=== PATIENT | female | born 1940 | race Caucasian/White ===

== ENCOUNTER 2021-10-14 12:15 | Emergency (ER) | payer MEDICARE, SELFPAY ==
[2021-10-14 12:19] VITALS: BP 145/66; PULSE 79; TEMP 36.3; O2SAT 96; BMI 27.2
--- NOTE | 2021-10-14 12:38 | ED_ITS ---
HPI - General Adult General Chief complaint: Skin/Abscess/Foreign Body Stated complaint: Cyst on hand Time Seen by Provider: 10/14/21 12:17 Source: patient Mode of arrival: ambulatory Limitations: no limitations History of Present Illness HPI narrative: Patient is a varinder 81-year-old female coming in today complaining of a red and swollen finger. States that 2 days started to get a little sore at the end of the finger in all fingers red and swollen. Denies any systemic symptoms. Denies any history of gout. Denies any trauma to the finger. Denies other painful extremities. Related Data Home Medications Medication Instructions Recorded Confirmed amlodipine 5 mg tablet 5 mg PO DAILY tab 10/12/21 10/12/21 aspirin 81 mg chewable tablet 81 mg PO QDAY 10/12/21 10/12/21 cetirizine 10 mg tablet 10 mg PO DAILY 10/12/21 10/12/21 ciclopirox 1 % shampoo 1 TOPICAL .2X Weekly 10/12/21 10/12/21 cyanocobalamin (vitamin B-12) 1,000 mcg PO DAILY 10/12/21 10/12/21 1,000 mcg tablet desonide 0.05 % topical ointment 1 applic TOPICAL BID g 10/12/21 10/12/21 estradiol 0.01% (0.1 mg/gram) 1 g VAGINAL .Weekly g 10/12/21 10/12/21 vaginal cream losartan 100 mg tablet 100 mg PO DAILY tab 10/12/21 10/12/21 loteprednol etabonate 0.5 % eye 0.5 drp OPHTHALMIC (EYE) 10/12/21 10/12/21 gel drops omega 7-gam-wcv-fish oil 300 1 cap PO QDAY 10/12/21 10/12/21 mg-1,000 mg capsule (Fish Oil) propafenone 150 mg tablet 150 mg PO TID 10/12/21 10/12/21 rosuvastatin 10 mg tablet 10 mg PO .Bedtime 10/12/21 10/12/21 tacrolimus 0.03 % topical ointment 1 TOPICAL PRN 10/12/21 10/12/21 triamcinolone acetonide 0.1 % 1 applic TOPICAL .Daily as needed 10/12/21 10/12/21 topical ointment PRN g valacyclovir 500 mg tablet 500 mg PO DAILY tab 10/12/21 10/12/21 Previous Rx's Medication Instructions Recorded cephalexin 500 mg capsule 500 mg PO TID 7 Days #21 cap 10/14/21 Allergies Allergy/AdvReac Type Severity Reaction Status Date / Time hydrochlorothiazide Allergy Intermediate Unknown Verified 10/12/21 10:27 trifluridine Allergy Intermediate Verified 10/12/21 10:27 atorvastatin Allergy Mild Unknown Verified 10/12/21 10:27 iodine Allergy Mild Unknown Verified 10/12/21 10:27 lisinopril Allergy Mild Unknown Verified 10/12/21 10:27 rofecoxib Allergy Mild Unknown Verified 10/12/21 10:27 simvastatin Allergy Mild Unknown Verified 10/12/21 10:27 formaldehyde Allergy Unknown Verified 10/12/21 10:27 hydrocortisone Allergy Unknown Verified 10/12/21 10:27 methylisothiazolinone Allergy Unknown Verified 10/12/21 10:27 neomycin Allergy Unknown Unknown Verified 10/12/21 10:27 propylene glycol Allergy Unknown Unknown Verified 10/12/21 10:27 sodium benzoate Allergy Unknown Verified 10/12/21 10:27 BENEDRYL Allergy Mild Unknown Uncoded 10/12/21 10:27 Benzophenone Allergy Unknown Unknown Uncoded 10/12/21 10:27 black rubber mix Allergy Unknown Uncoded 10/12/21 10:27 cobalt chloride hexahydrate Allergy Unknown Uncoded 10/12/21 10:27 Cocamide Allergy Unknown Uncoded 10/12/21 10:27 dibutyl phthalate Allergy Unknown Uncoded 10/12/21 10:27 disperse orange 3 Allergy Unknown Uncoded 10/12/21 10:27 DMDM Hydantoin Allergy Unknown Uncoded 10/12/21 10:27 dodecyl gallate Allergy Unknown Uncoded 10/12/21 10:27 ethyl acrylate Allergy Unknown Uncoded 10/12/21 10:27 ethylenediamine Allergy Unknown Uncoded 10/12/21 10:27 dihydrochloride glyceryl thioglycolate Allergy Unknown Uncoded 10/12/21 10:27 hydroperoxide of limonene Allergy Unknown Uncoded 10/12/21 10:27 hydroperoxide of linalool Allergy Unknown Uncoded 10/12/21 10:27 Lauryl Polyglucose Allergy Unknown Uncoded 10/12/21 10:27 lodopropynyl butylcarbamate Allergy Unknown Uncoded 10/12/21 10:27 mercapto mix Allergy Unknown Uncoded 10/12/21 10:27 nickel sulfate hexahydrate Allergy Unknown Uncoded 10/12/21 10:27 B-pelo-ruuuatgpcsz-formaldehyde Allergy Unknown Unknown Uncoded 10/12/21 10:27 resin (low molecular weight) Peppermint oil Allergy Unknown Unknown Uncoded 10/12/21 10:27 Shellac Allergy Unknown Unknown Uncoded 10/12/21 10:27 thiuram mix Allergy Unknown Uncoded 10/12/21 10:27 tixocortol 21 Pivalate Allergy Unknown Uncoded 10/12/21 10:27 Review of Systems Status of ROS: Reports: 6 or more systems reviewed and unremarkable except as noted in History and below [facility] Medical History History of keratitis History of thyroid nodule Surgical History History of bilateral tubal ligation (1970) History of incisional hernia repair (1970) History of phacoemulsification of cataract of both eyes with intraocular lens implantation (2016) History of tonsillectomy (~1940) History of total bilateral knee replacement (TKR) (2010) Family History Mother Stroke Coronary artery disease Diabetes Maternal Grandmother Stroke Maternal Grandfather Coronary artery disease Exam Narrative: Exam Narrative: Well-nourished well-developed patient in no acute distress. Alert and oriented. Answers questions appropriately. Mood and affect are appropriate. Thoughts are goal oriented and rational. No tangential or magical thinking noted. Patient speaks in full sentences without needing to catch their breath. HEENT: Normocephalic atraumatic. Pupils are equally round reactive to light. Extraocular muscles are intact. Conjunctivae are moist without any icterus noted. Extremities: Middle finger of the right hand is swollen, erythematous and warm to touch. The worst area is on the distal phalanx. The whole fingers quite tender. She has decreased range of motion secondary to the swelling. The remainder of the hand appears normal aside from some osteoarthritis of the fingers. Normal radial pulse. Const: Vital Signs, click to edit/add: Vital Signs - 24 hr 10/14/21 12:19 Temperature 97.4 F L Pulse Rate [Right Pulse Oximeter] 79 Blood Pressure [Le ft Upper Arm] 145/66 H Pulse Oximetry 96 Course Vital Signs Vital signs: Initial Vital Signs Temperature 97.4 F L 10/14/21 12:19 Temperature Source Temporal Artery Scan 10/14/21 12:19 Pulse Rate 79 10/14/21 12:19 Blood Pressure 145/66 H 10/14/21 12:19 Blood Pressure Mean 92 10/14/21 12:19 Blood Pressure Position Sitting 10/14/21 12:19 Pulse Oximetry 96 10/14/21 12:19 Oxygen Delivery Method 10/14/21 12:19 Vital Signs Temperature 97.4 F L 10/14/21 12:19 Pulse Rate 79 10/14/21 12:19 Blood Pressure 145/66 H 10/14/21 12:19 Pulse Oximetry 96 10/14/21 12:19 Temperature 97.4 F L 10/14/21 12:19 Pulse Rate 79 10/14/21 12:19 Blood Pressure 145/66 H 10/14/21 12:19 Pulse Oximetry 96 10/14/21 12:19 Medical Decision Making MDM Narrative Medical decision making narrative: 81-year-old female with probable cellulitis of the finger. I see no evidence of paronychia today. We did discuss the possibility of gout. At this time will treat with Keflex 3 times a day for a week if she is not seeing improvement in the next 48 hours recommend a re-evaluation. We also discussed return if she develops fever or any other systemic symptoms. Patient was agreeable had no other questions. Medical Records Medical records reviewed: Yes I reviewed the patient's medical records Discharge Plan Discharge Clinical Impression: Cellulitis Patient Disposition: Home, Self-Care Condition: Stable Instructions: Cellulitis (ED) Additional Instructions: Take all antibiotics as prescribed. Return in 48 hours if you are not seeing any improvement. Return sooner if it is getting worse. Prescriptions: New cephalexin 500 mg capsule 500 mg PO TID 7 Days Qty: 21 0RF No Action losartan 100 mg tablet 100 mg PO DAILY 0RF valacyclovir 500 mg tablet 500 mg PO DAILY 0RF amlodipine 5 mg tablet 5 mg PO DAILY 0RF cetirizine 10 mg tablet 10 mg PO DAILY 0RF cyanocobalamin (vitamin B-12) 1,000 mcg tablet 1,000 mcg PO DAILY 0RF omega 5-fwx-ogx-fish oil [Fish Oil] 300-1,000 mg capsule 1 cap PO QDAY 0RF propafenone 150 mg tablet 150 mg PO TID 0RF Rx Instructions: space evenly during waking hours estradiol 0.01 % (0.1 mg/gram) cream 1 g vaginal .Weekly 0RF Rx Instructions: Medication to be put into individually filled applicators. rosuvastatin 10 mg tablet 10 mg PO .Bedtime 0RF loteprednol etabonate 0.5 % drops,gel 0.5 drp ophthalmic (eye) 0RF aspirin 81 mg tablet,chewable 81 mg PO QDAY 0RF ciclopirox 1 % shampoo 1 topical .2X Weekly 0RF desonide 0.05 % ointment 1 applic topical BID 0RF triamcinolone acetonide 0.1 % ointment 1 applic topical .Daily as needed PRN0RF Rx Instructions: APPLY TO AFFECTED AREA tacrolimus 0.03 % ointment 1 topical PRN0RF Follow Up/Referrals: Marley Abrams MD [Primary Care Provider] - Stand Alone Forms: [facility] Info Instructions
== END 2021-10-14 13:05 | disposition home or self-care (01) ==
LOC: ED 13:05
PROVIDERS: Emergency Provider Family Medicine; PCP Internal Medicine
DX: L03.011 Cellulitis of right finger (principal)
CPT/HCPCS: 99282; 99283; 99284

== ENCOUNTER 2021-10-15 15:03 | Emergency (ER) | payer MEDICARE, SELFPAY ==
[2021-10-15 15:10] VITALS: BP 146/69; PULSE 81; RESP 18; TEMP 36.6; O2SAT 96; BMI 27.2
--- NOTE | 2021-10-15 15:40 | ED_ITS ---
HPI - General Adult General Time Seen by Provider: 15:40 Date Seen: 10/15/21 Chief complaint: Extremity Pain/Injury, Upper Stated complaint: Infected Finger Time Seen by Provider: 10/15/21 15:04 Source: patient Mode of arrival: ambulatory Limitations: no limitations History of Present Illness HPI narrative: The patient is a 81-year-old white female was seen yesterday for a finger infection, started on Keflex. She reports the fingers now have a little bit a white spot on it it is on the dorsum of the long finger on the right same as yesterday. She does know much him see much improvement from the Keflex. She has been uncertain tavarez this began in the 1st place no trauma or injury to the finger she up-to-date on immunizations by her history range of motion of the fingers limited. They plan on traveling the next few days and wants this checked Related Data Home Medications Medication Instructions Recorded Confirmed amlodipine 5 mg tablet 5 mg PO DAILY tab 10/12/21 10/12/21 aspirin 81 mg chewable tablet 81 mg PO QDAY 10/12/21 10/12/21 cetirizine 10 mg tablet 10 mg PO DAILY 10/12/21 10/12/21 ciclopirox 1 % shampoo 1 TOPICAL .2X Weekly 10/12/21 10/12/21 cyanocobalamin (vitamin B-12) 1,000 mcg PO DAILY 10/12/21 10/12/21 1,000 mcg tablet desonide 0.05 % topical ointment 1 applic TOPICAL BID g 10/12/21 10/12/21 estradiol 0.01% (0.1 mg/gram) 1 g VAGINAL .Weekly g 10/12/21 10/12/21 vaginal cream losartan 100 mg tablet 100 mg PO DAILY tab 10/12/21 10/12/21 loteprednol etabonate 0.5 % eye 0.5 drp OPHTHALMIC (EYE) 10/12/21 10/12/21 gel drops omega 9-eml-bpp-fish oil 300 1 cap PO QDAY 10/12/21 10/12/21 mg-1,000 mg capsule (Fish Oil) propafenone 150 mg tablet 150 mg PO TID 10/12/21 10/12/21 rosuvastatin 10 mg tablet 10 mg PO .Bedtime 10/12/21 10/12/21 tacrolimus 0.03 % topical ointment 1 TOPICAL PRN 10/12/21 10/12/21 triamcinolone acetonide 0.1 % 1 applic TOPICAL .Daily as needed 10/12/21 10/12/21 topical ointment PRN g valacyclovir 500 mg tablet 500 mg PO DAILY tab 10/12/21 10/12/21 Previous Rx's Medication Instructions Recorded cephalexin 500 mg capsule 500 mg PO TID 7 Days #21 cap 10/14/21 sulfamethoxazole 800 1 tab PO BID 7 Days #14 tab 10/15/21 mg-trimethoprim 160 mg tablet Allergies Allergy/AdvReac Type Severity Reaction Status Date / Time hydrochlorothiazide Allergy Intermediate Unknown Verified 10/12/21 10:27 trifluridine Allergy Intermediate Verified 10/12/21 10:27 atorvastatin Allergy Mild Unknown Verified 10/12/21 10:27 iodine Allergy Mild Unknown Verified 10/12/21 10:27 lisinopril Allergy Mild Unknown Verified 10/12/21 10:27 rofecoxib Allergy Mild Unknown Verified 10/12/21 10:27 simvastatin Allergy Mild Unknown Verified 10/12/21 10:27 formaldehyde Allergy Unknown Verified 10/12/21 10:27 hydrocortisone Allergy Unknown Verified 10/12/21 10:27 methylisothiazolinone Allergy Unknown Verified 10/12/21 10:27 neomycin Allergy Unknown Unknown Verified 10/12/21 10:27 propylene glycol Allergy Unknown Unknown Verified 10/12/21 10:27 sodium benzoate Allergy Unknown Verified 10/12/21 10:27 BENEDRYL Allergy Mild Unknown Uncoded 10/12/21 10:27 Benzophenone Allergy Unknown Unknown Uncoded 10/12/21 10:27 black rubber mix Allergy Unknown Uncoded 10/12/21 10:27 cobalt chloride hexahydrate Allergy Unknown Uncoded 10/12/21 10:27 Cocamide Allergy Unknown Uncoded 10/12/21 10:27 dibutyl phthalate Allergy Unknown Uncoded 10/12/21 10:27 disperse orange 3 Allergy Unknown Uncoded 10/12/21 10:27 DMDM Hydantoin Allergy Unknown Uncoded 10/12/21 10:27 dodecyl gallate Allergy Unknown Uncoded 10/12/21 10:27 ethyl acrylate Allergy Unknown Uncoded 10/12/21 10:27 ethylenediamine Allergy Unknown Uncoded 10/12/21 10:27 dihydrochloride glyceryl thioglycolate Allergy Unknown Uncoded 10/12/21 10:27 hydroperoxide of limonene Allergy Unknown Uncoded 10/12/21 10:27 hydroperoxide of linalool Allergy Unknown Uncoded 10/12/21 10:27 Lauryl Polyglucose Allergy Unknown Uncoded 10/12/21 10:27 lodopropynyl butylcarbamate Allergy Unknown Uncoded 10/12/21 10:27 mercapto mix Allergy Unknown Uncoded 10/12/21 10:27 nickel sulfate hexahydrate Allergy Unknown Uncoded 10/12/21 10:27 T-cthj-lqrpqljojdo-formaldehyde Allergy Unknown Unknown Uncoded 10/12/21 10:27 resin (low molecular weight) Peppermint oil Allergy Unknown Unknown Uncoded 10/12/21 10:27 Shellac Allergy Unknown Unknown Uncoded 10/12/21 10:27 thiuram mix Allergy Unknown Uncoded 10/12/21 10:27 tixocortol 21 Pivalate Allergy Unknown Uncoded 10/12/21 10:27 Review of Systems Status of ROS: Reports: 6 or more systems reviewed and unremarkable except as noted in History and below [facility] Medical History History of keratitis History of thyroid nodule Surgical History History of bilateral tubal ligation (1970) History of incisional hernia repair (1970) History of phacoemulsification of cataract of both eyes with intraocular lens implantation (2016) History of tonsillectomy (~1940) History of total bilateral knee replacement (TKR) (2010) Family History Mother Stroke Coronary artery disease Diabetes Maternal Grandmother Stroke Maternal Grandfather Coronary artery disease Social History Smoking Status: Never smoker Do you use any of these nicotine containing products: None Second hand tobacco smoke exposure: No How often do you have a drink containing alcohol: monthly or less How often do you have six or more drinks on one occasion: Never AUDIT-C Alcohol total score: 1 Non-prescribed substance use: denies use Exam Narrative: Exam Narrative: Objective: The long finger shows a pointing area purulence about the size of a pea on the top of the D IP joint there is no paronychia infection there is some generalized swelling and redness of the distal 2/3 of the finger range of motion limited secondary mild swelling no felon palpated no other open wounds or foreign bodies noted Procedure: After sterile scrub a 27 gauge needle was used to open the wound with a good amount of purulence expressed I was able to milk out the rest of the purulence from the finger and do a wound culture. Patient tolerated this well. The finger will be soaked in sterile solution for about 5 minutes and then covered with Telfa and a gauze. she reports she is up-to-date on immunizations by history. Const: Vital Signs, click to edit/add: Vital Signs - 24 hr 10/15/21 15:10 Temperature 97.9 F Pulse Rate [Pulse Oximeter] 81 Respiratory Rate 18 Blood Pressure [Le ft Upper Arm] 146/69 H Pulse Oximetry 96 Course Vital Signs Vital signs: Initial Vital Signs Temperature 97.9 F 10/15/21 15:10 Temperature Source Temporal Artery Scan 10/15/21 15:10 Pulse Rate 81 10/15/21 15:10 Respiratory Rate 18 10/15/21 15:10 Blood Pressure 146/69 H 10/15/21 15:10 Blood Pressure Mean 94 10/15/21 15:10 Blood Pressure Position Supine 10/15/21 15:10 Pulse Oximetry 96 10/15/21 15:10 Oxygen Delivery Method 10/15/21 15:10 Vital Signs Temperature 97.9 F 10/15/21 15:10 Pulse Rate 81 10/15/21 15:10 Respiratory Rate 18 10/15/21 15:10 Blood Pressure 146/69 H 10/15/21 15:10 Pulse Oximetry 96 10/15/21 15:10 Temperature 97.9 F 10/15/21 15:10 Pulse Rate 81 10/15/21 15:10 Respiratory Rate 18 10/15/21 15:10 Blood Pressure 146/69 H 10/15/21 15:10 Pulse Oximetry 96 10/15/21 15:10 Medical Decision Making MDM Narrative Medical decision making narrative: Patient has a small abscess in the finger that was opened and the purulence was expressed wound culture obtained. Will give her Rocephin 1 g IM and follow this with Septra DS 1 p.o. b.i.d. 10 for 7 days in case this would be a MRSA. Will have her continue the Keflex. I think now that it is opened this area can drain and I think it will heal, she is not improving next 12:48 p.m. recommend recheck. She was comfortable this will follow up as directed. Recommend soaking 3 to 5 times a day in soapy water. Discharge Plan Discharge Clinical Impression: Abscess of finger Patient Disposition: Home w/ Parent or Adult Condition: Improved Additional Instructions: Soak 3 times a day for 3 days in soapy water, continue Keflex, add Septra ds twice a day for 7 days. Get rechecked in 48 hours not better. Activity Level: Light activity Discharge Diet: Regular Prescriptions: New sulfamethoxazole-trimethoprim 800-160 mg tablet 1 tab PO BID 7 Days Qty: 14 0RF No Action losartan 100 mg tablet 100 mg PO DAILY 0RF valacyclovir 500 mg tablet 500 mg PO DAILY 0RF amlodipine 5 mg tablet 5 mg PO DAILY 0RF cetirizine 10 mg tablet 10 mg PO DAILY 0RF cyanocobalamin (vitamin B-12) 1,000 mcg tablet 1,000 mcg PO DAILY 0RF omega 1-jlg-fjh-fish oil [Fish Oil] 300-1,000 mg capsule 1 cap PO QDAY 0RF propafenone 150 mg tablet 150 mg PO TID 0RF Rx Instructions: space evenly during waking hours estradiol 0.01 % (0.1 mg/gram) cream 1 g vaginal .Weekly 0RF Rx Instructions: Medication to be put into individually filled applicators. rosuvastatin 10 mg tablet 10 mg PO .Bedtime 0RF loteprednol etabonate 0.5 % drops,gel 0.5 drp ophthalmic (eye) 0RF aspirin 81 mg tablet,chewable 81 mg PO QDAY 0RF ciclopirox 1 % shampoo 1 topical .2X Weekly 0RF desonide 0.05 % ointment 1 applic topical BID 0RF triamcinolone acetonide 0.1 % ointment 1 applic topical .Daily as needed PRN0RF Rx Instructions: APPLY TO AFFECTED AREA tacrolimus 0.03 % ointment 1 topical PRN0RF cephalexin 500 mg capsule 500 mg PO TID 7 Days Qty: 21 0RF Follow Up/Referrals: Marley Abrams MD [Primary Care Provider] - Stand Alone Forms: [facility] Info Instructions
[2021-10-15] MEDS: cefTRIAXone 1 GM VIAL IM (16:25)
[2021-10-15 16:35] VITALS: BP 148/96; PULSE 89; RESP 18; TEMP 36.6
== END 2021-10-15 16:35 | disposition home or self-care (01) ==
PROVIDERS: Emergency Provider Family Medicine; PCP Internal Medicine
DX: L02.511 Cutaneous abscess of right hand (principal)
CPT/HCPCS: 10060; 87070; 87186; 96372; 99283; A9270; J0696

== ENCOUNTER 2021-10-16 15:20 | Emergency (ER) | payer MEDICARE, SELFPAY ==
[2021-10-16 15:37] VITALS: BP 125/72; PULSE 76; RESP 16; TEMP 36.8; O2SAT 76; BMI 27.2
--- NOTE | 2021-10-16 17:06 | CRLHL7_ITS ---
For Patients: As a result of the Cures Act, medical imaging exams and procedure reports are released immediately into your electronic medical record. You may view this report before your referring provider. If you have questions, please contact your health care provider. Indication: Cellulitis Technique: Three views right finger Comparison: No comparison Findings: Normal alignment. Soft tissue swelling no erosive change or destructive bony change. No soft tissue gas. Probable arthritic changes at the distal interphalangeal joint. No fracture. Dictated by Katina Zepeda MD @ 10/16/2021 6:06:50 PM (Electronically Signed)
--- NOTE | 2021-10-16 17:17 | ED_ITS ---
HPI - Wound/Laceration General Time Seen by Provider: 16:50 Date Seen: 10/16/21 Chief Complaint: Laceration/Wound Stated Complaint: Infected Finger Time Seen by Provider: 10/16/21 16:56 Source: patient, family, RN notes reviewed and old records reviewed Mode of arrival: ambulatory Limitations: no limitations History of Present Illness HPI narrative: Patient is a very pleasant well-spoken 81-year-old female with history of hyperlipidemia multiple medication allergies as well as recent diagnosis of right 3rd finger cellulitis comes to the emergency room as she has experienced no improvement of the redness in her finger after being placed on Keflex and Bactrim and they are departing on a trip tomorrow. Patient is worried that finger may worsen while they were on a trip and they will be traveling into her remote area of [place]. Patient denies fever, chills, vomiting. She notes that initially this started off as a very small bump on her finger. She admits that she has a habit of picking at wounds and scabs. She notices that she also has a small bump on her left 3rd finger at this time. Patient does have some baseline dementia and at every subsequent encounter does relate the same story to me. They were able to get a culture yesterday. Lab notes that culture has come back as Staph aureus. Unfortunately no sensitivities at this time. Patient denies working in the garden, bug bites. She states that this cellulitis started out as a very small bump on her right finger. She notes that she does pick scabs and this is what she did to this ar ea. Related Data Home Medications Medication Instructions Recorded Confirmed amlodipine 5 mg tablet 5 mg PO DAILY tab 10/12/21 10/12/21 aspirin 81 mg chewable tablet 81 mg PO QDAY 10/12/21 10/12/21 cetirizine 10 mg tablet 10 mg PO DAILY 10/12/21 10/12/21 ciclopirox 1 % shampoo 1 TOPICAL .2X Weekly 10/12/21 10/12/21 cyanocobalamin (vitamin B-12) 1,000 mcg PO DAILY 10/12/21 10/12/21 1,000 mcg tablet desonide 0.05 % topical ointment 1 applic TOPICAL BID g 10/12/21 10/12/21 estradiol 0.01% (0.1 mg/gram) 1 g VAGINAL .Weekly g 10/12/21 10/12/21 vaginal cream losartan 100 mg tablet 100 mg PO DAILY tab 10/12/21 10/12/21 loteprednol etabonate 0.5 % eye 0.5 drp OPHTHALMIC (EYE) 10/12/21 10/12/21 gel drops omega 9-wtz-opa-fish oil 300 1 cap PO QDAY 10/12/21 10/12/21 mg-1,000 mg capsule (Fish Oil) propafenone 150 mg tablet 150 mg PO TID 10/12/21 10/12/21 rosuvastatin 10 mg tablet 10 mg PO .Bedtime 10/12/21 10/12/21 tacrolimus 0.03 % topical ointment 1 TOPICAL PRN 10/12/21 10/12/21 triamcinolone acetonide 0.1 % 1 applic TOPICAL .Daily as needed 10/12/21 10/12/21 topical ointment PRN g valacyclovir 500 mg tablet 500 mg PO DAILY tab 10/12/21 10/12/21 Previous Rx's Medication Instructions Recorded cephalexin 500 mg capsule 500 mg PO TID 7 Days #21 cap 10/14/21 sulfamethoxazole 800 1 tab PO BID 7 Days #14 tab 10/15/21 mg-trimethoprim 160 mg tablet Allergies Allergy/AdvReac Type Severity Reaction Status Date / Time hydrochlorothiazide Allergy Intermediate Unknown Verified 10/12/21 10:27 trifluridine Allergy Intermediate Verified 10/12/21 10:27 atorvastatin Allergy Mild Unknown Verified 10/12/21 10:27 iodine Allergy Mild Unknown Verified 10/12/21 10:27 lisinopril Allergy Mild Unknown Verified 10/12/21 10:27 rofecoxib Allergy Mild Unknown Verified 10/12/21 10:27 simvastatin Allergy Mild Unknown Verified 10/12/21 10:27 formaldehyde Allergy Unknown Verified 10/12/21 10:27 hydrocortisone Allergy Unknown Verified 10/12/21 10:27 methylisothiazolinone Allergy Unknown Verified 10/12/21 10:27 neomycin Allergy Unknown Unknown Verified 10/12/21 10:27 propylene glycol Allergy Unknown Unknown Verified 10/12/21 10:27 sodium benzoate Allergy Unknown Verified 10/12/21 10:27 BENEDRYL Allergy Mild Unknown Uncoded 10/12/21 10:27 Benzophenone Allergy Unknown Unknown Uncoded 10/12/21 10:27 black rubber mix Allergy Unknown Uncoded 10/12/21 10:27 cobalt chloride hexahydrate Allergy Unknown Uncoded 10/12/21 10:27 Cocamide Allergy Unknown Uncoded 10/12/21 10:27 dibutyl phthalate Allergy Unknown Uncoded 10/12/21 10:27 disperse orange 3 Allergy Unknown Uncoded 10/12/21 10:27 DMDM Hydantoin Allergy Unknown Uncoded 10/12/21 10:27 dodecyl gallate Allergy Unknown Uncoded 10/12/21 10:27 ethyl acrylate Allergy Unknown Uncoded 10/12/21 10:27 ethylenediamine Allergy Unknown Uncoded 10/12/21 10:27 dihydrochloride glyceryl thioglycolate Allergy Unknown Uncoded 10/12/21 10:27 hydroperoxide of limonene Allergy Unknown Uncoded 10/12/21 10:27 hydroperoxide of linalool Allergy Unknown Uncoded 10/12/21 10:27 Lauryl Polyglucose Allergy Unknown Uncoded 10/12/21 10:27 lodopropynyl butylcarbamate Allergy Unknown Uncoded 10/12/21 10:27 mercapto mix Allergy Unknown Uncoded 10/12/21 10:27 nickel sulfate hexahydrate Allergy Unknown Uncoded 10/12/21 10:27 J-tzis-wvgvbsnsvgv-formaldehyde Allergy Unknown Unknown Uncoded 10/12/21 10:27 resin (low molecular weight) Peppermint oil Allergy Unknown Unknown Uncoded 10/12/21 10:27 Shellac Allergy Unknown Unknown Uncoded 10/12/21 10:27 thiuram mix Allergy Unknown Uncoded 10/12/21 10:27 tixocortol 21 Pivalate Allergy Unknown Uncoded 10/12/21 10:27 Review of Systems Narrative: Patient denies vomiting, chills, fever, drainage from this wound. [facility] Medical History History of keratitis History of thyroid nodule Surgical History History of bilateral tubal ligation (1970) History of incisional hernia repair (1970) History of phacoemulsification of cataract of both eyes with intraocular lens implantation (2016) History of tonsillectomy (~1940) History of total bilateral knee replacement (TKR) (2010) Family History Mother Stroke Coronary artery disease Diabetes Maternal Grandmother Stroke Maternal Grandfather Coronary artery disease Social History Smoking Status: Never smoker Do you use any of these nicotine containing products: None Second hand tobacco smoke exposure: No How often do you have a drink containing alcohol: monthly or less How often do you have six or more drinks on one occasion: Never AUDIT-C Alcohol total score: 1 Non-prescribed substance use: denies use service: No Exam Const: Vital Signs, click to edit/add: Vital Signs - 24 hr 10/16/21 15:37 10/16/21 18:47 10/16/21 22:15 Temperature 98.2 F 98.2 F Pulse Rate Pulse Rate [Right Pulse Oximeter] 76 70 Respiratory Rate 16 16 Blood Pressure Blood Pressure [Ri ght Upper Arm] 125/72 119/78 115/74 Pulse Oximetry 76 L 98 10/16/21 22:58 Temperature 98.2 F Pulse Rate 70 Pulse Rate [Right Pulse Oximeter] Respiratory Rate 16 Blood Pressure 114/71 Blood Pressure [Ri ght Upper Arm] Pulse Oximetry Patient is alert and oriented. However, she is repetitive in her questioning what we are dealing with here what my plans are and why she has gotten an infection. Patient is without respiratory distress. Examination of her right 3rd finger shows a scabbed area just distal to the dorsal aspect of the 3rd finger DI P. She has what appears to be fluctuance there and over the mid aspect of the phalanx. She has some mild erythema extending onto the proximal phalanx. She is able to flex and extend without difficulty. On her left finger she has a small nodule approximate 2 mm that is flesh colored. Documenting provider has reviewed patient's vital signs: yes Course Course Hospital Course: At this time as patient states she is not feeling better and I actually note worsening of the redness extending on to the proximal phalanx we will get a CBC, basic, x-ray. Patient is agreeable to this plan. Reevaluation(s) Reevaluation #1: At this time white count is reassuring but CRP is elevated. X-ray is without evidence of underlying bony involvement. Do speak with patient about incision and drainage of this area. Informed consent after discussion of risks benefits accomplished. Consultations Consultation #1: Orthopedics consult in regards to this patient. Will be seeing her tomorrow in follow-up. Vital Signs Vital signs: Initial Vital Signs Temperature 98.2 F 10/16/21 15:37 Temperature Source Temporal Artery Scan 10/16/21 15:37 Pulse Rate 76 10/16/21 15:37 Pulse Rhythm 10/16/21 15:37 Respiratory Rate 16 10/16/21 15:37 Blood Pressure 125/72 10/16/21 15:37 Blood Pressure Mean 89 10/16/21 15:37 Blood Pressure Position Sitting 10/16/21 15:37 Pulse Oximetry 76 L 10/16/21 15:37 Oxygen Delivery Method 10/16/21 15:37 Vital Signs Temperature 98.2 F 10/16/21 15:37 Pulse Rate 76 10/16/21 15:37 Respiratory Rate 16 10/16/21 15:37 Blood Pressure 125/72 10/16/21 15:37 Pulse Oximetry 76 L 10/16/21 15:37 Temperature 98.2 F 10/16/21 22:58 Pulse Rate 70 10/16/21 22:58 Respiratory Rate 16 10/16/21 22:58 Blood Pressure 114/71 10/16/21 22:58 Pulse Oximetry 98 10/16/21 22:15 MDM - Wound/Laceration MDM Narrative Medical decision making narrative: 1. Cellulitis-patient has reassuring white count but her CRP is elevated. An IandD was unsuccessful at draining any fluid. Patient was initially given Rocephin 1 g IM. I did note upon discharge however patient did have some erythema extending onto the dorsum of her right hand. It was also warm to the touch. I spoke about having patient stay overnight with IV antibiotics but she was adamant that she wanted to go home. Thus she was given vancomycin 1.25 g IV. Surprisingly she had improvement of her right hand redness. Patient will be called by Orthopedics tomorrow. A number for her to call if she has not contacted by 1000 hours is given to her as well. Patient should return for any worsening symptoms overnight. 2. Memory difficulties-this is not new per . 3. Disposition-patient is discharged home in the care of her . Reminder to return to the emergency room for vomiting, fever, any worsening symptoms and as needed. Medical Records Attestation: I reviewed the patient's medical records. Lab Data Attestation: I reviewed the patient's lab results. Labs: Lab Results 10/16/21 10/16/21 Range/Units 17:20 17:20 WBC 7.45 (4.50-11.00) K/uL RBC 4.35 (4.00-5.20) m/uL Hgb 13.8 (12.0-16.0) gm/dL Hct 41.5 (33.0-51.0) % MCV 95 (80-100) fL MCH 32 (26-34) pg MCHC 33 (32-36) gm/dL RDW Coeff of Adele 12.5 (11.5-15.5) % Plt Count 306 (140-440) K/uL Neut % (Auto) 72.5 H (42.0-72.0) % Lymph % (Auto) 18.4 L (20-44) % [place] % (Auto) 8.2 (0.0-11.0) % Eos % (Auto) 0.3 (0.0-7.0) % Baso % (Auto) 0.5 (0.0-3.0) % Neut # (Auto) 5.40 (1.7-7.0) K/uL Lymph # (Auto) 1.40 (0.90-2.90) K/uL [place] # (Auto) 0.60 (0.00-0.90) K/UL Eos # (Auto) 0.02 (0.00-0.50) K/uL Baso # (Auto) 0.04 (0.00-0.30) K/uL Abs Immat Gran (auto) 0.01 (0.00-0.30) K/uL Sodium 137 (135-149) mmol/L Potassium 3.9 (3.6-5.1) mmol/L Chloride 102 (96-114) mmol/L Carbon Dioxide 27 (20-32) mmol/L BUN 18 (7-30) mg/dL Creatinine 1.1 (0.5-1.5) mg/dL Estimated Creat Clear 29.75 Estimated GFR 50 ml/min Glucose 105 (60-115) mg/dL Calcium 10.4 (8.4-10.6) mg/dL C-Reactive Protein 6.1 H (0.5-1.0) mg/dL Imaging Data Third finger x-ray: Attestation: I have reviewed the pertinent imaging results. My impression: No underlying bony abnormality. Radiologist's impression: No evidence of osteomyelitis Discharge Plan Discharge Clinical Impression: Cellulitis Patient Disposition: Home, Self-Care Condition: Unchanged Additional Instructions: Await phone call from Orthopedics. We will set you up with an appointment tomorrow to see how you are doing. Continue to take your cephalexin also known as Keflex and Septra. If you have worsening redness, fever, vomiting return to the emergency room tonight. If you do not hear from ortho by 10 am, call [phone] for appointment Prescriptions: No Action losartan 100 mg tablet 100 mg PO DAILY 0RF valacyclovir 500 mg tablet 500 mg PO DAILY 0RF amlodipine 5 mg tablet 5 mg PO DAILY 0RF cetirizine 10 mg tablet 10 mg PO DAILY 0RF cyanocobalamin (vitamin B-12) 1,000 mcg tablet 1,000 mcg PO DAILY 0RF omega 5-zya-eny-fish oil [Fish Oil] 300-1,000 mg capsule 1 cap PO QDAY 0RF propafenone 150 mg tablet 150 mg PO TID 0RF Rx Instructions: space evenly during waking hours estradiol 0.01 % (0.1 mg/gram) cream 1 g vaginal .Weekly 0RF Rx Instructions: Medication to be put into individually filled applicators. rosuvastatin 10 mg tablet 10 mg PO .Bedtime 0RF loteprednol etabonate 0.5 % drops,gel 0.5 drp ophthalmic (eye) 0RF aspirin 81 mg tablet,chewable 81 mg PO QDAY 0RF ciclopirox 1 % shampoo 1 topical .2X Weekly 0RF desonide 0.05 % ointment 1 applic topical BID 0RF triamcinolone acetonide 0.1 % ointment 1 applic topical .Daily as needed PRN0RF Rx Instructions: APPLY TO AFFECTED AREA tacrolimus 0.03 % ointment 1 topical PRN0RF sulfamethoxazole-trimethoprim 800-160 mg tablet 1 tab PO BID 7 Days Qty: 14 0RF cephalexin 500 mg capsule 500 mg PO TID 7 Days Qty: 21 0RF Follow Up/Referrals: Marley Abrams MD [Primary Care Provider] - Stand Alone Forms: [facility] Info Instructions Procedures I/D Type: abscess Site: finger (Right 3rd finger) Pre procedure diagnosis: Right 3rd finger cellulitis questionable abscess Post procedure diagnosis: Right 3rd finger cellulitis Written consent by: patient and guardian Verification/time out: correct patient, correct site, correct procedure and time out performed Name of person performing procedure: Radha Cardenas Anesthesia I&D: lidocaine 1% Amount of anesthesia used (mls): 0.5 Side (if applicable): right Amount of fluid expressed (mL): 0 Estimated blood loss (if any): less than 5mls Specimens removed (if any): No purulent fluid noted Conclusion: patient tolerated procedure
[2021-10-16 17:25] LABS: Basophils Absolute Auto 0.04 K/uL (0.00-0.30); Basophils Percent Auto 0.5 % (0.0-3.0); Eosinophils Absolute Auto 0.02 K/uL (0.00-0.50); Eosinophils Percent Auto 0.3 % (0.0-7.0); Hematocrit 41.5 % (33.0-51.0); Hemoglobin* 13.8 gm/dL (12.0-16.0); Immature Granulocytes Abs Auto 0.01 K/uL (0.00-0.30); Lymphocytes Percent Auto 18.4 % (20-44); Mean Corpuscular HGB Conc 33 gm/dL (32-36); Mean Corpuscular Hemoglobin 32 pg (26-34); Mean Corpuscular Volume 95 fL (80-100); Monocytes Percent Auto 8.2 % (0.0-11.0); Neutrophils Percent Auto 72.5 % (42.0-72.0); Platelet Count* 306 K/uL (140-440); RDW Coefficient of Variation % 12.5 % (11.5-15.5); Red Blood Count 4.35 m/uL (4.00-5.20); White Blood Count* 7.45 K/uL (4.50-11.00)
[2021-10-16 17:32] LABS: Slide Review Reflex No
[2021-10-16 17:47] LABS: Chloride* 102 mmol/L (96-114); Potassium* 3.9 mmol/L (3.6-5.1); Sodium* 137 mmol/L (135-149)
[2021-10-16 17:49] LABS: Creatinine* 1.1 mg/dL (0.5-1.5); Est. Creatinine Clearance* 29.75; Estimated Glomerular Filt Rate 50 ml/min
[2021-10-16 17:50] LABS: Blood Urea Nitrogen* 18 mg/dL (7-30); Carbon Dioxide* 27 mmol/L (20-32); Glucose* 105 mg/dL (60-115)
[2021-10-16 17:51] LABS: Calcium* 10.4 mg/dL (8.4-10.6)
[2021-10-16 17:53] LABS: C Reactive Protein* 6.1 mg/dL (0.5-1.0)
[2021-10-16 18:47] VITALS: BP 119/78
[2021-10-16] MEDS: cefTRIAXone 1 GM VIAL IM (20:32)
[2021-10-16] MEDS: LIDOCAINE 1% 5 ml (pf) 5 ML VIAL 1 ML SUBD (20:32)
[2021-10-16 22:15] VITALS: BP 115/74; PULSE 70; RESP 16; TEMP 36.8; O2SAT 98
[2021-10-16 22:58] VITALS: BP 114/71; PULSE 70; RESP 16; TEMP 36.8
== END 2021-10-16 22:58 | disposition home or self-care (01) ==
LOC: ED 17:08 → ED2 19:39 → ED 20:13
PROVIDERS: Emergency Provider Family Medicine; PCP Internal Medicine
DX: L02.511 Cutaneous abscess of right hand (principal)
CPT/HCPCS: 10060; 36415; 73140; 80048; 85025; 86140; 96365; 96372; 99283; J0696; J3370; J7050

== ENCOUNTER 2021-10-19 11:51 | Day surgery (SDC) | payer MEDICARE, SELFPAY ==
[2021-10-19] VITALS (11 sets, daily range): BP systolic 120–153; BP diastolic 55–71; PULSE 69–105; RESP 16–18; TEMP 36.4; O2SAT 91–99; BMI 27.8
[2021-10-19] MEDS: CEFAZOLIN 2 GM INJ IVP (13:53)
[2021-10-19] MEDS: lidocaine HCL 2 % MULTIDOSE 20 ML VIAL INJECTION (13:55)
[2021-10-19] MEDS: BUPIVACAINE 0.5% 30 ML INJECTION (13:55)
--- NOTE | 2021-10-19 14:25 | P.ORPRC_ITS ---
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 She scratched the cyst with her finger, opening it and causing an infection. This has not responded well to oral antibiotics. Therefore, I and D was recommended. The risks, benefits alternatives and expected outcomes were discussed in detail. These included but were not limited to: Infection, bleeding, injury to blood vessel or nerve, venous thromboembolism. All questions were answered to their satisfaction. The patient was placed supine on the operating room table. Local anesthesia was established with a digital block using 0.5% Marcaine without epinephrine and 2% lidocaine without epinephrine. The hand was prepped and draped in usual sterile fashion. The finger was exsanguinated, a quarter-inch [place] was used at the base of the finger as a tourniquet. A Aicha incision was made over the dorsum of the DIP joint. Tenotomy scissors were used for deep dissection down to the extensor mechanism. A full-thickness skin flap was elevated. There was significant epidermal lysis from cellulitis. The epidermis sloughed and was debrided with the tenotomy scissors. The radial and ulnar side of the joint was entered with the 15 blade. Fibrinous exudate was encountered, without gross purulence. The Lempert rongeur was used to debride the corner of the middle phalanx and base of the distal phalanx to decompress the joint on both sides of the extensor mechanism. for the EDC insertion was tenuous from the infection, but intact at the end of the case. The wound was irrigated with normal saline. It was closed with a 3-0 nylon in an interrupted fashion. A soft dressing was applied. The [place] was released. Sponge and needle counts were correct x 2. The patient tolerated the procedure well, there were no apparent complications. They were sent to same day surgery in satisfactory condition. Plan: Use of the hand as tolerates. Discontinue the intraoperative dressing on postoperative day 3 and may get the wound wet as tolerates. The patient is already on an appropriate course of antibiotics. Follow up in the office in 2-3 weeks for a wound check and suture removal.
== END 2021-10-19 15:00 | disposition home or self-care (01) ==
PROVIDERS: PCP Internal Medicine; Visit Provider Orthopaedic Surgery
PROC: 0HQQXZZ Repair Finger Nail, External Approach (ICD-10-PCS; CPT 11760; principal; 2021-10-19 13:15)
DX: M00.041 Staphylococcal arthritis, right hand (principal); B95.61 Methicillin susceptible Staphylococcus aureus infection as the cause of diseases classified elsewhere
CPT/HCPCS: 26160; J0690; J3490

== ENCOUNTER 2021-10-20 20:02 | Emergency (ER) | payer MEDICARE, SELFPAY ==
[2021-10-20 20:15] VITALS: BP 143/82; PULSE 85; RESP 14; TEMP 36.2; O2SAT 96
--- NOTE | 2021-10-20 20:28 | ED_ITS ---
HPI - General Adult General Time Seen by Provider: 20:28 Date Seen: 10/20/21 Chief complaint: Post Op Complication Stated complaint: post op wound check Time Seen by Provider: 10/20/21 20:28 Source: patient History of Present Illness HPI narrative: Krupa is a 81 year old female past medical history of mild cognitive impairment, hyperlipidemia, recent finger cellulitis presents emerged department for a postop complication. Patient was seen in the emergency department on 10/16 being put on Bactrim and Keflex for a presumed cellulitis of her right long finger, infection worsened and she was seen by Dr. Hamilton, infection was brought on by a mucous cyst that got infected, concerns for a septic arthritis he went ahead and did a incision and drainage with a joint debridement on 10/19. Patient is currently still on Bactrim and Keflex, wound cultures on the showed Staph aureus in sensitivity for pansensitive. Patient was instructed to take bandage off over 3 days, she took, today noticed increased redness and swelling. She denies any fevers and has minimal pain to the area, they were not had any bleeding or discharge. Patient has no other concerns at this time, she is going to [place] tomorrow for 2 weeks. And wanted to get it checked out Related Data Home Medications Medication Instructions Recorded Confirmed amlodipine 5 mg tablet 5 mg PO DAILY tab 10/12/21 10/19/21 aspirin 81 mg chewable tablet 81 mg PO QDAY 10/12/21 10/19/21 cetirizine 10 mg tablet 10 mg PO DAILY 10/12/21 10/19/21 ciclopirox 1 % shampoo 1 TOPICAL .2X Weekly 10/12/21 10/18/21 cyanocobalamin (vitamin B-12) 1,000 mcg PO DAILY 10/12/21 10/19/21 1,000 mcg tablet desonide 0.05 % topical ointment 1 applic TOPICAL BID g 10/12/21 10/19/21 estradiol 0.01% (0.1 mg/gram) 1 g VAGINAL .Weekly g 10/12/21 10/19/21 vaginal cream losartan 100 mg tablet 100 mg PO DAILY tab 10/12/21 10/19/21 loteprednol etabonate 0.5 % eye 0.5 drp OPHTHALMIC (EYE) 10/12/21 10/18/21 gel drops omega 7-xce-fcm-fish oil 300 1 cap PO QDAY 10/12/21 10/19/21 mg-1,000 mg capsule (Fish Oil) propafenone 150 mg tablet 150 mg PO TID 10/12/21 10/19/21 rosuvastatin 10 mg tablet 10 mg PO .Bedtime 10/12/21 10/19/21 tacrolimus 0.03 % topical ointment 1 TOPICAL PRN 10/12/21 10/18/21 triamcinolone acetonide 0.1 % 1 applic TOPICAL .Daily as needed 10/12/21 10/19/21 topical ointment PRN g valacyclovir 500 mg tablet 500 mg PO DAILY tab 10/12/21 10/19/21 Previous Rx's Medication Instructions Recorded cephalexin 500 mg capsule 500 mg PO TID 7 Days #21 cap 10/14/21 sulfamethoxazole 800 1 tab PO BID 7 Days #14 tab 10/15/21 mg-trimethoprim 160 mg tablet cephalexin 500 mg capsule 500 mg PO QID #40 cap 10/18/21 sulfamethoxazole 800 1 tab PO BID #20 tab 10/18/21 mg-trimethoprim 160 mg tablet (Bactrim DS) oxycodone-acetaminophen 5 mg-325 1 tab PO Q4-6H PRN #10 tab 10/19/21 mg tablet (Percocet) sulfamethoxazole 800 1 tab PO Q12H 5 Days #10 tab 10/20/21 mg-trimethoprim 160 mg tablet (Bactrim DS) Allergies Allergy/AdvReac Type Severity Reaction Status Date / Time hydrochlorothiazide Allergy Intermediate Unknown Verified 10/19/21 12:06 trifluridine Allergy Intermediate Verified 10/19/21 12:06 atorvastatin Allergy Mild Unknown Verified 10/19/21 12:06 iodine Allergy Mild Unknown Verified 10/19/21 12:06 lisinopril Allergy Mild Unknown Verified 10/19/21 12:06 rofecoxib Allergy Mild Unknown Verified 10/19/21 12:06 simvastatin Allergy Mild Unknown Verified 10/19/21 12:06 formaldehyde Allergy Unknown Verified 10/19/21 12:06 hydrocortisone Allergy Unknown Verified 10/19/21 12:06 methylisothiazolinone Allergy Unknown Verified 10/19/21 12:06 neomycin Allergy Unknown Unknown Verified 10/19/21 12:06 propylene glycol Allergy Unknown Unknown Verified 10/19/21 12:06 sodium benzoate Allergy Unknown Verified 10/19/21 12:06 BENEDRYL Allergy Mild Unknown Uncoded 10/19/21 12:06 Benzophenone Allergy Unknown Unknown Uncoded 10/19/21 12:06 black rubber mix Allergy Unknown Uncoded 10/19/21 12:06 cobalt chloride hexahydrate Allergy Unknown Uncoded 10/19/21 12:06 Cocamide Allergy Unknown Uncoded 10/19/21 12:06 dibutyl phthalate Allergy Unknown Uncoded 10/19/21 12:06 disperse orange 3 Allergy Unknown Uncoded 10/19/21 12:06 DMDM Hydantoin Allergy Unknown Uncoded 10/19/21 12:06 dodecyl gallate Allergy Unknown Uncoded 10/19/21 12:06 ethyl acrylate Allergy Unknown Uncoded 10/19/21 12:06 ethylenediamine Allergy Unknown Uncoded 10/19/21 12:06 dihydrochloride glyceryl thioglycolate Allergy Unknown Uncoded 10/19/21 12:06 hydroperoxide of limonene Allergy Unknown Uncoded 10/19/21 12:06 hydroperoxide of linalool Allergy Unknown Uncoded 10/19/21 12:06 Lauryl Polyglucose Allergy Unknown Uncoded 10/19/21 12:06 lodopropynyl butylcarbamate Allergy Unknown Uncoded 10/19/21 12:06 mercapto mix Allergy Unknown Uncoded 10/19/21 12:06 nickel sulfate hexahydrate Allergy Unknown Uncoded 10/19/21 12:06 F-agsr-kwmcvqlnwhl-formaldehyde Allergy Unknown Unknown Uncoded 10/19/21 12:06 resin (low molecular weight) Peppermint oil Allergy Unknown Unknown Uncoded 10/19/21 12:06 Shellac Allergy Unknown Unknown Uncoded 10/19/21 12:06 thiuram mix Allergy Unknown Uncoded 10/19/21 12:06 tixocortol 21 Pivalate Allergy Unknown Uncoded 10/19/21 12:06 Review of Systems Status of ROS: Reports: 10 or more systems reviewed and unremarkable except as noted in History and below [facility] Medical History History of keratitis History of thyroid nodule Surgical History History of bilateral tubal ligation (1970) History of incisional hernia repair (1970) History of phacoemulsification of cataract of both eyes with intraocular lens implantation (2017) History of tonsillectomy (~1940) History of total bilateral knee replacement (TKR) (2010) Family History Mother Stroke Coronary artery disease Diabetes Maternal Grandmother Stroke Maternal Grandfather Coronary artery disease Social History Smoking Status: Never smoker Do you use any of these nicotine containing products: None Second hand tobacco smoke exposure: No How often do you have a drink containing alcohol: monthly or less How often do you have six or more drinks on one occasion: Never AUDIT-C Alcohol total score: 1 Non-prescribed substance use: denies use service: No Exam Narrative: Exam Narrative: General: No obvious distress, nontoxic in appearance HEENT: Pupils equal round reactive to light, extraocular muscles intact Lungs: Clear to auscultation bilaterally Heart: S1-S2, normal sinus rhythm Abdomen: Soft nontender Extremities: Right hand: Right long finger: Increased erythema with dorsal swelling from the PIP to DIP, patient does have range of motion on flexion and extension, sutures are in place, no drainage or bleeding. Minimal tenderness to palpation. Nail plate intact. Const: Vital Signs, click to edit/add: Vital Signs - 24 hr 10/20/21 20:15 Temperature 97.2 F L Pulse Rate [Left P ulse Oximeter] 85 Respiratory Rate 14 Blood Pressure [Le ft Upper Arm] 143/82 H Pulse Oximetry 96 Course Course Hospital Course: 8:30 PM:AIDET performed, vitals show no fever, vitals otherwise normal, workup will include CBC and CRP, recent wound culture showed Staph aureus sensitive to her current antibiotic regimen, though reach out to Orthopedics for any recommendations. And placed dressing changes. Patient is in agreement. Reevaluation(s) Reevaluation #1: Patient was updated on her lab results, CBC showed no leukocytosis, CRP was negative, spoke with Kevin MARTÍNEZ from orthopedics, plan would be to continue with her Bactrim DS due to culture sensitivity for additional 5 days. Dressing was applied for additional 2 days, she should continue with elevation and be seen if any changes over the next 2-3 days, patient had time to ask questions. She is ready for discharge Vital Signs Vital signs: Initial Vital Signs Temperature 97.2 F L 10/20/21 20:15 Temperature Source Temporal Artery Scan 10/20/21 20:15 Pulse Rate 85 10/20/21 20:15 Pulse Rhythm 10/20/21 20:15 Respiratory Rate 14 10/20/21 20:15 Blood Pressure 143/82 H 10/20/21 20:15 Blood Pressure Mean 102 10/20/21 20:15 Blood Pressure Position Sitting 10/20/21 20:15 Pulse Oximetry 96 10/20/21 20:15 Oxygen Delivery Method 10/20/21 20:15 Vital Signs Temperature 97.2 F L 10/20/21 20:15 Pulse Rate 85 10/20/21 20:15 Respiratory Rate 14 10/20/21 20:15 Blood Pressure 143/82 H 10/20/21 20:15 Pulse Oximetry 96 10/20/21 20:15 Temperature 97.2 F L 10/20/21 20:15 Pulse Rate 85 10/20/21 20:15 Respiratory Rate 14 10/20/21 20:15 Blood Pressure 143/82 H 10/20/21 20:15 Pulse Oximetry 96 10/20/21 20:15 Medical Decision Making Lab Data Labs: Lab Results 10/20/21 10/20/21 Range/Units 20:43 20:59 WBC 5.49 (4.50-11.00) K/uL RBC 4.12 (4.00-5.20) m/uL Hgb 13.1 (12.0-16.0) gm/dL Hct 39.3 (33.0-51.0) % MCV 95 (80-100) fL MCH 32 (26-34) pg MCHC 33 (32-36) gm/dL RDW Coeff of Adele 12.6 (11.5-15.5) % Plt Count 365 (140-440) K/uL Neut % (Auto) 64.1 (42.0-72.0) % Lymph % (Auto) 23.7 (20-44) % Simpson % (Auto) 10.4 (0.0-11.0) % Eos % (Auto) 1.1 (0.0-7.0) % Baso % (Auto) 0.5 (0.0-3.0) % Neut # (Auto) 3.52 (1.7-7.0) K/uL Lymph # (Auto) 1.30 (0.90-2.90) K/uL Simpson # (Auto) 0.60 (0.00-0.90) K/UL Eos # (Auto) 0.06 (0.00-0.50) K/uL Baso # (Auto) 0.03 (0.00-0.30) K/uL Abs Immat Gran (auto) 0.01 (0.00-0.30) K/uL C-Reactive Protein 0.8 (0.5-1.0) mg/dL Discharge Plan Discharge Clinical Impression: Septic arthritis of interphalangeal joint of finger of right hand, Post-op pain Patient Disposition: Home, Self-Care Instructions: Pain Management in Older Adults (DC), Pain Management After Surgery (DC) Activity Level: Activity as Tolerated Prescriptions: New sulfamethoxazole-trimethoprim [Bactrim DS] 800-160 mg tablet 1 tab PO Q12H 5 Days Qty: 10 0RF No Action losartan 100 mg tablet 100 mg PO DAILY 0RF valacyclovir 500 mg tablet 500 mg PO DAILY 0RF amlodipine 5 mg tablet 5 mg PO DAILY 0RF cetirizine 10 mg tablet 10 mg PO DAILY 0RF cyanocobalamin (vitamin B-12) 1,000 mcg tablet 1,000 mcg PO DAILY 0RF omega 7-edj-txa-fish oil [Fish Oil] 300-1,000 mg capsule 1 cap PO QDAY 0RF propafenone 150 mg tablet 150 mg PO TID 0RF Rx Instructions: space evenly during waking hours estradiol 0.01 % (0.1 mg/gram) cream 1 g vaginal .Weekly 0RF Rx Instructions: Medication to be put into individually filled applicators. rosuvastatin 10 mg tablet 10 mg PO .Bedtime 0RF loteprednol etabonate 0.5 % drops,gel 0.5 drp ophthalmic (eye) 0RF aspirin 81 mg tablet,chewable 81 mg PO QDAY 0RF ciclopirox 1 % shampoo 1 topical .2X Weekly 0RF desonide 0.05 % ointment 1 applic topical BID 0RF triamcinolone acetonide 0.1 % ointment 1 applic topical .Daily as needed PRN0RF Rx Instructions: APPLY TO AFFECTED AREA tacrolimus 0.03 % ointment 1 topical PRN0RF sulfamethoxazole-trimethoprim [Bactrim DS] 800-160 mg tablet 1 tab PO BID Qty: 20 0RF cephalexin 500 mg capsule 500 mg PO QID Qty: 40 0RF sulfamethoxazole-trimethoprim 800-160 mg tablet 1 tab PO BID 7 Days Qty: 14 0RF cephalexin 500 mg capsule 500 mg PO TID 7 Days Qty: 21 0RF oxycodone-acetaminophen [Percocet] 5-325 mg tablet 1 tab PO Q4-6H PRN (Reason: pain) Qty: 10 0RF Follow Up/Referrals: Marley Abrams MD [Primary Care Provider] - Stand Alone Forms: [facility] Info Instructions
[2021-10-20 21:11] LABS: Basophils Absolute Auto 0.03 K/uL (0.00-0.30); Basophils Percent Auto 0.5 % (0.0-3.0); Eosinophils Absolute Auto 0.06 K/uL (0.00-0.50); Eosinophils Percent Auto 1.1 % (0.0-7.0); Hematocrit 39.3 % (33.0-51.0); Hemoglobin* 13.1 gm/dL (12.0-16.0); Immature Granulocytes Abs Auto 0.01 K/uL (0.00-0.30); Lymphocytes Percent Auto 23.7 % (20-44); Mean Corpuscular HGB Conc 33 gm/dL (32-36); Mean Corpuscular Hemoglobin 32 pg (26-34); Mean Corpuscular Volume 95 fL (80-100); Monocytes Percent Auto 10.4 % (0.0-11.0); Neutrophils Absolute Auto 3.52 K/uL (1.7-7.0); Neutrophils Percent Auto 64.1 % (42.0-72.0); Platelet Count* 365 K/uL (140-440); RDW Coefficient of Variation % 12.6 % (11.5-15.5); Red Blood Count 4.12 m/uL (4.00-5.20); White Blood Count* 5.49 K/uL (4.50-11.00)
[2021-10-20 21:15] LABS: Slide Review Reflex No
[2021-10-20 21:29] LABS: C Reactive Protein* 0.8 mg/dL (0.5-1.0)
== END 2021-10-20 22:04 | disposition home or self-care (01) ==
PROVIDERS: Emergency Provider Student in an Organized Health Care Education/Training Program; PCP Internal Medicine
DX: M00.041 Staphylococcal arthritis, right hand (principal); B95.61 Methicillin susceptible Staphylococcus aureus infection as the cause of diseases classified elsewhere
CPT/HCPCS: 36415; 85025; 86140; 99282; 99283; 99284

== ENCOUNTER 2021-10-22 17:37 | Emergency (ER) | payer MEDICARE, SELFPAY ==
[2021-10-22 18:14] VITALS: BP 124/63; PULSE 78; RESP 18; TEMP 36.2; O2SAT 97
--- NOTE | 2021-10-22 18:35 | ED.GENADULT ---
HPI - General Adult General Date Seen: 10/22/21 Chief complaint: Laceration/Wound Stated complaint: Finger Swelling Time Seen by Provider: 10/22/21 18:02 Source: patient History of Present Illness HPI narrative: 81-year-old female presents for recheck of her finger. She had an infected D IP joint on her right middle finger. Three days ago this was debrided by Dr. Hamilton. She has been on cephalexin and sulfa tram for treatment of this. Cultures show MSSA. She is here today because she is concerned that she is taking a trip to [place] tomorrow and wants to make sure it will be okay. She is not having any fever. She is unsure if there is more swelling in her finger. Related Data Home Medications Medication Instructions Recorded Confirmed amlodipine 5 mg tablet 5 mg PO DAILY tab 10/12/21 10/19/21 aspirin 81 mg chewable tablet 81 mg PO QDAY 10/12/21 10/19/21 cetirizine 10 mg tablet 10 mg PO DAILY 10/12/21 10/19/21 ciclopirox 1 % shampoo 1 TOPICAL .2X Weekly 10/12/21 10/18/21 cyanocobalamin (vitamin B-12) 1,000 mcg PO DAILY 10/12/21 10/19/21 1,000 mcg tablet desonide 0.05 % topical ointment 1 applic TOPICAL BID g 10/12/21 10/19/21 estradiol 0.01% (0.1 mg/gram) 1 g VAGINAL .Weekly g 10/12/21 10/19/21 vaginal cream losartan 100 mg tablet 100 mg PO DAILY tab 10/12/21 10/19/21 loteprednol etabonate 0.5 % eye 0.5 drp OPHTHALMIC (EYE) 10/12/21 10/18/21 gel drops omega 0-rtf-sfb-fish oil 300 1 cap PO QDAY 10/12/21 10/19/21 mg-1,000 mg capsule (Fish Oil) propafenone 150 mg tablet 150 mg PO TID 10/12/21 10/19/21 rosuvastatin 10 mg tablet 10 mg PO .Bedtime 10/12/21 10/19/21 tacrolimus 0.03 % topical ointment 1 TOPICAL PRN 10/12/21 10/18/21 triamcinolone acetonide 0.1 % 1 applic TOPICAL .Daily as needed 10/12/21 10/19/21 topical ointment PRN g valacyclovir 500 mg tablet 500 mg PO DAILY tab 10/12/21 10/19/21 Previous Rx's Medication Instructions Recorded cephalexin 500 mg capsule 500 mg PO TID 7 Days #21 cap 10/14/21 sulfamethoxazole 800 1 tab PO BID 7 Days #14 tab 10/15/21 mg-trimethoprim 160 mg tablet cephalexin 500 mg capsule 500 mg PO QID #40 cap 10/18/21 sulfamethoxazole 800 1 tab PO BID #20 tab 10/18/21 mg-trimethoprim 160 mg tablet (Bactrim DS) oxycodone-acetaminophen 5 mg-325 1 tab PO Q4-6H PRN #10 tab 10/19/21 mg tablet (Percocet) sulfamethoxazole 800 1 tab PO Q12H 5 Days #10 tab 10/20/21 mg-trimethoprim 160 mg tablet (Bactrim DS) Allergies Allergy/AdvReac Type Severity Reaction Status Date / Time hydrochlorothiazide Allergy Intermediate Unknown Verified 10/19/21 12:06 trifluridine Allergy Intermediate Verified 10/19/21 12:06 atorvastatin Allergy Mild Unknown Verified 10/19/21 12:06 iodine Allergy Mild Unknown Verified 10/19/21 12:06 lisinopril Allergy Mild Unknown Verified 10/19/21 12:06 rofecoxib Allergy Mild Unknown Verified 10/19/21 12:06 simvastatin Allergy Mild Unknown Verified 10/19/21 12:06 formaldehyde Allergy Unknown Verified 10/19/21 12:06 hydrocortisone Allergy Unknown Verified 10/19/21 12:06 methylisothiazolinone Allergy Unknown Verified 10/19/21 12:06 neomycin Allergy Unknown Unknown Verified 10/19/21 12:06 propylene glycol Allergy Unknown Unknown Verified 10/19/21 12:06 sodium benzoate Allergy Unknown Verified 10/19/21 12:06 BENEDRYL Allergy Mild Unknown Uncoded 10/19/21 12:06 Benzophenone Allergy Unknown Unknown Uncoded 10/19/21 12:06 black rubber mix Allergy Unknown Uncoded 10/19/21 12:06 cobalt chloride hexahydrate Allergy Unknown Uncoded 10/19/21 12:06 Cocamide Allergy Unknown Uncoded 10/19/21 12:06 dibutyl phthalate Allergy Unknown Uncoded 10/19/21 12:06 disperse orange 3 Allergy Unknown Uncoded 10/19/21 12:06 DMDM Hydantoin Allergy Unknown Uncoded 10/19/21 12:06 dodecyl gallate Allergy Unknown Uncoded 10/19/21 12:06 ethyl acrylate Allergy Unknown Uncoded 10/19/21 12:06 ethylenediamine Allergy Unknown Uncoded 10/19/21 12:06 dihydrochloride glyceryl thioglycolate Allergy Unknown Uncoded 10/19/21 12:06 hydroperoxide of limonene Allergy Unknown Uncoded 10/19/21 12:06 hydroperoxide of linalool Allergy Unknown Uncoded 10/19/21 12:06 Lauryl Polyglucose Allergy Unknown Uncoded 10/19/21 12:06 lodopropynyl butylcarbamate Allergy Unknown Uncoded 10/19/21 12:06 mercapto mix Allergy Unknown Uncoded 10/19/21 12:06 nickel sulfate hexahydrate Allergy Unknown Uncoded 10/19/21 12:06 G-slxa-cyszahcxxyg-formaldehyde Allergy Unknown Unknown Uncoded 10/19/21 12:06 resin (low molecular weight) Peppermint oil Allergy Unknown Unknown Uncoded 10/19/21 12:06 Shellac Allergy Unknown Unknown Uncoded 10/19/21 12:06 thiuram mix Allergy Unknown Uncoded 10/19/21 12:06 tixocortol 21 Pivalate Allergy Unknown Uncoded 10/19/21 12:06 Review of Systems Narrative: Other than concerns about her finger she has no other concerns. [facility] Medical History History of keratitis History of thyroid nodule Surgical History History of bilateral tubal ligation (1970) History of incisional hernia repair (1970) History of phacoemulsification of cataract of both eyes with intraocular lens implantation (2016) History of tonsillectomy (~1940) History of total bilateral knee replacement (TKR) (2010) Family History Mother Stroke Coronary artery disease Diabetes Maternal Grandmother Stroke Maternal Grandfather Coronary artery disease Social History Smoking Status: Never smoker Do you use any of these nicotine containing products: None Second hand tobacco smoke exposure: No How often do you have a drink containing alcohol: monthly or less How often do you have six or more drinks on one occasion: Never AUDIT-C Alcohol total score: 1 Non-prescribed substance use: denies use service: No Exam Narrative: Exam Narrative: Right arm hand and middle finger are examined. She has a purplish erythema over the middle and distal phalanx of the right middle finger. Associated with this there is some swelling. Sutures are in place. There is no drainage. It is not warm to touch. There is no tenderness. I do not palpate any fluid collections. There is no erythema extending above the proximal phalanx onto the hand or the arm Const: Vital Signs, click to edit/add: Vital Signs - 24 hr 10/22/21 18:14 Temperature 97.1 F L Pulse Rate [Right Pulse Oximeter] 78 Respiratory Rate 18 Blood Pressure [Le ft Upper Arm] 124/63 Pulse Oximetry 97 Documenting provider has reviewed patient's vital signs: yes Course Vital Signs Vital signs: Initial Vital Signs Temperature 97.1 F L 10/22/21 18:14 Temperature Source Temporal Artery Scan 10/22/21 18:14 Pulse Rate 78 10/22/21 18:14 Respiratory Rate 18 10/22/21 18:14 Blood Pressure 124/63 10/22/21 18:14 Blood Pressure Mean 83 10/22/21 18:14 Blood Pressure Position Sitting 10/22/21 18:14 Pulse Oximetry 97 10/22/21 18:14 Oxygen Delivery Method 10/22/21 18:14 Vital Signs Temperature 97.1 F L 10/22/21 18:14 Pulse Rate 78 10/22/21 18:14 Respiratory Rate 18 10/22/21 18:14 Blood Pressure 124/63 10/22/21 18:14 Pulse Oximetry 97 10/22/21 18:14 Temperature 97.1 F L 10/22/21 18:14 Pulse Rate 78 10/22/21 18:14 Respiratory Rate 18 10/22/21 18:14 Blood Pressure 124/63 10/22/21 18:14 Pulse Oximetry 97 10/22/21 18:14 Discharge Plan Discharge Clinical Impression: Septic arthritis of interphalangeal joint of finger of right hand Patient Disposition: Home, Self-Care Additional Instructions: The appearance of your finger today suggests that this is getting better. You need to continue to protect your finger and take antibiotics for this. I think it is more likely than not that your finger will get better if you protected intake antibiotics. If it gets worse he will need to see a doctor again. Signs of it getting worse would be increased pain, redness, swelling, drainage. If those things occur her you need to see a doctor. He will have to decide if he want to take your trip with a small chance that you would need to see a doctor in [place]. The proper antibiotic for you is cephalexin or brand name Keflex. You should take this as prescribed until it is gone. You are also prescribed a sulfa antibiotic or Bactrim. You do not need to take this. It has potentially more side effects than Keflex and is not necessary. Bactrim is used to treat MRSA. You do not have MRSA. You have MSSA. Stop taking Bactrim or sulfa. Prescriptions: No Action losartan 100 mg tablet 100 mg PO DAILY 0RF valacyclovir 500 mg tablet 500 mg PO DAILY 0RF amlodipine 5 mg tablet 5 mg PO DAILY 0RF cetirizine 10 mg tablet 10 mg PO DAILY 0RF cyanocobalamin (vitamin B-12) 1,000 mcg tablet 1,000 mcg PO DAILY 0RF omega 1-iyv-you-fish oil [Fish Oil] 300-1,000 mg capsule 1 cap PO QDAY 0RF propafenone 150 mg tablet 150 mg PO TID 0RF Rx Instructions: space evenly during waking hours estradiol 0.01 % (0.1 mg/gram) cream 1 g vaginal .Weekly 0RF Rx Instructions: Medication to be put into individually filled applicators. rosuvastatin 10 mg tablet 10 mg PO .Bedtime 0RF loteprednol etabonate 0.5 % drops,gel 0.5 drp ophthalmic (eye) 0RF aspirin 81 mg tablet,chewable 81 mg PO QDAY 0RF ciclopirox 1 % shampoo 1 topical .2X Weekly 0RF desonide 0.05 % ointment 1 applic topical BID 0RF triamcinolone acetonide 0.1 % ointment 1 applic topical .Daily as needed PRN0RF Rx Instructions: APPLY TO AFFECTED AREA tacrolimus 0.03 % ointment 1 topical PRN0RF sulfamethoxazole-trimethoprim [Bactrim DS] 800-160 mg tablet 1 tab PO BID Qty: 20 0RF cephalexin 500 mg capsule 500 mg PO QID Qty: 40 0RF sulfamethoxazole-trimethoprim 800-160 mg tablet 1 tab PO BID 7 Days Qty: 14 0RF sulfamethoxazole-trimethoprim [Bactrim DS] 800-160 mg tablet 1 tab PO Q12H 5 Days Qty: 10 0RF cephalexin 500 mg capsule 500 mg PO TID 7 Days Qty: 21 0RF oxycodone-acetaminophen [Percocet] 5-325 mg tablet 1 tab PO Q4-6H PRN (Reason: pain) Qty: 10 0RF Follow Up/Referrals: Marley Abrams MD [Primary Care Provider] - Stand Alone Forms: [facility] Info Instructions
== END 2021-10-22 19:30 | disposition home or self-care (01) ==
LOC: ED 18:45
PROVIDERS: Emergency Provider Family Medicine; PCP Internal Medicine
DX: M00.041 Staphylococcal arthritis, right hand (principal); B95.61 Methicillin susceptible Staphylococcus aureus infection as the cause of diseases classified elsewhere
CPT/HCPCS: 99282; 99283

== ENCOUNTER 2022-01-18 09:00 | Outpatient (CLI) | payer MEDICARE, SELFPAY ==
--- OUTSIDE RECORDS SUMMARY | 2022-01-18 09:09 | XMS_ITS | Encounter Summary ---
:1940 Author Organization [facility] Address [address] [place] [address] Care Team Providers Name Role Phone Unavailable Primary Care Provider Unavailable Reason for Visit Reason Comments Med Refill Encounter Details Date Type Department Care Team Description 08/18/2020 Refill Department of Cardiovascular [place] J[place], [facility] [place] [address] [facility] [address] [place] [address] [place] [address] [phone] Social History Tobacco Use Types Packs/Day Years Used Date Smoking Tobacco: Never Smokeless Tobacco: Never Alcohol Use Standard Drinks/Week Comments Defer 0 (1 standard drink = 0.6 oz pure alcoho l) Alcohol Habits Answer Date Recorded How often do you have a drink containing 4 or more times a w [place] 10/21/2019 alcohol? How many drinks containing alcohol do you have 1 or 2 12/20/2018 on a typical day when you are drinking? How often do you have six or more drinks on one Never 12/20/2018 occasion? Social Isolation Answer Date Recorded In a typical week, how many times do you Three times a week 10/21/2019 talk on the phone with family, friends, or neighbors? How often do you get together with friends Twice a week 10/21/2019 or relatives? How often do you attend mosque or hoahaoism Never 12/20/2018 services? Do you belong to any clubs or organizations Yes 12/20/2018 such as mosque groups, unions, fraternal or athletic groups, or school groups? How often do you attend meetings of the More than 4 times pe r year 12/20/2018 clubs or organizations you belong to? Are you now , , , Living with partner 12/20/2018 , never or living with a partner? Physical Activity Answer Date Recorded On average, how many days per week do you engage in moderate to 2 days 10/21/2019 strenuous exercise (like walking fast, running, jogging, dancing, swimming, biking, or other activities that cause a light or heavy sweat)? On average, how many minutes do you engage in exercise at th is 30 min 10/21/2019 level? Stress Answer Date Recorded Do you feel stress - tense, restless, nervous, or Only a lit tle 12/20/2018 anxious, or unable to sleep at night because your mind is troubled all the time - these days? Financial Resource Strain Answer Date Recorded How hard is it for you to pay for the very basics like Not h eliseo at all 12/20/2018 food, housing, medical care, and heating? Food Insecurity Answer Date Recorded Within the past 12 months, you worried that your food would Never true 12/20/2018 run out before you got money to buy more. Within the past 12 months, the food you bought just didn't N ever true 12/20/2018 last and you didn't have money to get more. Transportation Needs Answer Date Recorded In the past 12 months, has lack of transportation kept you f rom No 12/20/2018 medical appointments or from getting medications? In the past 12 months, has lack of transportation kept you f rom No 12/20/2018 meetings, work, or getting things needed for daily living? Education Answer Date Recorded What is the highest level of school Master's degree (e.g., M A, MS, 12/19/2018 you have completed or the highest Frida, MEd, TERRAZZO JOURNEYMAN, ISSAC) degree you have received? Sex Assigned at Date Recorded Female documented as of this encounter Plan of Treatment Not on filedocumented as of this encounter Visit Diagnoses Not on filedocumented in this encounter
--- OUTSIDE RECORDS SUMMARY | 2022-01-18 09:09 | XMS_ITS | Encounter Summary ---
:1940 Author Organization [facility] Address [address] [place] [address] Care Team Providers Name Role Phone Elsewhere, Pcp Primary Care Provider Unavailable Encounter Details Date Type Department Care Team Description 03/03/2021 Orders Only Pharmacy Prior Auth RO Elsewhere, Pcp [phone] Social History Tobacco Use Types Packs/Day Years Used Date Smoking Tobacco: Never Smokeless Tobacco: Never Alcohol Use Standard Drinks/Week Comments Defer 0 (1 standard drink = 0.6 oz pure alcoho l) Alcohol Habits Answer Date Recorded How often do you have a drink containing 4 or more times a w [place] 10/21/2019 alcohol? How many drinks containing alcohol [...] or relatives? How often do you attend judaism or faith Never 12/20/2018 services? Do you belong to any clubs or organizations Yes 12/20/2018 such as judaism groups, unions, fraternal or athletic groups, or [...] have completed or the highest Frida, MEd, INSIGHT LEADER, ISSAC) degree you have received? Sex Assigned at Date Recorded Female documented as of this encounter Plan of Treatment Not on filedocumented as of this encounter Visit Diagnoses Not on filedocumented in this encounter Care Teams Php Consultant Relationship Specialty Start Date End Date Elsewhere, Pcp PCP - General Family Medicine 11/14/20 documented as of this encounter
--- OUTSIDE RECORDS SUMMARY | 2022-01-18 09:09 | XMS_ITS | Encounter Summary ---
:1940 Author Organization [facility] Address [address] [place] [address] Care Team Providers Name Role Phone Elsewhere, Pcp Primary Care Provider Unavailable Reason for Visit Reason Comments Med Refill Encounter Details Date Type Department Care Team Description 11/29/2021 Refill Department of Dermatology in Shruthi Rodríguez R.N. Med Refill [place], [place] [address] [facility] [address] [place] [address] [place] [address] [phone] Social History Tobacco Use Types Packs/Day Years Used Date Smoking Tobacco: Never Smokeless Tobacco: Never Alcohol Use Standard Drinks/Week Comments Yes 5 (1 standard drink = 0.6 oz pure alcoho l) gin/tonic Alcohol Habits Answer Date Recorded How often do you have a drink containing 4 or more times a w [place] 10/21/2019 alcohol? How many drinks containing alcohol [...] or relatives? How often do you attend baptism or zoroastrianism Never 12/20/2018 services? Do you belong to any clubs or organizations Yes 12/20/2018 such as baptism groups, unions, fraternal or athletic groups, or [...] have completed or the highest Frida, MEd, AUTOMATION TENDER, ISSAC) degree you have received? Sex Assigned at Date Recorded Female documented as of this encounter Plan of Treatment Not on filedocumented as of this encounter Visit Diagnoses Not on filedocumented in this encounter Care Teams Deck Cadet Relationship Specialty Start Date End Date Elsewhere, Pcp PCP - General Family Medicine 11/14/20 documented as of this encounter
--- OUTSIDE RECORDS SUMMARY | 2022-01-18 09:09 | XMS_ITS | Encounter Summary ---
:1940 Author Organization [facility] Address [address] [place] [address] Care Team Providers Name Role Phone Unavailable Primary Care Provider Unavailable Reason for Visit Reason Comments Med Refill Encounter Details Date Type Department Care Team Description 08/19/2020 Refill Department of Dermatology in Narda Mcgee R.N. Med Refill [place], [place] [address] [place] [address] Social History Tobacco Use Types Packs/Day Years Used Date Smoking Tobacco: Never Smokeless Tobacco: Never Alcohol Use Standard Drinks/Week Comments Defer 0 (1 standard drink = 0.6 oz pure alcoho l) Alcohol Habits Answer Date Recorded How often do you have a drink containing 4 or more times a w [place] 10/21/2019 alcohol? How many drinks containing alcohol [...] or relatives? How often do you attend buddhism or mandaen Never 12/20/2018 services? Do you belong to any clubs or organizations Yes 12/20/2018 such as buddhism groups, unions, fraternal or athletic groups, or [...] have completed or the highest Frida, MEd, FLIGHT PARAMEDIC, ISSAC) degree you have received? Sex Assigned at Date Recorded Female documented as of this encounter Miscellaneous Notes Telephone Encounter - Narda Cleveland R.N. - 08/19/2020 4:50 PM CDT Refill request denial for triamcinolone ointment. Exclusion criteria: the current medication requested does not match the plan of care in the most current note This prescription has been denied per protocol [id number]. documented in this encounter Plan of Treatment Not on filedocumented as of this encounter Visit Diagnoses Not on filedocumented in this encounter
--- OUTSIDE RECORDS SUMMARY | 2022-01-18 09:09 | XMS_ITS | Encounter Summary ---
:1940 Author Organization [facility] Address [address] [place] [address] Care Team Providers Name Role Phone Elsewhere, Pcp Primary Care Provider Unavailable Encounter Details Date Type Department Care Team Description 04/12/2021 Clinical Communication Department of [place], Dermatology in Pilar Lang R.N. [place], [place] [phone] [address] [facility] (Work) [place] [address] Social History Tobacco Use Types Packs/Day Years Used Date Smoking Tobacco: Never Smokeless Tobacco: Never Alcohol Use Standard Drinks/Week Comments Defer 0 (1 standard drink = 0.6 oz pure alcoho l) Alcohol Habits Answer Date Recorded How often do you have a drink containing 4 or more times a w [place] 10/21/2019 alcohol? How many drinks containing alcohol [...] or relatives? How often do you attend samaritan or amish Never 12/20/2018 services? Do you belong to any clubs or organizations Yes 12/20/2018 such as samaritan groups, unions, fraternal or athletic groups, or [...] have completed or the highest Frida, MEd, COFFEE SOMMELIER, ISSAC) degree you have received? Sex Assigned at Date Recorded Female documented as of this encounter Miscellaneous Notes Telephone Encounter - Pilar Bowden, RChunN. - 04/12/2021 12:20 PM CARE MGR Information Discussed Trinidad from [facility] pharmacy called to clarify prescription for clobetasol solution. They have in their records that patient is allergic to steroids. It is an old note so she wanted to verify if patient has used and tolerated clobetasol solution before. Patient has used and tolerated triamcinolone ointment. I searched and did not see mention of clobetasol solution since note from 11/06/[address] Centeno prescribed it for seborrheic dermatitis of the scalp. Message sent to provider to clarify ok for patient to try clobetasol solution. Nursing to call pharmacy back at [phone] Mak's response. PLAN Disposition/Recommendation: notified provider and awaiting recommendations Information/Education: patient/caller able to teach back Caller agreeable to plan of care: yes The following references were used: nursing clinical judgement MGR documented in this encounter Plan of Treatment Not on filedocumented as of this encounter Visit Diagnoses Not on filedocumented in this encounter Care Teams Program Clerk Relationship Specialty Start Date End Date Elsewhere, Pcp PCP - General Family Medicine 11/14/20 documented as of this encounter
--- OUTSIDE RECORDS SUMMARY | 2022-01-18 09:09 | XMS_ITS | Encounter Summary ---
:1940 Author Organization [facility] Address [address] [place] [address] Care Team Providers Name Role Phone Elsewhere, Pcp Primary Care Provider Unavailable Reason for Visit Reason Comments Med Refill Encounter Details Date Type Department Care Team Description 04/10/2021 Refill Department of Dermatology in [facility], Zeke Arthur M.D. Med Refill [place], [place] [address] [place] [address] Social History Tobacco Use Types Packs/Day Years Used Date Smoking Tobacco: Never Smokeless Tobacco: Never Alcohol Use Standard Drinks/Week Comments Defer 0 (1 standard drink = 0.6 oz pure alcoho l) Alcohol Habits Answer Date Recorded How often do you have a drink containing 4 or more times a w [place] [place] 10/21/2019 alcohol? How many drinks containing alcohol [...] or relatives? How often do you attend anglican or pentecostal Never 12/20/2018 services? Do you belong to any clubs or organizations Yes 12/20/2018 such as anglican groups, unions, fraternal or athletic groups, or [...] have completed or the highest Frida, MEd, TEXTILE CONVERSION MANAGER, ISSAC) degree you have received? Sex Assigned at Date Recorded Female documented as of this encounter Plan of Treatment Not on filedocumented as of this encounter Visit Diagnoses Not on filedocumented in this encounter Care Teams Reverse Unit Operator Relationship Specialty Start Date End Date Elsewhere, Pcp PCP - General Family Medicine 11/14/20 documented as of this encounter
--- OUTSIDE RECORDS SUMMARY | 2022-01-18 09:09 | XMS_ITS | Encounter Summary ---
:1940 Author Organization [facility] Address [address] [place] [address] Care Team Providers Name Role Phone Elsewhere, Pcp Primary Care Provider Unavailable Reason for Referral Medication Prior Authorization - Authorized Specialty Diagnoses / Procedures Referred By Contact Refer red To Contact Cassidy Mak M.D. [address] [place] [address] Referral ID Status Reason Start Date Expiration Date Visits V isits Requested Authorized [id number] Authorized 03/24/2022 1 1 M FITTER SUPERVISOR MAINTENANCE Reason for Visit Outpatient (Routine) - Closed Specialty Diagnoses / Procedures Referred By Contact Refer red To Contact Dermatology Vani Mohan M.D . [address] [address] Referral ID Status Reason Start Date Expiration Date Visits Requ ested Visits Authorized [id number] Closed 10/21/2019 10/20/2020 1 1 Encounter Details Date Type Department Care Team Description 03/03/2021 Telemedicine Department of Cassidy Mak, Psoriasis (P rimary Dx); Dermatology in [place] Dermatitis Allergic Contact; [place], [place] [address] [facility] Other Psoriasis [address] [place] [phone] Social History Tobacco Use Types Packs/Day Years Used Date Smoking Tobacco: Never Smokeless Tobacco: Never Alcohol Use Standard Drinks/Week Comments Defer 0 (1 standard drink = 0.6 oz pure alcoho l) Alcohol Habits Answer Date Recorded How often do you have a drink containing 4 or more times a w [place] 10/21/2019 alcohol? How many drinks containing alcohol [...] or relatives? How often do you attend gnosticism or sikhism Never 12/20/2018 services? Do you belong to any clubs or organizations Yes 12/20/2018 such as gnosticism groups, unions, fraternal or athletic groups, or [...] have completed or the highest Frida, MEd, AGRICULTURE TEACHER, ISSAC) degree you have received? Sex Assigned at Date Recorded Female documented as of this encounter Consult Notes Cassidy Mak M.D. - 03/03/2021 11:20 AM CST REFERRED BY Vani Mohan M.D. CHIEF COMPLAINT/REASON FOR VISIT Psoriasis HISTORY OF PRESENT ILLNESS This was a video visit conducted with audio and visual technology. Ms. Krupa Atwood is a pleasant 80 y.o. female who presents today for follow-up regardingher psoriasis. She has dermatologic history significant for atopic and allergic contact dermatitis, lichen sclerosus (genital), and psoriasis. She was last seen at [facility] on 10/21/2019, at this time she was seen for her history of psoriasis and was switched from triamcinolone to mometasone to prevent thinning of the skin. Today, she reports having flares located on her bilateral elbows, buttocks, and hairline. She has run out of her Protopic and would like a refill. States she has been using mometasone on her body and desonide ointment for her face almost daily. This typically works pretty well for her. She also has a homelight unit which she has not used in a while but she is considering using it now since she has developed this flare. We have discussed biologic treatments with her in the past but she has preferred to hold off on these. She states she is potentially planning to start taking vitamin B12 per her PCP since her blood work showed low levels of vitamin B12. She had patch testing about 8 years ago and has an extensive allergy list and the us is concerned about the safety of taking vitamin B12 in case it could contain 1 of the substances she is allergic to. Otherwise her contact dermatitis has been quiescent with avoidance of her known triggers. Allergies Allergen Reactions ??? Atorvastatin Myalgia and Rash Intolerance ??? Benzophenone Rash ??? Orange Chloride Rash Orange chloride hexahydrate ??? Coconut Diethanolamide (Bulk) Rash ??? Diazepam Other (see comments) Makes her more restless, anxious. ??? Dibutyl Phthalate Rash ??? Diphenhydramine Other (see comments) internal heat Paradoxical rx per patient. Possible that benadryl actually keeps pt awake ??? Diphenhydramine Hcl Other (see comments) ??? Dmdm Hydantoin Rash ??? Ethyl Ijbjbunp-Fc-Myppjc Methacrylate Rash ??? Formaldehyde Rash ??? Hydrochlorothiazide Other (see comments), Itching and Rash Possibly severe eczematous like rash - not certain extreme internal heat verified lac ??? Iodine Other (see comments) woozy Unknown reaction - patient thought it was from an allergy pill that iodine ??? Lisinopril Cough ??? Mercaptopurine Rash ??? Methylisothiazolinone Rash ??? Neomycin Sulfate Rash ??? Nickel Sulfate Rash ??? Peppermint Oil Rash ??? Propylene Glycol Rash ??? Rofecoxib Other (see comments) felt awful on 2 doses Vioxx,Not sure of the reaction, but she knows that after 3 days it made her feel like she should nothave this drug in her body. ??? Shellac Rash ??? Simvastatin Myalgia ??? Sodium Benzoate Rash ??? Tert-Butylhydroquinone Rash ??? Thiuram Analogues Rash ??? Tixocortol Rash tixocortol - 21 ??? Trifluridine Edema and Hives PAST DERMATOLOGIC HISTORY Negative for skin cancer PHYSICAL EXAM General: Awake, alert, in no acute distress, and with appropriate affect. Skin: virtual visit, physical exam deferred other than what I could see on video, which was thin erythematous plaques around the hairline that appeared consistent with pt's known history of psoriasis. Patient unable to upload photos for this appointment. IMPRESSION/REPORT/PLAN #1 Psoriasis Overall well controlled with topicals though with mild flare of the face, buttocks, elbows today She has been using desonide on the face almost daily; instead recommended Protopic application twicedaily since this is safe for application anywhere including the face and is also safe to use senior living. For flare ups, in addition to Protopic she can add desonide on her face and mometasone on her body twice a day for two weeks in a row, then she should stop the topical steroid and use just the Protopic. Discussed that since she already has the home phototherapy unit, resuming light therapy was a reasonable option as well. Recommend use 3x weekly then slowly tapering down once things are better controlled. Pt continues to prefer to avoid any systemic options for treatment. #2 Allergic contact dermatitis Discussed that I was not sure exactly what was in the vitamin B12 that was prescribed to her by her primary care physician, but that she could take her allergy list to the pharmacy and showed to them and perhaps they would be able to tell her if any of her allergens are in the vitamin B12 preparation. Additionally recommended that she search this product in her [employer] account as this also may indicate if it contains any of her allergens. Otherwise, she is stable from this point of view and does a good job of carefully avoiding all of her known allergens and using sensitive skin care products. PATIENT EDUCATION Ready to learn. No apparent learning barriers were identified. Learning preferences include listening. Explained diagnosis and treatment plan; patient/guardian of patient expressed understanding of thecontent. Length of visit: 25 minutes I personally performed the services described in this documentation, as scribed in my presence, and it is both accurate and complete. Scribed for Cassidy Mak M.D. by Tk Rouse, on 03/03/2021, 11:19 AM STEAM FITTER SUPERVISOR MAINTENANCE. M FITTER SUPERVISOR MAINTENANCE documented in this encounter Plan of Treatment Not on filedocumented as of this encounter Visit Diagnoses Diagnosis Psoriasis - Primary Dermatitis Allergic Contact Other Psoriasis documented in this encounter Care Teams Molding Engineer Relationship Specialty Start Date End Date Elsewhere, Pcp PCP - General Family Medicine 11/14/20 documented as of this encounter
--- OUTSIDE RECORDS SUMMARY | 2022-01-18 09:09 | XMS_ITS | Encounter Summary ---
:1940 Author Organization [facility] Address [address] [place] [address] Care Team Providers Name Role Phone Elsewhere, Pcp Primary Care Provider Unavailable Reason for Visit Reason Comments Med Refill Encounter Details Date Type Department Care Team Description 11/28/2021 Refill Department of Dermatology in [facility], Zeke Arthur M.D. Med Refill [place], [place] [address] [place] [address] Social History Tobacco Use Types Packs/Day Years Used Date Smoking Tobacco: Never Smokeless Tobacco: Never Alcohol Use Standard Drinks/Week Comments Yes 5 (1 standard drink = 0.6 oz pure alcoho l) gin/tonic Alcohol Habits Answer Date Recorded How often do you have a drink containing 4 or more times a w [place] 10/21/2019 alcohol? How many drinks containing alcohol [...] or relatives? How often do you attend quaker or yazdanism Never 12/20/2018 services? Do you belong to any clubs or organizations Yes 12/20/2018 such as quaker groups, unions, fraternal or athletic groups, or [...] have completed or the highest Frida, MEd, PAPER STRIPPER, ISSAC) degree you have received? Sex Assigned at Date Recorded Female documented as of this encounter Plan of Treatment Not on filedocumented as of this encounter Visit Diagnoses Not on filedocumented in this encounter Care Teams Mass Spec Relationship Specialty Start Date End Date Elsewhere, Pcp PCP - General Family Medicine 11/14/20 documented as of this encounter
--- OUTSIDE RECORDS SUMMARY | 2022-01-18 09:09 | XMS_ITS | Encounter Summary ---
:1940 Author Organization [facility] Address [address] [place] [address] Care Team Providers Name Role Phone Elsewhere, Pcp Primary Care Provider Unavailable Reason for Visit Reason Comments Ear Fullness Encounter Details Date Type Department Care Team Description 11/22/2021 [facility], [facility], M.S. N., R.N. in [facility] n [address] [place] [phone] Social History Tobacco Use Types Packs/Day Years Used Date Smoking Tobacco: Never Smokeless Tobacco: Never Alcohol Use Standard Drinks/Week Comments Yes 5 (1 standard drink = 0.6 oz pure alcoho l) gin/tonic Alcohol Habits Answer Date Recorded How often do you have a drink containing 4 or more times a w [place] 10/21/2019 alcohol? How many drinks containing alcohol [...] or relatives? How often do you attend worship or orthodox Never 12/20/2018 services? Do you belong to any clubs or organizations Yes 12/20/2018 such as worship groups, unions, fraternal or athletic groups, or [...] minutes do you engage in exercise at is 30 min 10/21/2019 level? Stress Answer [...] have completed or the highest Frida, MEd, ELECTRIC METER REPAIRER, ISSAC) degree you have received? Sex Assigned at Date Recorded Female documented as of this encounter Miscellaneous Notes Telephone Encounter - Nahomy Trinh M.SOdalys., R.N. - 11/22/2021 4:41 PM CDT Health Maintenance:No primary care provider at [facility] or PCP elsewhere Telephone Encounter - shenNahomy maria Ngoc Silva RChunN. - 11/22/2021 4:27 PM CDT Chief Complaint / Reason for Call Patient is a 81 y.o. female calling regarding Ear Fullness. Assessment Concern: right ear feels plugged. Hearing loss. No pain, no URI symptoms. Present for: Yesterday Home cares tried: None. Calling to request: Appointment The recommended disposition is See a health care provider within 3 days. Patient does not have a primary care physician. She does not want to establish care at [facility]. She hasa primary [facility] provider at [place], [place]. She will go to the [facility] walk in [facility]. Care Advice Patient/Caregiver understands and will follow care advice?: Yes, able to teach back SEE PCP WITHIN 3 DAYS: * You need to be seen within 2 or 3 days. * PCP VISIT: Call your doctor (or CULTURAL HISTORIAN/PA) during regular office hours and make an appointment. A clinic or urgent care center are good places to go for care if your doctor's office is closed or you can't get an appointment. NOTE: If office will be open tomorrow, tell caller to call then, not in 3 days. * IF PATIENT HAS NO PCP: A clinic or urgent care center are good places to go for care if you do nothave a primary care provider. NOTE: Try to help caller find a PCP for future care (e.g., use a physician referral line). Having a PCP or 'medical home' means better long-term care. REASSURANCE AND EDUCATION - EARWAX: * The presence of earwax is healthy. * Earwax is not a sign of poor hygiene. * Earwax (cerumen) protects the lining of the ear canal because it has germ- killing properties. Wax is also a natural water-proofing agent. * If all of the earwax is removed (e.g., with Q-tips), the ear canals become itchy and prone to Swimmer's Ear. DO NOT USE COTTON SWABS (E.G., Q-TIPS) OR OTHER OBJECTS TO REMOVE WAX: * Do not try to dig the wax out with hairpins, toothpicks, or other objects. Reason: can cause infection or damage eardrum. * Do not use cotton swabs (e.g., Q-Tips, cotton buds). Reason: often pushes earwax in deeper. * Do not use ear candles. Reason: they don't work to remove wax and can cause yanez. CALL BACK IF: * Earache occurs * You become worse CARE ADVICE given per Earwax (Adult) guideline. Reason for Disposition Complete hearing loss in either ear Protocols used: [id number] documented in this encounter Plan of Treatment Not on filedocumented as of this encounter Visit Diagnoses Not on filedocumented in this encounter Care Teams Mattress Specialist Relationship Specialty Start Date End Date Elsewhere, Pcp PCP - General Family Medicine 11/14/20 documented as of this encounter
--- OUTSIDE RECORDS SUMMARY | 2022-01-18 09:09 | XMS_ITS | Encounter Summary ---
:1940 Author Organization [facility] Address [address] [place] [address] Care Team Providers Name Role Phone Elsewhere, Pcp Primary Care Provider Unavailable Reason for Visit Appointment Request (Routine) - Closed Specialty Diagnoses / Procedures Referred By Contact Refer red To Contact Dermatology Diagnoses Dermatitis Atopic Referral ID Status Reason Start Date Expiration Date Visits Requ ested Visits Authorized [id number] Closed 10/09/2021 10/09/2022 1 1 Encounter Details Date Type Department Care Team Description 12/27/2021 Comprehensive Visit Department of Cassidy Mak Liche n Sclerosus (Primary Dx); Dermatology in M.D. Psoriasis; [place], [place] [address] [facility] Psoriasis [place]; [address] [place], [place] Allergic Contact Dermatitis [place] [phone] Social History Tobacco Use Types Packs/Day Years Used Date Smoking Tobacco: Never Smokeless Tobacco: Never Alcohol Use Standard Drinks/Week Comments Yes 5 (1 standard drink = 0.6 oz pure alcoho l) gin/tonic Alcohol Habits Answer Date Recorded How often do you have a drink containing 4 or more times a w lower [place] 10/21/2019 alcohol? How many drinks containing alcohol [...] or relatives? How often do you attend yarsani or confucianist Never 12/20/2018 services? Do you belong to any clubs or organizations Yes 12/20/2018 such as yarsani groups, unions, fraternal or athletic groups, or [...] highest level of school Master's degree (e.g., Parrish Dela Cruz, [place], 12/19/2018 you have completed or the highest Frida, MEd, COMMERCIAL DRAFTER, ISSAC) degree you have received? Sex Assigned at Date Recorded Female documented as of this encounter Patient Instructions Patient InstructionsMardevi, Parrish Almaraz.D. - 12/27/2021 9:20 AM CDT Weak to Strong topical steroid Desonide Mometasone Triamcinolone Betamethasone valerate Clobetasol, Betamethasone augmented ointment 0.05% The Protopic is a non-steroid that can be used longer term for the face when not having a significant flare. When having a flare, use desonide twice a day for two weeks, then switch to protopic. For the body, can use triamcinolone or clobetasol for active lesions twice a day for two weeks untilimproving then decrease to once a day until resolved. For the genital area where there is lichen sclerosus: -Use clobetasol 0.05% ointment twice a day during flares -Maintenance with three times a week clobetasol ointment to prevent recurrence. documented in this encounter Consult Notes Blanka Tapia M.D. - 12/27/2021 9:20 AM CDT Correspondence to: Cassidy Mak M.D. Supervision: Dr. Mak supervised the visit. REFERRAL No referring provider defined for this encounter. CHIEF COMPLAINT / REASON FOR VISIT Follow up psoriasis HISTORY OF PRESENT ILLNESS Ms. Krupa Atwood is a 81 y.o. female who presents today for the above. She was last seenby Dr. Mak in February 2021 through a phone visit. She has a history significant for atopic and allergic contact dermatitis, lichen sclerosus, and psoriasis. She reports she has been doing overall very well and rarely has to use topical treatments. She has afew active areas on the legs and elbows but doesn't feel she needs to use it regularly. She uses desonide over the face and body mostly, occasionally Protopic but doesn't use it as much. She uses ciclopirox shampoo for the scalp which does not have active areas. She has clobetasol solution as well sheuses occasionally. When she last met Dr. Mak, it was recommended she use desonide for flares on theface and Protopic at other times, and then continue mometasone on the body for flares. She also has a light unit at home she plans to use in the oliver. She has a history of lichen sclerosus. She reports no active symptoms but does not use clobetasol regularly for maintenance treatment. PHYSICAL EXAMINATION General: Awake, alert, in no acute distress, with appropriate affect. Skin: Examination of the scalp, face, neck, chest, abdomen, back, bilateral upper extremities, bilateral lower extremities and buttocks, sparing the genitalia, performed and revealed: - Cyr type II - Over the elbows and lower back, there are thin plaques with mild silvery scale. Over the extremities there are well-demarcated circular pink plaques with overlying silvery scale. - Over the vulva, there are thin, white, wrinkled-appearing plaques without any ulceration or concerning features of malignancy ASSESSMENT / PLAN #1 Psoriasis Overall, Ms. Atwood does have some active psoriasis lesions, mostly guttate, but overall she does not find that these bother her. We discussed that desonide is likely not strong enough for the body and we would recommend mometasone, triamcinolone, or even stronger would be clobetasol solution for the body if desired twice a day for two weeks during flares then taper as there is improvement, but at this time she feels comfortable with her current regimen with using desonide over face and body as needed. She can use the clobetasol ointment prescribed for the lichen sclerosus per below for the body too. She also plans to use phototherapy unit at home during the oliver when she tends to have flares, which is reasonable. #2 Lichen sclerosus Overall she is asymptomatic. We discussed clobetasol 0.05% ointment twice a day during flares and provided a prescription. We discussed maintenance with three times a week clobetasol ointment applied to the area to prevent recurrence. #3 History of contact dermatitis She uses [employer] and feels that her contact dermatitis and is well managed at this time. Blanka Tapia MD PGY3 Dermatology Associated attestation - Cassidy Mak M.D. - 12/27/2021 12:04 PM CDT I saw and evaluated the patient, participating in the cadet portions of the service. I reviewed resident's note, and I agree with the findings and plan. Overall things are stable on the current regimen, so we will continue. Added clobetasol ointment to use for lichen sclerosus twice daily during flares and three times weekly for maintenance. If things worsen or flare up, she will let me know. documented in this encounter Plan of Treatment Not on filedocumented as of this encounter Visit Diagnoses Diagnosis Lichen Sclerosus - Primary Psoriasis Psoriasis [place] Allergic Contact Dermatitis Due To Other Agents documented in this encounter Care Teams Filter Tank Tender Helper Relationship Specialty Start Date End Date Elsewhere, Pcp PCP - General Family Medicine 11/14/20 documented as of this encounter
--- OUTSIDE RECORDS SUMMARY | 2022-01-18 09:09 | XMS_ITS | Encounter Summary ---
:1940 Author Organization [facility] Address [address] [place] [address] Care Team Providers Name Role Phone Elsewhere, Pcp Primary Care Provider Unavailable Reason for Referral Outpatient (Routine) - Closed Specialty Diagnoses / Procedures Referred By Contact Refer red To Contact Neurology Diagnoses Loss Memory Short Term Melanie Flores M.D. [address] [phone] Referral ID Status Reason Start Date Expiration Date Visits Requ ested Visits Authorized [id number] Closed 11/14/2020 11/14/2021 1 1 Outpatient (Routine) - Closed Specialty Diagnoses / Procedures Referred By Contact Refer red To Contact Neurological Surgery Diagnoses Loss Memory Short Term Melanie Flores [facility] Shahzad Oliver [address] [place] [phone] Referral ID Status Reason Start Date Expiration Date Visits Requ ested Visits Authorized [id number] Closed 11/14/2020 11/14/2021 1 1 Reason for Visit Reason Comments Memory Loss Pt reports a memory loss Sat urday night. She was having issues with her TV on Saturday. On Saturday e called [employer] Telephone they said she called then 4 times Saturday night. She has no memory of that. She was feeling off and flores on Sat . Encounter Details Date Type Department Care Team Description 11/14/[address] [facility] Melanie Flores Loss [facility] Term Emergency Department M.D. (Primary Dx) [address] [place] [address] [place], [place] [phone] (Wo rk) Social History Tobacco Use Types Packs/Day Years Used Date Smoking Tobacco: Never Smokeless Tobacco: Never Alcohol Use Standard Drinks/Week Comments Defer 0 (1 standard drink = 0.6 oz pure alcoho l) Alcohol Habits Answer Date Recorded How often do you have a drink containing 4 or more times a w [place] 10/21/2019 alcohol? How many drinks containing alcohol [...] or relatives? How often do you attend sabianism or amish Never 12/20/2018 services? Do you belong to any clubs or organizations Yes 12/20/2018 such as sabianism groups, unions, fraternal or athletic groups, or [...] have completed or the highest Frida, MEd, AERODYNAMICIST, ISSAC) degree you have received? Sex Assigned at Date Recorded Female documented as of this encounter Last Filed Vital Signs Vital Sign Reading Time Taken Comments Blood Pressure 135/71 11/14/2020 3:07 PM CDT Pulse 71 11/14/2020 3:07 PM CDT Temperature 36.5 ??C (97.7 ??F) 11/14/2020 3:07 PM CDT Respiratory Rate 14 11/14/2020 1:05 PM CDT Oxygen Saturation 97% 11/14/2020 3:07 PM CDT Inhaled Oxygen Concentration - - Weight 66.1 kg (145 lb 11.6 oz) 11/14/2020 1:07 PM CDT Height 154.9 cm (5' 1) 11/14/2020 1:07 PM CDT Body Mass Index 27.53 11/14/2020 1:07 PM CDT documented in this encounter Discharge Instructions Discharge InstructionsMelanie Flores M.D. 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 AttachmentsThe following attachments cannot be sent through Care Everywhere. Transient Global Amnesia (Croatian)documented in this encounter Medications at Time of Discharge Medication Sig Dispensed Refills Start Date End Date amLODIPine Take 1 tablet by mouth 0 09/29/2015 (for_NORVASC) 5 mg daily. tablet amoxicillin (AMOXIL) PRN before dental work 0 500 mg capsule aspirin [address] tablet once a day 0 06/26/2001 Ca carb-Ca gluc-Mg Take by mouth. 0 07/03/2016 ox-Mg gluco 500 mg calcium -250 mg tablet cephalexin (KEFLEX) 500 0 02/15/2019 mg capsule cetirizine (ZyrTEC) 10 Take 1 tablet by mouth 0 0 04/26/2017 mg tablet 2 (two) times a day as needed. cholecalciferol Take 2,000 Units by 0 05/15/2016 (VITAMIN D3) 2,000 Unit mouth. capsule ciclopirox 1 % shampoo 0 04/29/2017 estradioL (ESTRACE) 0.1 1- 2 g intravaginally 0 0 10/03/2020 mg/g (0.01%) vaginal qd for 1-2 weeks, then cream gradually reduce to maintenance dosage of 1 g of cream, once weekly. Order from [facility] per patient FISH,SAF,FLX,BRG Take by mouth. 0 02/22/2014 OILS/O3,6,9N2 (DLMO-SERY-SMWFYV OIL ORAL) fluorometholone (FML) Administer 1 drop into 0 0.1 % ophthalmic both eyes as needed. suspension hydrOXYzine Take 1 tablet by mouth 0 10/11/2015 (for_ATARAX) 25 mg 4 (four) times a day tablet as needed. losartan (COZAAR) 100 Take 100 mg by mouth. 0 02/2018 mg tablet LOTEMAX 0.5 % 0 06/26/2017 ophthalmic ointment loteprednol (LOTEMAX) 1-2 drops as needed. 0 04/2017 0.5 % ophthalmic suspension metoprolol Take 50 mg by mouth 0 09/29/2015 (for_LOPRESSOR) 1 mg/mL daily. IV syringe metoprolol succinate Take 25 mg by mouth. 0 07/04 (TOPROL-XL) 50 mg 24 hr Patient states she tablet only takes 1/2 tablet currently. mometasone (ELOCON) 0.1 Apply 1 application 45 g 3 % cream topically daily as needed (Rash). mometasone (ELOCON) 0.1 APPLY 1 APPLICATION 45 g 3 % cream DAILY NEEDED (RASH) Nystop 100,000 APPLY TOPICALLY THREE 15 g 4 10/21/2019 unit/gram powder TIMES DAILY NEEDED FOR RASH omega 9-mpb-yek-fish Take by mouth. 0 07/03/2016 oil 1,000 mg (120 mg-180 mg) capsule pimecrolimus (ELIDEL) 1 Apply 1 application 0 09/2015 % cream topically 2 (two) times a day. propafenone Take 1 tablet by mouth 0 08/29/2012 (for_RHTHYMOL) 150 mg 3 (three) times a day. tablet rosuvastatin (CRESTOR) Take 10 mg by mouth. 0 10 mg tablet TOPROL XL 50 mg 24 hr 0 10/04/2016 tablet triamcinolone (KENALOG) Apply to affected 80 g 11 10/12 0.1 % ointment areas on trunk and extremities two times a day as needed. qmbacjknyadoo-kpinfy-if Apply 1 application 0 09/2015 licone 0.1-2 % kit topically 3 (three) times a day. triamcinolone-dimethico Apply topically. 0 2017 ne 0.1-5 % kit,ointment and cream turmeric 400 mg capsule Take 400 mg by mouth. 0 0 07/21/2020 clobetasoL (TEMOVATE) Apply topically 2 50 mL 3 020 04/11/2021 0.05 % external (two) times a day as solution needed (scalp irritation). desonide (DESOWEN) 0.05 Apply to affected 60 g 3 08/1911/30/2021 % ointment area(s) two times daily as needed. hydrOXYzine HCl 10 mg/5 hydrOXYzine 0 10/11/2015 03/01/2021 mL (5 mL) solution lactobacillus-bifidobac Take 1 capsule by 0 09/2803/01/2021 terium-streptococcus mouth daily. (for_THER-BIOTIC COMPLETE) 25 billion CFU losartan (for_COZAAR) Take 1 tablet by mouth 0 03/01/2021 50 mg tablet daily. MAXIDEX 0.1 % 0 06/15/2017 03/01/2021 ophthalmic suspension mometasone (for_ELOCON) Apply 1 application 0 03/01/2021 0.1 % cream topically daily. najlwyezoifl-fexhwdcw-m Take 1 tablet by mouth 0 09/29/2015 03/01/2021 errous gluconate daily. (MULTIVITAMIN WITH MINERALS) 9 mg iron/15 mL liquid tacrolimus (PROTOPIC) Apply topically. 0 05/08/19 18 03/03/2021 0.03 % ointment tacrolimus (PROTOPIC) Apply 1 application 100 g 3 12/2403/03/2021 0.1 % ointment topically 2 (two) times a day. valACYclovir (VALTREX) Take by mouth. 0 7 03/01/2021 500 mg tablet VITAMIN D3/SOY Take 1 tablet by mouth 0 6 03/01/2021 ISOFLAVONE daily. (CHOLECALCIFEROL-SOY ISOFLAVONE ORAL) documented as of this encounter ED Notes Melanie Flores M.D. - 11/14/2020 1:43 PM CDT SUBJECTIVE CHIEF COMPLAINT/REASON FOR VISIT Memory Loss (Pt reports a memory loss Saturday night. She was having issues with her TV on Saturday.On Saturday she called [employer] Telephone they said she called then 4 times Saturday night. She has no memory of that. She was feeling off and flores on Saturday.) HISTORY OF PRESENT ILLNESS 80-year-old female who presents for evaluation of an episode of memory loss. Patient states 2 nightsago she was trying to get her TB to work and was frustrated that it was not working. Last night she called the TV repair man who told her that she had call him 3 times on Saturday night, 2 nights priorand she does not remember this. Patient was quite upset that she could remember the episode and is concerned about a TIA versus dementia. Patient denies any history of this in the past, denies any recent falls or injury to her head, denies headaches or head pain. States her mother had stroke when she was young, and developed a head bleed. Patient states she is not aware of any recent memory loss, states her partner has not mentioned she has been forgetting anything. 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 She lives in [place] during the year and [place] during the [place]. Patient does have a history of tachycardias and sees Cardiology,also has a history of hypertension and is on blood pressure medication. Nonsmoker. Takes a baby aspirin every day. Patient has no neurologic symptoms currently. Patient does admit to having 1-2 glassesof wine, 2 nights ago when this occurred, but states they will do that with dinner and does not feelthat it was abnormal. History provided by: Patient REVIEW OF SYSTEMS Constitutional: Negative for chills and fever. HENT: Negative for sore throat. Eyes: Negative for visual disturbance. Respiratory: Negative for cough and shortness of breath. Cardiovascular: Negative for chest pain and leg swelling. Gastrointestinal: Negative for abdominal pain, diarrhea, nausea and vomiting. Genitourinary: Negative for dysuria and urgency. Musculoskeletal: Negative for back pain. Skin: Negative for rash. Neurological: Negative for headaches. Hematological: Does not bruise/bleed easily. All other systems reviewed and are negative. OBJECTIVE Initial Vitals Temperature Pulse Rate Heart Rate Resp Rate Blood Pressure SpO2 11/14/20 1305 11/14/20 1305 -- 11/14/20 1305 11/14/20 1305 11/14/20 1305 36.1 ??C 78 14 123/78 98 % Pain Score 11/14/20 1308 0 - No pain PHYSICAL EXAMINATION Constitutional: Nursing note and vitals reviewed. No distress. HENT: Head: Normocephalic and atraumatic. Mouth/Throat: Oropharynx is clear and moist. Mucous membranes are moist. Eyes: Conjunctivae are normal. Pupils are equal, round, and reactive to light. Neck: Neck supple. Cardiovascular: Normal rate, regular rhythm, S1 normal and S2 normal. Pulses are palpable. Edema: noedema noted No carotid bruits Pulmonary/Chest: Breath sounds normal. No respiratory distress. Abdominal: Soft. Bowel sounds are normal. exhibits no distension. There is no abdominal tenderness. Musculoskeletal: General: No deformity or edema. Normal range of motion. Cervical back: Neck supple. Neurological: Alert and oriented to person, place, and time. GCS 15, no neuro deficits, no facial asymmetry, no arm or leg weakness. Skin: Skin is warm, dry and normal color. Psychiatric: She has a normal mood and affect. Behavior is normal. ASSESSMENT/PLAN IMPRESSION AND PLAN Discussed patient's symptoms, they are not classic for a TIA and her ABCD2 score is 1. We discussed her medical family history with her head bleed in her mom and I gave her the option of having a carotid ultrasound, head CT and labs or waiting to see if she has other symptoms. She is currently on management for a TIA and this would not change that. We spent some time discussing this and she has optedto get these checked today so we will order this currently. 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 [address], and normal labs. 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 Patient's symptoms not really consistent with TIA could be transient global amnesia, but would recommend follow-up with Neurology, and follow-up on her carotid ultrasound. Final Diagnoses: as of Nov 15 1535 Loss Memory Short Term Melanie Flores M.D. 11/14/201535 documented in this encounter Plan of Treatment Scheduled Referrals Name Type Priority Associated Order Schedule Diagnoses POST ED VISIT Outpatient Referral Routine Loss Memory Short Ex pected: Neurological Surgery Term 021 (Approximate), Expires: 11/15/2023 POST ED VISIT Outpatient Referral Routine Loss Memory Short Ex pected: Neurology Term 11/28/2020 (Approximate), Expires: 11/15/2023 documented as of this encounter Procedures Procedure Name Priority Date/Time Associated Comments Diagnosis US CAROTID BILATERAL RAD - Routine 11/14/2020 2:42 Res ults for (most inpatients PM CDT this proced ure and all are in the outpatients) results section. CT HEAD WITHOUT IV RAD - Semiurgent 11/14/2020 2:16 Re sults for CONTRAST (Fast; most ED PM CDT this procedur e patients; some are in the inpatients) results section. CBC WITH STAT 11/14/2020 2:00 Results for DIFFERENTIAL, B PM CDT this procedu re are in the results section. THYROID-STIMULATING STAT 11/14/2020 2:00 Resul ts for HORMONE-SENSITIVE PM CDT this proce dure (S-TSH) are in the results section. COMPREHENSIVE STAT 11/14/2020 2:00 Results for METABOLIC PANEL, S/P PM CDT this pr ocedure are in the results section. documented in this encounter Results US Carotid Bilateral (11/14/2020 2:42 PM CDT) Anatomical Region Laterality Modality Head and Neck, Ultrasound RST LOS, Ultrasound ARZ LOS, Bilat eral Ultrasound Neuroradiology FLA LOS Specimen (Source) Anatomical Collection Method Collection Time Re ceived Time Location / / Volume Laterality 11/14/2020 3:46 PM CDT Impressions 11/14/2020 3:48 PM CDT Right: Mild, 0-49%, ICA stenosis. Greater than 50% ECA stenosis. Left: Mild, 0-49%, ICA stenosis. Narrative 11/14/2020 3:48 PM CDT EXAM: US CAROTID BILATERAL Exam performed with color and spectral D oppler analysis. COMPARISON: ??None FINDINGS: RIGHT: Moderate atheromatous plaque in t he carotid bifurcation. Doppler evaluation shows no evidence of signific ant ICA or CCA stenosis. Normal flow direction in the vertebral artery. LEFT: Mild atheromatous plaque in the ca rotid bifurcation. Doppler evaluation shows no evidence of significant ICA, EC A, or CCA stenosis. Normal flow direction in the vertebral artery. VELOCITIES (cm/sec) Right CCA *psv: ??52 cm/s Right ICA psv: 69 cm/s Right ICA edv: Right ECA psv: 170 cm/s Right ICA/CCA: 1.3 Left CCA *psv: 58 cm/s Left ICA psv: 60 cm/s Left ICA edv: ??16 cm/s Left ECA psv: ??70 cm/s Left ICA/CCA: 1.0 ?? *mid/distal (non-diseased) Measurement of a carotid stenosis, if pr esent, is based on velocity parameters that compare the residual internal carot id luminal diameter with that of the normal distal ICA in accordance with Nor th [place] Symptomatic Carotid Endarterectomy Trial (NASCET). Procedure Note Stanton Avelar M.D. - 11/14/2020Form atting of this note might be different from the original. EXAM: US CAROTID BILATERAL Exam performed with color and spectral D oppler analysis. COMPARISON: None FINDINGS: RIGHT: Moderate atheromatous plaque in t he carotid bifurcation. Doppler evaluation shows no evidence of signific ant ICA or CCA stenosis. Normal flow direction in the vertebral artery. LEFT: Mild atheromatous plaque in the ca rotid bifurcation. Doppler evaluation shows no evidence of significant ICA, EC A, or CCA stenosis. Normal flow direction in the vertebral artery. VELOCITIES (cm/sec) Right CCA *psv: 52 cm/s Right ICA psv: 69 cm/s Right ICA edv: Right ECA psv: 170 cm/s Right ICA/CCA: 1.3 Left CCA *psv: 58 cm/s Left ICA psv: 60 cm/s Left ICA edv: 16 cm/s Left ECA psv: 70 cm/s Left ICA/CCA: 1.0 *mid/distal (non-diseased) Measurement of a carotid stenosis, if pr esent, is based on velocity parameters that compare the residual internal carot id luminal diameter with that of the normal distal ICA in accordance with Nor th [place] Symptomatic Carotid Endarterectomy Trial (NASCET). IMPRESSION: Right: Mild, 0-49%, ICA stenosis. Greate r than 50% ECA stenosis. Left: Mild, 0-49%, ICA stenosis. Melanie Flores M.D. IMG US PROCEDURES CT Head without IV Contrast (11/14/2020 2:16 PM CDT) Anatomical Region Laterality Modality Head, Neuroradiology RST LOS, Neuroradiology ARZ LOS, N/A Computed Tomography Neuroradiology FLA LOS Specimen (Source) Anatomical Collection Method Collection Time Re ceived Time Location / / Volume Laterality 11/14/2020 2:21 PM CDT Impressions 11/14/2020 2:23 PM CDT 1. ??No convincing acute infarct or hemorrhage 2. 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 There is no co nvincing evidence of CSF obstruction, however this can cause obstructive hydro cephalus which can occur acutely. Consider neurosurgery consult for furthe r recommendations. 3. ??Chronic right putaminal infarct. Narrative 11/14/2020 2:23 PM CDT EXAM: CT HEAD WITHOUT IV CONTRAST COMPARISON: None FINDINGS: No acute infarct, hemorrhage, or mass ef fect identified. There is chronic involutional changes with leukoaraiosis and mild global volume loss with ex vacuo prominence of ventricular system. A tiny lacunar infarct is seen in the right putamen. There appears to be a col loid cyst in the region of foramen of Saini best seen on series 8 image 42 me asuring up to 0.6 cm in diameter. No convincing associated ventriculomegaly o r evidence of CSF flow obstruction. Extracranial soft tissue and bony struct ures appear normal. Procedure Note Phuc Zaldivar M.D. - 11/14/2020Forma tting of this note might be different from the original. EXAM: CT HEAD WITHOUT IV CONTRAST COMPARISON: None FINDINGS: No acute infarct, hemorrhage, or mass ef fect identified. There is chronic involutional changes with leukoaraiosis and mild global volume loss with ex vacuo prominence of ventricular system. A tiny lacunar infarct is seen in the right putamen. There appears to be a col loid cyst in the region of foramen of Saini best seen on series 8 image 42 me asuring up to 0.6 cm in diameter. No convincing associated ventriculomegaly o r evidence of CSF flow obstruction. Extracranial soft tissue and bony struct ures appear normal. IMPRESSION: 1. No convincing acute infarct or hemorr wilman 2. 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 There is no conv incing evidence of CSF obstruction, however this can cause obstructive hydro cephalus which can occur acutely. Consider neurosurgery consult for furthe r recommendations. 3. Chronic right putaminal infarct. Melanie Flores M.D. IMG CT PROCEDURES S-TSH (Thyroid-Stimulating Hormone - Sensitive) (11/14/2020 2:00 PM CDT) athologist Signature TSH, Sensitive 3.5 0.3 - 4.2 11/14/2020 [facility] mIU/L 2:28 PM CDT Specimen Anatomical Collection Method Collection Time Receive d Time (Source) Location / / Volume Laterality Blood (Blood, 11/14/2020 2:00 PM 11/15/19 2:01 Venous) CDT PM CDT Melanie Flores M.D. LAB BLOOD ADD-ON Performing Organization Address City/State/ZIP Code Phon e Number [facility]- [address] [place] [address] [address] [place] [address] System - [facility] [place] [address] [place] [address] (ABNORMAL) Comprehensive Metabolic Panel (11/14/2020 2:00 PM CDT) athologist Signature Potassium, P 3.8 3.6 - 5.2 11/14/2020 [place] mmol/L 2:25 PM CDT Sodium, P 139 135 - 145 11/14/2020 [facility] mmol/L 2:25 PM CDT Chloride, P 103 98 - 107 11/14/2020 [facility] mmol/L 2:25 PM CDT Bicarbonate, P 26 22 - 29 11/14/2020 [place] mmol/L 2:25 PM CDT Anion Gap, P 10 7 - 15 11/14/2020 [facility] 2:25 PM CDT BUN (Blood Urea 16 6 - 21 11/14/2020 [facility] Nitrogen), P mg/dL 2:25 PM CDT Creatinine 0.84 0.59 - 11/14/2020 [facility] 1.04 mg/dL 2:25 PM CDT eGFR-Black/Afric 75 >=60 11/14/2020 [facility] an [place] mL/min/BSA 2:25 PM CDT Comment: ----ADDITIONAL INFORMATION---- Estimated GFR calculated using the 2009 CKD_EPI creatinine equation. eGFR Non-Black/ 65 >=60 mL/min/BSA 2:25 PM CDT [facility] Comment: ----ADDITIONAL INFORMATION---- Estimated GFR calculated using the 2009 CKD_EPI creatinine equation. Calcium, Total, P 10.3 (H) 8.8 - 10.2 mg/dL 11/14/2020 2:25 PM CDT [facility] Glucose, P 139 70 - 140 mg/dL 11/14/2020 2:25 PM CDT B LOM Protein, Total, P 7.3 6.3 - 7.9 g/dL 11/14/2020 2:25 P M CDT [facility] Albumin, P 4.4 3.5 - 5.0 g/dL 11/14/2020 2:25 PM CDT B LOM Aspartate Aminotransferase 25 8 - 43 U/L 11/14/2020 2 :25 PM CDT [facility] (AST), P Alkaline Phosphatase, P 59 35 - 104 U/L 11/14/2020 2: 25 PM CDT [facility] Alanine Aminotransferase 26 7 - 45 U/L 11/14/2020 2:2 5 PM CDT [facility] (ALT), P Bilirubin, Total, P 0.4 <=1.2 mg/dL 11/14/2020 2:25 PM CDT [facility] Specimen Anatomical Collection Method Collection Time Receive d Time (Source) Location / / Volume Laterality Blood (Blood, 11/14/2020 2:00 PM 11/15/19 2:01 Venous) CDT PM CDT Melanie Flores M.D. LAB BLOOD ADD-ON Performing Organization Address City/State/ZIP Code Phon e Number [facility]- [address] [place] [phone] [place] [address] System - [facility] [place] [address] [place] [address] CBC with Differential, Blood (11/14/2020 2:00 PM CDT) P athologist Signature Hemoglobin 14.3 11.6 - 11/14/2020 [facility] 15.0 g/dL 2:06 PM CDT Hematocrit 42.7 35.5 - 11/14/2020 [facility] 44.9 % 2:06 PM CDT Erythrocytes 4.51 3.92 - 11/14/2020 [facility] 5.13 2:06 PM CDT x10(12)/L MCV 94.7 78.2 - 11/14/2020 [facility] 97.9 fL 2:06 PM CDT RBC Distrib Width 13.3 12.2 - 11/14/2020 [facility] 16.1 % 2:06 PM CDT Platelet Count 311 157 - 371 11/14/2020 [facility] x10(9)/L 2:06 PM CDT Leukocytes 6.3 3.4 - 9.6 11/14/2020 [facility] x10(9)/L 2:06 PM CDT Neutrophils 3.72 1.56 - 11/14/2020 [facility] 6.45 2:06 PM CDT x10(9)/L Lymphocytes 1.62 0.95 - 11/14/2020 [facility] 3.07 2:06 PM CDT x10(9)/L Monocytes 0.62 0.26 - 11/14/2020 [facility] 0.81 2:06 PM CDT x10(9)/L Eosinophils 0.28 0.03 - 11/14/2020 [facility] 0.48 2:06 PM CDT x10(9)/L Basophils 0.04 0.01 - 11/14/2020 [facility] 0.08 2:06 PM CDT x10(9)/L Specimen Anatomical Collection Method Collection Time Receive d Time (Source) Location / / Volume Laterality Blood (Blood, 11/14/2020 2:00 PM 11/15/19 2:01 Venous) CDT PM CDT Melanie Flores M.D. LAB BLOOD ADD-ON Performing Organization Address City/State/ZIP Code Phon e Number [facility]- [address] [place] [address] [phone] [place] [address] System - [facility] [place] [address] [facility] documented in this encounter Visit Diagnoses Diagnosis Loss Memory Short Term - Primary documented in this encounter Care Teams Barrel Filler Relationship Specialty Start Date End Date Elsewhere, Pcp PCP - General Family Medicine 11/14/20 documented as of this encounter
--- OUTSIDE RECORDS SUMMARY | 2022-01-18 09:09 | XMS_ITS | Clinical Summary ---
:1940 Author Organization [facility] Address [address] [place] [address] Care Team Providers Name Role Phone Elsewhere, Pcp Primary Care Provider Unavailable Source Comments Patient records contain information from all sites at [facility]. For routine questions regarding patient records, call [phone] during business hours, M-F 8:00 AM - 5:00 PM Central Time. Record requests for emergency care only can be directed to [phone] at any time.[facility] Allergies Active Allergy Reactions Severity Noted Date Comments Atorvastatin Myalgia, Rash 10/01/2013 Intolerance Benzophenone Rash 04/23/2018 [place] Chloride Rash 04/23/2018 [place] chlor shakeel hexahydrate Coconut Diethanolamide (Bulk) Rash 04/23/2018 Diazepam Other (see 04/22/2010 Makes her more comments) restless, anxio us. Dibutyl Phthalate Rash 04/23/2018 Diphenhydramine Other (see 04/06/2010 internal hea t comments) Paradoxical rx per patient. Possib le that benadryl actually keeps pt awake Diphenhydramine Hcl Other (see 08/27/2013 comments) Dmdm Hydantoin Rash 04/23/2018 Ethyl Fggvimyb-Py-Aoxwdi Rash 04/23/2018 Methacrylate Formaldehyde Rash 12/10/2017 Hydrochlorothiazide Other (see 05/11/2015 Possibly severe comments), eczematous like Itching, Rash rash - not cer tain extreme interna l heat verified lac Iodine Other (see 11/06/2016 woozy comments) Unknown reactio n - patient thought it was from an all ergy pill that iodin e Lisinopril Cough 10/10/2012 Mercaptopurine Rash 04/23/2018 Methylisothiazolinone Rash 04/23/2018 Neomycin Sulfate Rash 04/23/2018 Nickel Sulfate Rash 04/23/2018 Peppermint Oil Rash 04/23/2018 Propylene Glycol Rash 12/10/2017 Rofecoxib Other (see 11/06/2016 felt awful on 2 comments) doses Vioxx,Not sure of the reaction, b ut she knows that after 3 days it made her feel l madhavi she should not have this drug in he r body. Shellac Rash 04/23/2018 Simvastatin Myalgia 10/01/2013 Sodium Benzoate Rash 04/23/2018 Tert-Butylhydroquinone Rash 04/23/2018 Thiuram Analogues Rash 04/23/2018 Tixocortol Rash 04/23/2018 tixocortol - 21 Trifluridine Edema, Hives 10/23/2016 Medications Medication Sig Dispensed Refills Start Date End Date Status propafenone Take 1 tablet by 0 08/29/2012 Active (for_RHTHYMOL) 150 mg mouth 3 (three) tablet times a day. fluorometholone (FML) Administer 1 drop 0 09/13/2014 Active 0.1 % ophthalmic into both eyes as suspension needed. amLODIPine Take 1 tablet by 0 09/29/2015 A ctive (for_NORVASC) 5 mg mouth daily. tablet pimecrolimus (ELIDEL) Apply 1 application 0 09/29/19 16 Active 1 % cream topically 2 (two) times a day. TOPROL XL 50 mg 24 hr 0 10/04/2016 Active tablet hydrOXYzine Take 1 tablet by 0 10/11/2015 Active (for_ATARAX) 25 mg mouth 4 (four) times tablet a day as needed. metoprolol Take 50 mg by mouth 0 09/29/2015 Active (for_LOPRESSOR) 1 daily. mg/mL IV syringe FISH,SAF,FLX,BRG Take by mouth. 0 02/22/2014 Active OILS/O3,6,9N2 (LEKL-AWYZ-ASUMGZ OIL ORAL) triamcinolone-dimeth- Apply 1 application 0 09/29/19 16 Active silicone 0.1-2 % kit topically 3 (three) times a day. Ca carb-Ca gluc-Mg Take by mouth. 0 07/03/2016 Active ox-Mg gluco 500 mg calcium -250 mg tablet cholecalciferol Take 2,000 Units by 0 05/15/2016 Active (VITAMIN D3) 2,000 mouth. Unit capsule ciclopirox 1 % 0 04/29/2017 Acti ve shampoo LOTEMAX 0.5 % 0 06/26/2017 Activ e ophthalmic ointment loteprednol (LOTEMAX) 1-2 drops as needed. 0 018 Active 0.5 % ophthalmic suspension omega 3-ljc-vqz-fish Take by mouth. 0 07/03/2016 Active oil 1,000 mg (120 mg-180 mg) capsule triamcinolone-dimethi Apply topically. 0 06/14/2017 Active cone 0.1-5 % kit,ointment and cream cetirizine (ZyrTEC) Take 1 tablet by 0 04/26/2017 Active 10 mg tablet mouth 2 (two) times a day as needed. aspirin [address] once a day 0 06/26/2001 A ctive tablet losartan (COZAAR) 100 Take 100 mg by 0 07/04/2017 Active mg tablet mouth. metoprolol succinate Take 25 mg by mouth. 0 07/05/19 18 Active (TOPROL-XL) 50 mg 24 Patient states she hr tablet only takes 1/2 tablet currently. rosuvastatin Take 10 mg by mouth. 0 05/16/2017 Active (CRESTOR) 10 mg tablet Nystop 100,000 APPLY TOPICALLY 15 g 4 10/21/2019 Active unit/gram powder THREE TIMES DAILY NEEDED FOR RASH mometasone (ELOCON) Apply 1 application 45 g 3 11/05/2019 Active 0.1 % cream topically daily as needed (Rash). mometasone (ELOCON) APPLY 1 APPLICATION 45 g 3 08/19/2020 Active 0.1 % cream DAILY NEEDED (RASH) triamcinolone Apply to affected 80 g 11 10/12/2020 Active (KENALOG) 0.1 % areas on trunk and ointment extremities two times a day as needed. amoxicillin (AMOXIL) PRN before dental 0 07/13/2019 Active 500 mg capsule work cephalexin (KEFLEX) 0 02/15/2019 Active 500 mg capsule cyanocobalamin Take 1,000 mcg by 0 03/01/2021 Active (VITAMIN B12) 1,000 mouth. mcg tablet estradioL (ESTRACE) 1- 2 g 0 10/03/2020 Active 0.1 mg/g (0.01%) intravaginally qd vaginal cream for 1-2 weeks, then gradually reduce to maintenance dosage of 1 g of cream, once weekly. Order from [facility] per patient turmeric 400 mg Take 400 mg by 0 07/21/2020 Active capsule mouth. tacrolimus (Protopic) Apply 1 application 100 g 3 03/03/20 21 Active 0.1 % ointment topically 2 (two) times a day. valACYclovir Take 500 mg by mouth 0 Active (VALTREX) 500 mg 2 (two) times a day. tablet desonide (DESOWEN) APPLY TO AFFECTED 90 g 3 11/30/2021 Active 0.05 % ointment AREA(S) TOPICALLY TWICE DAILY NEEDED clobetasoL (TEMOVATE) Apply topically 2 50 mL 3 11/29/2021 Active 0.05 % external (two) times a day as solution needed (psoriasis). clobetasoL (TEMOVATE) Apply 1 application 45 g 3 12/28/19 22 Active 0.05 % topically 3 (three) ointmentIndications: times a week. Apply Lichen Sclerosus to the vulva twice a day for two weeks during flares. When not active, use three times a week for prevention/maintenan ce. Active Problems Problem Noted Date Hypertensive Heart Disease Without Heart Failure 10/10 Overview: Hypertension Tachycardia Ventricular Paroxysmal 10/10/2012 Overview: Paroxysmal Ventricular Tachycardia Followed by [facility] Encounters Date Type Specialty Care Team Description 12/27/2021 Comprehensive Visit Dermatology Cassidy Mak, Lichen Sclerosus (Primary Dx); M.D. Psoriasis; Psoriasis Niraj te; Allergic Contac t Dermatitis Due To Other Agents 11/29/2021 Refill Dermatology Shruthi Thayer, Med Refill R.N. 11/28/2021 Refill Dermatology Vani Mohan Med Refill Melody 11/22/2021 Nurse Triage Family Medicine Nahomy Trinh L, M.S.N., R.N. from Last 3 Months Immunizations Name Administration Dates Next Due Influenza, Unspecified 12/30/2012 Family History Medical History Relation Name Comments Diabetes Maternal Grandfather Diabetes Mother Amblyopia Neg Hx Cataracts Neg Hx Glaucoma Neg Hx Macular degeneration Neg Hx Retinal detachment Neg Hx Strabismus Neg Hx Relation Name Status Comments Maternal Grandfather Mother Social History Tobacco Use Types Packs/Day Years Used Date Smoking Tobacco: Never Smokeless Tobacco: Never Alcohol Use Standard Drinks/Week Comments Yes 5 (1 standard drink = 0.6 oz pure alcoho l) gin/tonic Alcohol Habits Answer Date Recorded How often do you have a drink containing 4 or more times a w kaw 10/21/2019 alcohol? How many drinks containing alcohol [...] or relatives? How often do you attend evangelical or sabianism Never 12/20/2018 services? Do you belong to any clubs or organizations Yes 12/20/2018 such as evangelical groups, unions, fraternal or athletic groups, or [...] have completed or the highest Frida, MEd, STORAGE ENGINEER, ISSAC) degree you have received? Sex Assigned at Date Recorded Female Last Filed Vital Signs Vital Sign Reading Time Taken Comments Blood Pressure 162/79 09/27/2021 5:22 PM CDT Pulse 69 09/27/2021 5:22 PM CDT Temperature 35.9 ??C (96.6 ??F) 09/27/2021 5:22 PM CDT Respiratory Rate 16 09/27/2021 5:22 PM CDT Oxygen Saturation 100% 09/27/2021 5:22 PM CDT Inhaled Oxygen Concentration - - Weight 66.1 kg (145 lb 11.6 oz) 09/27/2021 5:28 PM CDT Height 154.9 cm (5' 1) 09/27/2021 5:25 PM CDT Body Mass Index 27.53 09/27/2021 5:25 PM CDT Plan of Treatment Health Maintenance Due Date Last Done Comments Office Visit for Blood Pressure 1940 Check / Re-check Depression Screening (Annual 03/25/2021 PHQ-2) Fall Risk Screen (Annual) 03/25/2021 Influenza Vaccine (#1) 2021 12/21/2020, 12/21/2020, 12/03/2019, Additional history exists Creatinine Level 06/05/2022 06/05/2021, 11/14/2020, 05/09/2020, Additional history exists Potassium Level 06/05/2022 06/05/2021, 11/14/2020, 05/09/2020, Additional history exists Sodium Level 06/05/2022 06/05/2021, 11/14/2020, 05/09/2020, Additional history exists DTaP,Tdap,and Td Vaccines (3 - Td 06/06/2031 06/05/2021, , or Tdap) 03/03/2004 Pneumococcal vaccine (65+ years) Completed 05/27/2014, Zoster Vaccines Completed 07/17/2018, 05/16/2018, 02/18/2007 COVID-19 Vaccine Completed 12/29/2021, 06/27/2021, 12/21/2020, Additional history exists Insurance Payer Benefit Plan Subscriber ID Effective Phone Address Typ e / Group Dates [employer] MEDICARE [id number] 2016-Kianna [phone] [address] [address] PPO COMPLETE nt [address] [place] [address] Care Teams Vegetable Sorter Relationship Specialty Start Date End Date Elsewhere, Pcp PCP - General Family Medicine 11/14/20
--- OUTSIDE RECORDS SUMMARY | 2022-01-18 09:09 | XMS_ITS | Clinical Summary ---
:1940 Author Organization [facility] [place] [address] Care Team Providers Name Role Phone Erica Ramey MD Primary Care Provider Zuly Huber MD Unavailable Vani Mohan MD Unavailable Unavailable Allergies Active Allergy Reactions Severity Noted Date Comments Atorvastatin Myalgia 10/01/2013 Intolerance Benzophenone Rash 04/23/2018 [place] Chloride Rash 04/23/2018 [place] chlor shakeel hexahydrate Coconut Diethanolamide Rash 04/23/2018 (Bulk) Diazepam *Unknown 04/22/2010 Makes her more restless, anxio us. Dibutyl Phthalate Rash 04/23/2018 Diphenhydramine Other - Describe 04/06/2010 Paradoxi karol rx per In Comment Field patient. Po ssible that benadryl actually keeps pt awake Dmdm Hydantoin Rash 04/23/2018 Ethyl Ifwzohmz-Km-Juuzjg Rash 04/23/2018 Methacrylate Formaldehyde Atopic 12/10/2017 Dermatitis Hydrochlorothiazide Rash 05/11/2015 Possibly severe eczematous like rash Iodine Unknown reactio n - patient thought it was from an all ergy pill that iodin e Lisinopril Cough 10/20/2012 Mercaptopurine Rash 04/23/2018 Methylisothiazolinone Rash 04/23/2018 Neomycin Sulfate Rash 04/23/2018 Nickel Sulfate Rash 04/23/2018 Unlisted Allergen (Include Rash 04/23/2018 B lack rubber mix, Detail In Comments) Disperse [place] 3, Dodecyl gallate , Ethylenediamine dihydrochloride , glyceryl thioglycolate, hydroperoxide o f limonene, hydroperoxide o f linalool, lodopropynyl bu tyl carbamate, shakir yl polyglucose, MC I/OK, P-Phenylenediam ine Peppermint Oil Rash 04/23/2018 Propylene Glycol Atopic 12/10/2017 Dermatitis Rofecoxib Intolerance-Can' Vioxx,Not s ure of the t Take reaction, but s he knows that afte r 3 days it made he r feel like she should not have this drug in her body. Shellac Rash 04/23/2018 Simvastatin Myalgia 10/01/2013 Sodium Benzoate Rash 04/23/2018 Tert-Butylhydroquinone Rash 04/23/2018 Thiuram Analogues Rash 04/23/2018 Tixocortol Rash 04/23/2018 tixocortol - 21 Trifluridine Hives, Edema 10/23/2016 Medications Medication Sig Dispensed Refills Start Date End Date Status ADULT LOW DOSE once a day ? 0 06/26/2001 Act amita ASPIRIN 81 MG ORAL TBEC Hiwyz-3-TRZ-EPA-Fish Take by mouth. 0 07/03/2016 Active Oil (FISH OIL) 1,000 mg (120 mg-180 mg) cap tacrolimus 0.03% Apply topically to 0 05/08/2017 Active (PROTOPIC) 0.03 % affected area(s) 2 ointment times daily. triamcinolone-dimeth Apply topically to 0 06/14/2017 Active icone 0.1-5 % ktoc affected area(s). hydrOXYzine HCl 1-2 tablets at bed 30 tablet 0 06/23/2018 Active (ATARAX) 25 mg time as needed for tabletIndications: itching. Itching LOTEMAX 0.5 % 0 06/18/2018 Activ e ophthalmic ointment amoxicillin (AMOXIL) PRN before dental 30 capsule 0 07/13/2019 Active 500 mg capsule work mometasone 0.1% Apply topically to 0 11/05/2019 Active (ELOCON 0.1% CREAM) affected area(s). 0.1 % cream valACYclovir Take 1 tablet by 0 12/03/2019 Active (VALTREX) 500 mg mouth once daily. tablet cetirizine (ZyrTEC) Take 1 Tablet (10 0 07/21/2020 Active 10 mg tablet mg) by mouth. Twice daily turmeric 400 mg cap Take 400 mg by mouth 0 1 Active once daily. desonide 0.05% Apply topically to 0 07/21/2020 Active (TRIDESILON 0.05% affected area(s) 2 OINTMENT) 0.05 % times daily. ointment triamcinolone Apply topically to 80 g 0 10/13/2020 Active (ARISTOCORT) 0.1 % affected area(s) ointmentIndications: once daily. Psoriasis cyanocobalamin Take 1 Tablet (1,000 90 Tablet 3 03/01/2021 Active (Vitamin B-12) 1,000 mcg) by mouth once mcg daily. tabletIndications: Memory problem, Low vitamin B12 level losartan (COZAAR) Take 1 Tablet (100 90 Tablet 3 06/05/2021 Active 100 mg mg) by mouth once tabletIndications: daily. Hypertension estradioL (ESTRACE) 1g intravaginally 42.5 g 0 07/13/2021 Active 0.01% (0.1 mg/g) 1-2 times weekly for vaginal control of vaginal creamIndications: dryness Atrophic vaginitis Ciclopirox 1 % USE TWICE WEEKLY 120 mL 1 09/08/2021 Active shamIndications: DIRECTED Seborrheic dermatitis of scalp propafenone TAKE 1 TABLET BY 270 Tablet 0 09/08/2021 Active (RYTHMOL) 150 mg MOUTH EVERY 8 HOURS tabletIndications: Paroxysmal ventricular tachycardia Ciclopirox 1 % USE TWO TIMES WEEKLY 120 mL 1 09/11/2021 Active shamIndications: DIRECTED Seborrheic dermatitis of scalp amLODIPine (NORVASC) Take 1 Tablet (5 mg) 180 Tablet 1 022 Active 5 mg by mouth once daily. tabletIndications: Hypertension rosuvastatin TAKE 1 TABLET BY 90 Tablet 0 11/09/2021 Active (CRESTOR) 10 mg MOUTH AT BEDTIME tabletIndications: Hyperlipidemia, unspecified hyperlipidemia type Active Problems Patient Care Coordination Note Formatting of this note might be differe nt from the original. HF/Structural Research Eligibility Revie w Date: 03/09/19 The patient did not qualify for any curr ently enrolling studies at the time of this review. 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 Atopic dermatitis 05/15/2020 Osteopenia 04/15/2018 Overview: DEXA 2016 Lichen sclerosus of female genitalia 04/15/2018 Overview: Biopsy 2010 Psoriasis 04/11/2015 Vitamin D deficiency 10/05/2013 Genital herpes, unspecified 07/17/2012 Osteoarthritis 01/23/2011 Overview: S/p R TKA 03/2010 S/p L TKA on 01/22/2011 Rheumatology consult 2011 due to concern s she might have psoriatic arthritis - they felt arthritis was OA Hypertension 01/23/2011 Overview: Stopped lisinopril 08/2012 due to cough Hyperlipidemia 01/23/2011 Overview: On crestor In the past has been on lipitor and simv astatin which caused myalgia ACP (advance care planning) 04/22/2010 Overview: Formatting of this note is dif ferent from the original. Patient has identified Health Care Agent (s): Yes Add Health Care Agents: Yes Health Care Agent(s): Primary Health Care Agent: Elli Arteaga Relationship: dtr Secondary Health Care Agent: Javiut p: Phone: Conservator: Relationship: Phone: Guardian: Relationship: Phone: Patient has Advanced Care Plan Documents (Health Care Directive, POLST): Yes Advance Care Plan Documents: Health Care Directive Patient has identified Specific Treatmen t Preferences: No Specific limits to treatment preferences NOT identified: ASSUME FULL TREATMENT. Thyroid nodule 12/23/2009 Overview: Biopsy 2009 benign colloid nodule Coronary Artery Calcification on Chest CT 10/30/2008 Overview: moderate LAD disease on CT-CA 07/03 VENTRICULAR TACHYCARDIA - NON-SUSTAINED Overview: rhytmol Holter normal 07/03 Follows with Crist[facility] , RECURRENT Resolved Problems Problem Noted Date Resolved Date Nonobstructive CAD (coronary artery disease) per cCTA 06/201004/05/2011 10/20/2012 S/P TKR (total knee replacement) - left in 12/2010, right in 04/05/2011 05/29/201803/2010 Hyponatremia 01/23/2011 10/20/2012 S/P Right TKR (total knee replacement) 03/201007/03/2010 01/23/2011 Episode of Hyponatremia 04/23/2010 05/29/2018 Overview: 04/04 related to free water intake and hypoton ic fluids with surgery Unspecified essential hypertension 02/18/200701/23 PRESYNCOPE 01/11/2011 PERIPHERAL VASCULAR DISEASE WITH CLAUDICATION 01/11/2011 Pure hypercholesterolemia 01/23/2011 PSORIASIS WITH PSORIATIC ARTHRITIS 01/11 Encounters Date Type Specialty Care Team Description 12/17/2021 Telephone Erica Ramey MD Hearing Problem (Orders) 12/14/2021 Telephone Zuly Huber MD Cardiol ogy Appointment 11/06/2021 Refill Erica Ramey MD Refill Request (Rosuvastatin) from Last 3 Months Immunizations Name Administration Dates Next Due Amb Influenza, Inact (High-dose) (Flu 12/23/2015, 01/12/2014 Clinic Only) COVID-19 vaccine ([employer] 12/21/2020, 06/09/2020, 30mcg/0.3mL) PF, MDV Influenza Virus, Unspecified 12/30/2012 Influenza, High-dose Inactivated 12/29/2018, 12/23/2015, , 01/12/2014 Influenza, IIV3 (Age 6-35 mos) 12/21/2010 Influenza, IIV3 (Age >=3 years) 01/04/2013, 01/22/2012, 11/24, 03/30/2010 Influenza, IIV4 12/29/2018 Influenza, Inactivated AIIV4 (Age 65+ 12/21/2020, 12/03/2019 Years) Preserv Free Influenza, Inactivated IIV3 (Age 65+ 12/02/2017, 12/18/2016 Years) Preserv Free Pneumococcal Poly,23-Valent 02/13/2008 (Pneumovax) Pneumococcal conj 13-Valent (Prevnar 05/27/2014 13) Td (Age >=7 Years) 03/03/2004 Tdap 08/08/2010 Zoster (Shingrix-RZV, recombinant) 07/17/2018, 05/16/2018 Zoster (Zostavax-ZVL, live) 02/18/2007 Family History Medical History Relation Name Comments Heart Disease Maternal Grandfather Diabetes Mother Heart Disease Mother Stroke Mother Genetic Other Mother had aneur ysm, stroke, bypass surgery and at age 61. Maternal grandfather had an OK and at age 63. Maternal grandmo ther had a stroke and at age 76. Cancer-breast No Family History Relation Name Status Comments Maternal Grandfather Mother Other Social History Tobacco Use Types Packs/Day Years Used Date Never Smoker Smokeless Tobacco: Never Used Tobacco Cessation: Counseling Given: Yes Alcohol Use Standard Drinks/Week Comments Yes 0 (1 standard drink = 0.6 oz pure alcoho l) 3 drinks/week Alcohol Habits Answer Date Recorded How often do you have a drink containing alcohol? Not asked 01/21/2020 How many drinks containing alcohol do you have on a Not aske d 01/21/2020 typical day when you are drinking? How often do you have six or more drinks on one Not asked 01/21/2020 occasion? 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 Respiratory Rate 18 03/10/2019 11:07 AM SHOE DESIGNER Oxygen Saturation 99% 06/05/2021 1:34 PM CDT Inhaled Oxygen Concentration - - Weight 67.4 kg (148 lb 9.6 oz) 06/05/2021 1:34 PM CDT Height 154.9 cm (5' 1) 06/05/2021 1:34 PM CDT Body Mass Index 28.08 06/05/2021 1:34 PM CDT Plan of Treatment Upcoming Encounters Date Type Specialty Care Team Description 02/01/2022 Office Visit Andres Murillo AuD [address] [facility] Brandy Marvin MA [phone] (Wo rk) 02/08/2022 Office Visit Zuly Huber MD [address] [place], [place] [address] (Wo rk) Health Maintenance Due Date Last Done Comments Tetanus booster 08/08/2020 08/08/2010, 03/03/2004 COVID-19 vaccine series (4 - 02/15/2021 12/21/2020, 021, Booster for Pfizer series) 05/19/2020 Influenza for age 65+ 11/23/2021 12/21/2020, 12/03/2019, 12/29/2018, Additional history exists BMI (ht and wt on same day) for 06/05/2022 06/05/2021, 02/22, age 18+ 08/16/2020, Additional history exists Medicare Wellness for age 65+ 06/05/2022 06/05/2021, 2020, 04/24/2019, Additional history exists Depression screening for age 12+ 06/06/2022 06/06/2021, , 02/27/2021, Additional history exists Tdap Completed 08/08/2010 Pneumococcal series for age 65+ Completed 05/27/2014, 01/24 Zoster (shingles) series for age Completed 07/17/2018, , 50+ 02/18/2007 DEXA/DXA scan for age 65+ Completed 04/27/2019, 01/30/2016 , 07/09/2013, Additional history exists Medical Devices Implanted Type Area Patient Service Rep Device Shelf Model / Identifier Expiration Date Ser ial / Lot Vanguard Tibial Bearing Right: [id number] / Implanted: Qty: 1 on 04/21/2010 at [facility] Knee / [id number] Description: VANGUARD TIBIAL BEARING Cmnt Bone [place] - [id number] Left: Knee BIOMET [id number] / Implanted: Qty: 2 on 01/22/2011 at [facility] / [id number] Results Not on filefrom Last 3 Months Insurance Payer Benefit Plan / Subscriber ID Effective Dates Phone Addre ss Type Group MEDICARE PART B - MEDICARE PART B [id number] 2004-Presen ATTN: CLAIMS HB USE ONLY HB ONLY t [address] [place] [address] MEDICARE PART A - MEDICARE PART A [id number] 2004-Presen ATTN: CLAIMS HB USE ONLY HB ONLY t [address] [place] [address] [facility] MR [id number] 2021-Presen [address] [address] [place] [address] Advance Directives Documents on File Type Date Recorded Patient Bottom Scrubber Explanati on Healthcare Directive 01/21/2009 HEALTHCARE DIRECTIVE Healthcare Directive 04/21/2010 Latest Code Status on File Code Status Date Activated Date Inactivated Comments Full Code 01/22/2011 2:19 PM 01/25/2011 7:21 PM Full Code 01/22/2011 6:37 AM 01/22/2011 2:19 PM Full Code 04/21/2010 3:12 PM 04/24/2010 5:21 PM Full Code 04/21/2010 6:57 AM 04/21/2010 3:12 PM Care Teams Rn Perioperative Relationship Specialty Start Date End Date Erica Ramey MD PCP - General 08/17/05 [address] [place] [address] Zuly Huber MD Cardiology - Interventional 11/02/19 [address] [place] [address] Vani Mohan MD Dermatology 11/02/19
--- OUTSIDE RECORDS SUMMARY | 2022-01-18 09:09 | XMS_ITS | Encounter Summary ---
:1940 Author Organization [facility] Address [address] [place] [address] Care Team Providers Name Role Phone Elsewhere, Pcp Primary Care Provider Unavailable Reason for Visit Reason Comments Hypertension Pt wants her blood pressure check, her blood pressure for yesterday and today was 160/96 and 2 other blood pressures higher then 160 sys. Pt wants her blood pressure mac carito calibrated. Encounter Details Date Type Department Care Team Description 09/27/2021 Emergency [facility] [place] Stanley Davalos Hypertensiv e Heart Emergency Department P.A.-C. Disease Without Heart [address] Failure (Primary Dx) [place] [address] [place], [place] [phone] (Wo rk) Social History Tobacco Use Types Packs/Day Years Used Date Smoking Tobacco: Never Smokeless Tobacco: Never Alcohol Use Standard Drinks/Week Comments Yes 5 (1 standard drink = 0.6 oz pure alcoho l) gin/tonic Alcohol Habits Answer Date Recorded How often do you have a drink containing 4 or more times a w [place] 10/21/2019 alcohol? How many drinks containing alcohol [...] or relatives? How often do you attend restoration or confucianism Never 12/20/2018 services? Do you belong to any clubs or organizations Yes 12/20/2018 such as restoration groups, unions, fraternal or athletic groups, or [...] have completed or the highest Frida, MEd, ADULT HEALTH CLINICAL NURSE SPECIALIST, ISSAC) degree you have received? Sex Assigned [...] Mass Index 27.53 09/27/2021 5:25 PM CDT documented in this encounter Discharge Instructions Discharge InstructionsFoStanley castro P.A.-C. - 09/27/2021 5:47 PM CDT Check your blood pressure 1 time a day, continue your regular medications as directed, return to theER if worsening or any further concerns. Follow-up with your primary care provider next week as scheduled documented in this encounter Medications at Time of Discharge Medication Sig Dispensed Refills Start Date End Date amLODIPine Take 1 tablet by mouth 0 09/29/2015 (for_NORVASC) 5 mg daily. tablet aspirin [address] tablet once a day 0 06/26/2001 Ca carb-Ca gluc-Mg Take by mouth. 0 07/03/2016 ox-Mg gluco 500 mg calcium -250 mg tablet cetirizine (ZyrTEC) 10 Take 1 tablet by mouth 0 0 04/26/2017 mg tablet 2 (two) times a day as needed. cholecalciferol Take 2,000 Units by 0 05/15/2016 (VITAMIN D3) 2,000 Unit mouth. capsule ciclopirox 1 % shampoo 0 04/29/2017 cyanocobalamin (VITAMIN Take 1,000 mcg by 0 03/01 B12) 1,000 mcg tablet mouth. estradioL (ESTRACE) 0.1 1- 2 g intravaginally 0 0 10/03/2020 mg/g (0.01%) vaginal qd for 1-2 weeks, then cream gradually reduce to maintenance dosage of 1 g of cream, once weekly. Order from [facility] per patient losartan (COZAAR) 100 Take 100 mg by mouth. 0 02/2018 mg tablet LOTEMAX 0.5 % 0 06/26/2017 ophthalmic ointment mometasone (ELOCON) 0.1 Apply 1 application 45 g 3 % cream topically daily as needed (Rash). mometasone (ELOCON) 0.1 APPLY 1 APPLICATION 45 g 3 % cream DAILY NEEDED (RASH) omega 7-tni-pcl-fish Take by mouth. 0 07/03/2016 oil 1,000 mg (120 mg-180 mg) capsule pimecrolimus (ELIDEL) 1 Apply 1 application 0 09/2015 % cream topically 2 (two) times a day. propafenone Take 1 tablet by mouth 0 08/29/2012 (for_RHTHYMOL) 150 mg 3 (three) times a day. tablet rosuvastatin (CRESTOR) Take 10 mg by mouth. 0 10 mg tablet tacrolimus (Protopic) Apply 1 application 100 g 3 03/03 0.1 % ointment topically 2 (two) times a day. triamcinolone (KENALOG) Apply to affected 80 g 11 10/12 0.1 % ointment areas on trunk and extremities two times a day as needed. uzzladxftpmyv-kwhzyv-bt Apply 1 application 0 09/2015 licone 0.1-2 % kit topically 3 (three) times a day. triamcinolone-dimethico Apply topically. 0 2017 ne 0.1-5 % kit,ointment and cream valACYclovir (VALTREX) Take 500 mg by mouth 2 0 500 mg tablet (two) times a day. amoxicillin (AMOXIL) PRN before dental work 0 500 mg capsule cephalexin (KEFLEX) 500 0 02/15/2019 mg capsule FISH,SAF,FLX,BRG Take by mouth. 0 02/22/2014 OILS/O3,6,9N2 (BIMR-GQZP-KMHYJL OIL ORAL) fluorometholone (FML) Administer 1 drop into 0 0.1 % ophthalmic both eyes as needed. suspension hydrOXYzine Take 1 tablet by mouth 0 10/11/2015 (for_ATARAX) 25 mg 4 (four) times a day tablet as needed. loteprednol (LOTEMAX) 1-2 drops as needed. 0 04/2017 0.5 % ophthalmic suspension metoprolol Take 50 mg by mouth 0 09/29/2015 (for_LOPRESSOR) 1 mg/mL daily. IV syringe metoprolol succinate Take 25 mg by mouth. 0 07/04 (TOPROL-XL) 50 mg 24 hr Patient states she tablet only takes 1/2 tablet currently. Nystop 100,000 APPLY TOPICALLY THREE 15 g 4 10/21/2019 unit/gram powder TIMES DAILY NEEDED FOR RASH TOPROL XL 50 mg 24 hr 0 10/04/2016 tablet turmeric 400 mg capsule Take 400 mg by mouth. 0 0 07/21/2020 clobetasoL (TEMOVATE) APPLY ONE APPLICATION 50 mL 3 11/29/2021 0.05 % external EXTERNALLY TWICE A DAY solution NEEDED (SCALP IRRITATION) desonide (DESOWEN) 0.05 Apply to affected 60 g 3 08/1911/30/2021 % ointment area(s) two times daily as needed. documented as of this encounter Progress Notes Stanley Davalos P.A.-C. - 09/27/2021 5:47 PM CDT SUBJECTIVE CHIEF COMPLAINT/REASON FOR VISIT Hypertension (Pt wants her blood pressure check, her blood pressure for yesterday and today was 160/96 and 2 other blood pressures higher then 160 sys. Pt wants her blood pressure machine calibrated. ) HISTORY OF PRESENT ILLNESS Krupa Atwood is a 81 y.o. female with a history of high blood pressure states that she is not sure why however she decided to check her blood pressure today and noticed it was high. She then continued to recheck it and checked it a total of 6 times today. She had readings of 160 systolic over 80-90 diastolic. She did not have a headache, no change in vision or hearing, lightheadedness or dizziness, chest pain shortness of breath or palpitations. She comes in only for a blood pressure check. She wants to calibrate her blood pressure machine with our blood pressure machine. She did contact her provider today and made an appointment to be seen next week. REVIEW OF SYSTEMS All other systems reviewed and are negative. OBJECTIVE Initial Vitals Temperature Pulse Rate Heart Rate Resp Rate Blood Pressure SpO2 09/27/21 1722 09/27/21 1722 -- 09/27/21 1722 09/27/21 1722 09/27/21 1722 (!) 35.9 ??C 69 16 (!) 162/79 100 % Pain Score 09/27/21 1725 0 - No pain PHYSICAL EXAMINATION Constitutional: Nursing note and vitals reviewed. She appears not lethargic. No distress. HENT: Head: Normocephalic and atraumatic. Eyes: Conjunctivae and EOM are normal. Pulmonary/Chest: Effort normal. No respiratory distress. Neurological: Alert and oriented to person, place, and time. Skin: Skin is warm and dry. She is not diaphoretic. Psychiatric: She has a normal mood and affect. Behavior is normal. Thought content normal. ASSESSMENT/PLAN IMPRESSION AND PLAN Reassurance is provided, I would recommend checking blood pressure just once a day and record. Bringthese readings to her primary care provider or transportation inspector office next week for review. Return to the ED if worsening wearing further concerns. Continue your regular medications as directed. Final Diagnoses: as of 09/27/21 1749 Hypertensive Heart Disease Without Heart Failure Stanley Davalos P.A.-C. 09/27/211748 documented in this encounter Plan of Treatment Not on filedocumented as of this encounter Visit Diagnoses Diagnosis Hypertensive Heart Disease Without Heart Failure - Primary documented in this encounter Care Teams Ribbon Lapper Tender Relationship Specialty Start Date End Date Elsewhere, Pcp PCP - General Family Medicine 11/14/20 documented as of this encounter
--- OUTSIDE RECORDS SUMMARY | 2022-01-18 09:09 | XMS_ITS | Encounter Summary ---
:1940 Author Organization [facility] Address [address] [place] [address] Care Team Providers Name Role Phone Elsewhere, Pcp Primary Care Provider Unavailable Reason for Visit Reason Comments Referral Encounter Details Date Type Department Care Team Description 11/15/2020 Clinical Communication Department of Mandeep Hyman, Referral Neurological Surgery [place] [address] [place] [address] [facility] [place] [phone] (Wo rk) [phone] Social History Tobacco Use Types Packs/Day Years Used Date Smoking Tobacco: Never Smokeless Tobacco: Never Alcohol Use Standard Drinks/Week Comments Defer 0 (1 standard drink = 0.6 oz pure alcoho l) Alcohol Habits Answer Date Recorded How often do you have a drink containing 4 or more times a w [place] 10/21/2019 alcohol? How many drinks containing alcohol [...] or relatives? How often do you attend druze or worship Never 12/20/2018 services? Do you belong to any clubs or organizations Yes 12/20/2018 such as druze groups, unions, fraternal or athletic groups, or [...] have completed or the highest Frida, MEd, PV DESIGN ENGINEER, ISSAC) degree you have received? Sex Assigned at Date Recorded Female documented as of this encounter Miscellaneous Notes Telephone Encounter - Makenna Dexter, R.N. - 11/16/2020 11:55 AM CDT Krupa notified to make an appointment with neurosurgery in [place]. She will not able able to makean appointment in [place] since she is unsure when she will be returning home to [place]. I gave her the phone number for [place] [facility] for her to make an appointment. I told her [place] has [facility] so they will be able to see her records. Telephone Encounter - Marcin Townsend Jr., M.D. - 11/16/2020 11:27 AM CDT I would prioritized that she be seen for the colloid cyst by neurosurgery, either here or in [place]. Intermittent symptoms could be related to the presence of the colloid cyst. Neurologically there is not much that we could do for this. Telephone Encounter - Makenna Dexter R.N. - 11/16/2020 10:31 AM CDT Neurology Referral Template S Referral to Neurology for memory loss B Referring Provider: Mark Problem/What Led to Referral: Memory Loss (Pt reports a memory loss Saturday night. She was having issues with her TV on Saturday. On Saturday she called [employer] they said she called then 4 times Saturday night. She has no memory of that. She was feeling off and flores on Saturday.) A Previous Notes: ED provider notes:Patient was quite upset that she could remember the episode and is concerned about a TIA versus dementia. Discussed patient's symptoms, they are not classic for a TIA We discussed her medical family history with her head bleed in her mom and I gave her the option ofhaving a carotid ultrasound, head CT and labs or waiting to see if she has other symptoms. She is currently on management for a TIA and this would not change that. 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 Pt states she lives in [place] and if it is felt she needed to be seen and unable to get into [facility], prior to her leaving, she would want to be seen in [place]. If patient is unable to be seen in prior to 11/30, are we able to make a referral for [place] or should she call to make a self referral? Nurse Recommendations: We will contact the patient for further questions and/or to schedule after our on-call provider is able to reply with recommendations. IS A REPLY NEEDED BACK TO NURSING? YES, Please route to: [facility] NURSE TRIAGE Telephone Encounter - María Elena Terrazas R.N. - 11/16/2020 9:57 AM CDT Patient returns call, informed of the recommendations below. Pt continued to want to discuss her NEUneed for follow up, stating they can't get me until 11/30 and I may not be here. Pt states she livesin [place] and if it is felt she needed to be seen and unable to get into [facility], prior to her leaving, she would want to be seen in [place]. Informed Neurology team will need to reach out to her to assist with this. Informed entry writer will contact [facility] and have them reach out to her again to discuss. Telephone Encounter - Makenna Dexter R.N. - 11/16/2020 9:42 AM CDT Neurosurgery, I contacted the patient and she states she does not want to be seen regarding her memory. She statesshe had this one incident (nothing like this has ever happened before) where her TV was not working and she called the repair man 4 times on a Saturday. On Saturday she called again and he told her shecalled 4 times and she does not for the life of me remember doing so. Krupa is more concerned about the cyst and if it is big enough to cause issues. If it is of concern, then she would like to make an appointment but in [place] as she lives in [place], [place]. She has a cabin around the [facility] but will be heading back to her home within the next few weeks. Please call her to discuss. Thank you. Telephone Encounter - María Elena Terrazas R.N. - 11/16/2020 9:37 AM CDT Did attempt to contact pt to inform of the recommendations noted below, after reviewing with Dr Hyman. It was recommended that pt be seen by Neurology and if felt needed, she would be directed back to [facility]. Message left for patient to return call. Telephone Encounter - Victoria Maldonado - 11/16/2020 9:10 AM CDT Pt returned call. Patient would like to know how urgent these appts are. Patient would like to be seen in [place] for her Neuro appts. Telephone Encounter - María Elena Terrazas R.N. - 11/15/2020 2:14 PM CDT Reviewed face to face with Dr Hyman who recommends Neurology to take lead on the Short term memory issues, and if felt needed to be directed back to Neurosurgery (after being evaluated by Neurology) for counseling on colloid cyst, pt could be seen by any Neurosurgeon. Telephone Encounter - María Elena Terrazas, R.N. - 11/15/2020 1:43 PM CDT Images from the original note were not included. General Info Referral ID: [id number] Received on: 11/14/2020 Class: Internal Type: Outpatient Priority: Routine Requested date: 11/28/2020 Specialty: Neurological Surgery Referring Info Referred By Provider: Melanie Flores M.D. Location: [facility] Referred To Specialty: Neurological Surgery Location: [facility] Request Notes 11/15 Sent to triage rsm Request Indications Indication Comments Loss Memory Short Term [R41.3] Procedures RET72 - POST ED VISIT Diagnoses R41.3 (ICD-10-CM) - Loss Memory Short Term Triage Information Decision: (none) Priority: Routine Comments Victoria Maldonado 11/15/2020 ??8:33 AM CDT ED Referral Notes Expand All?Collapse All Provider Comments 11/14/2020 ??2:35 PM CDT Entered by Melanie Flores Follow up on Colloid Cyst finding on brain CT Referral Order Order POST ED VISIT Neurological Surgery (Order # [id number]) on 11/14/2020 View Encounter Financial Class Fin Class Medicare Advantage Order Questions Question Answer Region [facility] ED Visit F/U Specialty? Neurological Surgery documented in this encounter Plan of Treatment Not on filedocumented as of this encounter Visit Diagnoses Not on filedocumented in this encounter Care Teams Hogshead Head Matcher Relationship Specialty Start Date End Date Elsewhere, Pcp PCP - General Family Medicine 11/14/20 documented as of this encounter
--- OUTSIDE RECORDS SUMMARY | 2022-01-18 09:09 | XMS_ITS | Encounter Summary ---
:1940 Author Organization [facility] Address [address] [place] [address] Care Team Providers Name Role Phone Elsewhere, Pcp Primary Care Provider Unavailable Reason for Visit Reason Comments Referral Encounter Details Date Type Department Care Team Description 11/15/2020 Clinical Communication Department of Hector Stahl Re ferral Neurology in [place], [place] [phone] [place] [address] (Work) [place] [phone] Social History Tobacco Use Types Packs/Day Years Used Date Smoking Tobacco: Never Smokeless Tobacco: Never Alcohol Use Standard Drinks/Week Comments Defer 0 (1 standard drink = 0.6 oz pure alcoho l) Alcohol Habits Answer Date Recorded How often do you have a drink containing 4 or more times a w [place] 10/21/2019 alcohol? How many drinks containing alcohol [...] or relatives? How often do you attend congregational or adventist Never 12/20/2018 services? Do you belong to any clubs or organizations Yes 12/20/2018 such as congregational groups, unions, fraternal or athletic groups, or [...] have completed or the highest Frida, MEd, WATER QUALITY TECHNICIAN, ISSAC) degree you have received? Sex Assigned at Date Recorded Female documented as of this encounter Miscellaneous Notes Telephone Encounter - Makenna Dexter R.N. - 11/16/2020 9:49 AM CDT See other communication encounter with Neurosurgery. Telephone Encounter - Marguerite Mendez - 11/15/2020 2:09 PM CDT The patient wanted to hold off on scheduling with Neurology and wait and see what Neurosurgery recommends because she thinks it is related to the cyst found on the CT. Neurology order has been deferred. Telephone Encounter - Hector Stahl R.N. - 11/15/2020 11:10 AM CDT Images from the original note were not included. If you have the patient on the phone, please route call to scheduling along with this template. Sched with (Provider) Any MD Order entered: (Y or N) Referring provider: Melanie Aguilar MD Visit type/duration: new Desired timeframe? Next avail Reason for visit: Episode of memory loss, possible transient global amnesia Radiology: (Yes or No) Is patient aware of apt. date/time? (Yes or No) Additional Comments: Referral ID: [id number] Received on: 11/14/2020 Class: Internal Type: Outpatient Priority: Routine Requested date: 11/28/2020 Specialty: Neurology Referring Info Referred By Provider: Melanie Flores M.D. Location: [facility] Referred To Specialty: Neurology Location: [facility] Region Request Notes 11/15 TRIAGE Request Indications Indication Comments Loss Memory Short Term [R41.3] Procedures RET72 - POST ED VISIT Diagnoses R41.3 (ICD-10-CM) - Loss Memory Short Term Triage Information Decision: (none) Priority: Routine documented in this encounter Plan of Treatment Not on filedocumented as of this encounter Visit Diagnoses Not on filedocumented in this encounter Care Teams Residential Mortgage Underwriter Relationship Specialty Start Date End Date Elsewhere, Pcp PCP - General Family Medicine 11/14/20 documented as of this encounter
--- OUTSIDE RECORDS SUMMARY | 2022-01-18 09:10 | XMS_ITS | Encounter Summary ---
:1940 Author Organization [facility] Address [address] [place] [address] Care Team Providers Name Role Phone Unavailable Primary Care Provider Unavailable Reason for Referral Outpatient (Routine) - Closed Specialty Diagnoses / Procedures Referred By Contact Refer david To Contact Dermatology Vani Mohan M.D . [address] [address] Referral ID Status Reason Start Date Expiration Date Visits Requ ested Visits Authorized [id number] Closed 12/24/2018 12/24/2019 1 1 Reason for Visit Appointment Request (Routine) - Closed Specialty Diagnoses / Procedures Referred By Contact Refer red To Contact Dermatology Erica Ramey M.D. [address] [place] [id number] Referral ID Status Reason Start Date Expiration Date Visits Requ ested Visits Authorized [id number] Closed 10/03/2018 10/03/2019 1 Encounter Details Date Type Department Care Team Description 12/24/2018 Office Visit Department of Vani Mohan, Dermatitis Atopic (Primary Dx); Dermatology in M.D. Lichen Sclero migue; [place], [place] Psoriasis; [address] [facility] Dermatitis [place] [address] Social History Tobacco Use Types Packs/Day Years Used Date Smoking Tobacco: Never Smokeless Tobacco: Never Alcohol Use Standard Drinks/Week Comments Defer 0 (1 standard drink = 0.6 oz pure alcoho l) Alcohol Habits Answer Date Recorded How often do you have a drink containing 4 or more times a w [place] 10/21/2019 alcohol? How many drinks containing alcohol [...] or relatives? How often do you attend orthodoxy or christianity Never 12/20/2018 services? Do you belong to any clubs or organizations Yes 12/20/2018 such as orthodoxy groups, unions, fraternal or athletic groups, or school groups? How often do you attend meetings of the More than 4 times r year 12/20/2018 clubs or organizations you [...] have completed or the highest Frida, MEd, PERFORMANCE TEST ENGINEER, ISSAC) degree you have received? Sex Assigned at Date Recorded Female documented as of this encounter Progress Notes Daniel Baird M.D. - 12/24/2018 11:40 AM CDT CHIEF COMPLAINT Atopic dermatitis, lichen sclerosis, psoriasis HISTORY OF THE PRESENT ILLNESS Krupa Atwood is a pleasant 78 y.o. female who follows up for a history of Atopic dermatitis, lichen sclerosis, and psoriasis. Patient was last seen in our department on 12/11/2017. She states that overall her various skin conditions have been about the same since last time she was here. She has been using the Protopic and desonide for eczema on her face as well as using products only fromskin safe. She tries to use emollients liberally. She states that she is still very itchy especiallyaround her eyes, left cheek, and behind her left ear. She also uses Zyrtec twice daily. For her lichen sclerosis, she states that occasionally she will have some open lesions or erosions, but she is mostly asymptomatic currently. She will use the Protopic and triamcinolone cream for the lichen sclerosis. As far as her psoriasis, she has noticed a few more spots and she will use the triamcinolone cream for these. She otherwise states that she is feeling well, denies any fever, chills. There are no other skin concerns today. REVIEW OF SYSTEMS 4-point ROS reviewed and otherwise negative. PAST MEDICAL HISTORY Atopic dermatitis, allergic contact dermatitis, lichen sclerosis, and plaque psoriasis PHYSICAL EXAM General: Awake, alert, in no acute distress, and with appropriate affect. Eyes: No scleral injection or icterus. No eyelid abnormalities. Skin: I have examined the scalp, face, neck, chest, abdomen, back, bilateral upper extremities, and bilateral lower extremities, genital area, and buttocks. Notable for multiple ill-defined pink patches with slight superficial scale on patient's upper chest, face, especially left cheek and periorbital. Erythematous plaque with more significant scale on the postauricular scalp. Well-demarcated erythematous papules and plaques with superficial scale on bilateral extensor elbows, lower back, and scattered on bilateral upper and lower extremities. Genital exam reveals some atrophy of the labia majora with faint thin white plaques of the medial labia majora. No erosions or active disease visualized. IMPRESSION AND PLAN #1 Atopic dermatitis #2 Allergic contact dermatitis Overall patient's skin looks poorly controlled. Discussed in length options to continue with topicaltherapies or to consider starting possible oral therapies. Patient would like to continue with topical therapies at this time and follow up in 3 months time to reassess. If topical therapies are not sufficient, would like to consider methotrexate as possible option to help treat patient's multiple skin diseases (dermatitis, psoriasis, and possibly lichen sclerosis) -continue strict avoidance of allergens using skin safe -provided patient with dry skin care pamphlet, patient to be diligent with twice daily moisturizing and following other sensitive skin care guidelines -patient to continue Protopic and desonide for dermatitis on face -patient to restart using home light therapy #3 Plaque psoriasis Disease appears somewhat worsened since her last visit -patient to continue with triamcinolone twice daily as needed to affected areas -patient to restart phototherapy at home has stated above #4 Lichen sclerosis, well controlled Her disease appears well controlled today. -patient to continue using Protopic and triamcinolone as needed in vaginal area -swab obtained to assess for possible Emilie superinfection PATIENT EDUCATION All questions answered. Ready to learn. No apparent learning barriers were identified. Learning preferences include listening. Explained diagnosis and treatment plan; patient/guardian of patient expressed understanding of the content. CORRESPONDENCE TO: Daniel Baird M.D. Supervised by: Vani Lozano M.D. Associated attestation - Vani Mohan M.D. - 12/25/2018 11:36 AM CDT I saw and evaluated the patient, participating in the cadet portions of the service. I reviewed the resident/fellow???s note. I agree with the resident/fellow???s findings and plan. documented in this encounter Plan of Treatment Scheduled Referrals Name Type Priority Associated Order Schedule Diagnoses Dermatology office Outpatient Referral Routine Ex pected: visit (clinic) 03/26/2019 (Approximate), Expires: 12/24/2021 documented as of this encounter Procedures Procedure Name Priority Date/Time Associated Diagnosis Comme nts FUNGAL CULTURE, Routine 12/24/2018 12:10 PM Resul ts for this VAGINAL CDT procedure are i n the results section. documented in this encounter Results Fungal Culture, Vaginal (12/24/2018 12:10 PM CDT) [facility] Method Time Signature Fungal No growth 12/28/2018 DTL Culture, after 3 1:01 PM CDT Vaginal days of incubation. Specimen Anatomical Collection Method Collection Time Receive d Time (Source) Location / / Volume Laterality Vulva, Left 12/24/2018 12:10 12/24/2018 1:18 PM CDT PM CDT Comment: Specimen Source Site: [facility] Vani Mohan M.D. LAB MICROBIOLOGY - GENERAL O RDERABLES Performing Organization Address City/State/ZIP Code Phon e Number [facility] - [address] [place], [place] [address] [facility] [place] [address] [facility] [address] documented in this encounter Visit Diagnoses Diagnosis Dermatitis Atopic - Primary Lichen Sclerosus Psoriasis Dermatitis Allergic Contact documented in this encounter
--- OUTSIDE RECORDS SUMMARY | 2022-01-18 09:10 | XMS_ITS | Encounter Summary ---
:1940 Author Organization [facility] Address [address] [place] [address] Care Team Providers Name Role Phone Unavailable Primary Care Provider Unavailable Reason for Visit Reason Comments Itchy Eye Outpatient (Routine) - Closed Specialty Diagnoses / Procedures Referred By Contact Refer red To Contact Ophthalmology Diagnoses Herpes Simplex Keratitis Dendritic Rehan Acosta O.D. [address] [place] [address] Referral ID Status Reason Start Date Expiration Date Visits V isits Requested Authorized [id number] Closed Specialty 10/15/2016 04/13/2017 1 1 Services Required Encounter Details Date Type Department Care Team Description 10/19/2016 Comprehensive Visit Department of Dorina Acosta Ophthalmology in [place] Keratitis Dendritic [address] [facility] [place] [phone] Social History Tobacco Use Types Packs/Day Years Used Date Smoking Tobacco: Never Smokeless Tobacco: Never Alcohol Use Standard Drinks/Week Comments Defer 0 (1 standard drink = 0.6 oz pure alcoho l) Alcohol Habits Answer Date Recorded How often do you have a drink containing 4 or more times a w [place] 10/21/2019 alcohol? How many drinks containing alcohol [...] or relatives? How often do you attend methodist or mormon Never 12/20/2018 services? Do you belong to any clubs or organizations Yes 12/20/2018 such as methodist groups, unions, fraternal or athletic groups, or [...] or getting things needed for daily living? Sex Assigned at Date Recorded Female documented as of this encounter Progress Notes Rehan Acosta O.D. - 10/19/2016 4:30 PM CDT SUBJECTIVE CHIEF COMPLAINT / REASON FOR VISIT Krupa Atwood is a 76 y.o. female who presents for evaluation of Itchy Eye. HISTORY OF PRESENT ILLNESS HPI OBJECTIVE PHYSICAL EXAM Physical Exam ASSESSMENT / PLAN she presents today for check of right eye. For she mentions that as she use the medication her right eye began to feel better. However, then she developed a very dramatic reaction of hives and swelling 1st on the eyelids than on the face and now on her back. She tells me this is common when she uses medication secondary to known over reactive immune system and a very high number of allergies. She believes this allergy is secondary to appropriately in glycol that is in the drop but not listed on the drops instead is an inactive in greeted in. Plan on slit-lamp her 2 herpetic lesions appear improved and are no longer staining. I am going to have her 1st obviously stop the eyedrops that she is reacting to. Secondly I am going to prescribe fell cycle of ear 1000 mg to be taken once a day for the next 5 days. Then 4 days from now she is going to be seen by her warp trucker in [place]. This is an acceptable plan to her and she is taking this medication before without complication or allergy. 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
--- OUTSIDE RECORDS SUMMARY | 2022-01-18 09:10 | XMS_ITS | Encounter Summary ---
:1940 Author Organization [facility] Address [address] [place] [address] Care Team Providers Name Role Phone Unavailable Primary Care Provider Unavailable Encounter Details Date Type Department Care Team Description 09/13/2014 Hospital Encounter HX [facility] Noelle Greenberg M.D. OPHTHOPTO [address] [place], [place] [address] (Wo rk) Social History Tobacco Use Types Packs/Day Years Used Date Smoking Tobacco: Never Assessed Alcohol Habits Answer Date Recorded How often do you have a drink containing 4 or more times a w [place] 10/21/2019 alcohol? How many drinks containing alcohol [...] or relatives? How often do you attend orthodox or methodist Never 12/20/2018 services? Do you belong to any clubs or organizations Yes 12/20/2018 such as orthodox groups, unions, fraternal or athletic groups, or [...] Recorded Female documented as of this encounter Medications at Time of Discharge Medication Sig Dispensed Refills Start Date End Date aspirin [address] tablet once a day 0 06/26/2001 FISH,SAF,FLX,BRG Take by mouth. 0 02/22/2014 OILS/O3,6,9N2 (QRWR-LIND-CZZBZA OIL ORAL) fluorometholone (FML) 0.1 Administer 1 drop 0 % ophthalmic suspension into both eyes as needed. propafenone Take 1 tablet by 0 08/29/2012 (for_RHTHYMOL) 150 mg mouth 3 (three) tablet times a day. aspirin 0.1 mg capsule daily. 0 08/29/2012 fluorometholone (FML Apply 0.5 inches to 0 201410/19/2016 S.O.P.) 0.1 % ophthalmic both eyes as needed. ointment losartan (for_COZAAR) 50 Take 1 tablet by 0 10/1003/01/2021 mg tablet mouth daily. rosuvastatin Take by mouth at 0 08/29/20122017 (for_CRESTOR) 1.25 mg bedtime. tablet documented as of this encounter Miscellaneous Notes Miscellaneous - Lucian Pandya - 09/13/2014 10:33 AM CDT Adult Manager Data Intake/History Adult Manager Data Intake/History Entered On: 09/13/2014 10:34 CDT Performed On: 09/13/2014 10:33 CDT by LUCIAN PANDYA Intake Chief Complaint : 1 WEEK RECHECK LEFT EYE LUCIAN PANDYA - 09/13/2014 10:33 CDT General Info Information Given By : Patient Languages : Swedish Is Patient Female and 13-50 no hysterectomy : No LUCIAN PANDYA - 09/13/2014 10:33 CDT Subjective Pain Symptoms : No LUCIAN PANDYA - 09/13/2014 10:33 CDT Dependent Habits Tobacco Use/Currently Using : No Exposure to Tobacco Smoke : Other: NEVER Smoking Status : Never smoker LUCIAN PANDYA - 09/13/2014 10:33 CDT Recreational Drug Use Grid Drug Use : None LUCIAN PANDYA - 09/13/2014 10:33 CDT Source: [facility] POWERCHART Document Id: [id number] CDT!16 documented in this encounter Plan of Treatment Not on filedocumented as of this encounter Visit Diagnoses Not on filedocumented in this encounter
--- OUTSIDE RECORDS SUMMARY | 2022-01-18 09:10 | XMS_ITS | Encounter Summary ---
:1940 Author Organization [facility] Address [address] [place] [address] Care Team Providers Name Role Phone Unavailable Primary Care Provider Unavailable Encounter Details Date Type Department Care Team Description 09/29/2015 Hospital Encounter HX [facility] Grupo Rosen, A.P.N.P., R.N. Social History Tobacco Use Types Packs/Day Years Used Date Smoking Tobacco: Never Assessed Alcohol Habits Answer Date Recorded How often do you have a drink containing 4 or more times a w [place] 10/21/2019 alcohol? How many drinks containing alcohol [...] How often do you attend restoration or taoism Never 12/20/2018 services? Do you belong to [...] Sign Reading Time Taken Comments Blood Pressure 128/60 09/29/2015 10:50 AM CDT Pulse 64 09/29/2015 10:50 AM CDT Temperature - - Respiratory Rate 16 09/29/2015 10:50 AM CDT Oxygen Saturation - - Inhaled Oxygen Concentration - - Weight 69.3 kg (152 lb 12.5 oz) 09/29/2015 10:50 AM CDT Height 156.5 cm (5' 1.61) 09/29/2015 10:50 AM CDT Body Mass Index 28.29 09/29/2015 10:50 AM CDT documented in this encounter Medications at Time of Discharge Medication Sig Dispensed Refills Start Date End Date amLODIPine (for_NORVASC) Take 1 tablet by 0 09/28 5 mg tablet mouth daily. aspirin [address] tablet once a day 0 06/26/2001 FISH,SAF,FLX,BRG Take by mouth. 0 02/22/2014 OILS/O3,6,9N2 (JURA-WQLT-IVJSEI OIL ORAL) fluorometholone (FML) 0.1 Administer 1 drop 0 % ophthalmic suspension into both eyes as needed. metoprolol Take 50 mg by mouth 0 09/29/2015 (for_LOPRESSOR) 1 mg/mL daily. IV syringe pimecrolimus (ELIDEL) 1 % Apply 1 application 0 0 09/29/2015 cream topically 2 (two) times a day. propafenone Take 1 tablet by 0 08/29/2012 (for_RHTHYMOL) 150 mg mouth 3 (three) tablet times a day. guknnzciajbma-waomet-agny Apply 1 application 0 0 09/29/2015 cone 0.1-2 % kit topically 3 (three) times a day. aspirin 0.1 mg capsule daily. 0 08/29/2012 fluorometholone (FML Apply 0.5 inches to 0 201410/19/2016 S.O.P.) 0.1 % ophthalmic both eyes as needed. ointment lactobacillus-bifidobacte Take 1 capsule by 0 09/201503/01/2021 rium-streptococcus mouth daily. (for_THER-BIOTIC COMPLETE) 25 billion CFU losartan (for_COZAAR) 50 Take 1 tablet by 0 10/1003/01/2021 mg tablet mouth daily. xumbtxxjrscu-souvdsko-xbn Take 1 tablet by 0 07/0 09/201503/01/2021 monica gluconate mouth daily. (MULTIVITAMIN WITH MINERALS) 9 mg iron/15 mL liquid rosuvastatin Take by mouth at 0 08/29/20122017 (for_CRESTOR) 1.25 mg bedtime. tablet VITAMIN D3/SOY ISOFLAVONE Take 1 tablet by 0 07/0 09/201503/01/2021 (CHOLECALCIFEROL-SOY mouth daily. ISOFLAVONE ORAL) documented as of this encounter Progress Notes Sylvie Rosen, R.N., N.P. - 09/29/2015 5:37 PM CDT Clinic Full Note CHIEF COMPLAINT/REASON FOR VISIT rectal/vaginal irritation HISTORY OF PRESENT ILLNESS 75-year-old female presents with 2 episodes of rectal bleeding in the past few days. They have beenbright red. She has noticed moderate amount with wiping. She denies any pain over the rectal area. She denies constipation. She has not been straining. She describes a long history of dermatologic problems, beginning with psoriasis and 12/11/1990. In January 2015 she developed a significant problem with her skin. It became worse in April and May. She was told she was allergic to hydrochlorothiazide. She has been working with the molding machine operator helper in the [facility] for treatment. Her home is in [place] and her primary care is at [facility]. They have cabin in this area, and they are usually here for the summer. She also wonders if she might be getting a yeast infection. She has had some intermittent vaginal itching. She has not had any discharge. Sometimes the itching extends up into the rectal area, so she is wondering if the symptoms are related. She was on vaginal estrogen for about 15 years but has discontinued it. She has some left, but this is at her main home in [facility]. MEDICATIONS amLODIPine 5 mg oral tablet, 5 mg, 1 tab(s), PO, Daily Aspir-Low 81 mg oral tablet, 1 tab, Daily Calcium 600+D, 1 tab(s), PO, 2xDay Calcium and Magnesium oral tablet, 1 tab(s), PO, Daily Crestor, PO, Bedtime Elidel 1% topical cream, 1 haris, Topical, 2xDay Fish Oil, PO FML Liquifilm 0.1% ophthalmic suspension, 1 drop(s), Eyes(Both), PRN FML S.O.P. 0.1% ophthalmic ointment, 0.5 inch(es), Eyes(Both), PRN losartan 50 mg oral tablet, 50 mg, 1 tab(s), PO, Daily metoprolol extended release, 50 mg, PO, Daily Probiotic Formula oral capsule, 1 cap(s), PO, Daily propafenone 150 mg oral tablet, 150 mg, 1 tab(s), PO, 3xDay triamcinolone 0.1% topical cream, 1 haris, Topical, 3xDay Vitamin D3 5000 intl units oral tablet, 5,000 IntU, 1 tab(s), PO, Daily ALLERGIES Benadryl (OF THE WALL AWAKE TINGLES) hydrochlorothiazide (skin peeling,rash) lisinopril (cough) PAST MEDICAL HISTORY Chronic Hypertension Paroxysmal Ventricular Tachycardia Psoriasis NOS Historical No historical problems SOCIAL HISTORY Date Time: 09/29/2015 10:52 Tobacco: Smoking Status: Never smoker Exposure: Other: NEVER Alcohol: Use: No Recreational Drugs: Use: None Type: No Results Found FAMILY HISTORY No qualifying data available. VITAL SIGNS T: 36.7 ??C (Core) HR: 64 RR: 16 BP: 128 / 60 HT: 156.5 cm WT: 69.3 kg BMI: 28.29 PHYSICAL EXAMINATION GENERAL: No acute distress : External genitalia without any signs of irritation. There is no discharge. RECTAL: She has a scar at 6 o'clock. No redness or irritation noted. I do see a small fissure at 3 o'clock. No active bleeding. IMPRESSION/REPORT/PLAN 1. Fissure Anal Discussed treatment of the anal fissure. I discussed using nitroglycerin ointment, but she wants tohold on this. It has not been bleeding now, and she would prefer to try Vaseline to the area. 2. Vaginitis Atrophic Discussed her vaginal irritation. I think it is most likely from atrophic vaginitis. She does not want to restart on estrogen cream. I recommended using Replens on a daily basis. I advised her that itwould also be fine to try a 3-D treatment of clotrimazole in case she has a mild yeast infection. Regardless I recommend she uses the Replens daily. She verbalizes good understanding. Electronically Signed By: SYLVIE ROSEN On: 09/29/2015 05:43 PM Co-Signed By: ART YANG MD On: 11/09/2015 03:38 PM Source: [facility] POWERCHART Document Id: [id number] documented in this encounter Miscellaneous Notes Miscellaneous - Sylvie Rosen RChunN., N.P. - 09/29/2015 11:28 AM CDT Ambulatory Patient Summary [address] [id number] Visit Information Name: KRUPA ATWOODBETH [facility] Number: [id number] Current Date: 09/29/2015 11:28:25 Physicians Attending Provider: SYLVIE ROSEN Primary Care Provider: PCP, KRUPA MORALEZ has been given the following list of follow-up instructions, medication list, and patient education materials: Follow-up Instructions Your Medications Here is a list of your medications. It is important to take your medications as directed. Use a pillbox or chart to help remind you to take your medications. Please let your doctor or nurse know if you have problems taking your medications. Medication/Strength How to Take Indications/Special Instructions/Comments/Notes for Patient Medication Changes/Routing amLODIPine (amLODIPine 5 mg oral tablet) 1 Tablet(s), Oral, once a day aspirin (Aspir-Low 81 mg oral tablet) 1 tab, once a day bifidobacterium-lactobacillus (Probiotic Formula oral capsule) 1 cap, Oral, once a day cholecalciferol (Vitamin D3 5000 intl units oral tablet) 1 Tablet(s), Oral, once a day cyanocobalamin (Vitamin B12) fluorometholone ophthalmic (FML S.O.P. 0.1% ophthalmic ointment) 0.5 Inch(es), Eyes(Both), as needed fluorometholone ophthalmic (FML Liquifilm 0.1% ophthalmic suspension) 1 Drops, Eyes(Both), as needed losartan (losartan 50 mg oral tablet) 1 Tablet(s), Oral, once a day metoprolol (metoprolol extended release) 50 mg, Oral, once a day multivitamin with minerals (Calcium and Magnesium oral tablet) 1 Tablet(s), Oral, once a day omega-3 polyunsaturated fatty acids (Fish Oil) Oral pimecrolimus topical (Elidel 1% topical cream) 1 haris, Topical, two times a day propafenone (propafenone 150 mg oral tablet) 1 Tablet(s), Oral, three times a day rosuvastatin (Crestor) Oral, once a day (at bedtime) triamcinolone topical (triamcinolone 0.1% topical cream) 1 haris, Topical, three times a day Stop Taking the Following Medications: fexofenadine (Fanny) naphazoline-pheniramine ophthalmic (Naphcon-A) ubiquinone (Co-Q10) Medication list as of 09-29-15 11:28 Attention: If you have any medications at home that are not on this list, DO NOT take them until youcontact your provider for clarification. Give a copy of your medication list to your primary care provider. Update your medication list any time medications or doses are changed and carry your medication list at all times in case of emergency. Electronically Signed By: Signed On: Your Allergies & Intolerances Substance Reaction Symptoms Category Comments hydrochlorothiazide skin peeling Drug verified lac hydrochlorothiazide rash Drug verified lac lisinopril cough Drug Benadryl OF THE WALL AWAKE TINGLES Drug Your Problem List Problem Status Onset Comments Psoriasis NOS Active Paroxysmal Ventricular Tachycardia Active 10/10/12 Followed by [facility] [place] outside of [facility] Hypertension Active Your Upcoming Appointments Date Time Location Provider No Appointments found Attention: Contact your local Clinic if further appointment detail needed. Consider Using Patient Online Services Patient Online Services is a secure online and Mobile application that lets you: ?? View lab and test results ?? View portions of your medical record including clinical notes, immunizations and discharge summaries ?? Request an appointment or medication refill ?? Review your appointment schedule ?? Send secure messages to your care team Its easy to create an account if you dont have one. Go to [email or web address] and click on Create Your Account. Then, follow the directions to complete the online form. Youll be asked for your [facility] number which you can find at the top of this document. Your Goals/Additional instructions: Source: [facility] POWER[facility]ART Document Id: [id number] Miscellaneous - Sylvie Rosen R.Antonia., N.P. - 09/29/2015 11:28 AM CDT Ambulatory Discharge Medication List [address] [id number] Visit Information Name: KRUPA ATWOOD [facility] Number: [id number] Visit Date: 09/29/2015 11:28:24 Attending Provider: SYLVIE ROSEN Primary Care Provider: PCP, ELSEWHERE KRUPA ATWOOD has been given the following list of medications: Your Medications It is important to take your medications as directed. Use a pill box or chart to help remind you to take your medications. Please let your doctor or nurse know if you have problems taking your medications. Medication/Strength How to Take Indications/Special Instructions/Comments/Notes for Patient Medication Changes/Routing amLODIPine (amLODIPine 5 mg oral tablet) 1 Tablet(s), Oral, once a day aspirin (Aspir-Low 81 mg oral tablet) 1 tab, once a day bifidobacterium-lactobacillus (Probiotic Formula oral capsule) 1 cap, Oral, once a day cholecalciferol (Vitamin D3 5000 intl units oral tablet) 1 Tablet(s), Oral, once a day cyanocobalamin (Vitamin B12) fluorometholone ophthalmic (FML S.O.P. 0.1% ophthalmic ointment) 0.5 Inch(es), Eyes(Both), as needed fluorometholone ophthalmic (FML Liquifilm 0.1% ophthalmic suspension) 1 Drops, Eyes(Both), as needed losartan (losartan 50 mg oral tablet) 1 Tablet(s), Oral, once a day metoprolol (metoprolol extended release) 50 mg, Oral, once a day multivitamin with minerals (Calcium and Magnesium oral tablet) 1 Tablet(s), Oral, once a day omega-3 polyunsaturated fatty acids (Fish Oil) Oral pimecrolimus topical (Elidel 1% topical cream) 1 haris, Topical, two times a day propafenone (propafenone 150 mg oral tablet) 1 Tablet(s), Oral, three times a day rosuvastatin (Crestor) Oral, once a day (at bedtime) triamcinolone topical (triamcinolone 0.1% topical cream) 1 haris, Topical, three times a day Stop Taking the Following Medications: fexofenadine (Fanny) naphazoline-pheniramine ophthalmic (Naphcon-A) ubiquinone (Co-Q10) Medication list as of 09-29-15 11:28 Attention: If you have any medications at home that are not on this list, DO NOT take them until youcontact your provider for clarification. Give a copy of your medication list to your primary care provider. Update your medication list any time medications or doses are changed and carry your medication list at all times in case of emergency. Electronically Signed By: Signed On: Additional Information: Source: [facility] POWERCHART Document Id: [id number] Brent - Trinidad Vanegas - 09/29/2015 10:52 AM CDT Health Assessment Health Assessment Entered On: 09/29/2015 10:53 CDT Performed On: 09/29/2015 10:52 CDT by TRINIDAD VANEGAS [facility] Health Assessment Complete Health Assessment Complete or Modified : Annual Health Assessment Annual Health Assessment Completed : Yes TRINIDAD VANEGAS [facility] - 09/29/2015 10:52 CDT Nutrition Nutrition Risk Factors by History Adult : None TRINIDAD VANEGAS [facility] - 09/29/2015 10:52 CDT Functional Current Daily Living Assistance : None TRINIDAD VANEGAS [facility] - 09/29/2015 10:52 CDT Dependent Habits Exposure to Tobacco Smoke : Other: NEVER Smoking Status : Never smoker Tobacco 2A : No Tobacco Use/Currently Using : No Tobacco Use/Last 30 Days : No Tobacco Use/Last 12 months : No Alcohol Use : No TRINIDAD VANEGAS [facility] - 09/29/2015 10:52 CDT Recreational Drug Use Grid Drug Use : None TRINIDAD VANEGAS [facility] 09/29/2015 10:52 CDT Psychosocial Domestic Abuse Concerns : None Behavioral Health Screen/Safety Assmt : No Lutheran Preference : No Lutheran Affiliation TRINIDAD VANEGAS [facility] - 09/29/2015 10:52 CDT Advance Directive Advanced Directives : No Advance Directive Additional Information : No TRINIDAD VANEGAS [facility] 09/29/2015 10:52 CDT Educ Needs Learning Style Preference Adult Grid Patient : Printed materials, Verbal explanation Family : None TRINIDAD VANEGAS CMA 09/29/2015 10:52 CDT Source: [facility] POWERCHART Document Id: [id number] CDT!30 Trinidad Del Valle - 09/29/2015 10:50 AM CDT Adult Transformation Consultant Intake/History Adult Transformation Consultant Intake/History Entered On: 09/29/2015 10:52 CDT Performed On: 09/29/2015 10:50 CDT by TRINIDAD VANEGAS FOUNDATION ASSISTANT Intake Chief Complaint : rectal/vaginal irritation Onset of Symptoms : few days Temperature Core : 36.7 DegC(Converted to: 98.1 DegF) Peripheral Pulse Rate : 64 /min Respiratory Rate : 16 /min Heart Rhythm : Regular Systolic Blood Pressure : 128 mmHg Diastolic Blood Pressure : 60 mmHg NIBP Mean : 83 mmHg BP Location : Right upper extremity Blood Pressure Cuff Size : Regular Height : 156.5 cm(Converted to: 5 ft 2 inch(es), 62 inch(es)) Actual Weight : 69.3 kg(Converted to: 152 lb 12 oz) Weight Source : Standing scale Dosing Weight Clinic : 69.3 kg Clinic BSA : 1.74 Body Mass Index : 28.29 kg/m2 TRINIDAD VANEGAS CMA - 09/29/2015 10:50 CDT General Info Languages : [place] Is Patient Female and 13-50 no hysterectomy : No TRINIDAD VANEGAS CMA - 09/29/2015 10:50 CDT Subjective Pain Symptoms : No TRINIDAD VANEGAS CMA - 09/29/2015 10:50 CDT Dependent Habits Exposure to Tobacco Smoke : Other: NEVER Smoking Status : Never smoker Tobacco 2A : No Tobacco Use/Currently Using : No Tobacco Use/Last 30 Days : No Tobacco Use/Last 12 months : No TRINIDAD VANEGAS CMA - 09/29/2015 10:50 CDT Recreational Drug Use Grid Drug Use : None TRINIDAD VANEGAS CMA - 09/29/2015 10:50 CDT Source: [facility]OWER[facility]ART Document Id: [id number] CDT!34 documented in this encounter Plan of Treatment Not on filedocumented as of this encounter Visit Diagnoses Not on filedocumented in this encounter
--- OUTSIDE RECORDS SUMMARY | 2022-01-18 09:10 | XMS_ITS | Encounter Summary ---
:1940 Author Organization [facility] Address [address] [place] [address] Care Team Providers Name Role Phone Unavailable Primary Care Provider Unavailable Reason for Visit Reason Comments Animal Bite Cat bite this morning at 043 0. Encounter Details Date Type Department Care Team Description 08/02/2017 Emergency [facility] Trent Oates, Bite Ca t Hand Open Initial Right (Primary Dx); Emergency Department P.A.-C. Cellulitis Hand Right [address] [place] [address] [place], [place] [phone] (Wo rk) Social History Tobacco Use Types Packs/Day Years Used Date Smoking Tobacco: Never Smokeless Tobacco: Never Alcohol Use Standard Drinks/Week Comments Defer 0 (1 standard drink = 0.6 oz pure alcoho l) Alcohol Habits Answer Date Recorded How often do you have a drink containing 4 or more times a w [place] 10/21/2019 alcohol? How many drinks containing alcohol [...] or relatives? How often do you attend yazdanism or presybeterian Never 12/20/2018 services? Do you belong to any clubs or organizations Yes 12/20/2018 such as yazdanism groups, unions, fraternal or athletic groups, or [...] Sign Reading Time Taken Comments Blood Pressure 175/87 08/02/2017 5:39 AM CDT Pulse 72 08/02/2017 5:39 AM CDT Temperature 36.6 ??C (97.9 ??F) 08/02/2017 5:39 AM CDT Respiratory Rate 16 08/02/2017 5:39 AM CDT Oxygen Saturation 96% 08/02/2017 5:39 AM CDT Inhaled Oxygen Concentration - - Weight 70.8 kg (156 lb) 08/02/2017 5:41 AM CDT Height 154.9 cm (5' 1) 08/02/2017 5:41 AM CDT Body Mass Index 29.48 08/02/2017 5:41 AM CDT documented in this encounter Discharge Instructions AttachmentsThe following attachments cannot be sent through Care Everywhere. Animal Bite Ncel-ud-Yufw (Icelandic)documented in this encounter Medications at Time of Discharge Medication Sig Dispensed Refills Start Date End Date aspirin [address] tablet once a day 0 06/26/2001 Ca carb-Ca gluc-Mg ox-Mg Take by mouth. 0 017 gluco 500 mg calcium -250 mg tablet cetirizine (ZyrTEC) 10 mg Take 1 tablet by 0 04/2017 tablet mouth 2 (two) times a day as needed. cholecalciferol (VITAMIN Take 2,000 Units by 0 D3) 2,000 Unit capsule mouth. losartan (COZAAR) 100 mg Take 100 mg by 0 018 tablet mouth. loteprednol (LOTEMAX) 0.5 1-2 drops as needed. 0 04/26/2017 % ophthalmic suspension metoprolol succinate Take 25 mg by mouth. 0 07/04 (TOPROL-XL) 50 mg 24 hr Patient states she tablet only takes 1/2 tablet currently. omega 6-ayh-afy-fish oil Take by mouth. 0 017 1,000 mg (120 mg-180 mg) capsule rosuvastatin (CRESTOR) 10 Take 10 mg by mouth. 0 05/16/2017 mg tablet triamcinolone-dimethicone Apply topically. 0 05/24 0.1-5 % kit,ointment and cream amLODIPine (for_NORVASC) Take 1 tablet by 0 09/28 5 mg tablet mouth daily. ciclopirox 1 % shampoo 0 04/29/2017 FISH,SAF,FLX,BRG Take by mouth. 0 02/22/2014 OILS/O3,6,9N2 (THTW-FVRT-QWHQPQ OIL ORAL) fluorometholone (FML) 0.1 Administer 1 drop 0 % ophthalmic suspension into both eyes as needed. hydrOXYzine (for_ATARAX) Take 1 tablet by 0 10/10 25 mg tablet mouth 4 (four) times a day as needed. LOTEMAX 0.5 % ophthalmic 0 06/26/2017 ointment metoprolol Take 50 mg by mouth 0 09/29/2015 (for_LOPRESSOR) 1 mg/mL daily. IV syringe pimecrolimus (ELIDEL) 1 % Apply 1 application 0 0 09/29/2015 cream topically 2 (two) times a day. propafenone Take 1 tablet by 0 08/29/2012 (for_RHTHYMOL) 150 mg mouth 3 (three) tablet times a day. TOPROL XL 50 mg 24 hr 0 10/04/2016 tablet ugwhqtkzembah-qrumus-jmiy Apply 1 application 0 0 09/29/2015 cone 0.1-2 % kit topically 3 (three) times a day. amLODIPine (NORVASC) 5 mg Take 1 tablet by 0 10/2309/09/2017 tablet mouth every evening. cholecalciferol (VITAMIN Take 1 tablet by 0 11/0609/09/2017 D3) tablet mouth every morning. clobetasol (TEMOVATE) Apply topically 2 0 018 05/21/2019 0.05 % external solution (two) times a day as needed. desonide (DESOWEN) 0.05 % Apply topically 2 0 04/201708/15/2018 ointment (two) times a day as needed. nystatin (NYSTOP) 100,000 Apply topically 3 0 04/201711/19/2017 unit/gram powder (three) times a day as needed. propafenone (RHTHYMOL) Take 150 mg by 0 8 09/09/2017 150 mg tablet mouth. tacrolimus (PROTOPIC) Apply topically. 0 05/08/19 18 03/03/2021 0.03 % ointment valACYclovir (VALTREX) Take by mouth. 0 7 03/01/2021 500 mg tablet amoxicillin-pot Take 1 tablet by 20 tablet 0 08/02/2017 clavulanate (AUGMENTIN) mouth every 12 875-125 mg per tablet (twelve) hours for 10 days. aspirin 0.1 mg capsule daily. 0 08/29/2012 hydrOXYzine HCl 10 mg/5 hydrOXYzine 0 10/11/2015 03/01/2021 mL (5 mL) solution lactobacillus-bifidobacte Take 1 capsule by 0 09/201503/01/2021 rium-streptococcus mouth daily. (for_THER-BIOTIC COMPLETE) 25 billion CFU losartan (for_COZAAR) 100 0 09/30/2016 09/09/2017 mg tablet losartan (for_COZAAR) 50 Take 1 tablet by 0 10/1003/01/2021 mg tablet mouth daily. MAXIDEX 0.1 % ophthalmic 0 06/15/2017 03/01/2021 suspension mometasone (for_ELOCON) Apply 1 application 0 03/01/2021 0.1 % cream topically daily. juijrhvxtkrk-gdlbteeu-jyv Take 1 tablet by 0 /09/201503/01/2021 monica gluconate mouth daily. (MULTIVITAMIN WITH MINERALS) 9 mg iron/15 mL liquid rosuvastatin Take by mouth at 0 08/29/20122017 (for_CRESTOR) 1.25 mg bedtime. tablet rosuvastatin 0 09/11/2016 09/09/2017 (for_CRESTOR) 10 mg tablet tacrolimus (PROTOPIC) 0.1 Apply 1 application 0 0 10/11/2015 12/24/2018 % ointment topically 2 (two) times a day. VITAMIN D3/SOY ISOFLAVONE Take 1 tablet by 0 /09/201503/01/2021 (CHOLECALCIFEROL-SOY mouth daily. ISOFLAVONE ORAL) documented as of this encounter ED Notes Trent Oates P.A.-C. - 08/02/2017 6:03 AM CDT SUBJECTIVE CHIEF COMPLAINT/REASON FOR VISIT Animal Bite (Cat bite this morning at 0430.) HISTORY OF PRESENT ILLNESS Krupa presents to the ER this morning after being bitten on the dorsal aspect of the right hand around 0330 this morning. She washed it out good with soap and water and decided to come in because a friend of hers was just hospitalized for 5 days for a cat bite. She denies any known foreign bodies or known cat tooth fractures. She has not had any recent fever, chills or sweats. She is not anticoagulated. REVIEW OF SYSTEMS Constitutional: Negative for chills and fever. HENT: Negative for congestion. Eyes: Negative for redness. Gastrointestinal: Negative for vomiting. Genitourinary: Negative for dysuria. Musculoskeletal: Negative for neck pain and neck stiffness. Skin: Positive for wound. Allergic/Immunologic: Negative for immunocompromised state. Hematological: Does not bruise/bleed easily. Psychiatric/Behavioral: Negative. OBJECTIVE Initial Vitals [08/02/17 0539] Temperature Pulse Rate Heart Rate Resp Rate Blood Pressure SpO2 36.6 ??C 72 -- 16 (!) 175/87 96 % Pain Score 0 - No pain PHYSICAL EXAMINATION Constitutional: She appears well-developed and well-nourished. No distress. HENT: Head: Normocephalic. Nose: Nose normal. Mouth/Throat: Mucous membranes are moist. Eyes: Conjunctivae are normal. Neck: Normal range of motion. Pulmonary/Chest: Effort normal. There is normal air entry. Musculoskeletal: Normal range of motion. Skin: Skin is warm and dry. Small puncture wound surrounded by approximate 0.5 cm ecchymosis near the 4th right metacarpal. No bleeding present. No foreign body appreciated. ASSESSMENT/PLAN Impression and Plan Ms. Atwood was administered Augmentin here in the ER, and provided a prescription for twice daily for the next 10 days. I strongly encouraged her to follow up with her provider's clinic or urgent care/ER tomorrow to have her hand re-evaluated. She and her verbalized understanding. She will return here for any worsening symptoms. . Final Diagnoses: as of Aug 02 610 Bite Cat Hand Open Initial Right Cellulitis Hand Right Trent Oates P.A.-C. 08/02/17610 documented in this encounter Plan of Treatment Not on filedocumented as of this encounter Visit Diagnoses Diagnosis Bite Cat Hand Open Initial Right - Prima ry Cellulitis Hand Right documented in this encounter Administered Medications Inactive Administered Medications - up to 3 most recent administrations Medication Order MAR Action Action Date Dose Rate Site amoxicillin-pot clavulanate Given 08/02/2017 5:59 AM CDT 1 table t 875-125 mg per tablet 1 tablet (AUGMENTIN) 1 tablet, oral, Once, On Sat08/02/17 at 0555, For 1 dose, Drug Monitoring Program: Pharmacist to adjust medication order based on comorbities and indication., Indications: Skin and soft tissue infection documented in this encounter Active and Recently Administered Medications Times are shown in CDT. Scheduled Medication Order 07/31/2017 08/01/2017 08/02/2017 amoxicillin-pot clavulanate 875-125 mg p er tablet 1 tablet (AUGMENTIN) (COMPLETED) 0559 (Given - Provid er: Mylene Vital R.N.) 1 tablet, oral, Once, On Sat08/02/17 at 0555, For 1 dose, Drug Monitoring Program: Pharmacist to adjust medication order based on comorbities and indication., Indications: Skin and soft tissue infection documented in this encounter
--- OUTSIDE RECORDS SUMMARY | 2022-01-18 09:10 | XMS_ITS | Encounter Summary ---
:1940 Author Organization [facility] Address [address] [place] [address] Care Team Providers Name Role Phone Unavailable Primary Care Provider Unavailable Reason for Visit Reason Comments Med Refill Encounter Details Date Type Department Care Team Description 10/20/2019 Refill Department of Dermatology in [facility], Zeke Arthur M.D. Med Refill [place], [place] [address] [place] [address] Social History Tobacco Use Types Packs/Day Years Used Date Smoking Tobacco: Never Smokeless Tobacco: Never Alcohol Use Standard Drinks/Week Comments Defer 0 (1 standard drink = 0.6 oz pure alcoho l) Alcohol Habits Answer Date Recorded How often do you have a drink containing 4 or more times a w [place] 10/21/2019 alcohol? How many drinks containing alcohol [...] or relatives? How often do you attend zoroastrianism or mandaeism Never 12/20/2018 services? Do you belong to any clubs or organizations Yes 12/20/2018 such as zoroastrianism groups, unions, fraternal or athletic groups, or [...] have completed or the highest Frida, MEd, CERAMIC ARTIST, ISSAC) degree you have received? Sex Assigned at Date Recorded Female documented as of this encounter Plan of Treatment Not on filedocumented as of this encounter Visit Diagnoses Not on filedocumented in this encounter
--- OUTSIDE RECORDS SUMMARY | 2022-01-18 09:10 | XMS_ITS | Encounter Summary ---
:1940 Author Organization [facility] Address [address] [place] [address] Care Team Providers Name Role Phone Unavailable Primary Care Provider Unavailable Encounter Details Date Type Department Care Team Description 10/13/2015 Hospital Encounter [facility] Kaiden Sparks M.D. Social History Tobacco Use Types Packs/Day Years Used Date Smoking Tobacco: Never Assessed Alcohol Habits Answer Date Recorded How often do you have a drink containing 4 or more times a w [place] 10/21/2019 alcohol? How many drinks containing [...] or relatives? How often do you attend sikh or rastafarian Never 12/20/2018 services? Do you belong to any clubs or organizations Yes 12/20/2018 such as sikh groups, unions, fraternal or athletic groups, or [...] FISH,SAF,FLX,BRG Take by mouth. 0 02/22/2014 OILS/O3,6,9N2 (CTYM-YBDX-YXYYAI OIL ORAL) fluorometholone (FML) 0.1 Administer 1 drop 0 % ophthalmic suspension into both eyes as needed. hydrOXYzine (for_ATARAX) Take 1 tablet by 0 10/10 25 mg tablet mouth 4 (four) times a day as needed. metoprolol Take 50 mg by mouth 0 09/29/2015 (for_LOPRESSOR) 1 mg/mL daily. IV syringe pimecrolimus (ELIDEL) 1 % Apply 1 application 0 0 09/29/2015 cream topically 2 (two) times a day. propafenone Take 1 tablet by 0 08/29/2012 (for_RHTHYMOL) 150 mg mouth 3 (three) tablet times a day. ghslihjrcpuze-jhpelb-kixt Apply 1 application 0 0 09/29/2015 cone 0.1-2 % kit topically 3 (three) times a day. aspirin 0.1 mg capsule daily. 0 08/29/2012 fluorometholone (FML Apply 0.5 inches to 0 201410/19/2016 S.O.P.) 0.1 % ophthalmic both eyes as needed. ointment hydrOXYzine HCl 10 mg/5 hydrOXYzine 0 10/11/2015 03/01/2021 mL (5 mL) solution lactobacillus-bifidobacte Take 1 capsule by 0 09/201503/01/2021 rium-streptococcus mouth daily. (for_THER-BIOTIC COMPLETE) 25 billion CFU losartan (for_COZAAR) 50 Take 1 tablet by 0 10/1003/01/2021 mg tablet mouth daily. mometasone (for_ELOCON) Apply 1 application 0 03/01/2021 0.1 % cream topically daily. toauzhodzpya-xxcmqcfs-wmc Take 1 tablet by 0 07/0 09/201503/01/2021 monica gluconate mouth daily. (MULTIVITAMIN WITH MINERALS) 9 mg iron/15 mL liquid rosuvastatin Take by mouth at 0 08/29/20122017 (for_CRESTOR) 1.25 mg bedtime. tablet tacrolimus (PROTOPIC) 0.1 Apply 1 application 0 0 10/11/2015 12/24/2018 % ointment topically 2 (two) times a day. VITAMIN D3/SOY ISOFLAVONE Take 1 tablet by 0 07/0 09/201503/01/2021 (CHOLECALCIFEROL-SOY mouth daily. ISOFLAVONE ORAL) documented as of this encounter Plan of Treatment Not on filedocumented as of this encounter Visit Diagnoses Not on filedocumented in this encounter
--- OUTSIDE RECORDS SUMMARY | 2022-01-18 09:10 | XMS_ITS | Encounter Summary ---
:1940 Author Organization [facility] Address [address] [place] [address] Care Team Providers Name Role Phone Unavailable Primary Care Provider Unavailable Reason for Visit Reason Comments Med Refill Encounter Details Date Type Department Care Team Description 05/07/2020 Refill Department of Dermatology in [facility], Zeke Arthur M.D. Med Refill [place], [place] [address] [place] [address] Social History Tobacco Use Types Packs/Day Years Used Date Smoking Tobacco: Never Smokeless Tobacco: Never Alcohol Use Standard Drinks/Week Comments Defer 0 (1 standard drink = 0.6 oz pure alcoho l) Alcohol Habits Answer Date Recorded How often do you have a drink containing 4 or more times a w [place] 10/21/2019 alcohol? How many drinks containing alcohol [...] or relatives? How often do you attend shinto or mormonism Never 12/20/2018 services? Do you belong to any clubs or organizations Yes 12/20/2018 such as shinto groups, unions, fraternal or athletic groups, or [...] have completed or the highest Frida, MEd, HUMAN SERVICES PROFESSIONAL, ISSAC) degree you have received? Sex Assigned at Date Recorded Female documented as of this encounter Miscellaneous Notes Telephone Encounter - Pilar Bowden R.N. - 05/09/2020 9:55 AM CLINICAL MANAGER HOME CARE Refill request denial for triamcinolone Exclusion criteria the current medication requested does not match the plan of care in the most current note No appointment is scheduled at this time. This prescription has been denied per protocol [id number]. [facility] documented in this encounter Plan of Treatment Not on filedocumented as of this encounter Visit Diagnoses Not on filedocumented in this encounter
--- OUTSIDE RECORDS SUMMARY | 2022-01-18 09:10 | XMS_ITS | Encounter Summary ---
:1940 Author Organization [facility] Address [address] [place] [address] Care Team Providers Name Role Phone Unavailable Primary Care Provider Unavailable Encounter Details Date Type Department Care Team Description 09/09/2017 Orders Only Department of Ophthalmology Dameon De León, in Daniel Bell R.NChun [address] [place] [address] Social History Tobacco Use Types Packs/Day Years Used Date Smoking Tobacco: Never Smokeless Tobacco: Never Alcohol Use Standard Drinks/Week Comments Defer 0 (1 standard drink = 0.6 oz pure alcoho l) Alcohol Habits Answer Date Recorded How often do you have a drink containing 4 or more times a w [place] 10/21/2019 alcohol? How many drinks containing [...] or relatives? How often do you attend episcopal or buddhism Never 12/20/2018 services? Do you belong to any clubs or organizations Yes 12/20/2018 such as episcopal groups, unions, fraternal or athletic groups, or [...]
--- OUTSIDE RECORDS SUMMARY | 2022-01-18 09:10 | XMS_ITS | Encounter Summary ---
:1940 Author Organization [facility] Address [address] [place] [address] Care Team Providers Name Role Phone Unavailable Primary Care Provider Unavailable Reason for Visit Reason Comments Med Refill Encounter Details Date Type Department Care Team Description 03/29/2020 Refill Department of Dermatology in Sandie Guzman M.D. Med Refill [place], [place] [address] [facility] [address] [place] [phone] (Wo rk) Social History Tobacco Use Types Packs/Day Years Used Date Smoking Tobacco: Never Smokeless Tobacco: Never Alcohol Use Standard Drinks/Week Comments Defer 0 (1 standard drink = 0.6 oz pure alcoho l) Alcohol Habits Answer Date Recorded How often do you have a drink containing 4 or more times a w [place] 10/21/2019 alcohol? How many drinks containing [...] or relatives? How often do you attend yazidi or amish Never 12/20/2018 services? Do you belong to any clubs or organizations Yes 12/20/2018 such as yazidi groups, unions, fraternal or athletic groups, or [...] have completed or the highest Frida, MEd, ROTARY DRILLER, ISSAC) degree you have received? Sex Assigned at Date Recorded Female documented as of this encounter Plan of Treatment Not on filedocumented as of this encounter Visit Diagnoses Not on filedocumented in this encounter
--- OUTSIDE RECORDS SUMMARY | 2022-01-18 09:10 | XMS_ITS | Encounter Summary ---
:1940 Author Organization [facility] Address [address] [place] [address] Care Team Providers Name Role Phone Unavailable Primary Care Provider Unavailable Reason for Visit Reason Onset Date Comments Med Refill 08/15/2018 Encounter Details Date Type Department Care Team Description 08/15/2018 Clinical Communication Department of Ana Bah M ed Refill Dermatology in [place], [place] [address] [facility] [address] [place] [phone] Social History Tobacco Use Types Packs/Day Years Used Date Smoking Tobacco: Never Smokeless Tobacco: Never Alcohol Use Standard Drinks/Week Comments Defer 0 (1 standard drink = 0.6 oz pure alcoho l) Alcohol Habits Answer Date Recorded How often do you have a drink containing 4 or more times a w [place] 10/21/2019 alcohol? How many drinks containing alcohol [...] How often do you attend restoration or adventism Never 12/20/2018 services? Do you belong to [...]
--- OUTSIDE RECORDS SUMMARY | 2022-01-18 09:10 | XMS_ITS | Encounter Summary ---
:1940 Author Organization [facility] Address [address] [place] [address] Care Team Providers Name Role Phone Unavailable Primary Care Provider Unavailable Encounter Details Date Type Department Care Team Description 04/26/2017 Hospital Encounter [facility]X [facility] Vani Mohan PRACTICE M.D. Social History Tobacco Use Types Packs/Day Years Used Date Smoking Tobacco: Never Smokeless Tobacco: Never Alcohol Use Standard Drinks/Week Comments Defer 0 (1 standard drink = 0.6 oz pure alcoho l) Alcohol Habits Answer Date Recorded How often do you have a drink containing 4 or more times a w [place] 10/21/2019 alcohol? How many drinks containing alcohol [...] or relatives? How often do you attend tenriism or mormonism Never 12/20/2018 services? Do you belong to any clubs or organizations Yes 12/20/2018 such as tenriism groups, unions, fraternal or athletic groups, or [...] by 0 D3) 2,000 Unit capsule mouth. FISH,SAF,FLX,BRG Take by mouth. 0 02/22/2014 OILS/O3,6,9N2 (RNJH-RSWC-OSRYRS OIL ORAL) fluorometholone (FML) 0.1 Administer 1 drop 0 % ophthalmic suspension into both eyes as needed. hydrOXYzine (for_ATARAX) Take 1 tablet by 0 10/10 25 mg tablet mouth 4 (four) times a day as needed. loteprednol (LOTEMAX) 0.5 1-2 drops as needed. 0 04/26/2017 % ophthalmic suspension metoprolol Take 50 mg by mouth 0 09/29/2015 (for_LOPRESSOR) 1 mg/mL daily. IV syringe omega 4-smb-jdt-fish oil Take by mouth. 0 017 1,000 mg (120 mg-180 mg) capsule pimecrolimus (ELIDEL) 1 % Apply 1 application 0 0 09/29/2015 cream topically 2 (two) times a day. propafenone Take 1 tablet by 0 08/29/2012 (for_RHTHYMOL) 150 mg mouth 3 (three) tablet times a day. TOPROL XL 50 mg 24 hr 0 10/04/2016 tablet tnfolvfmoikpn-rneyhv-vkxz Apply 1 application 0 0 09/29/2015 cone 0.1-2 % kit topically 3 (three) times a day. amLODIPine (NORVASC) 5 mg Take 1 tablet by 0 10/2309/09/2017 tablet mouth every evening. aspirin 0.1 mg capsule daily. 0 08/29/2012 cholecalciferol (VITAMIN Take 1 tablet by 0 11/0609/09/2017 D3) tablet mouth every morning. clobetasol (TEMOVATE) Apply topically 2 0 018 05/21/2019 0.05 % external solution (two) times a day as needed. desonide (DESOWEN) 0.05 % Apply topically 2 0 04/201708/15/2018 ointment (two) times a day as needed. hydrOXYzine HCl 10 mg/5 hydrOXYzine 0 10/11/2015 03/01/2021 mL (5 mL) solution lactobacillus-bifidobacte Take 1 capsule by 0 09/201503/01/2021 rium-streptococcus mouth daily. (for_THER-BIOTIC COMPLETE) 25 billion CFU losartan (for_COZAAR) 100 0 09/30/2016 09/09/2017 mg tablet losartan (for_COZAAR) 50 Take 1 tablet by 0 10/1003/01/2021 mg tablet mouth daily. mometasone (for_ELOCON) Apply 1 application 0 03/01/2021 0.1 % cream topically daily. thaqrkwgiwqb-adlseujb-tpl Take 1 tablet by 0 07/0 09/201503/01/2021 mnoica gluconate mouth daily. (MULTIVITAMIN WITH MINERALS) 9 mg iron/15 mL liquid nystatin (NYSTOP) 100,000 Apply topically 3 0 04/201711/19/2017 unit/gram powder (three) times a day as needed. rosuvastatin Take by mouth at 0 08/29/20122017 (for_CRESTOR) 1.25 mg bedtime. tablet rosuvastatin 0 09/11/2016 09/09/2017 (for_CRESTOR) 10 mg tablet tacrolimus (PROTOPIC) 0.1 Apply 1 application 0 0 10/11/2015 12/24/2018 % ointment topically 2 (two) times a day. valACYclovir (VALTREX) Take by mouth. 0 7 03/01/2021 500 mg tablet VITAMIN D3/SOY ISOFLAVONE Take 1 tablet by 0 /0 09/201503/01/2021 (CHOLECALCIFEROL-SOY mouth daily. ISOFLAVONE ORAL) documented as of this encounter Plan of Treatment Not on filedocumented as of this encounter Visit Diagnoses Not on filedocumented in this encounter
--- OUTSIDE RECORDS SUMMARY | 2022-01-18 09:10 | XMS_ITS | Encounter Summary ---
:1940 Author Organization [facility] Address [address] [place] [address] Care Team Providers Name Role Phone Unavailable Primary Care Provider Unavailable Reason for Visit Appointment Request (Routine) - Closed Specialty Diagnoses / Procedures Referred By Contact Refer red To Contact Dermatology Referral ID Status Reason Start Date Expiration Date Visits Requ ested Visits Authorized [id number] Closed 10/25/2017 10/25/2018 1 1 Encounter Details Date Type Department Care Team Description 12/11/2017 Office Visit Department of Vani Mohan, Dermatitis Atopic (Primary Dx); Dermatology in [place]. Lichen Sclero migue; [place], [place] Dermatitis Contact; [address] [facility] Intertrigo; [place], [place] Psoriasis [id number] Social History Tobacco Use Types Packs/Day Years Used Date Smoking Tobacco: Never Smokeless Tobacco: Never Alcohol Use Standard Drinks/Week Comments Defer 0 (1 standard drink = 0.6 oz pure alcoho l) Alcohol Habits Answer Date Recorded How often do you have a drink containing 4 or more times a w [place] 10/21/2019 alcohol? How many drinks containing alcohol [...] or relatives? How often do you attend faith or mandaen Never 12/20/2018 services? Do you belong to any clubs or organizations Yes 12/20/2018 such as faith groups, unions, fraternal or athletic groups, or [...] documented as of this encounter Progress Notes Ancelmo Rodriguez M.D., M.B.A. - 12/11/2017 11:20 AM CDT Correspondence To: Vani Mohan M.D. Supervised by: Vani Lozano M.D. Patient seen and discussed with supervising apple solutions consultant, who evaluated the patient and concurs with the assessment and plan. REFERRED BY: No referring provider defined for this encounter. Chief Complaint Follow-up atopic/allergic contact dermatitis and lichen sclerosis History of Present Illness Ms. Atwood is a 77 y.o. female with a dermatologic history of atopic and allergic contact dermatitis as well as lichen sclerosis who presents today for follow-up. Patient was last seen by [facility] in April 2017, at which time Protopic ointment was prescribed for atopic/allergic contact dermatitis and triamcinolone 0.1% ointment was prescribed for new diagnosis of lichen sclerosis. Today, patient would like to discuss four issues. First, patient reports that the atopic and allergic contact dermatitis have largely improved since last being seen. However, she continues to have pruritus and redness on the face, back, and chest. She intermittently uses desonide and/or Protopic on the face and triamcinolone ointment on the trunk. She does her best to avoid her allergens and nearly always wears sun protection. Second, patient believes her lichen sclerosis has worsened since last being seen. She does not typically have any discomfort but does note white discoloration and architectural changes. She sporadically uses triamcinolone 0.1% ointment and/or Protopic ointment in the vaginal/perianal area. Third, patient reports that her psoriasis may be returning. She describes a 20 year history of psoriasis that seemed to clear over the past few years as her dermatitis worsened. However,she has noted thin plaques on the bilateral elbows that she believes may be psoriasis. Fourth, patient notes continued rash and inguinal area, for which she uses nystatin powder. Review of Systems Denies fevers, chills, unintentional weight loss, lymphadenopathy. Past Medical/Surgical History Reviewed Medications Current Outpatient Prescriptions: ??? amLODIPine (for_NORVASC) 5 mg tablet, Take 1 tablet by mouth daily., Disp: , Rfl: ??? aspirin [address] tablet, once a day, Disp: , Rfl: ??? Ca carb-Ca gluc-Mg ox-Mg gluco 500 mg calcium -250 mg tablet, Take by mouth., Disp: , Rfl: ??? cetirizine (ZyrTEC) 10 mg tablet, Take 1 tablet by mouth 2 (two) times a day as needed., Disp: ,Rfl: ??? cholecalciferol (VITAMIN D3) 2,000 Unit capsule, Take 2,000 Units by mouth., Disp: , Rfl: ??? ciclopirox 1 % shampoo, , Disp: , Rfl: ??? clobetasol (TEMOVATE) 0.05 % external solution, Apply topically 2 (two) times a day as needed., Disp: , Rfl: ??? desonide (DESOWEN) 0.05 % ointment, Apply topically 2 (two) times a day as needed., Disp: , Rfl: ??? FISH,SAF,FLX,BRG OILS/O3,6,9N2 (MSZR-FDJG-TNYSLS OIL ORAL), Take by mouth., Disp: , Rfl: ??? fluorometholone (FML LIQUIFILM) 0.1 % ophthalmic suspension, Administer 1 drop into both eyes asneeded., Disp: , Rfl: ??? hydrOXYzine (for_ATARAX) 25 mg tablet, Take 1 tablet by mouth 4 (four) times a day as needed., Disp: , Rfl: ??? hydrOXYzine HCl 10 mg/5 mL (5 mL) solution, hydrOXYzine, Disp: , Rfl: ??? mgqduqjslpomi-ozlmtknzjescywl-iutjvxhsbdozv (for_THER-BIOTIC COMPLETE) 25 billion CFU, Take 1 capsule by mouth daily., Disp: , Rfl: ??? losartan (COZAAR) 100 mg tablet, Take 100 mg by mouth., Disp: , Rfl: ??? losartan (for_COZAAR) 50 mg tablet, Take 1 tablet by mouth daily., Disp: , Rfl: ??? LOTEMAX 0.5 % ophthalmic ointment, , Disp: , Rfl: ??? loteprednol (LOTEMAX) 0.5 % ophthalmic suspension, 1-2 drops as needed., Disp: , Rfl: ??? MAXIDEX 0.1 % ophthalmic suspension, , Disp: , Rfl: ??? metoprolol (for_LOPRESSOR) 1 mg/mL IV syringe, Take 50 mg by mouth daily., Disp: , Rfl: ??? metoprolol succinate (TOPROL-XL) 50 mg 24 hr tablet, Take 25 mg by mouth. Patient states she only takes 1/2 tablet currently., Disp: , Rfl: ??? mometasone (for_ELOCON) 0.1 % cream, Apply 1 application topically daily., Disp: , Rfl: ??? ytpsimcokroj-seacgrlc-pqjuvkc gluconate (MULTIVITAMIN WITH MINERALS) 9 mg iron/15 mL liquid, Take 1 tablet by mouth daily., Disp: , Rfl: ??? nystatin (NYSTOP) 100,000 unit/gram powder, Apply topically 3 (three) times a day as needed (rash)., Disp: 15 g, Rfl: 4 ??? omega 7-bkg-wiq-fish oil 1,000 mg (120 mg-180 mg) capsule, Take by mouth., Disp: , Rfl: ??? pimecrolimus (ELIDEL) 1 % cream, Apply 1 application topically 2 (two) times a day., Disp: , Rfl: ??? propafenone (for_RHTHYMOL) 150 mg tablet, Take 1 tablet by mouth 3 (three) times a day., Disp: ,Rfl: ??? rosuvastatin (CRESTOR) 10 mg tablet, Take 10 mg by mouth., Disp: , Rfl: ??? tacrolimus (PROTOPIC) 0.03 % ointment, Apply topically., Disp: , Rfl: ??? tacrolimus (PROTOPIC) 0.1 % ointment, Apply 1 application topically 2 (two) times a day., Disp: , Rfl: ??? TOPROL XL 50 mg 24 hr tablet, , Disp: , Rfl: ??? ihftqirztavkw-gostij-oitjjajy 0.1-2 % kit, Apply 1 application topically 3 (three) times a day.,Disp: , Rfl: ??? triamcinolone-dimethicone 0.1-5 % kit,ointment and cream, Apply topically., Disp: , Rfl: ??? valACYclovir (VALTREX) 500 mg tablet, Take by mouth., Disp: , Rfl: ??? VITAMIN D3/SOY ISOFLAVONE (CHOLECALCIFEROL-SOY ISOFLAVONE ORAL), Take 1 tablet by mouth daily., Disp: , Rfl: Allergies Allergies Allergen Reactions ??? Atorvastatin Myalgia and Rash Intolerance ??? Diphenhydramine Other (see comments) internal heat Paradoxical rx per patient. Possible that benadryl actually keeps pt awake ??? Diphenhydramine Hcl Other (see comments) ??? Hydrochlorothiazide Other (see comments), Itching and Rash Possibly severe eczematous like rash - not certain extreme internal heat verified lac ??? Iodine Other (see comments) woozy Unknown reaction - patient thought it was from an allergy pill that iodine ??? Lisinopril Cough ??? Rofecoxib Other (see comments) felt awful on 2 doses Vioxx,Not sure of the reaction, but she knows that after 3 days it made her feel like she should nothave this drug in her body. ??? Simvastatin Myalgia ??? Trifluridine Edema and Hives Physical Exam General: Well appearing female in no acute distress. Alert and Oriented. Eyes: No eyelid abnormalities. No scleral injection. Skin: Skin examination of the scalp, face, neck, chest, arms, hands, and vaginal/perianal region performed per patient request ?? Thin pink papules coalescing into plaques with overlying white scale on the bilateral elbows ?? Ill-defined erythema with thin scale on the face, retroauricular region, and chest ?? White atrophic plaques involving the labia and perineal region. Mild inflammation in the perinealregion but none noted elsewhere. Minimal fusion of the labia majora and labia minora. No fissures noted Assessment and Plan #1. Atopic and Allergic Contact Dermatitis Patient has a long-standing history of atopic dermatitis and has been patch tested in the past, which revealed numerous positive reactions (see clinic note from April 2016). At last visit in April 2017, it was recommended the patient begin Protopic ointment twice daily applied to involved areas of the face. Since last being seen, patient has used Protopic and/or desonide to the face intermittently. She also occasionally uses triamcinolone ointment on the trunk. Overall, she believes her dermatitis has improved but she continues to have redness and itching particularly on the face, back, and chest. Exam today reveals ill-defined erythema with thin scale on the face, retroauricular region, andchest. ?? Patient encouraged to double check that her current topical medications are on her skin safe list ?? Continue using Protopic and or desonide to the face twice daily as needed ?? Patient counseled to avoid allergens as best as possible ?? Patient would like to have a hard copy of her skin safe products provided. We will touch base with patch testing and have this list mailed to her ?? Follow-up in 1 year #2. Lichen Sclerosus Patient was evaluated and diagnosed with lichen sclerosis at her last dermatology visit in April 2017. At that time a prescription for triamcinolone 0.1% ointment was prescribed to be used 2 times daily for 2 weeks followed by use of Protopic. Patient has intermittently used triamcinolone and Protopic to involved areas. Exam today reveals atrophic changes but only minimal erythema in the perineal region. ?? Due to relatively inactive appearance of lesions today, patient instructed to use triamcinolone and/or Protopic as needed (when she notes discomfort). ?? Patient counseled that if she finds herself using the topical medications more and more, to beginmaintenance therapy: Triamcinolone and/or Protopic 2 times per week even if asymptomatic ?? Patient counseled on the risks of development of squamous cell carcinoma and the importance of atleast yearly exams #3. Plaque psoriasis Patient reports 20 year history of psoriasis in the past which has been inactive for the past few years. However, she notes development of plaques involving elbows over the past few months. Exam today reveals thin pink papules coalescing into plaques with overlying white scale on the bilateral elbows ?? Triamcinolone 0.1% ointment to be applied to the elbows #4. Intertrigo Patient reports rash involving the bilateral inguinal folds for which she uses nystatin powder. Thisarea was not examined today ?? Continue using nystatin powder as needed PATIENT EDUCATION Ready to learn. No apparent learning barriers were identified. Learning preferences include listening. Explained diagnosis and treatment plan; patient/guardian of patient expressed understanding of thecontent. Answers for HPI/ROS submitted by the patient on 12/06/2017 Fatigue: Yes Night sweats: Yes No eye issues: Yes Sinus congestion: Yes Swelling in the legs or feet: Yes Coughing up mucus (phlegm): Yes Dry cough: Yes No GI issues: Yes Muscle pain/stiffness: Yes Pain or stiffness in the joints: Yes Skin rash: Yes Weakness in arms and/or legs: Yes Loss of balance or tendency to fall easily: Yes Excessive daytime sleepiness/tiredness: Yes No blood/lymph issues: Yes Frequent urination: Yes Incontinence (urine leakage): Yes Associated attestation - Vani Mohan M.D. - 12/11/2017 1:01 PM CDT I saw and evaluated the patient, participating in the cadet portions of the service. I reviewed the resident???s note. I agree with the resident???s findings and plan. documented in this encounter Plan of Treatment Not on filedocumented as of this encounter Visit Diagnoses Diagnosis Dermatitis Atopic - Primary Lichen Sclerosus Dermatitis Contact Intertrigo Psoriasis documented in this encounter
--- OUTSIDE RECORDS SUMMARY | 2022-01-18 09:10 | XMS_ITS | Encounter Summary ---
:1940 Author Organization [facility] Address [address] [place] [address] Care Team Providers Name Role Phone Unavailable Primary Care Provider Unavailable Encounter Details Date Type Department Care Team Description 03/26/2019 Clinical Communication Department of Salena Walker, Dermatology in [place], [place] [address] [facility] [address] [place] [phone] Social History Tobacco Use Types Packs/Day Years Used Date Smoking Tobacco: Never Smokeless Tobacco: Never Alcohol Use Standard Drinks/Week Comments Defer 0 (1 standard drink = 0.6 oz pure alcoho l) Alcohol Habits Answer Date Recorded How often do you have a drink containing 4 or more times a w [place] 10/21/2019 alcohol? How many drinks containing alcohol [...] or relatives? How often do you attend denominational or restorationist Never 12/20/2018 services? Do you belong to any clubs or organizations Yes 12/20/2018 such as denominational groups, unions, fraternal or athletic groups, or [...] have completed or the highest Frida, MEd, PASTE MAKER, ISSAC) degree you have received? Sex Assigned at Date Recorded Female documented as of this encounter Miscellaneous Notes Telephone Encounter - Salena Walker R.N. - 03/26/2019 5:03 PM CST Asked by Dr. Mohan to print skin safe product list from previous skin safe account. PAC: [id number].List of products given to the patient. 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
--- OUTSIDE RECORDS SUMMARY | 2022-01-18 09:10 | XMS_ITS | Encounter Summary ---
:1940 Author Organization [facility] Address [address] [place] [address] Care Team Providers Name Role Phone Unavailable Primary Care Provider Unavailable Reason for Referral Outpatient (Routine) - Closed Specialty Diagnoses / Procedures Referred By Contact Refer red To Contact Dermatology Vani Mohan M.D . [place] [address] [place] [address] Referral ID Status Reason Start Date Expiration Date Visits Requ ested Visits Authorized [id number] Closed 10/21/2019 10/20/2020 1 1 Reason for Visit Outpatient (Routine) - Closed Specialty Diagnoses / Procedures Referred By Contact Refer red To Contact Dermatology Vani Mohan M.D . [place] [address] [place] [address] Referral ID Status Reason Start Date Expiration Date Visits Requ ested Visits Authorized [id number] Closed 03/26/2019 03/25/2020 1 1 Encounter Details Date Type Department Care Team Description 10/21/2019 Office Visit Department of Vani Mohan Psoriasis (Primary Dx); Dermatology in [place] Dermatitis Al lergic Contact; [place], [place] Lichen Sclerosus [address] [place] [address] Social History Tobacco Use Types Packs/Day Years Used Date Smoking Tobacco: Never Smokeless Tobacco: Never Alcohol Use Standard Drinks/Week Comments Defer 0 (1 standard drink = 0.6 oz pure alcoho l) Alcohol Habits Answer Date Recorded How often do you have a drink containing 4 or more times a w [place] 10/21/2019 alcohol? How many drinks containing alcohol [...] or relatives? How often do you attend anabaptist or pentecostalism Never 12/20/2018 services? Do you belong to any clubs or organizations Yes 12/20/2018 such as anabaptist groups, unions, fraternal or athletic groups, or [...] of school Master's degree (e.g., [employer] Del[employer] MS, 12/19/2018 you have completed or the highest Frida, MEd, BLOCK INSPECTOR, ISSAC) degree you have received? Sex Assigned at Date Recorded Female documented as of this encounter Progress Notes Reena Johnson M.D. - 10/21/2019 1:00 PM CDT ?? Supervised by: Dr. Mohan, who evaluated the patient and concurs with the assessment and plan. Correspondence to Dr. Mohan. SUBJECTIVE ?? CHIEF COMPLAINT/REASON FOR VISIT Followup atopic and allergic contact dermatitis; lichen sclerosus; psoriasis. ?? HISTORY OF PRESENT ILLNESS Krupa is a very nice 79-year-old woman well known to Dr. Mohan. She has dermatologic history significant for atopic and allergic contact dermatitis, lichen sclerosus (genital), and psoriasis. Most recent visit March 2019. She presents today for 6months followup. States that she is doing well and doesn't have any concerns today. She reports that her genital lesions have cleared completely since she started valacyclovir. She states that she will be on valacyclovir for life as she had some lesions around eyes as well. She takes 500 mg daily. She feels like her disease is stable, and doesn't want any medication changes at this time. She has also noted that her face has cleared really well since the beginning of summer. OBJECTIVE PHYSICAL EXAMINATION General: Well-appearing. In no acute distress. Skin: Limited examination performed per patient request today. On examination of the face, very mild patchy dermatitis, Scattered very thin psoriatic plaques noted of the bilateral lower extremities. ?? ASSESSMENT / PLAN #1 Atopic dermatitis #2 Allergic contact dermatitis Currently relatively well controlled. Krupa is understandably still reluctant to pursue systemic therapy, and fortunately it does not appear that is necessary at this time. Krupa is in agreement. We will plan for followup in 12 months. #3 Psoriasis Currently under good control. She used Triamcinolone once to twice daily. We think its reasonable toswitch her to mometasone 0.1% cream today to avoid skin thinning and atrophy and give her a break from triamcinolone #4 Lichen sclerosus Currently under good control. Krupa does have tacrolimus as well as desonide ointment that she uses intermittently. No changes to treatment made today. #5 Linear erosion, perineum Patient does have a known history of genital herpes. Swab for HSV/VZV PCR were positive for HSV 2 during the last visit. She has responded well to valacyclovir therapy. We will continue the same treatment for now. ?? PATIENT EDUCATION: Ready to learn. No apparent learning barriers were identified. Learning preferences include listening. Explained diagnosis and treatment plan; patient/guardian of patient expressed understanding of thecontent. ? Associated attestation - Vani Mohan M.D. - 10/22/2019 9:48 AM CDT I saw and evaluated the patient, participating in the cadet portions of the service. I reviewed the resident/fellow???s note. I agree with the resident/fellow???s findings and plan. Shantell Kingsley R.N. - 10/21/2019 1:00 PM CDT Skin safe list for contact allergies printed per Dr. Johnson/ Dr. Mohan request. Ms. Atwood does not use the online version of the database. Krupa Atwood PAC: [id number] documented in this encounter Plan of Treatment Scheduled Referrals Name Type Priority Associated Order Schedule Diagnoses Dermatology office Outpatient Referral Routine Ex pected: visit (clinic) 10/20/2020 (Approximate), Expires: 10/20/2022 documented as of this encounter Visit Diagnoses Diagnosis Psoriasis - Primary Dermatitis Allergic Contact Lichen Sclerosus documented in this encounter
--- OUTSIDE RECORDS SUMMARY | 2022-01-18 09:10 | XMS_ITS | Encounter Summary ---
:1940 Author Organization [facility] Address [address] [place] [address] Care Team Providers Name Role Phone Unavailable Primary Care Provider Unavailable Reason for Visit Reason Comments Tearing in my eyes. Appointment Request (Routine) - Closed Specialty Diagnoses / Procedures Referred By Contact Refer red To Contact Ophthalmology Diagnoses Epiphora Steve Rodrigues M.D. [address] [place] [address] 2 Referral ID Status Reason Start Date Expiration Date Visits Requ ested Visits Authorized [id number] Closed 05/06/2020 05/06/2021 1 1 Encounter Details Date Type Department Care Team Description 05/23/2020 Comprehensive Visit Department of Leticia Mclean Bilateral (Primary Dx); Ophthalmology in [place] Bishop M.D. Stenosis Lacrimal Punctum Bilateral [place], [place] [address] [facility] [address] [place] [phone] Social History Tobacco Use Types Packs/Day Years Used Date Smoking Tobacco: Never Smokeless Tobacco: Never Alcohol Use Standard Drinks/Week Comments Defer 0 (1 standard drink = 0.6 oz pure alcoho l) Alcohol Habits Answer Date Recorded How often do you have a drink containing 4 or more times a w [place] 10/21/2019 alcohol? How many drinks containing [...] or relatives? How often do you attend oriental orthodox or tenriism Never 12/20/2018 services? Do you belong to any clubs or organizations Yes 12/20/2018 such as oriental orthodox groups, unions, fraternal or athletic groups, [...] have completed or the highest Frida, MEd, DYE PADDER OPERATOR, ISSAC) degree you have received? Sex Assigned at Date Recorded Female documented as of this encounter Progress Notes Davy Mclean M.D. - 05/23/2020 10:30 AM CST 1. Tearing, both eyes All four puncta are obstructed, which does not allow probe and irrigation. Thus, we do not know if the canaliculi are patent or obstructed. If she is sufficiently troubled by the tearing, I would take her to the operating room and anesthetize the medial [place] areas so that I can explore the puncta without discomfort. If the problem is isolated to the puncta, then I would recommend stenting with [place] silicone tubing, left in place for several months with hopes that the systems would remain openafter removal. If, however, it is evident that there is extensive canalicular scarring, then the only option to eliminate the tearing would be a conjunctivodacryocystorhinostomy with Cotton tube. Risks include bleeding or infection, as with any operation, and the possibility of Cotton tube migration or extrusion postoperatively. There also is a small chance that there is not enough room in the left middle meatus to accommodate a Cotton tube, which would necessitate surgery on the nasal septum. Also, some patients develop a dry eye after a conjunctivodacryocystorhinostomy with Cotton tube because the tear drainage works too well. She also has allergies, which may cause increased lacrimation. We also discussed that there is virtually no risk to her ocular or general health from doing nothing. She will consider and let us know if she wishes to proceed. 45 minutes; > 50% of time in discussion Copy of examination to Dr. Rodrigues. 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
--- OUTSIDE RECORDS SUMMARY | 2022-01-18 09:10 | XMS_ITS | Encounter Summary ---
:1940 Author Organization [facility] Address [address] [place] [address] Care Team Providers Name Role Phone Unavailable Primary Care Provider Unavailable Encounter Details Date Type Department Care Team Description 05/18/2020 Orders Only Department of Dermatology in [facility], Zeke Arthur M.D. [place], [place] [address] [place] [address] Social History Tobacco Use Types Packs/Day Years Used Date Smoking Tobacco: Never Smokeless Tobacco: Never Alcohol Use Standard Drinks/Week Comments Defer 0 (1 standard drink = 0.6 oz pure alcoho l) Alcohol Habits Answer Date Recorded How often do you have a drink containing 4 or more times a w [place] 10/21/2019 alcohol? How many drinks containing alcohol [...] often do you attend oriental orthodox or methodist Never 12/20/2018 services? Do [...] have completed or the highest Frida, MEd, PIZZA DRIVER, ISSAC) degree you have received? Sex Assigned at Date Recorded Female documented as of this encounter Plan of Treatment Not on filedocumented as of this encounter Visit Diagnoses Not on filedocumented in this encounter
--- OUTSIDE RECORDS SUMMARY | 2022-01-18 09:10 | XMS_ITS | Encounter Summary ---
:1940 Author Organization [facility] Address [address] [place] [address] Care Team Providers Name Role Phone Unavailable Primary Care Provider Unavailable Reason for Referral Outpatient (Routine) - Closed Specialty Diagnoses / Procedures Referred By Contact Refer red To Contact Ophthalmology Diagnoses Herpes Simplex Keratitis Dendritic Rehan Acosta O.D. [facility] [id number] [place] [address] [address] [place] [address] Referral ID Status Reason Start Date Expiration Date Visits V isits Requested Authorized [id number] Closed Specialty 10/15/2016 04/13/2017 1 1 Services Required Scheduling Instructions See lamin Johnson or saturday Reason for Visit Reason Comments Eye Pain Encounter Details Date Type Department Care Team Description 10/15/2016 Office Visit Department of Rehan Acosta Herpes Sim plex Ophthalmology in [place] Keratitis Dendritic [address] (Primary Dx) [address] [facility] [address] [phone] Social History Tobacco Use Types Packs/Day Years Used Date Smoking Tobacco: Never Smokeless Tobacco: Never Alcohol Use Standard Drinks/Week Comments Defer 0 (1 standard drink = 0.6 oz pure alcoho l) Alcohol Habits Answer Date Recorded How often do you have a drink containing 4 or more times a w [place] 10/21/2019 alcohol? How many drinks containing alcohol [...] or relatives? How often do you attend latter day or samaritan Never 12/20/2018 services? Do you belong to any clubs or organizations Yes 12/20/2018 such as latter day groups, unions, fraternal or athletic groups, or [...] encounter Progress Notes Rehan Acosta O.D. - 10/15/2016 11:45 AM CDT SUBJECTIVE CHIEF COMPLAINT / REASON FOR VISIT Krupa Atwood is a 76 y.o. female who presents for evaluation of Eye Pain. HISTORY OF PRESENT ILLNESS HPI OBJECTIVE PHYSICAL EXAM Physical Exam ASSESSMENT / PLAN she has a long history of herpes simplex keratitis. 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 It isnoted that she is using a topical steroid given to her by family practice physician for dermatitis. She is told to stop using any topical steroids about her eyes whatsoever. Plan I prescribed by her optic 1 drop every 2 hours for at least 3 days in the right eye only. She is going to see me in 4 days or immediately with increased symptoms. 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
--- OUTSIDE RECORDS SUMMARY | 2022-01-18 09:10 | XMS_ITS | Encounter Summary ---
:1940 Author Organization [facility] Address [address] [place] [address] Care Team Providers Name Role Phone Unavailable Primary Care Provider Unavailable Encounter Details Date Type Department Care Team Description 11/26/2017 Abstract DATA ABSTRACTION Provider, Historical Social History Tobacco Use Types Packs/Day Years Used Date Smoking Tobacco: Never Smokeless Tobacco: Never Alcohol Use Standard Drinks/Week Comments Defer 0 (1 standard drink = 0.6 oz pure alcoho l) Alcohol Habits Answer Date Recorded How often do you have a drink containing 4 or more times a w [place] 10/21/2019 alcohol? How many drinks containing alcohol [...] or relatives? How often do you attend latter-day or catholic Never 12/20/2018 services? Do you belong to any clubs or organizations Yes 12/20/2018 such as latter-day groups, unions, fraternal or athletic groups, or [...]
--- OUTSIDE RECORDS SUMMARY | 2022-01-18 09:10 | XMS_ITS | Encounter Summary ---
:1940 Author Organization [facility] Address [address] [place] [address] Care Team Providers Name Role Phone Unavailable Primary Care Provider Unavailable Encounter Details Date Type Department Care Team Description 02/22/2014 Hospital Encounter HX [facility] Noelle Greenberg M.D. OPHTHOPTO [address] [place], [place] [address] (Wo rk) Social History Tobacco Use Types Packs/Day Years Used Date Smoking Tobacco: Never Assessed Alcohol Habits Answer Date Recorded How often do you have a drink containing 4 or more times a w [place] 10/21/2019 alcohol? How many drinks containing alcohol [...] or relatives? How often do you attend mandaeism or buddhism Never 12/20/2018 services? Do you belong to any clubs or organizations Yes 12/20/2018 such as mandaeism groups, unions, fraternal or athletic groups, or [...] FISH,SAF,FLX,BRG Take by mouth. 0 02/22/2014 OILS/O3,6,9N2 (AJSS-AGXE-MSKQNE OIL ORAL) propafenone (for_RHTHYMOL) Take 1 tablet by 0 09/2012 150 mg tablet mouth 3 (three) times a day. aspirin 0.1 mg capsule daily. 0 08/29/2012 losartan (for_COZAAR) 50 Take 1 tablet by 0 10/1003/01/2021 mg tablet mouth daily. rosuvastatin (for_CRESTOR) Take by mouth at 0 09/201209/09/2017 1.25 mg tablet bedtime. documented as of this encounter Miscellaneous Notes Miscellaneous - Pia San - 02/22/2014 10:18 AM CST Adult Racing Board Marker Intake/History Adult Racing Board Marker Intake/History Entered On: 02/22/2014 10:18 FOUR SLIDE MACHINE OPERATOR Performed On: 02/22/2014 10:18 FOUR SLIDE MACHINE OPERATOR by PIA SAN Intake Chief Complaint : iop check PIA SAN - 02/22/2014 10:18 FOUR SLIDE MACHINE OPERATOR General Info Information Given By : Patient Languages : Iranian Is Patient Female and 13-50 no hysterectomy : PIA Smith - 02/22/2014 10:18 FOUR SLIDE MACHINE OPERATOR Subjective Pain Symptoms : PIA Smith - 02/22/2014 10:18 FOUR SLIDE MACHINE OPERATOR Dependent Habits Tobacco Use/Currently Using : No Exposure to Tobacco Smoke : Other: NEVER Smoking Status : Never smoker PIA SAN - 02/22/2014 10:18 FOUR SLIDE MACHINE OPERATOR Tobacco Use Grid Last Use : never PIA SAN - 02/22/2014 10:18 FOUR SLIDE MACHINE OPERATOR Recreational Drug Use Grid Drug Use : None PIA SAN - 02/22/2014 10:18 FOUR SLIDE MACHINE OPERATOR ID Screen Travel Within Last 21 Days : PIA Smith - 02/22/2014 10:18 FOUR SLIDE MACHINE OPERATOR Source: [employer] Document Id: [id number] FOUR SLIDE MACHINE OPERATOR!21 SLIDE MACHINE OPERATOR documented in this encounter Plan of Treatment Not on filedocumented as of this encounter Visit Diagnoses Not on filedocumented in this encounter
--- OUTSIDE RECORDS SUMMARY | 2022-01-18 09:10 | XMS_ITS | Encounter Summary ---
:1940 Author Organization [facility] Address [address] [place] [address] Care Team Providers Name Role Phone Unavailable Primary Care Provider Unavailable Encounter Details Date Type Department Care Team Description 10/11/2015 Hospital Encounter HX [facility] Paulina Juarez M.D. Social History Tobacco Use Types Packs/Day Years Used Date Smoking Tobacco: Never Assessed Alcohol Habits Answer Date Recorded How often do you have a drink containing 4 or more times a w [place] 10/21/2019 alcohol? How many drinks containing alcohol [...] or relatives? How often do you attend anabaptism or zoroastrian Never 12/20/2018 services? Do you belong to any clubs or organizations Yes 12/20/2018 such as anabaptism groups, unions, fraternal or athletic groups, or [...] Sign Reading Time Taken Comments Blood Pressure 122/60 10/11/2015 11:41 AM CDT Pulse 68 10/11/2015 11:41 AM CDT Temperature - - Respiratory Rate 16 10/11/2015 11:41 AM CDT Oxygen Saturation - - Inhaled Oxygen Concentration - - Weight 70.1 kg (154 lb 8.7 oz) 10/11/2015 11:41 AM CDT Height 156.5 cm (5' 1.61) 10/11/2015 11:41 AM CDT Body Mass Index 28.62 10/11/2015 11:41 AM CDT documented in this encounter Medications at Time of Discharge Medication Sig Dispensed Refills Start Date End Date amLODIPine (for_NORVASC) Take 1 tablet by 0 09/28 5 mg tablet mouth daily. aspirin [address] tablet once a day 0 06/26/2001 FISH,SAF,FLX,BRG Take by mouth. 0 02/22/2014 OILS/O3,6,9N2 (EJVV-KIAQ-UBAILA OIL ORAL) fluorometholone (FML) 0.1 Administer 1 [...] mouth 3 (three) tablet times a day. tpqlclgescykt-uexmps-yham Apply 1 application 0 0 09/29/2015 cone [...] 0 03/01/2021 0.1 % cream topically daily. inqlonocgckv-wbzvmyjk-alu Take 1 tablet by 0 07/09/201503/01/2021 monica gluconate mouth daily. (MULTIVITAMIN WITH MINERALS) 9 mg iron/15 mL liquid rosuvastatin Take by mouth at 0 08/29/20122017 (for_CRESTOR) 1.25 mg bedtime. tablet tacrolimus (PROTOPIC) 0.1 Apply 1 application 0 0 10/11/2015 12/24/2018 % ointment topically 2 (two) times a day. VITAMIN D3/SOY ISOFLAVONE Take 1 tablet by 0 09/201503/01/2021 (CHOLECALCIFEROL-SOY mouth daily. ISOFLAVONE ORAL) documented as of this encounter Progress Notes Paulina Juarez M.D. - 10/11/2015 11:11 AM CDT [id number] Patient presents today with several complaints. She has an extensive dermatology history including psoriasis, undefined dermatitis and prior herpes genitalis about 2 years ago. She has been seeing a account service representative in the [facility] who has recommended she be seen at [facility]. She has been tryingto get an appointment but has been on a waiting list. She normally lives in [place], [place] but has a cabin this area. She is here with her significant other. In addition she has trouble with urinary frequency and urgency. She has leakage. She has had some pain in the perineum as well. She has no difficulty with bowel movements and that irritates her perineum. ALLERGIES Reviewed. MEDICATIONS Reviewed. VITAL SIGNS Reviewed. PHYSICAL EXAMINATION GENERAL: The patient is alert, pleasant and cooperative. SKIN: Examination reveals a very diffuse erythematous macular and papular eruption. This includes the medial thighs and vulva. PELVIC: Examination was carried out with Trinidad Vanegas CMA as judicial law clerk. Vaginal mucosa is atrophic. There is no significant discharge. I did obtain a vaginal prep. She has an open sore just posterior to the vaginal introitus in the midline. This is very tender and reproduces her pain. IMPRESSION/REPORT/PLAN 1. Extensive dermatitis with a history of psoriasis, etiology undetermined. 2. Vaginal fissure. 3. Atrophic vaginitis. 4. Urinary incontinence. PLAN: I advised her this is a very complex problem. I suggested she try tea bag compresses and Vaseline to the fissure. She can use mometasone topical cream for itching. I also recommended that she useher hydroxyzine more frequently for the itching. She will be advised as to results of her urinalysisand vaginitis prep as they become available. I strongly urged her to be seen in Dermatology in [place]. She will work on that as hard as she can. Paulina Juarez M.D./gayathri Electronically Signed By: PAULINA JUAREZ MD On: 10/17/2015 07:05 AM Source: [facility] MHSDOLBEYNONRADSYS Document Id: [id number] documented in this encounter Miscellaneous Notes Jaymiecellgary - Paulina Juarez M.D. - 10/17/2015 11:58 AM CDT Custom Result Letter October 17, 2015 KRUPA ATWOOD [address] [facility] [id number] Dear KRUPA ATWOOD, No evidence for urinaryn infection Result Name Current Result Culture Urine 10/11/2015 Sincerely, PAULINA JUAREZ [address] [place] [address] Electronic Signature Electronically Signed By: PAULINA JUAREZ MD On: October 17, 2015 This document has images extracted. Source: [facility] Online [employer] Document Id: [id number] Brent - Paulina Juarez M.D. - 10/11/2015 5:50 PM CDT Normal Results Letter October 11, 2015 KRUPA ATWOOD [address] [facility] [id number] Dear KRUPA ATWOOD, I am pleased to report that your results from the following diagnostic test(s) are normal. Please follow up with us as we discussed during your visit or sooner if you have any concerns. If you have questions or concerns, please do not hesitate to call our office. Result Name Current Result Vaginosis Panel, DNA 10/11/2015 Sincerely, PAULINA JUAREZ [address] [place] [address] Electronic Signature Electronically Signed By: PAULINA JUAREZ MD On: October 11, 2015 This document has images extracted. Source: [facility] [employer]CHART Document Id: [id number] Jaymiecellgary - Paulina Juarez M.D. - 10/11/2015 5:49 PM CDT Normal Results Letter October 11, 2015 KRUPA ATWOOD [address] [facility] [id number] Dear KRUPA ATWOOD, I am pleased to report that your results from the following diagnostic test(s) are normal. Please follow up with us as we discussed during your visit or sooner if you have any concerns. If you have questions or concerns, please do not hesitate to call our office. Result Name Current Result Normal Range UA Color YELLOW 10/11/2015 UA Clarity CLEAR 10/11/2015 CLER - UA Spec Grav 1.010 10/11/2015 1.001 - 1.03 UA pH 7.0 10/11/2015 5.0 - 8.0 UA Protein (mg/dL) NEG 10/11/2015 NEG - UA Glucose (mg/dL) NEG 10/11/2015 NEG - UA Ketones (mg/dL) NEG 10/11/2015 NEG - UA Bili NEG 10/11/2015 NEG - UA Urobilinogen (mg/dL) 0.2 10/11/2015 0.2 - 1.0 UA Blood (*) TRACE 10/11/2015 NEG - UA Nitrite NEG 10/11/2015 NEG - UA Leuk Est (*) MODERATE 10/11/2015 NEG - drbUA Other Comments <<NOT PERFORMED>> 10/11/2015 UR WBC (/HPF) OCC-3 10/11/2015 0 - 10 UR RBC (/HPF) OCC-2 10/11/2015 0 - 2 UR % Dysmorphic RBC (%) <<NOT PERFORMED>> 10/11/2015 LTTF - UR Bacteria (/HPF) (*) PRESENT 10/11/2015 NONE - UR Mucous (/HPF) NONE SEEN 10/11/2015 Vaginitis Battery, DNA (Genital) 10/11/2015 Sincerely, PAULINA JUAREZ [address] [place] [address] Electronic Signature Electronically Signed By: PAULINA JUAREZ MD On: October 11, 2015 This document has images extracted. Source: [facility] POWERCHART Document Id: [id number] Miscellaneous - Trinidad Vanegas - 10/11/2015 11:41 AM CDT Adult Applications Chemist Intake/History Adult Applications Chemist Intake/History Entered On: 10/11/2015 11:44 CDT Performed On: 10/11/2015 11:41 CDT by TRINIDAD VANEGAS [facility] Intake Chief Complaint : vaginal irriation is not improving and questions about kidney infection? Onset of Symptoms : ongoing Temperature Core : 36.6 DegC(Converted to: 97.9 DegF) Peripheral Pulse Rate : 68 /min Respiratory Rate : 16 /min Heart Rhythm : Regular Systolic Blood Pressure : 122 mmHg Diastolic Blood Pressure : 60 mmHg NIBP Mean : 81 mmHg BP Location : Right upper extremity Blood Pressure Cuff Size : Regular Height : 156.5 cm(Converted to: 5 ft 2 inch(es), 62 inch(es)) Actual Weight : 70.1 kg(Converted to: 154 lb 9 oz) Weight Source : Standing scale Dosing Weight Clinic : 70.1 kg Clinic BSA : 1.75 Body Mass Index : 28.62 kg/m2 TRINIDAD VANEGAS [facility] - 10/11/2015 11:41 CDT General Info Languages : Serbian Is Patient Female and 13-50 no hysterectomy : No TRINIDAD VANEGAS [facility] - 10/11/2015 11:41 CDT Subjective Pain Symptoms : No TRINIDAD VANEGAS CMA 10/11/2015 11:41 CDT Dependent Habits Exposure to Tobacco Smoke : Other: NEVER Smoking Status : Never smoker Tobacco 2A : No Tobacco Use/Currently Using : No Tobacco Use/Last 30 Days : No Tobacco Use/Last 12 months : No TRINIDAD VANEGAS CMA 10/11/2015 11:41 CDT Recreational Drug Use Grid Drug Use : None TRINIDAD VANEGAS [facility] 10/11/2015 11:41 CDT Source: [facility] POWERCHART Document Id: [id number] CDT!34 documented in this encounter Plan of Treatment Not on filedocumented as of this encounter Procedures Procedure Name Priority Date/Time Associated Diagnosis Comme nts VAGINITIS BATTERY, Routine 10/11/2015 12:10 PM Re sults for this DNA (GENITAL) CDT procedure are in the results section. URINALYSIS, Routine 10/11/2015 11:30 AM Results for this MIDSTREAM, WITH CDT procedure ar e in CULTURE IF the results INDICATED section. BACTERIAL CULTURE, Routine 10/11/2015 11:30 AM Re sults for this AEROBIC, URINE CDT procedure are in the results section. documented in this encounter Results VAGINITIS BATTERY, DNA (GENITAL) (10/11/2015 12:10 PM CDT) Component Value Ref Test Analysis Performed At [facility] [employer] Range Method Time Signature HXCandida Sp NEG MISYS EAU JEANINE HXCandida Sp FOR THOMAS SP MISYS EAU BY NUCLEIC ACID JEANINE HYBRIDIZATION HXGardnerella NEG MISYS EAU JEANINE HXGardnerella FOR GARDNERELLA MISYS EAU SP BY NUCLEIC JEANINE ACID HYBRIDIZATION HXTrichomonas Sp NEG MISYS EAU JEANINE HXTrichomonas Sp FOR TRICHOMONAS MISYS E AU SP BY NUCLEIC JEANINE ACID HYBRIDIZATION PERFORMING LAB [facility] MISYS EAU [facility] [address] [facility] [address] Specimen (Source) Anatomical Collection Method Collection Time Re ceived Time Location / / Volume Laterality Vagina 10/11/2015 12:10 PM CDT Paulina Juarez M.D. LAB HISTORICAL ORDERS Performing Organization Address City/State/ZIP Code Phon e Number MISYS EAU JEANINE [address] [place] [address] MISYS E[facility] JEANINE (ABNORMAL) Urinalysis, Midstream, with culture if indicated (10/11/2015 11:30 AM CDT) [facility] [employer] Method Time Signature Source URINE, CLEAN MIS[facility] VOID JEANINE HXUr Color YELLOW MIS[facility] JEANINE Clarity CLEAR CLER MISYS E[facility] JEANINE Specific 1.010 1.001 - MISYS EAU Coffey, POCT, U 1.03 JEANINE pH, POCT, Urine 7.0 5.0 - 8.0 MISYS E[facility] JEANINE Protein, Ur, Dip NEG NEG MGDL M[facility] JEANINE Glucose NEG NEG MGDL M[facility] JEANINE Ketones, QL(U) NEG NEG MGDL MISYS E[facility] JEANINE HXBILIRUBIN NEG NEG MISYS EAU JEANINE Urobilinogen 0.2 0.2 - 1.0 MISYS EAU MGDL JEANINE HXBLOOD TRACE (A) NEG MISYS EAU JEANINE HXNITRITE NEG NEG MISYS EAU JEANINE Leukocyte MODERATE (A) NEG MISYS EAU Esterase JEANINE HXUR WBC. OCC-3 0 - 10 MISYS EAU HPF JEANINE HXUR RBC. OCC-2 0 - 2 HPF MISYS EAU JEANINE HXUR Bacteria, PRESENT (A) NONE HPF MISYS EAU JEANINE Mucus NONE SEEN HPF MISYS EAU JEANINE Comment <<NOT MISYS EAU PERFORMED>> JEANINE Dysmorphic RBC <<NOT LTTF MISYS EAU PERFORMED>> JEANINE Specimen (Source) Anatomical Collection Method Collection Time Re ceived Time Location / / Volume Laterality Urine, First 10/11/2015 11:30 Voided AM CDT Paulina Juarez M.D. LAB URINE ORDERABLES Performing Organization Address [facility] Phon e Number MISYS EAU JEANINE [address] [place] [address] MISYS EAU JEANINE Bacterial Culture, Aerobic, Urine (10/11/2015 11:30 AM CDT) Component Value Ref Test Analysis Performed At [facility] Range Method Time Signature HXSPECIMAN URINE, CLEAN MISYS EAU DESCRIPTION VOID JEANINE Bacterial [id number] COL/ML MISYS EAU Culture, MULTIPLE JEANINE Aerobic ORGANISMS SUGGESTING PROBABLE CONTAMINATION CULTURE REPORT FINAL MISYS EAU STATUS 10/12/2015-[facility] [address] [place] [id number] Specimen Anatomical Collection Method Collection Time Receive d Time (Source) Location / / Volume Laterality Urine, Clean 10/11/2015 11:30 10/11/2015 Cath AM CDT 12:30 PM CDT Paulina Juarez M.D. LAB MICROBIOLOGY - GENERAL O RDERABLES Performing Organization Address City/[facility] Phon e Number MISYS EAU JEANINE [address] [place] [address] MISYS EAU JEANINE documented in this encounter Visit Diagnoses Not on filedocumented in this encounter
--- OUTSIDE RECORDS SUMMARY | 2022-01-18 09:10 | XMS_ITS | Encounter Summary ---
:1940 Author Organization [facility] Address [address] [place] [address] Care Team Providers Name Role Phone Unavailable Primary Care Provider Unavailable Encounter Details Date Type Department Care Team Description 03/27/2019 Orders Only Department of Dermatology in [facility], Zeke Arthur M.D. [place], [place] [address] [place] [address] Social History Tobacco Use Types Packs/Day Years Used Date Smoking Tobacco: Never Smokeless Tobacco: Never Alcohol Use Standard Drinks/Week Comments Defer 0 (1 standard drink = 0.6 oz pure alcoho l) Alcohol Habits Answer Date Recorded How often do you have a drink containing 4 or more times a w [place] 10/21/2019 alcohol? How many drinks containing alcohol [...] or relatives? How often do you attend zoroastrian or synagogue Never 12/20/2018 services? Do you belong to any clubs or organizations Yes 12/20/2018 such as zoroastrian groups, unions, fraternal or athletic groups, or [...] have completed or the highest Frida, MEd, SUPERVISOR SPECIAL EFFECTS, ISSAC) degree you have received? Sex Assigned at Date Recorded Female documented as of this encounter Plan of Treatment Not on filedocumented as of this encounter Visit Diagnoses Not on filedocumented in this encounter
--- OUTSIDE RECORDS SUMMARY | 2022-01-18 09:10 | XMS_ITS | Encounter Summary ---
:1940 Author Organization [facility] Address [address] [place] [address] Care Team Providers Name Role Phone Unavailable Primary Care Provider Unavailable Reason for Referral Outpatient (Routine) - Closed Specialty Diagnoses / Procedures Referred By Contact Refer red To Contact Dermatology Vani Mohan M.D . [place] [address] [place] [address] Referral ID Status Reason Start Date Expiration Date Visits Requ ested Visits Authorized [id number] Closed 03/26/2019 03/25/2020 1 1 BONDER Reason for Visit Outpatient (Routine) - Closed Specialty Diagnoses / Procedures Referred By Contact Refer david To Contact Dermatology Vani Mohan M.D . [place] [address] [facility] [place] [address] Referral ID Status Reason Start Date Expiration Date Visits Requ ested Visits Authorized [id number] Closed 12/24/2018 12/24/2019 1 1 Encounter Details Date Type Department Care Team Description 03/26/2019 Office Visit Department of Vani Mohan Dermatitis Allergic Contact (Primary Dx); Dermatology in [place]Izabella Lichen Sclero migue; [place], [place] Psoriasis; [address] [facility] [place] [address] Social History Tobacco Use Types Packs/Day Years Used Date Smoking Tobacco: Never Smokeless Tobacco: Never Alcohol Use Standard Drinks/Week Comments Defer 0 (1 standard drink = 0.6 oz pure alcoho l) Alcohol Habits Answer Date Recorded How often do you have a drink containing 4 or more times a w [place] 10/21/2019 alcohol? How many drinks containing alcohol [...] or relatives? How often do you attend pentecostalism or christian Never 12/20/2018 services? Do you belong to any clubs or organizations Yes 12/20/2018 such as pentecostalism groups, unions, fraternal or athletic groups, or [...] school Master's degree (e.g., [place], , 12/19/2018 you have completed or the highest Frida, MEd, EYELET PUNCH OPERATOR, ISSAC) degree you have received? Sex Assigned at Date Recorded Female documented as of this encounter Progress Notes Vani Mohan M.D. - 03/26/2019 4:00 PM CST SUBJECTIVE CHIEF COMPLAINT/REASON FOR VISIT Followup atopic and allergic contact dermatitis; lichen sclerosus; psoriasis. HISTORY OF PRESENT ILLNESS Krupa is a very nice 78-year-old woman well known to me. She has dermatologic history significant for atopic and allergic contact dermatitis, lichen sclerosus (genital), and psoriasis. Most recent visit December 2018. She presents today for followup. During our most recent visit, dermatitis was poorly controlled, and we did briefly discuss the potential for systemic therapy. Fortunately, since that time, Krupa has experienced improvement of her skin and is currently doing very well, managing with topical therapies. She does question possible allergic contact dermatitis to tacrolimus ointment, despite this being on her skin-safe list. The dermatitis is currently well controlled; however, she does note a recent history of a painful erosion of the perineum. Prior to this, her lichen sclerosus has been quiescent and well controlled. Krupa does have questions regarding an updated skin-safe list and the potential utility of repeat patch testing. No other concerns today. OBJECTIVE PHYSICAL EXAMINATION General: Well-appearing. In no acute distress. Skin: Limited examination performed per patient request today. On examination of the face, patchy dermatitis, primarily of the left cheek and periocular areas. Scattered very thin psoriatic plaques noted of the bilateral lower extremities. On examination of the perineum, there is a linear erosion of the perineum. Mild sclerotic change with purpura noted of the introitus/labia minora consistent with the patient's known lichen sclerosis. In addition, mild erythema and sclerotic change noted of the perianal skin. ASSESSMENT / PLAN #1 Atopic dermatitis #2 Allergic contact dermatitis Currently relatively well controlled. Krupa is understandably reluctant to pursue systemic therapy, and fortunately it does not appear that is necessary at this time. An updated skin-safe list was provided by our patch test nurse today. We did discuss the potential utility of repeat patch testing; however, I think a trial of ongoing avoidance and a use test with Protopic on the volar forearm would bemost appropriate at this time. Krupa is in agreement. We will plan for followup in July 2019. #3 Psoriasis Currently under good control. Triamcinolone ointment refill today. #4 Lichen sclerosus Currently under good control. Krupa does have tacrolimus (although we will attempt use test given concern for possible contact dermatitis) as well as desonide ointment that she uses intermittently. No changes to treatment made today. #5 Linear erosion, perineum Patient does have a known history of genital herpes. Swab for HSV/VZV PCR as well as fungal culture obtained today. PATIENT EDUCATION: Ready to learn. No apparent learning barriers were identified. Learning preferences include listening. Explained diagnosis and treatment plan; patient/guardian of patient expressed understanding of thecontent. Vani Mohan M.D. CT CT Job ID: [id number] BONDER documented in this encounter Plan of Treatment Scheduled Referrals Name Type Priority Associated Order Schedule Diagnoses Dermatology office Outpatient Referral Routine Ex pected: visit (clinic) 07/30/2019 (Approximate), Expires: 03/26/2022 documented as of this encounter Procedures Procedure Name Priority Date/Time Associated Diagnosis Comme nts HERPES SIMPLEX Routine 03/26/2019 5:01 PM Results for this VIRUS PCR RAIL BONDER procedure are i n the results section. FUNGAL CULTURE, Routine 03/26/2019 5:00 PM Result s for this ROUTINE RAIL BONDER procedure are i n the results section. documented in this encounter Results (ABNORMAL) Herpes Simplex Virus PCR (03/26/2019 5:01 PM RAIL BONDER) [facility] Method Time Signature Herpes Source Swab, 03/26/2019 DTL Perineum 11:04 PM RAIL BONDER HSV 1 PCR, Negative Negative 03/26/2019 DTL Varies 11:04 PM RAIL BONDER HSV 2 PCR, Positive (A) Negative 03/26/2019 DTL Varies 11:04 PM RAIL BONDER Comment: ----ADDITIONAL INFORMATION---- This test has been modified from the kaci mcintyre's instructions. Its performance characteristics were determi elvi by [facility] in a manner consistent with CLIA requirements. This test has not been cleared or approved by the U.S. Food and Drug Administration . Specimen (Source) Anatomical Collection Method Collection Time Re ceived Time Location / / Volume Laterality Swab (Perineum) 03/26/2019 5:01 PM RAIL BONDER Vani Mohan M.D. LAB MICROBIOLOGY - GENERAL O TERRI Performing Organization Address City/[facility] Phon e Number [facility] - [address] Fungal Culture, Routine (03/26/2019 5:00 PM RAIL BONDER) [facility] gist Method Time Signature Fungal No growth 04/20/2019 DT Culture, after 24 1:01 AM RAIL BONDER Routine days of incubation. Specimen (Source) Anatomical Collection Method Collection Time Re ceived Time Location / / Volume Laterality Swab (Perineum) 03/26/2019 5:00 PM RAIL BONDER Vani Mohan M.D. LAB MICROBIOLOGY - GENERAL O TERRI Performing Organization Address City/[facility] Phon e Number [facility] - [address] documented in this encounter Visit Diagnoses Diagnosis Dermatitis Allergic Contact - Primary Lichen Sclerosus Psoriasis Dermatitis Atopic documented in this encounter
--- OUTSIDE RECORDS SUMMARY | 2022-01-18 09:10 | XMS_ITS | Encounter Summary ---
:1940 Author Organization [facility] Address [address] [place] [address] Care Team Providers Name Role Phone Unavailable Primary Care Provider Unavailable Reason for Visit Reason Onset Date Comments Med Refill 05/14/2019 Encounter Details Date Type Department Care Team Description 05/14/2019 Refill Department of Dermatology in [facility] gabby Med Refill [place], [place] R.N. [address] [facility] [place] [address] Social History Tobacco Use Types Packs/Day Years Used Date Smoking Tobacco: Never Smokeless Tobacco: Never Alcohol Use Standard Drinks/Week Comments Defer 0 (1 standard drink = 0.6 oz pure alcoho l) Alcohol Habits Answer Date Recorded How often do you have a drink containing 4 or more times a w [place] 10/21/2019 alcohol? How many drinks containing alcohol [...] or relatives? How often do you attend mandaen or uatsdin Never 12/20/2018 services? Do you belong to any clubs or organizations Yes 12/20/2018 such as mandaen groups, unions, fraternal or athletic groups, or [...] have completed or the highest Frida, MEd, CROCHET MACHINE OPERATOR, ISSAC) degree you have received? Sex Assigned at Date Recorded Female documented as of this encounter Miscellaneous Notes Telephone Encounter - Pilar Bowden R.N. - 05/14/2019 10:23 AM AIX ADMINISTRATOR Refill request denial for clobetasol Exclusion criteria the current medication requested does not match the plan of care in the most current note No appointment is scheduled at this time. Denial faxed to [facility] at [phone]. This prescription has been denied per protocol [id number]. ADMINISTRATOR documented in this encounter Plan of Treatment Not on filedocumented as of this encounter Visit Diagnoses Not on filedocumented in this encounter
--- OUTSIDE RECORDS SUMMARY | 2022-01-18 09:10 | XMS_ITS | Encounter Summary ---
:1940 Author Organization [facility] Address [address] [place] [address] Care Team Providers Name Role Phone Unavailable Primary Care Provider Unavailable Reason for Visit Reason Comments Med Refill Encounter Details Date Type Department Care Team Description 11/19/2017 [facility] [place], [place] [address] [facility] [address] [place] [address] [place] [address] [phone] Social History Tobacco Use Types Packs/Day Years Used Date Smoking Tobacco: Never Smokeless Tobacco: Never Alcohol Use Standard Drinks/Week Comments Defer 0 (1 standard drink = 0.6 oz pure alcoho l) Alcohol Habits Answer Date Recorded How often do you have a drink containing 4 or more times a w [place] 10/21/2019 alcohol? How many drinks containing alcohol [...] How often do you attend zoroastrianism or voodoo Never 12/20/2018 services? Do you belong to [...]
--- OUTSIDE RECORDS SUMMARY | 2022-01-18 09:10 | XMS_ITS | Encounter Summary ---
:1940 Author Organization [facility] Address [address] [place] [address] Care Team Providers Name Role Phone Unavailable Primary Care Provider Unavailable Reason for Visit Reason Comments Med Refill Encounter Details Date Type Department Care Team Description 11/05/2019 Refill Department of Dermatology in [place] gabby Lang, Med Refill [place], [place] R.N. [address] [facility] [place] [address] Social History Tobacco Use Types Packs/Day Years Used Date Smoking Tobacco: Never Smokeless Tobacco: Never Alcohol Use Standard Drinks/Week Comments Defer 0 (1 standard drink = 0.6 oz pure alcoho l) Alcohol Habits Answer Date Recorded How often do you have a drink containing 4 or more times a w [place] 10/21/2019 alcohol? How many drinks containing alcohol [...] or relatives? How often do you attend buddhist or pentecostal Never 12/20/2018 services? Do you belong to any clubs or organizations Yes 12/20/2018 such as buddhist groups, unions, fraternal or athletic groups, or [...] have completed or the highest Frida, MEd, PRICING SUPERVISOR, ISSAC) degree you have received? Sex Assigned at Date Recorded Female documented as of this encounter Plan of Treatment Not on filedocumented as of this encounter Visit Diagnoses Not on filedocumented in this encounter
--- OUTSIDE RECORDS SUMMARY | 2022-01-18 09:10 | XMS_ITS | Encounter Summary ---
:1940 Author Organization [facility] Address [address] [place] [address] Care Team Providers Name Role Phone Unavailable Primary Care Provider Unavailable Encounter Details Date Type Department Care Team Description 09/09/2017 Clinical Communication Department of Guillermo Monte, Ophthalmology in [facility] [place] Kayla Kay [address] [place] [address] Social History Tobacco Use Types Packs/Day Years Used Date Smoking Tobacco: Never Smokeless Tobacco: Never Alcohol Use Standard Drinks/Week Comments Defer 0 (1 standard drink = 0.6 oz pure alcoho l) Alcohol Habits Answer Date Recorded How often do you have a drink containing 4 or more times a w [place] 10/21/2019 alcohol? How many drinks containing alcohol [...] or relatives? How often do you attend hinduism or latter day Never 12/20/2018 services? Do you belong to any clubs or organizations Yes 12/20/2018 such as hinduism groups, unions, fraternal or athletic groups, or [...] this encounter Miscellaneous Notes Telephone Encounter - Lizbeth De León RChunN. - 09/09/2017 12:38 PM [address]T [address]irmed with Dr. Monte that she indeed would like the Maxitrol suspension. Patient was under the assumption that she was to use Maxidex. Explained to patient that Dr. Monte would like a steroid and an antibiotic combination due to the hordeolum on the left lower lid. Prescription forwarded to [facility]. Telephone Encounter - Mary Gant - 09/09/2017 12:02 PM CDT PT SAW MK TODAY, QUESTIONS RE EYE DROP RX. CALL DOROTHY AT [facility] [place] [phone] THANK YOU. documented in this encounter Plan of Treatment Not on filedocumented as of this encounter Visit Diagnoses Not on filedocumented in this encounter
--- OUTSIDE RECORDS SUMMARY | 2022-01-18 09:10 | XMS_ITS | Encounter Summary ---
:1939 Author Organization [facility] Address [address] [place] [address] Care Team Providers Name Role Phone Unavailable Primary Care Provider Unavailable Encounter Details Date Type Department Care Team Description 09/06/2014 Hospital Encounter HX [facility] Noelle Álvarez M.D. OPHTHOPTO [address] [place], [place] [address] (Wo rk) Social History Tobacco Use Types Packs/Day Years Used Date Smoking Tobacco: Never Assessed Alcohol Habits Answer Date Recorded How often do you have a drink containing 4 or more times a w [place] 10/21/2019 alcohol? How many drinks containing alcohol [...] How often do you attend mandaeism or mormon Never 12/20/2018 services? Do you [...] FISH,SAF,FLX,BRG Take by mouth. 0 02/22/2014 OILS/O3,6,9N2 ([id number]-HQUGFB OIL ORAL) propafenone (for_RHTHYMOL) Take 1 tablet by 0 09/2012 150 mg tablet mouth 3 (three) times a day. aspirin 0.1 mg capsule daily. 0 08/29/2012 losartan (for_COZAAR) 50 Take 1 tablet by 0 10/1003/01/2021 mg tablet mouth daily. rosuvastatin (for_CRESTOR) Take by mouth at 0 09/201209/09/2017 1.25 mg tablet bedtime. documented as of this encounter Progress Notes Arnie Álvarez M.D. - 09/06/2014 10:29 AM CDT [id number] Patient is here for narrow angles, and possible glaucoma recheck. Please see yellow sheet for exam details. 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 Her PI is patent on the right eye. The left eye was not visible. On gonioscopy, however, she is still open in both eyes; however, given this change in the PI in the left eye, she is going to follow up for recheck and possible repeat LP eye laser in the left eye. Retinal fiber layer scanning with [place] was normal. Her exam was otherwise stable. She can follow up anytime in the next month or so for recheck of LP eye in the left eye. Arnie Álvarez M.D./gayathri Electronically Signed By: ARNIE ÁLVAREZ MD On: 09/07/2014 04:04 PM Source: [facility] [id number] Document Id: [id number] documented in this encounter Miscellaneous Notes Miscellaneous - Pia San - 09/06/2014 10:45 AM CDT Adult Parachute Folder Intake/History Adult Parachute Folder Intake/History Entered On: 09/06/2014 10:46 CDT Performed On: 09/06/2014 10:45 CDT by PIA SAN Intake Chief Complaint : RE CHECK PIA SAN - 09/06/2014 10:45 CDT General Info Information Given By : Patient Preferred Communication Mode : Verbal Languages : Japanese Is Patient Female and 13-50 no hysterectomy : No PIA SAN - 09/06/2014 10:45 CDT Subjective Pain Symptoms : PIA Smith - 09/06/2014 10:45 CDT Dependent Habits Tobacco Use/Currently Using : No Exposure to Tobacco Smoke : Other: NEVER Smoking Status : Never smoker PIA SAN - 09/06/2014 10:45 CDT Recreational Drug Use Grid Drug Use : None PIA SAN - 09/06/2014 10:45 CDT Source: [facility] [place] Document Id: [id number] CDT!17 documented in this encounter Plan of Treatment Not on filedocumented as of this encounter Visit Diagnoses Not on filedocumented in this encounter
--- OUTSIDE RECORDS SUMMARY | 2022-01-18 09:10 | XMS_ITS | Encounter Summary ---
:1939 Author Organization [facility] Address [address] [place] [address] Care Team Providers Name Role Phone Unavailable Primary Care Provider Unavailable Reason for Visit Reason Comments Conjunctivitis Appointment Request (Routine) - Closed Specialty Diagnoses / Procedures Referred By Contact Refer red To Contact Ophthalmology Referral ID Status Reason Start Date Expiration Date Visits Requ ested Visits Authorized [id number] Closed 09/09/2017 09/09/2018 1 Encounter Details Date Type Department Care Team Description 09/09/2017 Office Visit Department of Celli Mell, Dystrophy Se[place]our ea Basement Membrane Anterior (Primary Dx); Ophthalmology in [facility], Keratoc onjunctivitis Sicca Not Specified As Sjogrens Bilateral; Nba Solorzano O.DChun Conjunctivitis Chronic Allergic; [address] Hordeolum Internum Left Lowe r Eyelid [address] [address] [place], [place] [phone] [address] Social History Tobacco Use Types Packs/Day Years Used Date Smoking Tobacco: Never Smokeless Tobacco: Never Alcohol Use Standard Drinks/Week Comments Defer 0 (1 standard drink = 0.6 oz pure alcoho l) Alcohol Habits Answer Date Recorded How often do you have a drink containing 4 or more times a w [place] 10/21/2019 alcohol? How many drinks containing alcohol [...] How often do you attend yazidi or sabianism Never 12/20/2018 services? Do you [...] documented as of this encounter Progress Notes Eliza Cooper O.D. 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 There a combination of factors contributing to her eye irritation an ocular inflammation listed above. The steroids to help her symptoms of itchiness. There isno evidence of herpetic infection or dendrites at this time. The Maxidex does help with inflammation, however, we will also add an antibiotic component as well. I recent a prescription to pharmacy for Maxitrol which contains both antibiotic and dexamethasone. Patient may use this 3 times daily to botheyes for the next 7 days. In addition on a daily and routine basis I am recommending preservative-free artificial tears 4 times daily to help with the anterior basement membrane dystrophy. Patient may return with further reduction in vision or increase in symptoms. documented in this encounter Plan of Treatment Not on filedocumented as of this encounter Visit Diagnoses Diagnosis Dystrophy Cornea Basement Membrane Anter ior - Primary Keratoconjunctivitis Sicca Not Specified As Sjogrens Bilateral Conjunctivitis Chronic Allergic Hordeolum Internum Left Lower Eyelid documented in this encounter
--- OUTSIDE RECORDS SUMMARY | 2022-01-18 09:10 | XMS_ITS | Encounter Summary ---
:1939 Author Organization [facility] Address [address] [place] [address] Care Team Providers Name Role Phone Unavailable Primary Care Provider Unavailable Encounter Details Date Type Department Care Team Description 09/04/2019 Clinical Communication Department of Vani Mohan Dermatology in [place], [place] [address] [place] [address] Social History Tobacco Use Types Packs/Day Years Used Date Smoking Tobacco: Never Smokeless Tobacco: Never Alcohol Use Standard Drinks/Week Comments Defer 0 (1 standard drink = 0.6 oz pure alcoho l) Alcohol Habits Answer Date Recorded How often do you have a drink containing 4 or more times a w [place] 10/21/2019 alcohol? How many drinks containing alcohol [...] or relatives? How often do you attend adventist or worship Never 12/20/2018 services? Do you belong to any clubs or organizations Yes 12/20/2018 such as adventist groups, unions, fraternal or athletic groups, or [...] have completed or the highest Frida, MEd, QUALITY CONTROL, ISSAC) degree you have received? Sex Assigned at Date Recorded Female documented as of this encounter Miscellaneous Notes Telephone Encounter - Inge Anthony J - 09/04/2019 2:59 PM CDT (Note for [facility] locations only: If the patient states they are asking for testing because attended a protest, pierson, community cleanup or other mass gathering in the last 7 days and is asking for testing, complete the below questions and transfer to the COVID Nurse Line). In the past 30 days have you had a swab for COVID that tested positive? no Route reply to: Scheduling Contact Number: documented in this encounter Plan of Treatment Not on filedocumented as of this encounter Visit Diagnoses Not on filedocumented in this encounter
--- OUTSIDE RECORDS SUMMARY | 2022-01-18 09:11 | XMS_ITS | Encounter Summary ---
:1940 Author Organization [facility] Address [address] [place] [address] Care Team Providers Name Role Phone Unavailable Primary Care Provider Unavailable Encounter Details Date Type Department Care Team Description 10/15/2012 Hospital Encounter HX [facility] Mily Ang M.D. Social History Tobacco Use Types Packs/Day Years Used Date Smoking Tobacco: Never Assessed Alcohol Habits Answer Date Recorded How often do you have a drink containing 4 or more times a w habematolel 10/21/2019 alcohol? How many drinks containing alcohol [...] or relatives? How often do you attend mormonism or restorationist Never 12/20/2018 services? Do you belong to any clubs or organizations Yes 12/20/2018 such as mormonism groups, unions, fraternal or athletic groups, or [...] Sign Reading Time Taken Comments Blood Pressure 126/68 10/15/2012 2:06 PM CDT Pulse 60 10/15/2012 2:06 PM CDT Temperature - - Respiratory Rate - - Oxygen Saturation - - Inhaled Oxygen Concentration - - Weight 67.5 kg (148 lb 13 oz) 10/15/2012 2:06 PM CDT Height - - Body Mass Index - - documented in this encounter Medications at Time of Discharge Medication Sig Dispensed Refills Start Date End Date aspirin [address] tablet once a day 0 06/26/2001 propafenone (for_RHTHYMOL) Take 1 tablet by 0 09/2012 150 mg tablet mouth 3 (three) times a day. aspirin 0.1 mg capsule daily. 0 08/29/2012 losartan (for_COZAAR) 50 Take 1 tablet by 0 10/1003/01/2021 mg tablet mouth daily. rosuvastatin (for_CRESTOR) Take by mouth at 0 06/ 09/2012 09/09/2017 1.25 mg tablet bedtime. documented as of this encounter Progress Notes Mily Almonte M.D. - 10/15/2012 2:00 PM CDT Progress Note, Family Practice DATE: 10/15/2012 FAMILY MEDICINE Krupa fell on her right shoulder and also her left ankle yesterday. She has difficulty now raising her right arm. She said she does not really know how she landed but it hurts quite a bit. She has difficulty with abduction, difficulty putting it behind her to the opposite pocket, difficulty raising itup in front of her. The rest of the review of systems are negative. She is just up at [facility] for the summer. She said she can walk on her ankle but it does hurt some. I reviewed her other history. PHYSICAL EXAMINATION VITAL SIGNS: Blood pressure 126/68. Pulse 60. Respirations 20. Temperature 36.2. Weight 67.5. HEAD: Symmetric. EYES: Pupils equal and reactive to light and accommodation. Extraocular muscles intact. Sclerae are clear. NECK: Supple. LUNGS: Clear. ABDOMEN: Benign. RIGHT SHOULDER: Her right shoulder is tender over the point of the shoulder. She cannot really raiseit in abduction. She has decreased strength, good pulses, good sensation. The left ankle is a littlebit swollen over the lateral malleolus but good range of motion, not much swelling. IMPRESSION/REPORT/PLAN IMPRESSION: Rotator cuff tendonitis with possible tear. PLAN: Recommended not using it, refrain from vigorous activity, take ibuprofen, ice pack it. She is to get x-rays today's. I told her if it does not improve within the next couple of weeks she probablyshe get an MRI and referral to an orthopedic surgeon. I told her certainly that this could be a tear. If she wants to be evaluated sooner she is to let me know. She expressed understanding and was comfortable with the plan. Clinic #: [id number] ariana ALMONTE MD CC: Electronically Signed By: MILY ALMONTE MD On: 10/20/2012 10:58 AM [facility] Document Id: [id number] documented in this encounter Miscellaneous Notes Miscellaneous - Heather Mckeon C.M.A. 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 Intake/History Entered On: 10/15/2012 14:13 CDT Performed On: 10/15/2012 14:06 CDT by HEATHER MCKEON [facility] Intake Chief Complaint : fall and hurt shoulder and ankle Temperature Core : 36.2 DegC(Converted to: 97.2 DegF) (LOW) Peripheral Pulse Rate : 60 /min Systolic Blood Pressure : 126 mmHg Diastolic Blood Pressure : 68 mmHg NIBP Mean : 87 mmHg BP Location : Right upper extremity Blood Pressure Cuff Size : Regular Actual Weight : 67.5 kg(Converted to: 148 lb 13 oz) Weight Source : Standing scale Dosing Weight Clinic : 67.5 kg HEATHRE MCKEON [facility] - 10/15/2012 14:06 CDT General Info Information Given By : Patient Languages : Icelandic HEATHER MCKEON [facility] 10/15/2012 14:06 CDT Subjective Pain Symptoms : Yes HEATHER MCKEON [facility] - 10/15/2012 14:06 CDT Pain Pain Assessment Grid Pain 1 Pain 2 Location : Ankle Shoulder Laterality : Left Right Intensity : 5 6 Time Pattern : Acute Acute Onset : Sudden Sudden Duration : 1 day 1 day Quality : Aching, Sharp Pain Radiation : Yes Yes Radiation Characteristics : goes up leg up to neck and down arm Aggravating Factors : Movement Movement Alleviating Factors : Cold therapy Cold therapy HEATHER MCKEON [facility] - 10/15/2012 14:06 CDT HEATHER MCKEON [facility] 10/15/2012 14:06 CDT Dependent Habits Tobacco Use/Currently Using : No Smoking Status : Never smoker HEATHER MCKEON [facility] - 10/15/2012 14:06 CDT Tobacco Use Grid Last Use : never HEATHER MCKEON [facility] 10/15/2012 14:06 CDT [facility] POWERCHART Document Id: [id number] CDT!49 documented in this encounter Plan of Treatment Not on filedocumented as of this encounter Visit Diagnoses Not on filedocumented in this encounter
--- OUTSIDE RECORDS SUMMARY | 2022-01-18 09:11 | XMS_ITS | Encounter Summary ---
:1940 Author Organization [facility] Address [address] [place] [address] Care Team Providers Name Role Phone Unavailable Primary Care Provider Unavailable Encounter Details Date Type Department Care Team Description 10/29/2013 Hospital Encounter [facility] Noelle Álvarez M.D. OPHTHOPTO [address] [place], [place] [address] (Wo rk) Social History Tobacco Use Types Packs/Day Years Used Date Smoking Tobacco: Never Assessed Alcohol Habits Answer Date Recorded How often do you have a drink containing 4 or more times a w tunica-biloxi 10/21/2019 alcohol? How many drinks containing alcohol [...] How often do you attend druze or muslim Never 12/20/2018 services? Do you belong to [...] encounter Progress Notes Arnie Álvarez M.D. - 10/29/2013 7:56 AM CDT [id number] Patient is here for LPI laser in her left eye today. The risks, benefits, as well as alternatives ofLPI laser were discussed in detail. The patient understands and wishes to proceed. Please see yellowsheet for laser details. She is going to follow up next week. She was told to call if she has any redness, pain, decreased vision, or any problems. 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 Intake/History Entered On: 10/29/2013 8:15 CDT Performed On: 10/29/2013 8:14 CDT by PIA SAN Intake Chief Complaint : lpi today PIA SAN - 10/29/2013 8:14 CDT General Info Information Given By : Patient Languages : Mohawk Is Patient Female and 13-50 no hysterectomy : No PIA SAN - 10/29/2013 8:14 CDT Subjective Pain Symptoms : No PIA SAN - 10/29/2013 8:14 CDT Dependent Habits Tobacco Use/Currently Using : No Smoking Status : Never smoker PIA SAN - 10/29/2013 8:14 CDT Tobacco Use Grid Last Use : never PIA SAN - 10/29/2013 8:14 CDT Recreational Drug Use Grid Drug Use : None PIA SAN - 10/29/2013 8:14 CDT Source: [facility] [employer]obuykers Document Id: [id number] CDT!18 documented in this encounter Plan of Treatment Not on filedocumented as of this encounter Visit Diagnoses Not on filedocumented in this encounter
--- OUTSIDE RECORDS SUMMARY | 2022-01-18 09:11 | XMS_ITS | Encounter Summary ---
:1940 Author Organization [facility] Address [address] [place] [address] Care Team Providers Name Role Phone Unavailable Primary Care Provider Unavailable Encounter Details Date Type Department Care Team Description 11/16/2013 Hospital Encounter HX [facility] Noelle Greenberg M.D. OPHTHOPTO [address] [place], [place] [address] (Wo rk) Social History Tobacco Use Types Packs/Day Years Used Date Smoking Tobacco: Never Assessed Alcohol Habits Answer Date Recorded How often do you have a drink containing 4 or more times a w alutiiq 10/21/2019 alcohol? How many drinks containing alcohol [...] or relatives? How often do you attend mormon or moravian Never 12/20/2018 services? Do you belong to any clubs or organizations Yes 12/20/2018 such as mormon groups, unions, fraternal or athletic groups, or [...] of this encounter Miscellaneous Notes Miscellaneous - Marley Perez V, C.O.A. - 11/16/2013 10:55 AM CDT Adult Companion Intake/History Adult Companion Intake/History Entered On: 11/16/2013 10:55 CDT Performed On: 11/16/2013 10:55 CDT by MARLEY PEREZ V Intake Chief Complaint : recehck MARLEY PEREZ V - 11/16/2013 10:55 CDT General Info Information Given By : Patient Languages : Malagasy Is Patient Female and 13-50 no hysterectomy : No MARLEY PEREZ V - 11/16/2013 10:55 CDT Subjective Pain Symptoms : No MARLEY PEREZ V - 11/16/2013 10:55 CDT Dependent Habits Tobacco Use/Currently Using : No Exposure to Tobacco Smoke : Other: NEVER Smoking Status : Never smoker MARLEY PEREZ V - 11/16/2013 10:55 CDT Tobacco Use Grid Last Use : never MARLEY PEREZ V - 11/16/2013 10:55 CDT Recreational Drug Use Grid Drug Use : None MARLEY PEREZ V - 11/16/2013 10:55 CDT [facility]: [facility] Document Id: [id number] CDT!19 documented in this encounter Plan of Treatment Not on filedocumented as of this encounter Visit Diagnoses Not on filedocumented in this encounter
--- OUTSIDE RECORDS SUMMARY | 2022-01-18 09:11 | XMS_ITS | Encounter Summary ---
:1940 Author Organization [facility] Address [address] [place] [address] Care Team Providers Name Role Phone Unavailable Primary Care Provider Unavailable Encounter Details Date Type Department Care Team Description 08/27/2013 Hospital Encounter [facility] Ambar Mendoza O.D. [address] [place] [phone] (Wo rk) Social History Tobacco Use Types Packs/Day Years Used Date Smoking Tobacco: Never Assessed Alcohol Habits Answer Date Recorded How often do you have a drink containing 4 or more times a w kletsel dehe wintun 10/21/2019 alcohol? How many drinks containing alcohol [...] How often do you attend yazdanism or sikh Never 12/20/2018 services? Do you belong to [...] documented as of this encounter Progress Notes Marguerite Lynn O.D. - 08/27/2013 12:47 PM CDT [id number] REVISION HISTORY September 01, 2013. 10:45 a.m. - Modification to end of report. Changed the addressed for Dr. Chan and Dr. Li to reflect their new addressed. Patient presents today complaining of a sore and uncomfortable left eye for the past several days. She notes that both of her eyes have been itchy and watery. 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 Today her corrected vision is 20/20 in the right eye and 20/20 in the left eye. Intraocular pressurereadings by Goldmann tonometry are 16 in the right eye and 14 in the left eye. Slit lamp examinationof both eyes shows capped meibomian glands of both upper lids and both lower lids as well as a mild dermatitis of her left upper lid and left lower lid medially. She does have mild papillae in both eyes and some trace injection of the conjunctiva of the left eye. She has 1 small peripheral infiltrate on the cornea at 2 o'clock in the left eye. Cornea of the right eye is clear. Irides are both normal.Anterior chambers are both deep and quiet. She has mild cataracts in both eyes. Dilated fundus examination is notable for posterior vitreous detachment in both eyes as well as moderately large cup-to-disc ratios in both eyes. Her macula, blood vessels, and periphery are normal. 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 I have asked her to discontinue her Lotemax and FML. I have asked her to start hot compresses 4 times a day in both eyes followed by the installation of TobraDex drops 4 times a day in both eyes and tobramycin ointment to the left upper lid and left lower lid. For her allergic conjunctivitis, I do believe that TobraDex will help with her symptoms of itching and watering. I have also started her on oral doxycycline 100 mg twice a day for 6 weeks secondary to herrosacea which should also help with her blepharitis. I have advised her of all the side effects of th e antibiotics and have asked her to take precautions in the sun. Her cataracts are incipient. She abel mild glaucoma suspect but denies family history. I have recommended that she follow up as planned with Dr. Willis on August 31 as planned. She notes she has an appointment already and is leaving town tomorrow. I plan to follow up with her when she gets back into [place]. I have asked her to call me tomorrow if she has any worsening of symptoms, and I will take another look at her but I do believe her symptoms to be significantly improved with her new treatment. Marguerite Lynn O.D./jl cc: Erica Ramey MD [facility] [id number] Willis [place] [id number] Zahira Li MD [place] [address] Electronically Signed By: MARGUERITE LYNN OD On: 08/28/2013 08:21 AM Modified by and Electronically Signed by: MARGUERITE LYNN OD On: 08/28/2013 08:21 AM Marguerite Lynn O.D./vlv cc: Erica Ramey MD [place] [id number] Dr. Trent Chan [address] [place], [place] [id number] Zahira Li MD [address] [place], [place] [id number] Electronically Signed By: MARGUERITE LYNN OD On: 08/28/2013 08:21 AM Modified by and Electronically Signed by: MARGUERITE LYNN OD On: 08/28/2013 08:21 AM Co-Signed By: MARGUERITE LYNN OD On: 09/01/2013 10:52 AM Source: [facility] MHSDOLBEYNONRADSYS Document Id: [id number] documented in this encounter Miscellaneous Notes Miscellaneous - Marley Perez V, C.O.A. - 08/28/2013 1:31 PM CDT PT OF CM / NEEDS RX DIRECTION CLARIFICATION Entered by MARLEY PEREZ V on 28 August 2013 13:31:44 CDT Called and left message as directed below with Dr. Lynn's insturctions regarding drops, ointments,compresses, and tablets. Left call back number for any further questions or concerns. From: ROLA TODD To: [facility] Nurse; Sent: 08/28/2013 11:49:32 CDT Subject: PT OF CM / NEEDS RX DIRECTION CLARIFICATION Patient Date of : Is caller someone other than patient? Name and title/Relationship? SELF Provider: ?? Have you seen provider before? ?? If so, who is the provider? YES, DR. LYNN Message: HAD APPT YESTERDAY (08/27/13) / STATES DR. LYNN WROTE TO USE OINTMENT 4 TIMES DAILY, BUT DIRECTIONS ON OINTMENT STATE TO USE 3 TIMES DAILY / PLEASE CALL TO CLARIFY Return phone call today? If not, please specify when? Best number to reach patient (specify home, work, cell): [phone] *PLEASE LEAVE DETAILED MESSAGE Pharmacy Information & Location: Medication Information (general): Source: [facility] POWERCHART Document Id: [id number] Miscellaneous - Marguerite Lynn O.D. - 08/27/2013 2:03 PM CDT Ambulatory Patient Summary [address] [place] [id number] Visit Information Name: CANDACE ATWOOD [facility] Number: [id number] Current Date: 08/27/2013 14:03:32 Physicians Attending Provider: MARGUERITE LYNN OD Primary Care Provider: PERFECTO WICK MD CANDACE ATWOOD has been given the following list [...] Take Indications/Special Instructions/Comments/Notes for Patient Medication Changes/Routing aspirin (Aspir-Low 81 mg oral tablet) 1 tab, once a day calcium-vitamin D (Calcium 600+D) 1 Tablet(s), Oral, two times a day doxycycline (Doxy-Caps 100 mg oral tablet) 1 Tablet(s), Oral, two times a day New Routed to [address] [place] [address] hydrochlorothiazide (hydrochlorothiazide 12.5 mg oral capsule) 1 cap, Oral, once a day ketotifen ophthalmic (Alaway 0.025% ophthalmic solution) 1 Drops, Eyes(Both), every 8 hours loratadine-pseudoephedrine (Claritin-D 24 Hour oral tablet, extended release) 1 Tablet(s), Oral, once a day losartan (losartan 50 mg oral tablet) 1 Tablet(s), Oral, once a day naphazoline-pheniramine ophthalmic (Naphcon-A) propafenone (propafenone 150 mg oral tablet) 1 Tablet(s), Oral, three times a day rosuvastatin (Crestor) Oral, once a day (at bedtime) tobramycin ophthalmic (tobramycin 0.3% ophthalmic ointment) 1 haris, Eye(Left), three times a day x 14day(s) apply to left upper lid and left lower lid [address] [facility] [place] [address] tobramycin-dexamethasone ophthalmic (TobraDex ST 0.3%-0.05% ophthalmic suspension) 1 Drops, Eyes(Both), every 6 hours x 10 day(s) New Routed to [address] [facility] [facility] [place] [address] *valACYclovir (Valtrex 1 g oral tablet) 1 Tablet(s), Oral, once a day take for 1 year * You have let us know that you are not taking this medication as listed. Please talk with your primary care provider or the health care provider who prescribed the medication as soon as possible. Stop Taking the Following Medications: Medication list as of 08-27-13 14:03 Attention: If you have any medications at home that are not on this list, DO NOT take them until youcontact your provider for clarification. Give a copy of your medication list to your primary care provider. Update your medication list any time medications or doses are changed and carry your medication list at all times in case of emergency. Electronically Signed By: MARGUERITE LYNN OD Signed On:27-AUG-2013 14:03:21 Your Allergies & Intolerances Substance Reaction Symptoms Category Comments lisinopril cough Drug Benadryl OF THE WALL AWAKE TINGLES Drug Your Problem List Problem Status Onset Comments Psoriasis NOS Active Paroxysmal Ventricular Tachycardia Active 10/10/12 Followed by [facility] Hypertension Active Your Upcoming Appointments Date Time Location Reason Provider No Appointments found Attention: Contact your local Clinic if further appointment detail needed. Your Goals/Additional instructions: Source: [facility] POWERCHART Document Id: [id number] Miscellaneous - Marguerite Lynn O.D. - 08/27/2013 2:03 PM CDT Ambulatory Discharge Medication List [address] [place] [id number] Visit Information Name: CANDACE ATWOOD [facility] Number: [id number] Visit Date: 08/27/2013 14:03:30 Attending Provider: MARGUERITE LYNN OD Primary Care Provider: PERFECTO WICK MD CANDACE ATWOOD has been given the following list of medications: Your Medications It is important to take your medications as directed. Use a pill box or chart to help remind you to take your medications. Please let your doctor or nurse know if you have problems taking your medications. Medication/Strength How to Take Indications/Special Instructions/Comments/Notes for Patient Medication Changes/Routing aspirin (Aspir-Low 81 mg oral tablet) 1 tab, once a day calcium-vitamin D (Calcium 600+D) 1 Tablet(s), Oral, two times a day doxycycline (Doxy-Caps 100 mg oral tablet) 1 Tablet(s), Oral, two times a day New Routed to [address] [place] [address] hydrochlorothiazide (hydrochlorothiazide 12.5 mg oral capsule) 1 cap, Oral, once a day ketotifen ophthalmic (Alaway 0.025% ophthalmic solution) 1 Drops, Eyes(Both), every 8 hours loratadine-pseudoephedrine (Claritin-D 24 Hour oral tablet, extended release) 1 Tablet(s), Oral, once a day losartan (losartan 50 mg oral tablet) 1 Tablet(s), Oral, once a day naphazoline-pheniramine ophthalmic (Naphcon-A) propafenone (propafenone 150 mg oral tablet) 1 Tablet(s), Oral, three times a day rosuvastatin (Crestor) Oral, once a day (at bedtime) tobramycin ophthalmic (tobramycin 0.3% ophthalmic ointment) 1 haris, Eye(Left), three times a day x 14day(s) apply to left upper lid and left lower lid New Routed to [address] [facility] [place] [address] tobramycin-dexamethasone ophthalmic (TobraDex ST 0.3%-0.05% ophthalmic suspension) 1 Drops, Eyes(Both), every 6 hours x 10 day(s) New Routed to [address] [place] [address] *valACYclovir (Valtrex 1 g oral tablet) 1 Tablet(s), Oral, once a day take for 1 year * You have let us know that you are not taking this medication as listed. Please talk with your primary care provider or the health care provider who prescribed the medication as soon as possible. Stop Taking the Following Medications: Medication list as of 08-27-13 14:03 Attention: If you have any medications at home that are not on this list, DO NOT take them until youcontact your provider for clarification. Give a copy of your medication list to your primary care provider. Update your medication list any time medications or doses are changed and carry your medication list at all times in case of emergency. 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/History Entered On: 08/27/2013 12:57 CDT Performed On: 08/27/2013 12:54 CDT by DOMI ANDRADE Intake Chief Complaint : LEFT EYE INFECTION DOMI ANDRADE - 08/27/2013 12:54 CDT General Info Information Given By : Patient Languages : Latvian DOMI ANDRADE - 08/27/2013 12:54 CDT Subjective Pain Symptoms : Yes DOMI ANDRADE - 08/27/2013 12:54 CDT Pain Pain Assessment Grid Pain 1 Location : Eye Laterality : Left Time Pattern : Intermittent Onset : Gradual Quality : Other: ITCHY SORE RED Pain Radiation : No Aggravating Factors : None Alleviating Factors : None Associated Symptoms : None DOMI ANDRADE - 08/27/2013 12:54 CDT Dependent Habits Tobacco Use/Currently Using : No Smoking Status : Never smoker DOMI ANDRADE - 08/27/2013 12:54 CDT Tobacco Use Grid Last Use : never DOMI ANDRADE - 08/27/2013 12:54 CDT Alcohol Use : Yes DOMI ANDRADE - 08/27/2013 12:54 CDT Recreational Drug Use Grid Drug Use : None DOMI ANDRADE - 08/27/2013 12:54 CDT [facility] Document Id: [id number] CDT!30 documented in this encounter Plan of Treatment Not on filedocumented as of this encounter Visit Diagnoses Not on filedocumented in this encounter
--- OUTSIDE RECORDS SUMMARY | 2022-01-18 09:11 | XMS_ITS | Encounter Summary ---
:1940 Author Organization [facility] Address [address] [place] [address] Care Team Providers Name Role Phone Unavailable Primary Care Provider Unavailable Encounter Details Date Type Department Care Team Description 09/11/2013 Hospital Encounter [facility] Ambar Mendoza O.D. [address] [place] [phone] (Wo rk) Social History Tobacco Use [...] or relatives? How often do you attend rastafarian or scientologist Never 12/20/2018 services? Do you belong to any clubs or organizations Yes 12/20/2018 such as rastafarian groups, unions, fraternal or athletic groups, or [...] encounter Progress Notes Marguerite Lynn O.D. 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 The patient is using Viroptic 5 times a day in the left eye. Patient notes scratchy feeling in the right eye. PHYSICAL EXAMINATION Vision through her glasses is 20/25 in the right eye and 20/30 in the left eye. Intraocular pressureis 17 in the right eye and 15 in the left eye. 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 I have asked her to use the Viroptic 5 times a day in both eyes, as well as continue the oral Valtrex 500 mg daily. Plan to follow with her in 1 week or sooner should any problems arise. Marguerite Lynn O.D./gayathri Electronically Signed By: MARGUERITE LYNN OD On: 09/16/2013 11:21 AM Source: [facility] MHSDOLBEYNONRADSYS Document Id: [id number] documented in this encounter Miscellaneous Notes Miscellaneous - Marguerite Lynn O.D. - 09/11/2013 9:32 AM CDT Ambulatory Patient Summary [address] [id number] Visit Information Name: KRUPA ATWOOD [facility] Number: [id number] Current Date: 09/11/2013 09:32:37 Physicians Attending Provider: MARGUERITE LYNN OD Primary Care Provider: PCP, ELSEWHERE KRUPA ATWOOD [...] 1 Tablet(s), Oral, two times a day cyanocobalamin (Vitamin B12) hydrochlorothiazide (hydrochlorothiazide 12.5 mg oral capsule) 1 [...] (Crestor) Oral, once a day (at bedtime) trifluridine ophthalmic (Viroptic 1% ophthalmic solution) See Instructions 1 drop(s) left Eye only 5X day until follow up while awake valACYclovir (Valtrex 1 g oral tablet) 1 Tablet(s), Oral, once a day take for 1 year vitamin E (vitamin E) Oral, once a day Stop Taking the Following Medications: Medication list as of 09-11-13 09:32 Attention: If you have any medications at [...] Electronically Signed By: MARGUERITE LYNN OD Signed On:11-SEP-2013 09:32:27 Your Allergies & Intolerances Substance Reaction Symptoms Category Comments lisinopril cough Drug Benadryl OF THE WALL AWAKE TINGLES Drug Your Problem List Problem Status Onset Comments Psoriasis NOS Active Paroxysmal Ventricular Tachycardia Active 10/10/12 Followed by [facility] [place] outside of [facility] Hypertension Active Your Upcoming Appointments Date Time Location Reason Provider No Appointments found Attention: Contact your local Clinic if further appointment detail needed. Your Goals/Additional instructions: Source: [facility] POWERCHART Document Id: [id number] Miscellaneous - Marguerite Lynn O.D. - 09/11/2013 9:32 AM CDT Ambulatory Discharge Medication List [address] RAJENDRA Bell [id number] Visit Information Name: KRUPA ATWOOD [facility] Number: [id number] Visit Date: 09/11/2013 09:32:35 Attending Provider: MARGUERITE LYNN OD Primary Care Provider: PCP, ELSEWHERE KRUPA ATWOOD [...] 1 Tablet(s), Oral, two times a day cyanocobalamin (Vitamin B12) hydrochlorothiazide (hydrochlorothiazide 12.5 mg oral capsule) 1 [...] (Crestor) Oral, once a day (at bedtime) trifluridine ophthalmic (Viroptic 1% ophthalmic solution) See Instructions 1 drop(s) left Eye only 5X day until follow up while awake valACYclovir (Valtrex 1 g oral tablet) 1 Tablet(s), Oral, once a day take for 1 year vitamin E (vitamin E) Oral, once a day Stop Taking the Following Medications: Medication list as of 09-11-13 09:32 Attention: If you have any medications at [...] Electronically Signed By: MARGUERITE LYNN OD Signed On:11-SEP-2013 09:32:27 Additional Information: Source: [facility] [employer]lex Document Id: [id number] Miscellaneous - Mariama Nam, C.O.A. 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 Intake/History Entered On: 09/11/2013 9:01 CDT Performed On: 09/11/2013 9:00 CDT by MARIAMA NAM Intake Chief Complaint : RECHECK MARIAMA NAM - 09/11/2013 9:00 CDT General Info Information Given By : Patient Languages : Irish MARIAMA NAM - 09/11/2013 9:00 CDT Subjective Pain Symptoms : No MARIAMA NAM - 09/11/2013 9:00 CDT Dependent Habits Tobacco Use/Currently Using : No Smoking Status : Never smoker MARIAMA NAM - 09/11/2013 9:00 CDT Tobacco Use Grid Last Use : never MARIAMA NAM - 09/11/2013 9:00 CDT Recreational Drug Use Grid Drug Use : None MARIAMA NAM - 09/11/2013 9:00 CDT [facility] Document Id: [id number] CDT!17 documented in this encounter Plan of Treatment Not on filedocumented as of this encounter Visit Diagnoses Not on filedocumented in this encounter
--- OUTSIDE RECORDS SUMMARY | 2022-01-18 09:11 | XMS_ITS | Encounter Summary ---
:1940 Author Organization [facility] Address [address] [place] [address] Care Team Providers Name Role Phone Unavailable Primary Care Provider Unavailable Encounter Details Date Type Department Care Team Description 11/09/2013 Hospital Encounter HX [facility] Noelle Greenberg M.D. OPHTHOPTO [address] [place], [place] [address] (Wo rk) Social History Tobacco Use Types Packs/Day Years Used Date Smoking Tobacco: Never Assessed Alcohol Habits Answer Date Recorded How often do you have a drink containing 4 or more times a w [place] 10/21/2019 alcohol? How many drinks containing alcohol [...] or relatives? How often do you attend presybeterian or quaker Never 12/20/2018 services? Do you belong to any clubs or organizations Yes 12/20/2018 such as presybeterian groups, unions, fraternal or athletic groups, or [...] tablet bedtime. documented as of this encounter Plan of Treatment Not on filedocumented as of this encounter Visit Diagnoses Not on filedocumented in this encounter
--- OUTSIDE RECORDS SUMMARY | 2022-01-18 09:11 | XMS_ITS | Encounter Summary ---
:1940 Author Organization [facility] Address [address] [place] [address] Care Team Providers Name Role Phone Unavailable Primary Care Provider Unavailable Encounter Details Date Type Department Care Team Description 09/07/2013 Hospital Encounter HX [facility] Ambar Mendoza O.D. [address] [place] [phone] 78 (Wo rk) Social History Tobacco Use Types Packs/Day Years Used Date Smoking Tobacco: Never Assessed Alcohol Habits Answer Date Recorded How often do you have a drink containing 4 or more times a w [place] 10/21/2019 alcohol? How many drinks containing alcohol [...] or relatives? How often do you attend confucianist or presybeterian Never 12/20/2018 services? Do you belong to any clubs or organizations Yes 12/20/2018 such as confucianist groups, unions, fraternal or athletic groups, or [...] encounter Progress Notes Marguerite Lynn O.D. 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 At that point, I had started her on TobraDex 4 times a day in both eyes as well as tobramycin ointment to the left upper lid and left lower lid. Today she presents describing no resolution in her symptoms. Current vision is 20/20 right eye, 20/20 left eye. Intraocular pressure readings are 20 in the righteye, 19 in the left by Goldmann tonometry. Slit lamp examination of the right eye shows improved blepharitis and healthy cornea, iris, and anterior chamber. She still has a mild papillary reaction consistent with allergic conjunctivitis and mild cataract in that eye. Slit lamp examination of the left eye shows persistent dermatitis of the leftupper lid. The dermatitis in the left lower lid has improved. She still has a mild papillary conjunctival reaction consistent with allergic conjunctivitis. Her iris is normal, her chamber is deep and quiet, and she has mild cataract in the left eye. 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 At this point, it is my impression that Ms. 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 I have started her on Viroptic 5 times a day in the left eye as well as oral Valtrex 500 mg by mouth. She notes she has had an episode of this in the past. I have asked her to discontinue the TobraDex, and we have postponed the visual field and optical coherence tomography of the retinal nerve fiber layer in both eyes. All the instructions were written down for the patient aswell. I plan to follow up with her in 1 week or sooner should any problems arise. Marguerite Lynn O.D./samreen Electronically Signed By: MARGUERITE LYNN OD On: 09/07/2013 12:49 PM Modified by and Electronically Signed by: MARGUERITE LYNN OD On: 09/07/2013 12:49 PM Source: [facility] MHSDOLBEYNONRADSYS Document Id: [id number] documented in this encounter Miscellaneous Notes Miscellaneous - Marguerite Lynn O.D. - 09/07/2013 11:41 AM CDT Ambulatory Patient Summary [address] [place] [id number] Visit Information Name: KRUPA ATWOOD [facility] Number: [id number] Current Date: 09/07/2013 11:41:24 Physicians Attending Provider: MARGUERITE LYNN OD Primary [...] 1 Tablet(s), Oral, two times a day hydrochlorothiazide (hydrochlorothiazide 12.5 mg oral capsule) 1 [...] left upper lid and left lower lid trifluridine ophthalmic (Viroptic 1% ophthalmic solution) See Instructions 1 drop(s) left Eye only 5X day until follow up while awake New Routed to [address] [address] valACYclovir (Valtrex 1 g oral tablet) 1 Tablet(s), Oral, once a day take for 1 year Stop Taking the Following Medications: Medication list as of 09-07-13 11:41 Attention: If you have any medications at [...] Electronically Signed By: MARGUERITE LYNN OD Signed On:07-SEP-2013 11:38:46 Your Allergies & Intolerances Substance Reaction Symptoms Category Comments lisinopril cough Drug Benadryl OF THE WALL AWAKE TINGLES Drug Your Problem List Problem Status Onset Comments Psoriasis NOS Active Paroxysmal Ventricular Tachycardia Active 10/10/12 Followed by [facility] [place] outside of [facility] Hypertension Active Your Upcoming Appointments Date Time Location Reason Provider 09/10/2013 09:00 [facility] Ophth/Opto arnoldo JADON Lynn. Marguerite Bryant Attention: Contact your local Clinic if further appointment detail needed. Your Goals/Additional instructions: Source: [facility] POWERCHART Document Id: [id number] Miscellaneous - Marguerite Lynn O.D. - 09/07/2013 11:41 AM CDT Ambulatory Discharge Medication List [address] [place], [place] [id number] Visit Information Name: KRUPA ATWOOD [facility] Number: [id number] Visit Date: 09/07/2013 11:41:22 Attending Provider: MARGUERITE LYNN OD Primary Care [...] 1 Tablet(s), Oral, two times a day hydrochlorothiazide (hydrochlorothiazide 12.5 mg oral capsule) 1 [...] left upper lid and left lower lid trifluridine ophthalmic (Viroptic 1% ophthalmic solution) See Instructions 1 drop(s) left Eye only 5X day until follow up while awake New Routed to [address] [address] valACYclovir (Valtrex 1 g oral tablet) 1 Tablet(s), Oral, once a day take for 1 year Stop Taking the Following Medications: Medication list as of 09-07-13 11:41 Attention: If you have any medications at [...] Electronically Signed By: MARGUERITE LYNN OD Signed On:07-SEP-2013 11:38:46 Additional Information: Source: [facility] [employer] Document Id: [id number] Miscellaneous - Cori Pandya, C.O.A. 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 Operator Intake/History Entered On: 09/07/2013 11:08 CDT Performed On: 09/07/2013 11:08 CDT by CORI PANDYA Intake Chief Complaint : RECHANNA CORI PANDYA - 09/07/2013 11:08 CDT General Info Information Given By : Patient Languages : Finnish CORI PANDYA - 09/07/2013 11:08 CDT Subjective Pain Symptoms : No CORI PANDYA - 09/07/2013 11:08 CDT Dependent Habits Tobacco Use/Currently Using : No Smoking Status : Never smoker CORI PANDYA - 09/07/2013 11:08 CDT Tobacco Use Grid Last Use : never CORI PANDYA - 09/07/2013 11:08 CDT Recreational Drug Use Grid Drug Use : None CORI PANDYA - 09/07/2013 11:08 CDT [facility] Document Id: [id number] CDT!17 documented in this encounter Plan of Treatment Not on filedocumented as of this encounter Visit Diagnoses Not on filedocumented in this encounter
--- OUTSIDE RECORDS SUMMARY | 2022-01-18 09:11 | XMS_ITS | Encounter Summary ---
:1940 Author Organization [facility] Address [address] [place] [address] Care Team Providers Name Role Phone Unavailable Primary Care Provider Unavailable Encounter Details Date Type Department Care Team Description 12/28/2013 Hospital Encounter HX [facility] Wilfredo Dillard O.D. [address] [place] [address] (Wo rk) Social History Tobacco Use Types Packs/Day Years Used Date Smoking Tobacco: Never Assessed Alcohol Habits Answer Date Recorded How often do you have a drink containing 4 or more times a w [place] 10/21/2019 alcohol? How many drinks containing [...] or relatives? How often do you attend sabianist or hoahaoism Never 12/20/2018 services? Do you belong to any clubs or organizations Yes 12/20/2018 such as sabianist groups, unions, fraternal or athletic groups, or [...] documented as of this encounter Progress Notes Vandana Acosta O.D. - 12/28/2013 9:24 AM CDT [id number] Krupa Atwood is here today for comprehensive eye care. She does complain that her distance vision is slightly blurry. She has an ocular history that is significant first for narrow angles with iridotomies performed. Secondly, she has had bilateral herpes simplex keratitis. She has mild foreign body sensation today, but she also has a history of allergic conjunctivitis, she puts in drops for lubrication also. PHYSICAL EXAMINATION Unaided acuity is 20/40 in the right and 20/60 in the left. She is corrected to 20/20 in the right and 20/25 in the left. Pressure is normal. Pupils are normal. On slit lamp, first she has no findings for herpes simplex keratitis. Also, no previous scarring. She does, however, have bilateral cataracts, left greater than right. On slit lamp, her iridotomies are noted to be patent. Both maculae are clear. Retinas are healthy. IMPRESSION/REPORT/PLAN 1. Bilateral cataracts. 2. Previous history of risk for glaucoma from narrow angle. 3. Also bilateral herpes simplex keratitis with no active finding today. PLAN: To be seen in 1 year to view the cataracts. New spectacles are prescribed. She is going to usemedication for her allergic conjunctivitis. 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 And Selection Consultant Intake/History Entered On: 12/28/2013 9:43 CDT Performed On: 12/28/2013 9:43 CDT by TIN ALTMAN Intake Chief Complaint : complete TIN ALTAMN - 12/28/2013 9:43 CDT General Info Information Given By : Patient Languages : Sri Lankan Is Patient Female and 12-50 no hysterectomy : No TIN ALTMAN DOMI - 12/28/2013 9:43 CDT Subjective Pain Symptoms : No TIN ALTMAN DOMI - 12/28/2013 9:43 CDT Dependent Habits Tobacco Use/Currently Using : No Exposure to Tobacco Smoke : Other: NEVER Smoking Status : Never smoker TIN ALTMAN DOMI - 12/28/2013 9:43 CDT Tobacco Use Grid Last Use : never TIN ALTMAN DOMI - 12/28/2013 9:43 CDT Recreational Drug Use Grid Drug Use : None TIN ALTMAN DOMI - 12/28/2013 9:43 CDT [facility] Document Id: [id number] CDT!19 documented in this encounter Plan of Treatment Not on filedocumented as of this encounter Visit Diagnoses Not on filedocumented in this encounter
--- OUTSIDE RECORDS SUMMARY | 2022-01-18 09:11 | XMS_ITS | Encounter Summary ---
:1940 Author Organization [facility] Address [address] [place] [address] Care Team Providers Name Role Phone Unavailable Primary Care Provider Unavailable Encounter Details Date Type Department Care Team Description 11/05/2013 Hospital Encounter [facility]X [facility] Noelle Greenberg M.D. OPHTHOPTO [address] [place], [place] [address] (Wo rk) Social History Tobacco Use Types Packs/Day Years Used Date Smoking Tobacco: Never Assessed Alcohol Habits Answer Date Recorded How often do you have a drink containing 4 or more times a w [place] 10/21/2019 alcohol? How many drinks containing alcohol [...] or relatives? How often do you attend taoist or buddhist Never 12/20/2018 services? 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 Intake/History Entered On: 11/05/2013 8:53 CDT Performed On: 11/05/2013 8:53 CDT by LUCIAN PANDYA Intake Chief Complaint : LPI-RIGHT, RECHECK LPI-LEFT LUCIAN PANDYA - 11/05/2013 8:53 CDT General Info Information Given By : Patient Languages : Montenegrin Is Patient Female and 13-50 no hysterectomy : No LUCIAN PANDYA - 11/05/2013 8:53 CDT Subjective Pain Symptoms : No LUCIAN PANDYA - 11/05/2013 8:53 CDT Dependent Habits Tobacco Use/Currently Using : No Smoking Status : Never smoker LUCIAN PANDYA - 11/05/2013 8:53 CDT Tobacco Use Grid Last Use : never LUCIAN PANDYA - 11/05/2013 8:53 CDT Recreational Drug Use Grid Drug Use : None LUCIAN PANDYA - 11/05/2013 8:53 CDT Source: [facility] [employer] Document Id: [id number] CDT!18 documented in this encounter Plan of Treatment Not on filedocumented as of this encounter Visit Diagnoses Not on filedocumented in this encounter
--- OUTSIDE RECORDS SUMMARY | 2022-01-18 09:11 | XMS_ITS | Encounter Summary ---
:1940 Author Organization [facility] Address [address] [place] [address] Care Team Providers Name Role Phone Unavailable Primary Care Provider Unavailable Encounter Details Date Type Department Care Team Description 10/06/2013 Hospital Encounter HX [facility] Ambar Mendoza O.D. [address] [place] [phone] (Wo rk) Social History Tobacco Use Types Packs/Day Years Used Date Smoking Tobacco: Never Assessed Alcohol Habits Answer Date Recorded How often do you have a drink containing 4 or more times a w council 10/21/2019 alcohol? How many drinks containing alcohol [...] or relatives? How often do you attend rastafari or alevism Never 12/20/2018 services? Do you belong to any clubs or organizations Yes 12/20/2018 such as rastafari groups, unions, fraternal or athletic groups, or [...] encounter Progress Notes Marguerite Lynn O.D. - 10/06/2013 9:32 AM CDT [id number] The patient is here for follow up on herpes simplex keratitis. She is currently only using Refresh drops in both eyes. Her uncorrected vision is 20/70 in the right eye, 20/60 in the left eye. Best corrected vision is 20/20 in the right eye and 20/20 in the left eye. IMPRESSION 1. HERPES SIMPLEX KERATITIS BOTH EYES. Resolved. Continue oral Valtrex 500 mg daily. No need for trifluridine at this time. 2. ALLERGIC CONJUNCTIVITIS. Recommend Zaditor twice a day both eyes. 3. DRY EYE SYNDROME BOTH EYES. Recommend Artificial Tears 4 times a day in both eyes. NOTE: The patient reports that she went to the [facility] and they recommended an LPI inthe right eye. I looked at her angles and they appear wide open but the patient wishes to have a consultation with an validation manager for a second opinion on whether or not she needs a peripheral iridotomy. aMrguerite Lynn O.D./shannen Electronically Signed By: MARGUERITE LYNN OD On: 10/06/2013 11:39 AM Modified by and Electronically Signed by: MARGUERITE LYNN OD On: 10/06/2013 11:39 AM Source: [facility] MHSDOLBEYNONRADSYS Document Id: [id number] documented in this encounter Miscellaneous Notes Miscellaneous - Marguerite Lynn O.D. - 10/06/2013 10:37 AM CDT Ambulatory Patient Summary [address] [place], [place] [id number] Visit Information Name: KRUPA ATWOOD [facility] Number: [id number] Current Date: 10/06/2013 10:37:00 Physicians Attending Provider: MARGUERITE LYNN OD Primary [...] (Crestor) Oral, once a day (at bedtime) valACYclovir (Valtrex 1 g oral tablet) 1 Tablet(s), Oral, once a day take for 1 year vitamin E (vitamin E) Oral, once a day Stop Taking the Following Medications: Medication list as of 10-06-13 10:37 Attention: If you have any medications at [...] Electronically Signed By: MARGUERITE LYNN OD Signed On:06-OCT-2013 10:36:51 Your Allergies & Intolerances Substance Reaction Symptoms Category Comments lisinopril cough Drug Benadryl OF THE WALL AWAKE TINGLES Drug Your Problem List Problem Status Onset Comments Psoriasis NOS Active Paroxysmal Ventricular Tachycardia Active 10/10/12 Followed by [facility] Hypertension Active Your Upcoming Appointments Date Time Location Reason Provider No Appointments found Attention: Contact your local Clinic if further appointment detail needed. Your Goals/Additional instructions: Source: [facility] POWERCHART Document Id: [id number] Miscellaneous - Marguerite Lynn O.D. - 10/06/2013 10:36 AM CDT Ambulatory Discharge Medication List [address], [address] [place], [place] [id number] Visit Information Name: KRUPA ATWOOD [facility] Number: [id number] Visit Date: 10/06/2013 10:36:58 Attending Provider: MARGUERITE LYNN OD Primary Care Provider: PCP, KRUPA MORALEZ has [...] (Crestor) Oral, once a day (at bedtime) valACYclovir (Valtrex 1 g oral tablet) 1 Tablet(s), Oral, once a day take for 1 year vitamin E (vitamin E) Oral, once a day Stop Taking the Following Medications: Medication list as of 10-06-13 10:36 Attention: If you have any medications at [...] Electronically Signed By: MARGUERITE LYNN OD Signed On:06-OCT-2013 10:36:51 Additional Information: Source: [employer] Document Id: [id number] Miscellaneous - Sofie Collins, C.O.AChun - 10/06/2013 9:54 AM CDT Adult Try On Baster Intake/History Adult Try On Baster Intake/History Entered On: 10/06/2013 9:54 CDT Performed On: 10/06/2013 9:54 CDT by SOFIE COLLINS PA Intake Chief Complaint : Eye exam SOFIE COLLINS PA - 10/06/2013 9:54 CDT General Info Information Given By : Patient Languages : [place] SOFIE COLLINS PA - 10/06/2013 9:54 CDT Subjective Pain Symptoms : No SOFIE COLLINS PA - 10/06/2013 9:54 CDT Dependent Habits Tobacco Use/Currently Using : No Smoking Status : Never smoker SOFIE COLLINS MA - 10/06/2013 9:54 CDT Tobacco Use Grid Last Use : never SOFIE COLLINS MA - 10/06/2013 9:54 CDT Recreational Drug Use Grid Drug Use : None SOFIE COLLINS MA - 10/06/2013 9:54 CDT [facility] Document Id: [id number] CDT!17 documented in this encounter Plan of Treatment Not on filedocumented as of this encounter Visit Diagnoses Not on filedocumented in this encounter
--- OUTSIDE RECORDS SUMMARY | 2022-01-18 09:11 | XMS_ITS | Encounter Summary ---
:1940 Author Organization [facility] Address [address] [place] [address] Care Team Providers Name Role Phone Unavailable Primary Care Provider Unavailable Encounter Details Date Type Department Care Team Description 10/10/2012 Hospital Encounter HX [facility] Santos Fontana M.D. [address] [place] [id number] (Wo rk) Social History Tobacco Use Types Packs/Day Years Used Date Smoking Tobacco: Never Assessed Alcohol Habits Answer Date Recorded How often do you have a drink containing 4 or more times a w [place] 10/21/2019 alcohol? How many drinks containing alcohol [...] How often do you attend shinto or caodaism Never 12/20/2018 services? Do you belong to [...] Sign Reading Time Taken Comments Blood Pressure 120/60 10/10/2012 10:50 AM CDT Pulse 80 10/10/2012 10:50 AM CDT Temperature - - Respiratory Rate - - Oxygen Saturation - - Inhaled Oxygen Concentration - - Weight 65 kg (143 lb 4.8 oz) 10/10/2012 10:50 AM CDT Height - - Body Mass Index [...] documented as of this encounter Progress Notes Filiberto Wick M.D. - 10/10/2012 10:45 AM CDT Progress Note, Family Practice DATE: 10/10/2012 FAMILY MEDICINE HISTORY OF PRESENT ILLNESS Patient presents with concerns with a dry cough or about a week. About a month ago she had a cough which was determined side effect of lisinopril. This cough was different. She reports postnasal drip. She states to take a deep inspiration or expiration she will cause some irritative type cough. It washard for her sleep at night. She notices more drainage in the evenings. Denies fevers or chills. No significant runny nose. PAST MEDICAL/SURGICAL HISTORY Significant for ventricular tachycardia. She is followed by filling hauler at the [facility] [place] [facility] the [facility]. She denies a history of lung problems. CURRENT MEDICATIONS Reviewed and updated in the EMR medication list. ALLERGIES Lisinopril. PHYSICAL EXAMINATION VITALS: Temperature 36, blood pressure 120/60, pulse 80, weight 65 kg. GENERAL: Pleasant 72-year-old white female sitting comfortably in no acute distress. HEENT: Normocephalic, atraumatic. Tympanic membranes are clear. Nares are patent. No significant bogginess. Posterior oropharynx shows some evidence of postnasal drip. NECK: Supple. No adenopathy. CHEST: Lungs sound clear but with expiration she does develop a bit of an irritated type cough. HEART: Regular. IMPRESSION/REPORT/PLAN IMPRESSION: 1. Sinusitis. 2. Cough. PLAN: Discussed with patient I think she has acute sinusitis with postnasal drip causing the irritative type cough. I wrote for amoxicillin 1 gram three times a day for seven days, prednisone 20 mg daily for five days. Common side effect profile with prednisone is reviewed. She should continue to staywell hydrated and follow up if further concerns. Clinic #: [id number] FILIBERTO WICK MD CC: Electronically Signed By: FILIBERTO WICK MD On: 10/15/2012 09:17 AM Source: [facility] Document Id: [id number] documented in this encounter Miscellaneous Notes Miscellaneous - Filiberto Wick M.D. - 10/10/2012 11:13 AM CDT Ambulatory [place] [address] Visit Information Name: KRUPA ATWOOD [facility] Number: [id number] Current Date: 10/10/2012 11:13:09 Physicians Attending Provider: FILIBERTO WICK MD Primary Care Provider: PCP, UNASSIGNED - EU Your Medications Here is a list of your medications. It is important to take your medications as directed. Use a pillbox or chart to help remind you to take your medications. Please let your doctor or nurse know if you have problems taking your medications. Medication/Strength Dose Route Frequency Indications/Special Instructions/Comments/Notes predniSONE (predniSONE 20 mg oral tablet) 20 mg Oral once a day for 5 Days amoxicillin (amoxicillin 500 mg oral capsule) 1,000 mg Oral three times a day for 7 Days losartan (losartan 50 mg oral tablet) 50 mg Oral once a day loratadine-pseudoephedrine (Claritin-D 24 Hour oral tablet, extended release) 1 tab(s) Oral once a day valACYclovir (Valtrex 1 g oral tablet) 1 gm Oral once a day take for 1 year calcium-vitamin D (Calcium 600+D) 1 tab(s) Oral two times a day aspirin (Aspir-Low 81 mg oral tablet) 1 tab once a day hydrochlorothiazide (hydrochlorothiazide 12.5 mg oral capsule) 12.5 mg Oral once a day rosuvastatin (Crestor) Oral once a day (at bedtime) propafenone (propafenone 150 mg oral tablet) 150 mg Oral three times a day Attention: If you have any medications at home that are not on this list, DO NOT take them until youcontact your provider for clarification. Your Allergies & Intolerances Substance Reaction Symptoms Category Comments No Known Allergies Drug Your Problem List Problem Status Onset Comments Psoriasis NOS Active Your Upcoming Appointments Date Time Location Reason Provider No Appointments found Your Goals/Additional instructions: Source: [facility] POWERCHART Document Id: [id number] Miscellaneous - Filiberto Wick M.D. - 10/10/2012 11:13 AM CDT [place] [address] Visit Information Name: KRUPA ATWOOD [facility] Number: [id number] Visit Date: 10/10/2012 11:13:08 Attending Provider: FILIBERTO WICK MD Primary Care Provider: PCP, UNASSIGNED - KRUPA JACKSONZABETH has been given the following list of medications: Your Medications It is important to take your medications as directed. Use a pill box or chart to help remind you to take your medications. Please let your doctor or nurse know if you have problems taking your medications. Medication/Strength Dose Route Frequency Indications/Special Instructions/Comments/Notes predniSONE (predniSONE 20 mg oral tablet) 20 mg Oral once a day for 5 Days amoxicillin (amoxicillin 500 mg oral capsule) 1,000 mg Oral three times a day for 7 Days losartan (losartan 50 mg oral tablet) 50 mg Oral once a day loratadine-pseudoephedrine (Claritin-D 24 Hour oral tablet, extended release) 1 tab(s) Oral once a day valACYclovir (Valtrex 1 g oral tablet) 1 gm Oral once a day take for 1 year calcium-vitamin D (Calcium 600+D) 1 tab(s) Oral two times a day aspirin (Aspir-Low 81 mg oral tablet) 1 tab once a day hydrochlorothiazide (hydrochlorothiazide 12.5 mg oral capsule) 12.5 mg Oral once a day rosuvastatin (Crestor) Oral once a day (at bedtime) propafenone (propafenone 150 mg oral tablet) 150 mg Oral three times a day Attention: If you have any medications at home that are not on this list, DO NOT take them until youcontact your provider for clarification. Additional Information: Source: [facility] POWERCHART Document Id: [id number] Miscellaneous - Yinka Bennett L.P.N. 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 Operator Intake/History Entered On: 10/10/2012 10:51 CDT Performed On: 10/10/2012 10:50 CDT by YINKA BENNETT [facility] Intake Chief Complaint : cough36 Temperature Core : 36 DegC(Converted to: 96.8 DegF) (LOW) Peripheral Pulse Rate : 80 /min Systolic Blood Pressure : 120 mmHg Diastolic Blood Pressure : 60 mmHg NIBP Mean : 80 mmHg BP Location : Right upper extremity Blood Pressure Cuff Size : Regular Actual Weight : 65 kg(Converted to: 143 lb 5 oz) Dosing Weight Clinic : 65 kg YINKA BENNETT LPN - 10/10/2012 10:50 CDT General Info Languages : Turkmen YINKA BENNETT THERAPY TEACHER - 10/10/2012 10:50 CDT Subjective Pain Symptoms : No YINKA BENNETT LPN - 10/10/2012 10:50 CDT Dependent Habits Tobacco Use/Currently Using : No Smoking Status : Never smoker YINKA BENNETT LPN - 10/10/2012 10:50 CDT Tobacco Use Grid Last Use : never YINKA BENNETT LPN - 10/10/2012 10:50 CDT Source: [facility] [employer] Document Id: [id number] CDT!22 documented in this encounter Plan of Treatment Not on filedocumented as of this encounter Visit Diagnoses Not on filedocumented in this encounter
--- OUTSIDE RECORDS SUMMARY | 2022-01-18 09:11 | XMS_ITS | Encounter Summary ---
:1940 Author Organization [facility] Address [address] [place] [address] Care Team Providers Name Role Phone Unavailable Primary Care Provider Unavailable Encounter Details Date Type Department Care Team Description 12/30/2012 Hospital Encounter HX [facility] Phillip Ang M.D. Social History Tobacco Use Types Packs/Day Years Used Date Smoking Tobacco: Never Assessed Alcohol Habits Answer Date Recorded How often do you have a drink containing 4 or more times a w [place] 10/21/2019 alcohol? How many drinks containing [...] How often do you attend evangelical or scientologist Never 12/20/2018 services? Do you [...] for the very basics like Not h elsieo at all 12/20/2018 food, housing, medical care, [...]
--- OUTSIDE RECORDS SUMMARY | 2022-01-18 09:11 | XMS_ITS | Encounter Summary ---
:1940 Author Organization [facility] Address [address] [place] [address] Care Team Providers Name Role Phone Unavailable Primary Care Provider Unavailable Encounter Details Date Type Department Care Team Description 10/09/2013 Hospital Encounter HX [facility] Noelle Álvarez M.D. [facility]TH[facility] [address] [place], [place] [address] (Wo rk) Social History Tobacco Use Types Packs/Day Years Used Date Smoking Tobacco: Never Assessed Alcohol Habits Answer Date Recorded How often do you have a drink containing 4 or more times a w [place] 10/21/2019 alcohol? How many drinks containing alcohol [...] How often do you attend pentecostalism or methodist Never 12/20/2018 services? Do you [...] encounter Progress Notes Arnie Álvarez M.D. - 10/09/2013 12:47 PM CDT [id number] The patient is here for glaucoma evaluation sent by Dr. Gallegos. Please see yellow sheet for exam details. In summary this is a patient with narrow angles in the left eye more than the right. The right looksfairly open. I think it is reasonable to monitor this. The left eye was narrow. I did recommend LPI laser. She is going to return to clinic to have this done. Arnie Álvarez M.D./nichelle Electronically Signed By: ARNIE ÁLVAREZ MD On: 10/14/2013 08:37 AM Source: [facility] MHSDOLBEYNONRADSYS Document Id: [id number] documented in this encounter Miscellaneous Notes Miscellaneous - Lucian Pandya - 10/09/2013 1:32 PM CDT Adult Clinical Data Manager Intake/History Adult Clinical Data Manager Intake/History Entered On: 10/09/2013 13:32 CDT Performed On: 10/09/2013 13:32 CDT by LUCIAN PANDYA Intake Chief Complaint : glaucoma eval LUCIAN PANDYA - 10/09/2013 13:32 CDT General Info Information Given By : Patient, Spouse Languages : Venezuelan LUCIAN PANDYA - 10/09/2013 13:32 CDT Subjective Pain Symptoms : No LUCIAN PANDYA 10/09/2013 13:32 CDT Dependent Habits Tobacco Use/Currently Using : No Smoking Status : Never smoker LUCIAN PANDYA - 10/09/2013 13:32 CDT Tobacco Use Grid Last Use : never LUCIAN PANDYA 10/09/2013 13:32 CDT Recreational Drug Use Grid Drug Use : None LUCIAN PANDYA 10/09/2013 13:32 CDT Source: [facility] POWERCHART Document Id: [id number] CDT!17 documented in this encounter Plan of Treatment Not on filedocumented as of this encounter Visit Diagnoses Not on filedocumented in this encounter
--- OUTSIDE RECORDS SUMMARY | 2022-01-18 09:11 | XMS_ITS | Encounter Summary ---
:1940 Author Organization [facility] Address [address] [place] [address] Care Team Providers Name Role Phone Unavailable Primary Care Provider Unavailable Encounter Details Date Type Department Care Team Description 11/09/2013 Hospital Encounter [facility]X [facility] Noelle Álvarez M.D. OPHTHOPTO [address] [place], [place] [address] (Wo rk) Social History Tobacco Use Types Packs/Day Years Used Date Smoking Tobacco: Never Assessed Alcohol Habits Answer Date Recorded How often do you have a drink containing 4 or more times a w [place] 10/21/2019 alcohol? How many drinks containing alcohol [...] How often do you attend sabianism or church Never 12/20/2018 services? Do you belong to [...] encounter Progress Notes Arnie Álvarez M.D. - 11/09/2013 1:42 PM CDT [id number] The patient is back for laser peripheral iridotomy in the right eye. Please see yellow sheet for laser details. The risks, benefits and alternatives of laser were discussed with the patient in detail. She understands. She is going to follow up next week. She was told to call if she has any redness, pain, decreased vision or any problems. She was also started on a Pred Forte taper. Arnie Álvarez M.D./gurpreet Electronically Signed By: ARNIE ÁLVAREZ MD On: 11/16/2013 02:55 PM Source: [facility] MHSDOLBEYNONRADSYS Document Id: [id number] documented in this encounter Miscellaneous Notes Miscellaneous - Silvestre Moore - 11/09/2013 2:23 PM CDT Adult Shopper Intake/History Adult Shopper Intake/History Entered On: 11/09/2013 14:23 CDT Performed On: 11/09/2013 14:23 CDT by SILVESTRE MOORE Intake Chief Complaint : 1week rechalexus SILVESTRE MOORE - 11/09/2013 14:23 CDT General Info Information Given By : Patient Languages : Kenyan Is Patient Female and 13-50 no hysterectomy : No SILVESTRE MOORE - 11/09/2013 14:23 CDT Subjective Pain Symptoms : No SILVESTRE MOORE - 11/09/2013 14:23 CDT Dependent Habits Tobacco Use/Currently Using : No Smoking Status : Smoker, current status unknown SILVESTRE MOORE - 11/09/2013 14:23 CDT Tobacco Use Grid Last Use : never SILVESTRE MOORE - 11/09/2013 14:23 CDT Recreational Drug Use Grid Drug Use : None SILVESTRE MOORE - 11/09/2013 14:23 CDT Source: [facility] POWERCHART Document Id: [id number] CDT!18 documented in this encounter Plan of Treatment Not on filedocumented as of this encounter Visit Diagnoses Not on filedocumented in this encounter
--- OUTSIDE RECORDS SUMMARY | 2022-01-18 09:11 | XMS_ITS | Encounter Summary ---
:1940 Author Organization [facility] Address [address] [place] [address] Care Team Providers Name Role Phone Unavailable Primary Care Provider Unavailable Encounter Details Date Type Department Care Team Description 09/21/2013 Hospital Encounter HX [facility] Ambar Mendoza O.D. [address] [place] [phone] (Wo rk) Social History Tobacco Use Types Packs/Day Years Used Date Smoking Tobacco: Never Assessed Alcohol Habits Answer Date Recorded How often do you have a drink containing 4 or more times a w lower [place] 10/21/2019 alcohol? How many drinks containing alcohol [...] How often do you attend episcopal or samaritan Never 12/20/2018 services? Do you [...] encounter Progress Notes Marguerite Lynn O.D. 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 Today her vision with her glasses is 20/25 in the right eye and 20/40 in the left eye, which pinholes to 20/25-. Intraocular pressure readings are 16 in both eyes by Goldmann tonometry. Slit lamp examination of the right eye shows healthy eyelid, conjunctiva, cornea, iris and anterior chamber. Slit lamp exam of the left eye shows a mild dermatitis medially of the upper lid, but a healthy conjunctiva,cornea, iris and anterior chamber. She does have cataracts in both eyes. There are no signs of any dendrites or staining in the cornea of either eye and no signs of any iritis in either eye. IMPRESSION/REPORT/PLAN IMPRESSION: Herpes simplex keratitis, both eyes, improving. At this point I recommend continuing with the Valtrex 500 mg daily by mouth and start the Viroptic taper. I recommend Viroptic 4 times a day for 3 days in both eyes, 3 times a day for 3 days in both eyes, and then twice a day until followup. I have recommended she follow up next week for a recheck. Patient notes she will be in [place]. I recommend she go to the [facility] there to follow upand then I will see her when she gets back the following week. Marguerite Lynn O.D./kayla Electronically Signed By: MARGUERITE LYNN OD On: 09/21/2013 10:49 AM Modified by and Electronically Signed by: MARGUERITE LYNN OD On: 09/21/2013 10:49 AM Source: [facility] MHSDOLBEYNONRADSYS Document Id: [id number] documented in this encounter Miscellaneous Notes Miscellaneous - Marguerite Lynn O.D. - 09/21/2013 10:23 AM CDT Ambulatory Patient Summary [address] [place], [place] [id number] Visit Information Name: ATWOODKRUPA [facility] Number: [id number] Current Date: 09/21/2013 10:23:57 Physicians Attending Provider: MARGUERITE LYNN OD Primary [...] the Following Medications: Medication list as of 09-21-13 10:23 Attention: If you have any medications at [...] Electronically Signed By: MARGUERITE LYNN OD Signed On:21-SEP-2013 10:23:31 Your Allergies & Intolerances Substance Reaction Symptoms Category Comments lisinopril cough Drug Benadryl OF THE WALL AWAKE TINGLES Drug Your Problem List Problem Status Onset Comments Psoriasis NOS Active Paroxysmal Ventricular Tachycardia Active 10/10/12 Followed by [facility] outside of [facility] Hypertension Active Your Upcoming Appointments Date Time Location Reason Provider No Appointments found Attention: Contact your local Clinic if further appointment detail needed. Your Goals/Additional instructions: Source: [facility] POWERCHART Document Id: [id number] Miscellaneous - Marguerite Lynn O.D. 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 Desk 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 Intake/History Adult Desk Lieutenant Intake/History Entered On: 09/21/2013 10:08 CDT Performed On: 09/21/2013 10:08 CDT by DANNI BENZ I Intake Chief Complaint : DANNI Vanessa I - 09/21/2013 10:08 CDT General Info Information Given By : Patient Languages : Slovak DANNI BENZ I - 09/21/2013 10:08 CDT Subjective Pain Symptoms : No DANNI BENZ I - 09/21/2013 10:08 CDT Dependent Habits Tobacco Use/Currently Using : No Smoking Status : Never smoker DANNI BENZ I - 09/21/2013 10:08 CDT Tobacco Use Grid Last Use : never DANNI BENZ I - 09/21/2013 10:08 CDT Recreational Drug Use Grid Drug Use : None DANNI BENZ I - 09/21/2013 10:08 CDT Source: [facility] Document Id: [id number] CDT!17 documented in this encounter Plan of Treatment Not on filedocumented as of this encounter Visit Diagnoses Not on filedocumented in this encounter
--- OUTSIDE RECORDS SUMMARY | 2022-01-18 09:12 | XMS_ITS | Encounter Summary ---
:1940 Author Organization [facility] Address [address] [place] [address] Care Team Providers Name Role Phone Unavailable Primary Care Provider Unavailable Encounter Details Date Type Department Care Team Description 09/29/2012 Hospital Encounter HX [facility] EUDyan Salgado M.D. [address] [place] [phone] (Wo rk) Social History Tobacco Use Types Packs/Day Years Used Date Smoking Tobacco: Never Assessed Alcohol Habits Answer Date Recorded How often do you have a drink containing 4 or more times a w [place] 10/21/2019 alcohol? How many drinks containing alcohol [...] How often do you attend adventist or christian Never 12/20/2018 services? Do you [...] Sign Reading Time Taken Comments Blood Pressure 124/68 09/29/2012 11:20 AM CDT Pulse 76 09/29/2012 11:20 AM CDT Temperature - - Respiratory Rate - - Oxygen Saturation - - Inhaled Oxygen Concentration - - Weight - - Height - - Body Mass Index - - documented in this encounter Medications at Time of Discharge Medication Sig Dispensed Refills Start Date End Date aspirin [address] tablet once a day 0 06/26/2001 propafenone (for_RHTHYMOL) Take 1 tablet by 0 09/2012 150 mg tablet mouth 3 (three) times a day. aspirin 0.1 mg capsule daily. 0 08/29/2012 rosuvastatin (for_CRESTOR) Take by mouth at 0 09/201209/09/2017 1.25 mg tablet bedtime. documented as of this encounter Miscellaneous Notes Miscellaneous - Gullickson, Jennifer R, RChunN. - 09/29/2012 11:20 AM CDT Ambulatory Vitals Height Weight Ambulatory Vitals Height Weight Entered On: 09/30/2012 10:18 CDT Performed On: 09/29/2012 11:20 CDT by JENNIFER GREGG RN Vitals/Ht/Wt Peripheral Pulse Rate : 76 /min Systolic Blood Pressure : 124 mmHg Diastolic Blood Pressure : 68 mmHg NIBP Mean : 87 mmHg BP Location : Right upper extremity Blood Pressure Cuff Size : Regular JENNIFER GREGG RN - 09/30/2012 10:17 CDT Source: [facility] Document Id: [id number] CDT!8 documented in this encounter Plan of Treatment Not on filedocumented as of this encounter Visit Diagnoses Not on filedocumented in this encounter
--- OUTSIDE RECORDS SUMMARY | 2022-01-18 09:12 | XMS_ITS ---
:1940 Author Organization [facility] Address [address] [place] [address] Care Team Providers Name Role Phone Lizbeth Jesus Unavailable Unavailable PROBLEMS Type Condition ICD9-CM Code SGT44-OB Code Onset Condition SNO MED Code Dates Status Problem Stress N39.3 Active 20120753 incontinence of urine Problem Urge incontinence N39.41 Active 87 575845 Problem Overactive N32.81 Active 753615872 bladder Problem Uterovaginal N81.2 Active 8864835 02 prolapse, incomplete Problem Lichen sclerosus L90.0 Active 895 918925 Problem Stress N39.3 Active incontinence Problem Cystocele, N81.11 Active 487216011 midline ALLERGIES Substance Reaction Event Type Date Status DMDM hydantoin Unknown Non Drug Allergy Jan, Active MCI/VA Unknown Non Drug Allergy Jan, Active Tixocortol 21 Pivalate Unknown Non Drug Allergy Jan, A ctive Thuriam Mix Unknown Non Drug Allergy Jan, Active dodecyl gallate Unknown Non Drug Allergy Jan, Active Sodium Benzoate Unknown Drug Allergy Jan, Active Lanolin Unknown Drug Allergy Jan, Active Methylisiothiazoinone Unknown Non Drug Allergy Jan, Ac tive Coconut diethanolamide (cocamide GEORGETTE) Unknown Non Drug Allergy Jan, Active does not exclude all coconut derivatives Propylene Glycol Unknown Drug Allergy Jan, Active Disperse Warne 3 Unknown Non Drug Allergy Jan, Active Neomycin Sulfate Unknown Drug Allergy Jan, Active Mentha Piperita (Peppermint) Oil Unknown Non Drug Allergy 10 N ov, 2020 Active Hydroperoxide of Limonene Unknown Non Drug Allergy 10 Jan, Active Mercapto Mix Unknown Non Drug Allergy Jan, Active Diazepam Unknown Drug Allergy Jan, Active Tert-butylhydroquinon Unknown Non Drug Allergy Jan, Ac tive P-Phenylenediamine Unknown Non Drug Allergy 10 Jan, 2021 Activ e Black rubber mix Unknown Non Drug Allergy Jan, Active Benzophenone-4 Unknown Non Drug Allergy Jan, Active Ethylenediamine dihydrochloride Unknown Non Drug Allergy 10 No 2020 Active Trifluridine Unknown Drug Allergy 10 Jan, 2021 Active Lodo propynyl Butylcarbamate Unknown Non Drug Allergy Jan, Active Lauryl Polyglucose Unknown Non Drug Allergy Jan, Activ e Rofecoxib Unknown Drug Allergy Jan, Active [place] (II) chloride hexahydrate Unknown Non Drug Allergy 10 N ov2020 Active Hydroperoxide of Linalool Unknown Non Drug Allergy Jan, Active Shellac Unknown Non Drug Allergy Jan, Active Ethyl acrylate Unknown Non Drug Allergy Jan, Active Suellen Sulfate Hexahydrate Unknown Non Drug Allergy Jan, Active Glyceryl thioglycolate Unknown Non Drug Allergy Jan, A ctive Formaldehyde Unknown Drug Allergy Jan, Active Dibutyl Phthalate Unknown Non Drug Allergy Jan, Active Hydrochlorothiazide Unknown Drug Allergy Jan, Active Diphenhydramine Unknown Drug Allergy Jan, Active ENCOUNTERS Encounter Location Date Diagnosis [place] [address] [employer] Jun, [address] [phone] [place] [address] [employer] Jan, [address] [phone] [facility] [employer] Jan, [address] [phone] [facility] [address] Jan, Uterova ginal prolapse, [place], [place] incomplete N81. 2 ; [phone] Cystocele, midli ne N81.11 ; Overactive yoana dder N32.81 ; Urge in continence N39.41 ; Stress incontinence N39 .3 and Lichen sclerosus L90.0 [facility] [address] 08 Jan, 2021 Urge in continence of urine [place], [place] N39.41 ; Urinar y frequency [id number] R35.0 ; Nocturia R35.1 and Stress incontine nce of urine N39.3 IMMUNIZATIONS No Known Immunizations SOCIAL HISTORY Qualifiers Date Never Smoker REASON FOR REFERRAL Reason [facility]-records being faxed Referral Organization [facility] Marge pinedo Referring Provider First Name Lizbeth Referring Provider Last Name Edin Referring Provider Specialty Intermediate Accountant and gynecolo gist Referring Provider Referring Provider email [email or web address] Referred Provider Specialty Physical Therapist Referral Appointment Date 2021-03-08 FUNCTIONAL STATUS PLAN OF CARE Activity Details Referral 2021-03-08, [facility]-re cords being faxed VITAL SIGNS Height 60.75 in 2021-02-02 Weight 147.8 lbs 2021-02-02 BMI 28.15 kg/m2 2021-02-02 Blood pressure systolic 130 mm Hg 2021-02-02 Blood pressure diastolic 74 mm Hg 2021-02-02 MEDICATIONS Medication Instructions Dosage Frequency Start Date End Date Duration S tatus Clobetasol Active Propionate Elidel Active Lotemax Active hydrOXYzine HCl Active [place] 3 Active Amoxicillin Active Calcium Magnesium Active Propafenone HCl Active OMEGA COMPLETE Active Rosuvastatin Active Calcium HERBAL SUPPLEMENT Active Triamcinolone Active Ointment ZyrTEC Active Desonide Active Vitamin D3 Active Tacrolimus Active Mometasone Furoate Activ e valACYclovir HCl Active amLODIPine Besylate Acti ve Estradiol Active Aspirin 81 Active Losartan Potassium Activ e PROCEDURES Procedure Date Ordered Result Body Site URINALYSIS, AUTO, W/O SCOPE Jan 30, 2021 INTRAABDOMINAL PRESSURE TEST Jan 30, 2021 ANAL/URINARY MUSCLE STUDY Jan 30, 2021 ELECTRO-UROFLOWMETRY, FIRST Jan 30, 2021 CYSTOMETROGRAM W/FLANGING ROLL OPERATOR&UP Jan 30, 2021 RESULTS Name Result Date Reference Range Urinalysis, Routine - IH 2021-01-30 Urine Color yellow Yellow - Blanca Appearance clear Clear - Glucose neg Bilirubin neg Ketone neg Specific [place] 1.015 Blood neg pH 6.0 Protein neg Urobilinogen 0.2 Nitrite neg Leukocytes neg Glucose Bilirubin Ketones Specific [place] Occult Blood pH Protein Urobilinogen Nitrite Leukocytes REASON FOR VISIT Insurance Providers [facility] Member Patient Patient Patient Patient Patient Subscriber Subscriber Subscriber Group Insurance Plan Plan Plan Plan ID Relationship Address Phone Name Date of ID Name Date of No Type Insurance Insurance Insurance Coverage to Subscriber Address Phone Name Dates [place] [phone] [employer] [id number] [facility] [address] [facility] 0 ([facility] (Ins Bill) [place] Bill) [id number] MEDICAL (GENERAL) HISTORY Type Description Date Medical History Ventricular tachycardia Medical History Allergies Medical History Severe Atopic Dermatitis Medical History Defective skin barrier Medical History High Blood Pressure Medical History Psoriasis Medical History High Cholesterol Medical History Chicken Pox Medical History Herpes in 2013 very bad outbreak Surgical History Tonsillectomy 1945 Surgical History Hernia surgery 1940s Surgical History Tubal ligation 1970 Surgical History Fatty Tumor removed from back 1970 Surgical History Electrophysiological study 1987 Surgical History Right knee replaced 2010 Surgical History Left knee replaced 2010 Hospitalization History Vaginal delivery x3
--- OUTSIDE RECORDS SUMMARY | 2022-01-18 09:12 | XMS_ITS | Encounter Summary ---
:1940 Author Organization [facility] Address [address] [place] [address] Care Team Providers Name Role Phone Unavailable Primary Care Provider Unavailable Encounter Details Date Type Department Care Team Description 08/29/2012 Hospital Encounter HX [facility] EULashanda Salgado M.D. [address] [place] [phone] (Wo rk) Social History Tobacco Use Types Packs/Day Years Used Date Smoking Tobacco: Never Assessed Alcohol Habits Answer Date Recorded How often do you have a drink containing 4 or more times a w [place] 10/21/2019 alcohol? How many drinks containing [...] or relatives? How often do you attend jew or sabianist Never 12/20/2018 services? Do you belong to any clubs or organizations Yes 12/20/2018 such as jew groups, unions, fraternal or athletic groups, or [...] Sign Reading Time Taken Comments Blood Pressure 108/50 08/29/2012 9:13 AM CDT Pulse 80 08/29/2012 9:13 AM CDT Temperature - - Respiratory Rate 16 08/29/2012 9:13 AM CDT Oxygen Saturation - - Inhaled Oxygen Concentration - - Weight 66.1 kg (145 lb 11.6 oz) 08/29/2012 9:13 AM CDT Height - - Body Mass [...] documented as of this encounter Progress Notes Lashanda Arteaga M.D. - 08/29/2012 9:00 AM CDT Progress Note, Family Practice DATE: 08/29/2012 FAMILY MEDICINE CHIEF COMPLAINT/REASON FOR VISIT Persistent cough. 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 Receives most of her care there. On August 05 she developed a cough with a bit of a head cold although it never got bad. She thought it might have been allergies. This is the typical time those kick in. Those usually include itchy eyes and posterior drainage and sneezing. On the [place] in the [place] on [place] very vivi condition. Her cough was markedlyworse so she started on Zyrtec and has taken that for two weeks. She is not sure that has really helped although she has not had any sneezing. Early on she had some yellow drainage from the anterior nose but that has cleared and she really does not have any sinus congestion or pain. She still has someposterior drainage but no fever, chills or sore throat. Her cough is dry and not particularly in onetime of day. She is sleeping well. She has no wheezing, shortness of breath or chest tightness. Her main concern is that she has had some dramatic shifts in her health in the past two months and she wanted to be certain there was not an autoimmune issue triggering this ongoing cough. She used to take supplements but dropped them five weeks ago. She did restart calcium in the past week. From December to April she had severe contact dermatitis on the wrist area. She said her air quality technician told her to move to [place]. They were I believe in [place] and then [place] late April and then [place]. She was in the sun a lot and within three days the contact dermatitis and her longstanding psoriasis completely resolved. She said it is very rare, said she has never had the psoriasis completely go away and it is still gone. 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 That has resolved but she is still on the Valtrex for suppression for the whole next year. She does have a new jail partner after being f amita years ago and I believe from her comments that she was exposed through that relationship. Again she wonders given the outbreak in herpes and the psoriasis clearing if there is something immune status tavarez going on. PHYSICAL EXAMINATION VITAL SIGNS: Weight 66.1. Oxygen saturation is 97%. Blood pressure 108/50. Respiration 16. Pulse 80.Temperature 36.2. EARS: Eardrums clear bilaterally. EYES: EOMI. PERRLA. No conjunctivitis. NOSE: No rhinorrhea. MOUTH: Moist, pharynx clear. NECK: No adenopathy. THYROID: Not enlarged. LUNGS: Clear to auscultation with good effort. HEART: Regular rate and rhythm without a murmur. IMPRESSION/REPORT/PLAN ASSESSMENT: 1. Persistent cough but really still under a month total and some of her sinus symptoms are improving. I suspect this was triggered by a viral upper respiratory infection and then aggravated by dust irritants as they have been doing a ton of cleaning at the [facility]. 2. A longstanding psoriasis resolved with light therapy. 3. Contact dermatitis resolved with light therapy. 4. New diagnosis of herpes simplex on suppressive Valtrex therapy. PLAN: I reassured her at this point I did not see a need for antibiotics. It is possible it is related to her lisinopril, reflux or allergies but for the moment I would just ride things out for anotherone to two weeks and she was fine with that. I did suggest she add a mask when she is doing cleaning. She can continue taking her Zyrtec more for the widespread allergies rather than the cough itself. She can call if things get worse and she thinks she needs antibiotics. Clinic #: [id number] as LASHANDA ARTEAGA MD CC: Electronically Signed By: LASHANDA ARTEAGA MD On: 09/12/2012 07:53 AM Electronically Signed by Proxy by: KULDEEP MOTA Source: [facility] Outcome [facility] Document Id: [id number] documented in this encounter Miscellaneous Notes Miscellaneous - Lashanda Arteaga M.D. - 08/29/2012 12:13 PM CDT Ambulatory Patient Summary [address] [address] Visit Information Name: KRUPA ATWOOD [facility] Number: Current Date: 08/29/2012 12:13:07 Physicians Attending Provider: LASHANDA ARTEAGA MD Primary Care Provider: PCP, UNASSIGNED - EU Your Medications Here is a list of your medications. It is important to take your medications as directed. Use a pillbox or chart to help remind you to take your medications. Please let your doctor or nurse know if you have problems taking your medications. Medication/Strength Dose Route Frequency Indications/Special Instructions/Comments valACYclovir (Valtrex 1 g oral tablet) 1 gm Oral once a day take for 1 year calcium-vitamin D (Calcium 600+D) 1 tab(s) Oral two times a day cetirizine (Zyrtec 10 mg oral tablet) 10 mg Oral once a day as needed for Allergy symptoms aspirin (Aspir-Low 81 mg oral tablet) 1 tab once a day hydrochlorothiazide (hydrochlorothiazide 12.5 mg oral capsule) 12.5 mg Oral once a day lisinopril (lisinopril 20 mg oral tablet) 20 mg Oral once a day rosuvastatin (Crestor) [...] No Appointments found Your Goals/Additional instructions: Source: [facility] POWERCHART Document Id: [id number] Miscellaneous - Lashanda Arteaga M.D. - 08/29/2012 12:13 PM CDT Ambulatory Depart Summary [address] [id number] Visit Information Name: KRUPA ATWOOD [facility] Number: Visit Date: 08/29/2012 12:13:06 Attending Provider: LASHANDA ARTEAGA MD Primary Care Provider: PCP, UNASSIGNED - EU KRUPA ATWOOD has been given the following list of medications: Your Medications It is important to take your medications as directed. Use a pill box or chart to help remind you to take your medications. Please let your doctor or nurse know if you have problems taking your medications. Medication/Strength Dose Route Frequency Indications/Special Instructions/Comments valACYclovir (Valtrex 1 g oral tablet) 1 gm Oral once a day take for 1 year calcium-vitamin D (Calcium 600+D) 1 tab(s) Oral two times a day cetirizine (Zyrtec 10 mg oral tablet) 10 mg Oral once a day as needed for Allergy symptoms aspirin (Aspir-Low 81 mg oral tablet) 1 tab once a day hydrochlorothiazide (hydrochlorothiazide 12.5 mg oral capsule) 12.5 mg Oral once a day lisinopril (lisinopril 20 mg oral tablet) 20 mg Oral once a day rosuvastatin (Crestor) Oral once a day (at bedtime) propafenone (propafenone 150 mg oral tablet) 150 mg Oral three times a day Attention: If you have any medications at home that are not on this list, DO NOT take them until youcontact your provider for clarification. Additional Information: Source: [facility] POWERCHART Document Id: [id number] Miscellaneous - Kuldeep Mota RChunN. - 08/29/2012 9:13 AM CDT Adult Shipping And Receiving Coordinator Intake/History Adult Shipping And Receiving Coordinator Intake/History Entered On: 08/29/2012 9:15 CDT Performed On: 08/29/2012 9:13 CDT by KULDEEP MOTA produce assistant Chief Complaint : cough Temperature Core : 36.2 DegC(Converted to: 97.2 DegF) (LOW) Peripheral Pulse Rate : 80 /min Respiratory Rate : 16 /min Heart Rhythm : Regular Systolic Blood Pressure : 108 mmHg Diastolic Blood Pressure : 50 mmHg (LOW) NIBP Mean : 69 mmHg BP Location : Right upper extremity Blood Pressure Cuff Size : Regular Actual Weight : 66.1 kg(Converted to: 145 lb 12 oz) Dosing Weight Clinic : 66.1 kg KULDEEP MOTA RN - 08/29/2012 9:13 CDT General Info Languages : Lebanese KULDEEP MOTA RN - 08/29/2012 9:13 CDT Subjective Pain Symptoms : No KULDEEP MOTA RN - 08/29/2012 9:13 CDT Dependent Habits Tobacco Use/Currently Using : No Smoking Status : Never smoker KULDEEP MOTA RN - 08/29/2012 9:13 CDT Tobacco Use Grid Last Use : never KULDEEP MOTA RN - 08/29/2012 9:13 CDT [facility] Document Id: [id number] CDT!24 documented in this encounter Plan of Treatment Not on filedocumented as of this encounter Visit Diagnoses Not on filedocumented in this encounter
--- NOTE | 2022-01-18 09:15 | CRLHL7_ITS ---
For Patients: As a result of the Century Cures Act, medical imaging exams and procedure reports are released immediately into your electronic medical record. You may view this report before your referring provider. If you have questions, please contact your health care provider. INDICATION: Follow-up colloid cyst. TECHNIQUE: Brain MRI without contrast. The following sequences were obtained: Sagittal T1 weighted sequence. DWI and ADC mapping sequences. Axial FLAIR and DEVANG T2 weighted sequences. COMPARISON: Head CT from 11/14/2020. FINDINGS: No evidence of acute ischemia. No evidence of acute or chronic intracranial blood products. Patchy FLAIR hyperintensities within the supratentorial white matter, typical for chronic microvascular ischemic change. Several chronic lacunar/subcortical infarcts within the superior basal ganglia and right greater than left cerebral white matter. Again demonstrated is the small oval 6 millimeter T1 isointense/T2 hypointense lesion within the superior 3rd ventricle abutting the bilateral foramina of [place]. It is hyperdense on the comparison CT, and is consistent with a colloid cyst. No hydrocephalus or extra-axial collections. The pituitary gland, parasellar structures and optic chiasm are normal. Posterior fossa is normal. All the major intracranial vascular structures demonstrate normal flow-related signal. The orbital contents are normal. No calvarial or skull base marrow replacing process. A right medial maxillary sinus retention cyst. A right partial mastoid effusion. No extracranial soft tissue findings. IMPRESSION: 1. 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 No hydrocephalus. 2. No acute ischemia or other acute intracranial pathology. 3. Mild to moderate burden of chronic microvascular ischemic changes and chronic lacunar infarcts within the supratentorial white matter and basal ganglia. Dictated by Juan J Zhou MD @ 01/19/2022 10:46:02 AM (Electronically Signed)
== END 2022-01-18 09:01 | disposition home or self-care (01) ==
LOC: MRI 09:01
PROVIDERS: PCP Internal Medicine; Visit Provider Internal Medicine
DX: Q04.6 Congenital cerebral cysts (principal); I67.82 Cerebral ischemia
CPT/HCPCS: 70551

== ENCOUNTER 2022-06-28 09:32 | Outpatient (CLI) | payer MEDICARE, SELFPAY | END 2022-06-28 09:33 | disposition home or self-care (01) | LOC: NFLDREF 21:24 | PROVIDERS: PCP Internal Medicine; Referring Provider Internal Medicine; Visit Provider Internal Medicine | DX: E78.5 Hyperlipidemia, unspecified (principal); I10 Essential (primary) hypertension | CPT/HCPCS: 80048; 80061 ==

== ENCOUNTER 2022-07-31 12:41 | Emergency (ER) | payer MEDICARE, SELFPAY ==
[2022-07-31 12:46] VITALS: BP 150/78; PULSE 71; RESP 18; TEMP 35.9; O2SAT 98; BMI 25.5
--- NOTE | 2022-07-31 12:59 | CRLHL7_ITS ---
For Patients: As a result of the Century Cures Act, medical imaging exams and procedure reports are released immediately into your electronic medical record. You may view this report before your referring provider. If you have questions, please contact your health care provider. INDICATION: Left lateral calf pain. COMPARISON: Left lower extremity venous ultrasound 12/25/2018. TECHNIQUE: A compression venous ultrasound exam was performed of the left lower extremity using lester-scale imaging, color Doppler and spectral Doppler analysis. FINDINGS: Sonographic imaging of the left lower extremity demonstrates normal compressibility and color Doppler venous blood flow within the common femoral, femoral, deep femoral, and proximal greater saphenous veins. At a lower level the popliteal, peroneal, and posterior tibial veins also show normal compressibility and color Doppler venous blood flow. Limited imaging of the contralateral groin demonstrates a normal spectral waveform and color Doppler venous blood flow within the right common femoral vein. IMPRESSION: Negative for acute DVT in the left lower extremity. Dictated by Kendra Crespo MD @ 07/31/2022 3:39:15 PM (Electronically Signed)
--- NOTE | 2022-07-31 14:07 | ED_ITS ---
HPI - Extremity Injury (Lower) General Date Seen: 07/31/22 Chief Complaint: Extremity Pain/Injury, Lower Stated Complaint: Swollen L leg Time Seen by Provider: 07/31/22 12:42 Source: patient and family Mode of arrival: ambulatory Limitations: no limitations History of Present Illness HPI Narrative: Patient is a very nice 81-year-old female presents here with the left lower leg swelling, she has had this now for approximately 1 week, feels little bit warm also too, no specific history of injury, called the clinic today and they told her to come over immediately for an ultrasound, she has no history of DVT, no history of pulmonary emboli, denies any fevers chills or sweats, is on no anticoagulants Related Data Home Medications Medication Instructions Recorded Confirmed aspirin 81 mg chewable tablet 81 mg PO QDAY 10/12/21 07/05/22 cetirizine 10 mg tablet 10 mg PO DAILY 10/12/21 07/05/22 ciclopirox 1 % shampoo 1 topical .2X Weekly 10/12/21 07/05/22 cyanocobalamin (vitamin B-12) 1,000 mcg PO DAILY 10/12/21 07/05/22 1,000 mcg tablet omega 1-zwc-nwn-fish oil 300 1 cap PO QDAY 10/12/21 07/05/22 mg-1,000 mg capsule (Fish Oil) propafenone 150 mg tablet 150 mg PO TID 10/12/21 07/05/22 tacrolimus 0.03 % topical ointment 1 topical PRN 10/12/21 07/05/22 triamcinolone acetonide 0.1 % 1 applic topical .Daily as needed 10/12/21 07/05/22 topical ointment PRN amlodipine 5 mg tablet 5 mg PO BID 12/04/21 07/05/22 estradiol 0.01% (0.1 mg/gram) 1 g vaginal QWEEK 12/21/21 07/05/22 vaginal cream clobetasol 0.05 % topical ointment g topical 05/28/22 07/05/22 desonide 0.05 % topical ointment 1 applic topical BID PRN 05/28/22 07/05/22 loteprednol etabonate 0.5 % eye 0.5 drp ophthalmic (eye) PRN 05/28/22 07/05/22 gel drops Previous Rx's Medication Instructions Recorded betamethasone dipropionate 0.05 % 1 applic topical .2x/week #45 grams 12/21/21 topical ointment valacyclovir 500 mg tablet 500 mg PO QDAY #90 tabs 12/21/21 losartan 100 mg tablet 100 mg PO DAILY #90 tabs 04/24/22 rosuvastatin 10 mg tablet 10 mg PO .Bedtime #90 tabs 07/05/22 Allergies Allergy/AdvReac Type Severity Reaction Status Date / Time hydrochlorothiazide Allergy Intermediate Unknown Verified 07/05/22 09:20 lanolin Allergy Intermediate Unknown Verified 07/05/22 09:20 trifluridine Allergy Intermediate Verified 07/05/22 09:20 atorvastatin Allergy Mild Unknown Verified 07/05/22 09:20 iodine Allergy Mild Unknown Verified 07/05/22 09:20 lisinopril Allergy Mild Unknown Verified 07/05/22 09:20 rofecoxib Allergy Mild Unknown Verified 07/05/22 09:20 simvastatin Allergy Mild Unknown Verified 07/05/22 09:20 formaldehyde Allergy Unknown Verified 07/05/22 09:20 methylisothiazolinone Allergy Unknown Verified 07/05/22 09:20 neomycin Allergy Unknown Unknown Verified 07/05/22 09:20 propylene glycol Allergy Unknown Unknown Verified 07/05/22 09:20 sodium benzoate Allergy Unknown Verified 07/05/22 09:20 diazepam Allergy Intermediate Unknown Uncoded 07/05/22 09:20 trifluridine Allergy Intermediate Unknown Uncoded 07/05/22 09:20 Review of Systems Status of ROS: Reports: 10 or more systems reviewed and unremarkable except as noted in History and below [facility] Medical History History of keratitis ?Z86.69 - Personal history of other diseases of the nervous system and sense organs (ICD-10) Surgical History History of hand surgery ?Z98.890 - Other specified postprocedural states (ICD-10) History of tonsillectomy (~1940) ?Z90.89 - Acquired absence of other organs (ICD-10) History of incisional hernia repair (1970) ?Z98.890 - Other specified postprocedural states (ICD-10) ?Z87.19 - Personal history of other diseases of the digestive system (ICD-10) History of bilateral tubal ligation (1970) ?Z98.51 - Tubal ligation status (ICD-10) History of phacoemulsification of cataract of both eyes with intraocular lens implantation (2016) ?Z98.41 - Cataract extraction status, right eye (ICD-10) ?Z98.42 - Cataract extraction status, left eye (ICD-10) ?Z96.1 - Presence of intraocular lens (ICD-10) History of total bilateral knee replacement (TKR) (2010) ?Z96.653 - Presence of artificial knee joint, bilateral (ICD-10) Family History Mother Stroke Coronary artery disease Diabetes Maternal Grandmother Stroke Maternal Grandfather Coronary artery disease Social History Smoking Status: Never smoker Do you use any of these nicotine containing products: None Second hand tobacco smoke exposure: No How often do you have a drink containing alcohol: monthly or less How often do you have six or more drinks on one occasion: Never AUDIT-C Alcohol total score: 1 Non-prescribed substance use: denies use Little interest or pleasure in doing things: not at all Feeling down, depressed, or hopeless: not at all service: No Exam Narrative: Exam Narrative: Patient is seen in room 1, she is in no apparent distress the left leg is a little larger on the left side in comparison to the right, with no real pitting edema, she has normal dorsiflexion plantar flexion of her calf, no real super tender area. No redness to associated with cellulitis, her DP posterior tibial and popliteal pulses normal her in knee has full range of motion. Upper legs look normal bilaterally. Const: Vital Signs, click to edit/add: Vital Signs - 24 hr 07/31/22 12:46 Temperature 96.6 F L Pulse Rate [Pulse Oximeter] 71 Respiratory Rate 18 Blood Pressure [Ri ght Upper Arm] 150/78 H Pulse Oximetry 98 Oxygen Delivery Me thod Room Air Course Course Hospital Course: I discussed with her that we will do an ultrasound to rule out a DVT, I will discuss with her once this is been done. Discussed with the patient that the tech stated test for DVT was negative, she did not want a wait around for the formal radiologic report, I think this is reasonable but did warn her that we may after call her back in to discuss things or start her on something after the fact. I would X ask her to take an enteric- coated aspirin a day for the next 14 days, this may be is some superficial thrombophlebitis, or soft tissue injury. She was comfortable this plan. Discharged ambulatory, pending formal radiological over-read. She does develop chest pain shortness of breath or any other symptoms of a pulmonary embolism she needs to come back and be seen. Vital Signs Vital signs: Initial Vital Signs Temperature 96.6 F L 07/31/22 12:46 Temperature Source Temporal Artery Scan 07/31/22 12:46 Pulse Rate 71 07/31/22 12:46 Respiratory Rate 18 07/31/22 12:46 Blood Pressure 150/78 H 07/31/22 12:46 Blood Pressure Mean 102 07/31/22 12:46 Blood Pressure Position Supine 07/31/22 12:46 Pulse Oximetry 98 07/31/22 12:46 Oxygen Delivery Method Room Air 07/31/22 12:46 Vital Signs Temperature 96.6 F L 07/31/22 12:46 Pulse Rate 71 07/31/22 12:46 Respiratory Rate 18 07/31/22 12:46 Blood Pressure 150/78 H 07/31/22 12:46 Pulse Oximetry 98 07/31/22 12:46 Oxygen Delivery Method Room Air 07/31/22 12:46 Temperature 96.6 F L 07/31/22 12:46 Pulse Rate 71 07/31/22 12:46 Respiratory Rate 18 07/31/22 12:46 Blood Pressure 150/78 H 07/31/22 12:46 Pulse Oximetry 98 07/31/22 12:46 Oxygen Delivery Method Room Air 07/31/22 12:46 MDM - Extremity Injury (Lower) Medical Records Attestation: I reviewed the patient's medical records. Imaging Data Left leg ultrasound: Attestation: I have reviewed the pertinent imaging results. My impression: Good compressibility no evidence of DVT. Await formal report. Discharge Plan Discharge Clinical Impression: Left leg swelling Patient Disposition: Home w/ Parent or Adult Condition: Stable Additional Instructions: Home rest use of aspirin 324 mg, or enteric-coated 325, 1 tablet a day for the next 14 days. Recommend heat, increasing swelling in her upper leg come back and we will re ultrasound you but I think great now this is a really good finding of a negative ultrasound. Please in all that once the radiologist reads it, if there is anything other than normal we will call you and let you know. This may require you would have to come back to the emergency room. Prescriptions: No Action cetirizine 10 mg tablet 10 mg PO DAILY cyanocobalamin (vitamin B-12) 1,000 mcg tablet 1,000 mcg PO DAILY omega 9-xpx-sgj-fish oil [Fish Oil] 300-1,000 mg capsule 1 cap PO QDAY propafenone 150 mg tablet 150 mg PO TID Rx Instructions: space evenly during waking hours aspirin 81 mg tablet,chewable 81 mg PO QDAY ciclopirox 1 % shampoo 1 topical .2X Weekly triamcinolone acetonide 0.1 % ointment 1 applic topical .Daily as needed PRN Rx Instructions: APPLY TO AFFECTED AREA tacrolimus 0.03 % ointment 1 topical PRN loteprednol etabonate 0.5 % drops,gel 0.5 drp ophthalmic (eye) PRN desonide 0.05 % ointment 1 applic topical BID PRN estradiol 0.01 % (0.1 mg/gram) cream 1 g vaginal QWEEK Rx Instructions: Medication to be put into individually filled applicators. valacyclovir 500 mg tablet 500 mg PO QDAY Qty: 90 3RF betamethasone dipropionate 0.05 % ointment 1 applic topical .2x/week Qty: 45 5RF rosuvastatin 10 mg tablet 10 mg PO .Bedtime Qty: 90 3RF amlodipine 5 mg tablet 5 mg PO BID clobetasol 0.05 % ointment topical losartan 100 mg tablet 100 mg PO DAILY Qty: 90 1RF Follow Up/Referrals: Marley Abrams MD [Primary Care Provider] - Stand Alone Forms: [employer] Info Instructions
== END 2022-07-31 15:16 | disposition home or self-care (01) ==
PROVIDERS: Emergency Provider Family Medicine; PCP Internal Medicine
DX: R22.42 Localized swelling, mass and lump, left lower limb (principal)
CPT/HCPCS: 93971; 99283; 99284

== ENCOUNTER 2022-12-03 08:07 | Outpatient (CLI) | payer MEDICARE, SELFPAY ==
--- OUTSIDE RECORDS SUMMARY | 2022-12-03 08:10 | XMS_ITS | Patient Health Record ---
Author Name Unknown Organization [facility] Address [address] [place], [place] [id number] Care Team Providers Care Bus Company Manager Name Role Phone Lizbeth Jesus Primary Care Provider ALLERGIES Allergen (clinical drug ingredient) Drug/Non Drug Allergy documented on EMR Reaction Allergy Type Onset Date Status Benzophenone-4 (uncoded) Unknown Allergy Active Black rubber mix (uncoded) Unknown Allergy Active [place] (II) chloride hexahydrate (uncoded) Unknown Allergy Active Coconut diethanolami de (cocamide GEORGETTE) does not exclude all coconut derivatives (uncoded) Unknown Allergy Active Dibutyl Phthalate Dibutyl Phthalate (uncoded) Unknown Allergy Active Disperse orange 3 Disperse Leonard 3 (uncoded) Unknown Allergy Active DMDM hydantoin (uncoded) Unknown Allergy Active dodecyl gallate dodecyl gallate (uncoded) Unknown Allergy Active ethyl acrylate Ethyl acrylate (uncoded) Unknown Allergy Active Ethylenediamine dihydrochloride Ethylenediamine dihydrochloride (uncoded) Unknown Allergy Active Glyceryl thioglycola te (uncoded) Unknown Allergy Active Hydroperoxide of Floyd onene (uncoded) Unknown Allergy Active Hydroperoxide of Rosemarie alool (uncoded) Unknown Allergy Active Lauryl Polyglucose (uncoded) Unknown Allergy Active Lodo propynyl Butylcarbamate (uncoded) Unknown Allergy Active MCI/[place] (uncoded) Unknown Allergy Act amita Mentha Piperita (Peppermint) Oil (uncoded) Unknown Allergy Active Mercapto mix Mercapto Mix (uncoded) Unknown Allergy Active Methylisiothiazoinon e (uncoded) Unknown Allergy Active nickel Suellen Sulfate Hexahydrate (uncoded) Unknown Allergy Active p-phenylenediamine P-Phenylenediamine (uncoded) Unknown Allergy Active shellac Shellac (uncoded) Unknown Allergy Ac tive Tert-butylhydroquino n (uncoded) Unknown Allergy Active Thuriam Mix (uncoded) Unknown Allergy Active Tixocortol 21 Pivala te (uncoded) Unknown Allergy Active neomycin Neomycin Sulfate Unknown Drug Allergy Active diazepam Diazepam Unknown Drug Allergy Active diphenhydramine Diphenhydramine Unknown Drug Allergy Active formaldehyde Formaldehyde Unknown Drug Allergy Active hydrochlorothiazide Hydrochlorothiazide Unknown D rug Allergy Active lanolin Lanolin Unknown Drug Allergy Active propylene glycol Propylene Glycol Unknown Drug Allergy Active rofecoxib Rofecoxib Unknown Drug Allergy Active sodium benzoate Sodium Benzoate Unknown Drug Allergy Active trifluridine Trifluridine Unknown Drug Allergy Active REASON FOR REFERRAL No Information MEDICATIONS Medication SIG (Take, Route, Frequency, Duration) Notes Start Date End Date Status Amoxicillin for teeth cleaning Active Estradiol vaginal 1 gram weekly Active Clobetasol Propionate ointment t o genital area when necessary Active Lotemax drops and ointme nt as needed Active HERBAL SUPPLEMENT Classical Pear ls daily Active Calcium Magnesium 1000mg/500mg o nce daily with breakfast Active valACYclovir HCl 500mg twice daily Active Vitamin D3 5000 IU once asa ly with breakfast Active ZyrTEC 10mg twice daily Act amita OMEGA COMPLETE Warner Memory-Curcumin daily Active Desonide applies to face as needed Active Warner 3 Ultimate Warner 3 1280mg once daily with breakfast Active Triamcinolone Ointment 1% as needed for atopic dermatitis Active Tacrolimus ointment to skin and face as needed Active amLODIPine Besylate 5mg once asa ly in the evening Active hydrOXYzine HCl 1 at bedtime for severe itching as needed (rarely used) Active Rosuvastatin Calcium 10mg at bedtime Active Aspirin 81 1 tablet in the pm Active Propafenone HCl 150mg 3 times daily Active Mometasone Furoate to body as ne eded, uses occasionally Active Losartan Potassium 100mg once da janice in the am Active Elidel 1% cream to face as needed Active SOCIAL HISTORY Tobacco Use: Social History Observation Description Date Details (start date - stop date) Never Smoker NA - NA Sex Assigned At : Social History Observation Description Sex Assigned At Unknown Tobacco Use/Smoking Question Answer Notes Are you a nonsmoker PROBLEMS Problem Type ICD Code Onset Dates Problem Status W/U Status Risk SNOMED Code Notes Problem Overactive bladder (N32.81) Active confirmed 133996518 Problem Urge incontinence (N39.41) Active confirmed 90781317 Problem Cystocele, 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 confirmed 946341565 Problem Stress incontinence (N39.3) Active confirmed 07557333 Problem Stress incontinence of urine (N39.3) Active confirmed SI - Stress incontinence (59233057) Problem Lichen sclerosus (L90.0) Active confirmed 753797271 Problem Uterovaginal prolapse, incomplete (N81.2) Active confirmed [id number] PLAN OF TREATMENT No Information Insurance Providers Payer Name Payer Address Payer Phone Subscriber Number Group Number Insured Name Patient Relationship to Insured Coverage Start Date Coverage End Date [employer] ([facility]) [address] [address] [place], [place] [id number] Krupa Atwood Self - patient is the insured MEDICAL (GENERAL) HISTORY Medical History History ICD Code Ventricular tachycardia Allergies Severe Atopic Dermatitis Defective skin barrier High Blood Pressure Psoriasis High Cholesterol Chicken Pox Herpes in 2013 very bad outbreak Surgical History Surgery Date(Month/Year) Tonsillectomy 1945 Hernia surgery 1940s Tubal ligation 1971 Fatty Tumor removed from back 1970 Electrophysiological study 1987 Right knee replaced 2010 Left knee replaced 2010 Hospitalization History Reason Date(Month/Year) Vaginal delivery x3
--- OUTSIDE RECORDS SUMMARY | 2022-12-03 08:11 | XMS_ITS | Continuity of Care Document ---
Author Name Unknown Organization [facility] Address [address] [place] [address] Phone Care Team Providers Care [employer] Internship Name Role Phone Lukas Noguera MD Unavailable Unavailable Allergies, Adverse Reactions, Alerts Substance Reaction Status Criticality DIPHENHYDRAMINE HCL Active No Infor mation Medications Medication Instructions Dosage Effective Dates (start - stop) Status Comments propafenone 150 mg Tab take 1 tablet (150MG) by oral route every 8 hours 150 MG - Active hydrochlorothiazide 12.5 mg Cap take 1 capsule (12.5MG) by oral route every day 12.5 MG - Active LISINOPRIL 40 mg ORAL TABLET take 1 tablet (40MG) by oral route every day 40 MG - Active CRESTOR 5 mg ORAL TABLET take 1 tablet (5MG) by oral route every day 5 MG - Active TYLENOL (unknown strength) take as needed Not Available - Active Aleve 220 mg Tab take 1 tablet (220MG) by oral route as needed - Active Co Q-10 100 mg Cap take one daily - Active zinc 50 mg Tab take one tablet 3 times weekly - Active CALCIO JUAN (unknown strength) take one daily Not Available - Active with magnesium, phosphorus Fish Oil 1,000 mg Cap take one capsule daily - Active Ultimate [place] aspirin 81 mg Tab, Delayed Release take 1 tablet (81MG) by oral route every day 81 MG - Active Vitamin D3 1,000 unit Cap take one capsule daily - Active Fanny 180 mg Tab take 1 tablet (180MG) by oral route every day - Active Procedures Procedure Date Office/Outpatient Visit, [facility] Advance Directives Directive Yes / No Effective Date File Name Resuscitation Not Answered N/A N/A Life Support Not Answered N/A N/A Intubation Not Answered N/A N/A Antibiotics Not Answered N/A N/A IV Fluid Support Not Answered N/A N/A Tube Feed Not Answered N/A N/A Other Directive N/A N/A WARNING:The information contained in this section is historical and is provided for information only and does not constitute a legal document or any assurance that the information is still accurate. Please verify the information with the nino of the legal document before using it for clinical purposes. Encounters Encounter Description Practice Location Reason(s) For Visit Diagnoses Date Provider Providers Copied on Encounter Office/Outpa tient Visit, [facility], [address], [place], [address], tel:[phone] [facility] , No Information 2 Chuckie Gaytan. [facility] [address], [place], [address], [place]. tel:[phone] Referring Provider: Lukas Pacheco, [facility] [address], [place], [address]. tel:[phone] [facility], [address], [place], [address], [place] tel:[phone] [facility] , No Information 2 Chuckie Gaytan. [facility] [address], [place], [address], [place]. tel:[phone] Family History Family Member Type Diagnosis Age At Onset No Information Payers Payer name Insurance type Covered green party ID Authorpetra carolyn(s) [facility] [id number] Social History Type Description Quantity Date Captured Comments Alcohol Use Details Unknown Caffeine Use Details Unknown Tobacco Use Status No Information Smoking Status Never smoker Non-Smoking Tobacco Use Details : No Details Available : No Details Available Sex Female Vital Signs Date / Time: Height Weight BMI Pulse Rate Blood Pressure Temperature Respiratory Rate Body Surface Area Head Circumference Head Circ. Percentile Wt./Vini. Percentile BMI percentile Pulse Ox Inhaled Ox 2:43 PM 141.00 lbs 72 /min 140/80 mm[Hg] Chief Complaint And Reason For Visit No Information Reason For Referral Reason For Referral No Information History Of Present Illness Encounter Date Complaint History Of Prese nt Illness No Information Functional Status Date Functional Assessmen t No Information Instructions Date Instruction Additional Infor mation No Information Assessments Type Assessment Date No Information Patient Care Teams Name Effective Dates (start - stop) Status Members No Information
--- NOTE | 2022-12-03 08:15 | CRLHL7_ITS ---
For Patients: As a result of the Cures Act, medical imaging exams and procedure reports are released immediately into your electronic medical record. You may view this report before your referring provider. If you have questions, please contact your health care provider. BILATERAL SCREENING MAMMOGRAM WITH COMPUTER-AIDED DETECTION AND TOMOSYNTHESIS TECHNIQUE: CC and MLO views were obtained. These mammographic images have been obtained using full-field digital technique. These mammographic images were interpreted with the benefit of computer-aided detection. Breast Tomosynthesis was used in this interpretation. COMPARISON FILM: 07/20/21, 07/08/20. FINDINGS: The breasts are heterogeneously dense, which may obscure small masses IMPRESSION: There is no radiographic evidence for malignancy. ASSESSMENT: BI-RADS Category 2: Benign RECOMMENDATION: Routine screening mammogram in 1 year. A lay language report of this examination will be provided to the patient. Slim Pittman M.D. Diagnostic Radiologist [email or web address] DORCAS/maria guadalupe / be/Dictated by: Slim Pittman MD @ 12/03/2022 10:57:00 AM (Electronically Signed)
== END 2022-12-03 08:08 | disposition home or self-care (01) ==
PROVIDERS: PCP Internal Medicine; Visit Provider Internal Medicine
DX: Z12.31 Encounter for screening mammogram for malignant neoplasm of breast (principal); R92.2 Inconclusive mammogram
CPT/HCPCS: 77063; 77067

== ENCOUNTER 2023-08-15 08:29 | Outpatient (CLI) | payer MEDICARE, SELFPAY ==
--- OUTSIDE RECORDS SUMMARY | 2023-09-03 12:39 | XMS_ITS | Clinical Summary ---
Author Organization [facility] Address [place], [place] [address] Care Team Providers Care Tank Bottom Assembler Name Role Phone Zuly Huber MD Unavailable [phone] Vani Mohan MD Unavailable [phone] Marley Abrams MD Primary Care Provider [phone] Allergies Active Allergy Reactions Criticality Noted Date Comments Atorvastatin Myalgia 10/01/2013 Intolerance Benzophenone Rash 04/23/2018 [place] Chloride Rash 04/23/2018 [place] chloride hexahydrate Coconut Diethanolamide (Bulk) Rash 04/23/2018 Diazepam *Unknown 04/22/2010 Makes her more restless, anxious. Dibutyl Phthalate Rash 04/23/2018 Diphenhydramine Other - Describe In Comment Field 04/06/2010 Paradoxical rx per patient. Possible that benadryl actually keeps pt awake Dmdm Hydantoin Rash 04/23/2018 Ethyl Udgphiwr-Mz-Rmhgnj Methacrylate Rash 04/23/2018 Formaldehyde Atopic Dermatitis 12/10/2017 Hydrochlorothiazide Rash 05/11/2015 Possibly severe eczematous like rash Iodine Unknown reaction - patient thought it was from an allergy pill that iodine Lisinopril Cough 10/20/2012 Mercaptopurine Rash 04/23/2018 Methylisothiazolinone Rash 04/23/2018 Neomycin Sulfate Rash 04/23/2018 Nickel Sulfate Rash 04/23/2018 Unlisted Allergen (Include Detail In Comments) Rash 04/23/2018 Black rubber mix, Disperse Kidder 3, Dodecyl gallate, Ethylenediamine dihydrochloride, glyceryl thioglycolate, hydroperoxide of limonene, hydroperoxide of linalool, lodopropynyl butyl carbamate, lauryl polyglucose, MCI/DC, P-Phenylenediamine Peppermint Oil Rash 04/23/2018 Propylene Glycol [...] a day ? 0 06/27/19 02 Active Zevsw-7-YJT-EPA-Fi sh Oil (FISH OIL) 1,000 mg (120 [...] Type Department Care Team Description 08/16/2023 Refill [facility] [address] [place] [address] Zuly Huber MD Refill Request (Propafenone) 08/13/2023 10:45 AM CDT Office Visit [facility] [address] [place] [phone] Linda Sotelo MD Consult (white drainage in ear// Dr. Matthew- ENT OK prior to AUDIO) 08/13/2023 Travel 08/12/2023 Telephone [facility] [address] [place] [phone] Zuly Huber MD Refill Request (Losartan) 07/09/2023 Telephone [facility] [address] [place] [address] Andres Murillo, AuD Hearing Aid from Last 3 Months Immunizations Name Administration Dates Next Due Amb Influenza, Inact (High-d ose) (Flu Clinic Only) 12/23/2015,01/12/2014 COVID-19 vaccine (Test.tv NTSailogy 30mcg/0.3mL) LEIDY PEÑALOZA 12/21/2020,06/09/2020,05/19/2020 Influenza Virus, Unspecified [...] at age 61. Maternal grandfather had an DC and at age 63. Maternal grandmother had [...] CDT Gender Identity Female 05/06/2020 10:11 PM [facility] Sexual Orientation Straight 07/06/2020 4: 09 PM CDT Obstetrics History Para Term AB IAB SAB Ectopic Multiple Livin g Live Births 3 3 3 0 0 0 0 0 0 3 3 Date Outcome GA Total Labor Labor/2nd/3rd Weight Sex Type Anes PTL Meron A1 A5 Name Clin Term Living Term Living Term Living Last Filed Vital Signs Vital Sign Reading Time Taken Comments Blood Pressure 126/68 02/08/2022 10:20 AM [facility] Pulse 73 02/08/2022 10:20 AM [facility] Temperature 36.8 ??C (98.2 ??F) 03/10/2020 2:13 PM CS T Respiratory Rate 18 03/10/2019 11:0 7 AM [facility] Oxygen Saturation 99% 02/08/2022 10: 20 AM [facility] Inhaled Oxygen Concentration - - Weight 63.9 kg (140 lb 14.4 oz) 022 10:20 AM [facility] Height 154.9 cm (5' 1) 02/08/2022 10:2 0 AM [facility] Body Mass Index 26.62 02/08/2022 10:20 AM [facility] Plan of Treatment Upcoming Encounters Date Type Department Care Team (Late st Contact Info) Description 09/03/2023 2:30 PM CDT Office Visit [facility] [address] [place] [address] Zuly Huber MD [address] [place] [address] Health Maintenance Due Date Last Done Comments [...] history exists Medical Devices Implanted Type Area Assurance Sourcing Manager Device Identifier Shelf Expiration Date Model / Serial / Lot Cmnt Bone [place] - [id number] Implanted:Qty: 2 on 04/21/2010 at [facility] Right: Knee BIOMET [id number]# / / [id number] Plate Tib Cruciate Fixed - [id number] Implanted:Qty: 1 on 04/21/2010 at [facility] Right: Knee BIOMET [id number]# / / [id number] Patella Series A Thin 31 3peg - [id number] Implanted:Qty: 1 on 04/21/2010 at [facility] Right: Knee BIOMET [id number]# / / [id number] Compnt Fem Cr Intlk 618249 Vanguard - [id number] Implanted:Qty: 1 on 04/21/2010 at [facility] Right: Knee BIOMET [id number]# / / [id number] Vanguard Tibial Bearing Implanted:Qty: 1 on 04/21/2010 at [facility] Right: Knee [id number] / / [id number] Description:VANGUARD TIBIAL BEARING Cmnt Bone [place] - [id number] Implanted:Qty: 2 on 01/22/2011 at [facility] Left: Knee BIOMET [id number]# / / [id number] Bearing Epoly Tib As 12x67 - [id number] Implanted:Qty: 1 on 01/22/2011 at [facility] Left: Knee BIOMET [id number]# / / [id number] Compnt Fem Cr Intlk Lt 60 Vanguard - [id number] Implanted:Qty: 1 on 01/22/2011 at [facility] Left: Knee BIOMET [id number]# / / [id number] Plate Tib Cruciate Fixed - [id number] Implanted:Qty: 1 on 01/22/2011 at [facility] Left: Knee BIOMET [id number]# / / [id number] Peg Series A Pat Std 31 3 - [id number] Implanted:Qty: 1 on 01/22/2011 at [facility] Left: Knee BIOMET [id number]# / / [id number] Procedures Procedure Name Priority Date/Time Associated Diagnosis Comments XR DXA BONE DENSITY 2 SITES AXIAL Routine 04/27/2019 10:50 AM [facility] Other specified disorders of bone density and structure, multiple sites Osteopenia, unspecified location from Last 3 Months or Most Recently Relevant to Health Maintenance Results * (ABNORMAL) XR DXA BONE DENSITY 2 SITES AXIAL (04/27/2019 10:50 AM [facility]) Anatomical Region Laterality Modality Spine, HIPS, HIPL, HIPR Other Narrative 05/05/2019 12:47 PM [facility] Please see scanned document for results of this study. Erica Ramey MD DEXA from Last 3 Months or Most Recently Relevant to Health Maintenance Advance Directives Documents on File Type Date Recorded Patient Engine Room Operator Expl anation Healthcare Directive 01/21/2009 HEALTH ARE DIRECTIVE Healthcare Directive 04/21/2010 * Full [...] 6:57 AM 04/21/2010 3:12 PM Care Teams Tank Bottom Assembler Relationship Specialty Start Date End Date Marley Abrams MD [address] [place] [address] PCP - General Internal Medicine 02/08/22 Zuly Huber MD [address] [place] [address] Cardiology - Interventional 11/02/19 Vani Mohan MD [address] [place] [address] Dermatology 11/02/19
--- OUTSIDE RECORDS SUMMARY | 2023-09-03 12:39 | XMS_ITS | Encounter Summary ---
Author Organization [facility] Address [address] [place] [address] Care Team Providers Care Stores Clerk Name Role Phone Elsewhere, Pcp Primary Care Provider Unavailabl e Reason for Visit * Reason Onset Date Comments Pre-visit Intake 06/24/2023 Encounter Details Date Type Department Care Team (Latest Contact Info) Description 06/24/2023 3:15 PM CDT Clinical Communication Virtual Review in [place], [place] 200 [place] [address] Pre-visit Intake Social History Tobacco Use Types [...] and heating? Not hard at all 02/06/2023 [facility] [place] of Occupat ional Health - Occupational Stress [...] your living situation today? I have a [facility] place to live 02/06/2023 Education Answer Date Recorded What is the highest level of school you have completed or the highest degree you have received? 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, VALVE STEAMER, ISSAC) 12/19/2018 Sex and Gender Information Value Date Recorded Sex Assigned at Female Gender Identity Female Sexual Orientation Straight documented as of this encounter Plan of Treatment Not on file documented as of this encounter Visit Diagnoses Not on filedocumented in this encounter Care Teams Stores Clerk Relationship Specialty Start Date End Date Elsewhere, Pcp PCP - General Internal Medicine 11/14/20 documented as of this encounter
--- OUTSIDE RECORDS SUMMARY | 2023-09-03 12:39 | XMS_ITS | Encounter Summary ---
Author Organization [facility] Address [address] [place] [address] Care Team Providers Care Warehouse Record Clerk Name Role Phone Elsewhere, Pcp Primary Care Provider Unavailabl e Reason for Visit * Outpatient (Routine) - Closed Specialty Diagnoses / Procedures Referred By Jesse morales Referred To Contact Dermatology Diagnoses Dermatitis Allergic Contact Cassidy Mak M.D. [address] [place] [phone] [facility] Referral ID Status Reason Start Date Expiration Date Visits Re quested Visits Authorized [id number] Closed 02/06/2023 02/05/2026 1 1 Encounter Details Date Type Department Care Team ([facility] st Contact Info) Description 06/07/2023 11:20 AM CDT Office Visit Department of Dermatology in [place], [place] [address] [place] [phone] Cassidy Mak M.D. [address] [place] [phone] Other Atopic Dermatitis (Primary Dx); Dermatitis Allergic [...] or relatives? Twice a week 10/21/2019 Attends Rastafari Services Not on file 10/20 Active Member [...] and heating? Not hard at all 02/06/2023 [facility] [place] of Occupat ional Health - Occupational Stress [...] Master's degree (e.g., BELKYS, MS, Frida, MEd, REGIONAL CLINICAL RESEARCH ASSOCIATE, ISSAC) 12/19/2018 Sex and Gender Information Value [...] or years ago, while shewas living in [place]. She reports using triamcinolone cream that she uses with the help of her partner, Warren, on her back. She also has Protopic that she uses. Allergies Allergen Reactions Atorvastatin Myalgia and Rash Intolerance Benzophenone Rash [place] Chloride Rash Ten Sleep chloride hexahydrate Coconut Diethanolamide (Bulk) Rash Diazepam Other (see comments) Makes her more restless, anxious. Dibutyl Phthalate Rash Diphenhydramine Other (see comments) internal heat Paradoxical rx per patient. Possible that benadryl actually keeps pt awake Diphenhydramine Hcl Other (see comments) Dmdm Hydantoin Rash Ethyl Xletuxpk-Pr-Rodtnk Methacrylate Rash Formaldehyde Rash Hydrochlorothiazide Other (see [...] held off as it currently would not regional climate change analyst. - ultimately, we discussed that topicals and [...] behalf by Salena Riley, a trained medical pathology teacher. The creation of this record is based [...] Psoriasis documented in this encounter Care Teams Warehouse Record Clerk Relationship Specialty Start Date End Date Elsewhere, Pcp PCP - General Internal Medicine 11/14/20 documented as of this encounter
--- OUTSIDE RECORDS SUMMARY | 2023-09-03 12:39 | XMS_ITS | Clinical Summary ---
Author Organization [facility] Address [address] [place] [address] Care Team Providers Care Physician Support Coordinator Name Role Phone Elsewhere, Pcp Primary Care Provider Unavailabl e Source Comments Patient records contain information from all sites at [facility]. For routine questions regarding patient records, call [phone] during business hours, M-F 8:00 AM - 5:00 PM Central Time. Record requests for emergency care only can be directed to [phone] at any time[address] Allergies Active Allergy Reactions Criticality Noted Date Comments Atorvastatin Myalgia,Rash 10/01/2013 Intolerance Benzophenone Rash 04/23/2018 [place] Chloride Rash 04/23/2018 [place] chloride hexahydrate Coconut Diethanolamide (Bulk) Rash 04/23/2018 Diazepam Other (see comments) 04/22/2010 Makes her more restless, anxious. Dibutyl Phthalate Rash 04/23/2018 Diphenhydramine Other (see comments) 04/06/2010 internal heat Paradoxical rx per patient. Possible that benadryl actually keeps pt awake Diphenhydramine Hcl Other (see comments) 08/27/2013 Dmdm Hydantoin Rash 04/23/2018 Ethyl Fmmrlcvx-Uv-Tbjshr Methacrylate Rash 04/23/2018 Formaldehyde Rash 12/10/2017 Hydrochlorothiazide [...] times a day. 09/29/2015 Active FISH,SAF,FLX,BRG OILS/O3,6,9N2 (ZCQR-LNNM-CEKCYA OIL ORAL) Take by mouth. 02/22/2014 Active [...] both eyes as needed. 06/26/2017 Active omega 6-etz-tmc-fish oil 1,000 mg (120 mg-180 mg) capsule [...] Overview: Paroxysmal Ventricular Tachycardia Followed by [facility] outside of [facility] Encounters Date Type Department Care Team Description 06/25/2023 2:00 PM CDT Comprehensive Visit Department of Urology in [place], [place] [address] [place] [phone] Bjorn Mittal M.D. Urgency Urinary (Primary Dx) 06/25/2023 12:00 PM CDT - 06/25/2023 11:59 PM CDT Hospital Encounter Department of Laboratory Medicine and Pathology, [facility], in [place], [place] [address] [place] [phone] Bjorn Mittal M.D. Incontinence Urinary Discharge Disposition: Home or Self Care 06/24/2023 3:15 PM CDT Clinical Communication Virtual Review in [place], [place] 200 [place] [address] Pre-visit Intake 06/07/2023 11:20 AM CDT Office Visit Department of Dermatology in [place], [place] [address] [place] [phone] Cassidy Mak M.D. Other Atopic Dermatitis (Primary Dx); Dermatitis Allergic Contact; Other Psoriasis 06/06/2023 Clinical Communication Department of Urology in [place], [place] [address] [place] [phone] Bjorn Mittal M.D. 06/04/2023 2:15 PM CDT Procedure visit Department of Urology in [place], [place] [address] [place] [address] Bjorn Mittal M.D. Mary Coy Urinary Urge Incontinence [N39.41] (Primary Dx); Incontinence Urinary from Last 3 Months Immunizations Name Administration Dates Next Due Influenza, Unspecified 12/30/2012 Family History Medical History Relation Name Comments Coronary artery disease Maternal Grandfather Wilmar Alexis mpson Diabetes Maternal Grandfather Wilmar Mcdonald decea sed Stroke Maternal Grandfather Wilmar Mcdonald Dementia Maternal Grandmother Annia Dorsey hompson Coronary artery disease Mother Domonique Alanis wn Diabetes Mother Domonique Gomez Hypertension Mother Domonique Gomez Stroke Mother Domonique Gomez Coronary artery disease Paternal Grandfather Bert Mercer n Stroke Paternal Grandfather Bert Gomez Amblyopia Neg Hx Cataracts Neg Hx Glaucoma Neg Hx Macular degeneration Neg Hx Retinal detachment Neg Hx Strabismus Neg Hx Relation Name Status Comments Maternal Grandfather Wilmar Mcdonald Maternal Grandmother Annia Mcdonald Mother Domonique Gomez Paternal Grandfather Bert Gomez [...] or relatives? Twice a week 10/21/2019 Attends Gnosticist Services Not on file 10/20 Active Member [...] and heating? Not hard at all 02/06/2023 [facility] [place] of Occupat ional Health - Occupational Stress [...] your living situation today? I have a [facility] place to live 02/06/2023 Education Answer Date Recorded What is the highest level of school you have completed or the highest degree you have received? 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, GRAPE GROWER, ISSAC) 12/19/2018 Sex and Gender Information Value [...] Fall Risk Screen (Annual) 03/25/2023 COVID-19 Vaccine (8 2022-2 4 season) 2023 01/08/2023, 08/09/2022, 12/29/2021, Additional history exists DTaP,Tdap,and Td Vaccines (3 - Td or Tdap) 06/06/2031 06/05/2021, 08/08/2010, 03/03/2004 Pneumococcal vaccine (65+ years) Completed 05/28/19, 02/13/2008 Zoster Vaccines Completed 07/17/2018, 04/26, 02/18/2007 [...] Dipstick, Urine (06/25/2023 3:54 PM CDT) Pathologist [facility] Hemoglobin, QL, U Negative Negative 06/25/2023 4:13 [...] Soft Results Interface LAB URINE ORDERAB LES [facility] [address] [facility] [address] [place] [address] * Microscopic Automated (06/25/2023 3:54 PM CDT) Pathologist [facility] Microscopy Normal 06/25/2023 4:13 PM CDT DTL RBC None Seen <3 /hpf 06/25/2023 4:13 PM CDT DTL WBC 1-3 /hpf 06/25/2023 4:13 PM CDT DTL Comment: ----REFERENCE VALUE---- <4 ??(Males) <11 (Females) Squamous Epithelial Cells, U 1-3 /hpf 06/25/2023 4:13 PM CDT DT Urine 06/25/2023 3:54 PM CDT 06/25/2023 3:54 PM CDT Soft Results Interface LAB URINE ORDERAB LES Performing Organization Address City[facility]/ZIP Co de Phone Number [facility] [address] [place] [address] * pH, Urine (06/25/2023 3:54 PM CDT) pH, U 6.7 4.5 - 8.0 06/25/2023 4:3 9 PM CDT [facility] Urine 06/25/2023 3:54 PM CDT 06/25/2023 3:54 PM CDT Soft Results Interface LAB URINE ORDERAB LES Performing Organization Address City[facility]/ZIP Co de Phone Number [facility] [address] [place], [place] [phone] [place] [address] 200 [place] [address] * Osmolality, Urine (06/25/2023 3:54 PM CDT) Osmolality, U 458 150 - 1150 mOsm/kg 06/25/2023 4:39 PM CDT DT Urine 06/25/2023 3:54 PM CDT 06/25/2023 3:54 PM CDT Soft Results Interface LAB URINE ORDERAB LES Performing Organization Address City/[facility]/ZIP Co de Phone Number [facility] [address] [place] [address] * Urinalysis, with Microscopic: Urine, Midstream (06/25/2023 [...] Bjorn Mittal M.D. LAB URINE ORDERABL ES [facility] [address] [place] [address], [facility] [address] [place] [address] * URO Uroflow (06/04/2023 2:15 PM CDT) [...] Recently Relevant to Health Maintenance Care Teams Physician Support Coordinator Relationship Specialty Start Date End Date Elsewhere, Pcp PCP - General Internal Medicine 11/14/20
--- OUTSIDE RECORDS SUMMARY | 2023-09-03 12:39 | XMS_ITS | Encounter Summary ---
Author Organization [facility] Address [address] [place] [address] Care Team Providers Care Funeral Home Location Manager Name Role Phone Elsewhere, Pcp Primary Care Provider Unavailabl e Reason for Referral * Outpatient (Routine) - Closed Specialty Diagnoses / Procedures Referred By Jesse morales Referred To Contact Diagnoses Incontinence Urinary Procedures URO Uroflow Bjorn Mittal M.D. [address] [place] [address] [facility] Referral ID Status Reason Start Date Expiration Date Visits Re quested Visits Authorized [id number] Closed 05/27/2023 05/26/2024 1 1 E ARCHIVIST Encounter Details Date Type Department Care Team (Late st Contact Info) Description 05/27/2023 Orders Only Department of Urology in [place], [place] [address] [place] [phone] [facility], Provider Incontinence Urinary Social History Tobacco Use [...] and heating? Not hard at all 02/06/2023 [facility] [place] of Occupat ional Health - Occupational Stress [...] your living situation today? I have a [facility] place to live 02/06/2023 Education Answer Date Recorded What is the highest level of school you have completed or the highest degree you have received? 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, MATCHER OPERATOR, ISSAC) 12/19/2018 Sex and Gender Information [...] CDT Bjorn Mittal M.D. LAB URINE ORDERABL [facility] [address] [place] [address], [facility] [address] [place] [address] * URO Uroflow (06/04/2023 2:15 PM CDT) [...] Urinary documented in this encounter Care Teams Funeral Home Location Manager Relationship Specialty Start Date End Date Elsewhere, Pcp PCP - General Internal Medicine 11/14/20 documented as of this encounter
--- OUTSIDE RECORDS SUMMARY | 2023-09-03 12:39 | XMS_ITS | Encounter Summary ---
Author Organization [facility] Address [address] [place] [address] Care Team Providers Care Wind Turbine Technician Name Role Phone Elsewhere, Pcp Primary Care Provider Unavailabl e Reason for Visit * Outpatient (Routine) - Closed Specialty Diagnoses / Procedures Referred By Jesse morales Referred To Contact Diagnoses Incontinence Urinary Procedures URO Uroflow Bjorn Mittal M.D. [address] [place] [phone] [facility] Referral ID Status Reason Start Date Expiration Date Visits Re quested Visits Authorized [id number] Closed 05/27/2023 05/26/2024 1 1 Encounter Details Date Type Department Care Team (Latest Contact Info) Description 06/04/2023 2:15 PM CDT Procedure visit Department of Urology in [place], [place] [address] [place] [phone] Bjorn Mittal M.D. [address] [place] [phone] Mary Coy [address] [place] [phone] Urinary Urge Incontinence [N39.41] (Primary Dx); Incontinence [...] or relatives? Twice a week 10/21/2019 Attends Nondenominational Services Not on file 10/20 Active Member [...] and heating? Not hard at all 02/06/2023 [facility] - Occupational Stress Questionnaire Answer Date [...] 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, ANNOUNCER, ISSAC) 12/19/2018 Sex and Gender Information Value [...] Urinary documented in this encounter Care Teams Wind Turbine Technician Relationship Specialty Start Date End Date Elsewhere, Pcp PCP - General Internal Medicine 11/14/20 documented as of this encounter
--- OUTSIDE RECORDS SUMMARY | 2023-09-03 12:39 | XMS_ITS | Referral Summary ---
Author Organization [facility] Address [address] [place] [address] Care Team Providers Care Feed Management Advisor Name Role Phone Elsewhere, Pcp Primary Care Provider Unavailabl e Source Comments Patient records contain information from all sites at [facility]. For routine questions regarding patient records, call [phone] during business hours, M-F 8:00 AM - 5:00 PM Central Time. Record requests for emergency care only can be directed to [phone] at any time.[facility] Encounters Date Type Department Care Team Description 06/25/2023 12:00 PM CDT - 06/25/2023 11:59 PM CDT Hospital Encounter Department of Laboratory Medicine and Pathology, [facility] in [address] [address] Bjorn Mittal M.D. Incontinence Urinary Discharge Disposition: Home or Self Care 06/25/2023 2:00 PM CDT Comprehensive Visit Department of Urology in [address] [address] Bjorn Mittal M.D. Urgency Urinary (Primary Dx) 06/24/2023 3:15 PM CDT Clinical Communication Virtual Review in [address] [address] Pre-visit Intake 06/07/2023 11:20 AM CDT Office Visit Department of Dermatology in [address] [address] Cassidy Mak M.D. Other Atopic Dermatitis (Primary Dx); Dermatitis Allergic Contact; Other Psoriasis 06/06/2023 Clinical Communication Department of Urology in [place], [place] [address] [place] [address] Bjorn Mittal M.D. 06/04/2023 2:15 PM CDT Procedure visit Department of Urology in [place], [place] [address] [place] [address] Bjorn Mittal M.D. Mary Coy Urinary Urge Incontinence [N39.41] (Primary Dx); Incontinence Urinary from Last 3 Months Allergies Active Allergy Reactions Criticality Noted Date Comments Atorvastatin Myalgia,Rash 10/01/2013 Intolerance Benzophenone Rash 04/23/2018 Cameron Chloride Rash 04/23/2018 Cameron chloride hexahydrate Coconut Diethanolamide (Bulk) Rash 04/23/2018 Diazepam Other (see comments) 04/22/2010 Makes her more restless, anxious. Dibutyl Phthalate Rash 04/23/2018 Diphenhydramine Other (see comments) 04/06/2010 internal heat Paradoxical rx per patient. Possible that benadryl actually keeps pt awake Diphenhydramine Hcl Other (see comments) 08/27/2013 Dmdm Hydantoin Rash 04/23/2018 Ethyl Ylyfdibw-Qw-Cemxyg Methacrylate Rash 04/23/2018 Formaldehyde Rash 12/10/2017 Hydrochlorothiazide [...] times a day. 09/29/2015 Active FISH,SAF,FLX,BRG OILS/O3,6,9N2 ([id number] OIL ORAL) Take by mouth. 02/22/2014 Active [...] both eyes as needed. 06/26/2017 Active omega 7-jqt-bgi-fish oil 1,000 mg (120 mg-180 mg) capsule [...] Overview: Paroxysmal Ventricular Tachycardia Followed by [facility] outside of [facility] Immunizations Name Administration Dates Next Due Influenza, [...] at all 02/06/2023 [facility] of Occupat ional Health - Occupational Stress [...] your living situation today? I have a [facility] place to live 02/06/2023 Education Answer Date Recorded What is the highest level of school you have completed or the highest degree you have received? 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, ISSAC) 12/19/2018 Sex and Gender Information [...] Soft Results Interface LAB URINE ORDERAB LES [facility] [address] [place] [address], [facility] DTL [facility] [address] [place] [address] * Microscopic Automated (06/25/2023 3:54 PM CDT) [...] Soft Results Interface LAB URINE ORDERAB LES [facility] [address] 200 [place] [address] * pH, Urine (06/25/2023 3:54 PM CDT) pH, U 6.7 4.5 - 8.0 06/25/2023 4:3 9 PM CDT DTL Urine 06/25/2023 3:54 PM CDT 06/25/2023 3:54 PM CDT Soft Results Interface LAB URINE ORDERAB LES Performing Organization Address City/[facility] Co de Phone Number [facility] [address] [place], [place] [id number] [place] [address] 200 [place] [address] * Osmolality, Urine (06/25/2023 3:54 PM CDT) Osmolality, U 458 150 - 1150 mOsm/kg 06/25/2023 4:39 PM CDT DT Urine 06/25/2023 3:54 PM CDT 06/25/2023 3:54 PM CDT Soft Results Interface LAB URINE ORDERAB LES Performing Organization Address City/[facility]/ZIP Co de Phone Number [facility] [address] [place] [address], [facility] 200 [place] [address] * Urinalysis, with Microscopic: Urine, Midstream (06/25/2023 [...] Bjorn Mittal M.D. LAB URINE ORDERABL ES [facility] [address] [place] [address], [facility] [address] [facility] [place] [address] * URO Uroflow (06/04/2023 2:15 PM CDT) [...] Recently Relevant to Health Maintenance Care Teams Feed Management Advisor Relationship Specialty Start Date End Date Elsewhere, Pcp PCP - General Internal Medicine 11/14/20
--- OUTSIDE RECORDS SUMMARY | 2023-09-03 12:39 | XMS_ITS | Encounter Summary ---
Author Organization [facility] Address [address] [place] [address] Care Team Providers Care Pretzel Twister Name Role Phone Elsewhere, Pcp Primary Care Provider Unavailabl e Reason for Visit * Appointment Request (Routine) - Closed Specialty Diagnoses / Procedures Referred By Jesse morales Referred To Contact Urology Diagnoses Incontinence Urinary Bladder Disorder Referral ID Status Reason Start Date Expiration Date Visits Re quested Visits Authorized [id number] Closed 05/27/2023 05/26/2024 1 1 Encounter Details Date Type Department Care Team (Latest Contact Info) Description 06/25/2023 2:00 PM CDT Comprehensive Visit Department of Urology in [place], [place] [address] [place] [address] Bjorn Mittal M.D. [address] [place] [phone] Urgency Urinary (Primary Dx) Social History Tobacco [...] or relatives? Twice a week 10/21/2019 Attends [employer] Services Not on file 10/20 Active Member [...] and heating? Not hard at all 02/06/2023 [facility] of Occupat ional Health - Occupational [...] living situation today? I have a [facility] place to live 02/06/2023 Education Answer Date Recorded What is the highest level of school you have completed or the highest degree you have received? 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, SORT WORKER, ISSAC) 12/19/2018 Sex and Gender Information Value [...] a week., Disp: , Rfl: FISH,SAF,FLX,BRG OILS/O3,6,9N2 ([id number]-[id number] OIL ORAL), Take by mouth., Disp: , Rfl: losartan (COZAAR) 100 mg tablet, Take 100 mg by mouth., Disp: , Rfl: LOTEMAX 0.5 % ophthalmic ointment, Apply to both eyes as needed., Disp: , Rfl: mometasone (ELOCON) 0.1 % cream, Apply 1 application topically daily as needed (Rash)., Disp: 45 g,Rfl: 3 omega 7-uwk-pvr-fish oil 1,000 mg (120 mg-180 mg) capsule, [...] for flares., Disp: 454 g, Rfl: 3 pyzqwwhnziusj-ohbiet-ydcyengq 0.1-2 % kit, Apply 1 application topically [...] Atorvastatin Myalgia and Rash Intolerance Benzophenone Rash [place] Chloride Rash [place] chloride hexahydrate Coconut Diethanolamide (Bulk) Rash Diazepam Other (see comments) Makes her more restless, anxious. Dibutyl Phthalate Rash Diphenhydramine Other (see comments) internal heat Paradoxical rx per patient. Possible that benadryl actually keeps pt awake Diphenhydramine Hcl Other (see comments) Dmdm Hydantoin Rash Ethyl Tmfoayci-Kz-Eltsko Methacrylate Rash Formaldehyde Rash Hydrochlorothiazide Other (see [...] 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, SORT WORKER, ISSAC) Occupational History Employer: RETIRED Tobacco Use [...] Primary documented in this encounter Care Teams Pretzel Twister Relationship Specialty Start Date End Date Elsewhere, Pcp PCP - General Internal Medicine 11/14/20 documented as of this encounter
--- OUTSIDE RECORDS SUMMARY | 2023-09-03 12:39 | XMS_ITS | Encounter Summary ---
Author Organization [facility] Address [address] [place] [address] Care Team Providers Care Nature Photographer Name Role Phone Elsewhere, Pcp Primary Care Provider Unavailabl e Encounter Details Date Type Department Care Team (Late st Contact Info) Description 06/06/2023 Clinical Communication Department of Urology in [place], [place] [address] [place] [address] Bjorn Mittal M.D. [address] [place] [address] Social History Tobacco Use Types Packs/Day Years [...] or relatives? Twice a week 10/21/2019 Attends Pent[employer] Services Not on file 10/20 Active Member [...] and heating? Not hard at all 02/06/2023 [facility] of Occupat ional Health - Occupational Stress [...] your living situation today? I have a [facility] place to live 02/06/2023 Education Answer Date Recorded What is the highest level of school you have completed or the highest degree you have received? 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, RN SOCIAL WORK, ISSAC) 12/19/2018 Sex and Gender Information Value Date Recorded Sex Assigned at Female Gender Identity Female Sexual Orientation Straight documented as of this encounter Plan of Treatment Not on file documented as of this encounter Visit Diagnoses Not on filedocumented in this encounter Care Teams Nature Photographer Relationship Specialty Start Date End Date Elsewhere, Pcp PCP - General Internal Medicine 11/14/20 documented as of this encounter
--- OUTSIDE RECORDS SUMMARY | 2023-09-03 12:39 | XMS_ITS | Encounter Summary ---
Author Organization [facility] Address [address] [place] [address] Care Team Providers Care Antique Clocks Repairer Name Role Phone Elsewhere, Pcp Primary Care Provider Unavailabl e Encounter Details Date Type Department Care Team (Latest Contact Info) Description 06/25/2023 12:00 PM CDT - 06/25/2023 11:59 PM CDT Hospital Encounter Department of Laboratory Medicine and Pathology, [facility] in [place], [place] [address] [place] [address] Bjorn Mittal M.D. [address] [place] [phone] Incontinence Urinary Discharge Disposition: Home or Self [...] or relatives? Twice a week 10/21/2019 Attends Orthodox Services Not on file 10/20 Active Member [...] and heating? Not hard at all 02/06/2023 [facility]ational Stress Questionnaire Answer Date Recorded [...] your living situation today? I have a [facility] place to live 02/06/2023 Education Answer Date Recorded What is the highest level of school you have completed or the highest degree you have received? 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, GEOGRAPHY FACULTY MEMBER, ISSAC) 12/19/2018 Sex and Gender Information Value [...] cream once a week. 10/03/2020 FISH,SAF,FLX,BRG OILS/O3,6,9N2 (UZJR-HYDK-EXDHNC OIL ORAL) Take by mouth. 02/22/2014 losartan (COZAAR) 100 mg tablet Take 100 mg by mouth. 07/04/2017 LOTEMAX 0.5 % ophthalmic ointment Apply to both eyes as needed. 06/26/2017 mometasone (ELOCON) 0.1 % cream Apply 1 application topically daily as needed (Rash). 45 g 3 11/05/2019 omega 1-lnm-rxd-fish oil 1,000 mg (120 mg-180 mg) capsule [...] needed for flares. 454 g 3 02/06/2023 kzcihipjnvykc-dfapur-oc licone 0.1-2 % kit Apply 1 application [...] LAB URINE ORDERAB LES Performing Organization Address City/[facility]/ZIP Co de Phone Number [facility] [address] 200 [place] [address] * pH, Urine (06/25/2023 3:54 PM CDT) [facility] pH, U 6.7 4.5 - 8.0 06/25/2023 4:3 9 PM CDT DTL Urine 06/25/2023 3:54 PM CDT 06/25/2023 3:54 PM CDT Soft Results Interface LAB URINE ORDERAB LES [facility] 200 [place] [address], [facility] 200 [place] [address] * Osmolality, Urine (06/25/2023 3:54 PM CDT) Pathologist [facility] Osmolality, U 458 150 - 1150 mOsm/kg 06/25/2023 4:39 PM CDT DTL Urine 06/25/2023 3:54 PM CDT 06/25/2023 3:54 PM CDT Soft Results Interface LAB URINE ORDERAB LES Performing Organization Address [facility] Co de Phone Number [facility] 200 [place] [address], [facility] DTL [facility] 200 [place] [address] * Microscopic Automated (06/25/2023 3:54 PM CDT) [...] LAB URINE ORDERAB LES Performing Organization Address City/[facility] Co de Phone Number [facility] [address] [place] [address], [facility] DTL [facility] [address] [place] [address] * Urinalysis, with Microscopic: Urine, Midstream (06/25/2023 [...] Bjorn Mittal M.D. LAB URINE ORDERABL ES [facility] [address] [place] [address], [facility] [address] [place] [address] documented in this encounter Visit Diagnoses Diagnosis Incontinence Urinary documented in this encounter Care Teams Antique Clocks Repairer Relationship Specialty Start Date End Date Elsewhere, Pcp PCP - General Internal Medicine 11/14/20 documented as of this encounter
--- OUTSIDE RECORDS SUMMARY | 2023-09-03 12:39 | XMS_ITS ---
Author Organization [facility] Address [address] [place] [address] Care Team Providers Care Director Athletic Name Role Phone Unavailable Unavailable Unavailable Surgery Details Not on file Complications Check Surgery Details section. Procedure Estimated Blood Loss Check Surgery Details section. Procedure Findings Check Surgery Details section. Procedure Specimens Taken Check Surgery Details section.
--- OUTSIDE RECORDS SUMMARY | 2023-09-03 12:40 | XMS_ITS | Continuity of Care Document ---
Author Organization [facility] Address [address] [place] [address] Phone Care Team Providers Care Fuel Retrofitting Technician Name Role Phone Lukas Noguera MD Unavailable [...] take one capsule daily - Active Ultimate [place] CALCIO JUAN (unknown strength) take one daily [...] [facility], [address], [place], [address], [place] tel:[phone] [facility] , No Information 2 Chuckie Serrano [facility] [address], [place], [address], [place]. tel:[phone] Referring Provider: Lukas Pacheco, [facility] [address], [place], [address]. tel:[phone] [facility], [address], [place], [address], [place] tel:[phone] [facility] , No Information 2 Chuckie Gaytan. [facility] [address], [place], [address], [place]. tel:[phone] Family History Family Member Type Diagnosis Age At Onset No Information Payers Payer name Insurance type Covered constitution party ID Nisreena carolyn(s) [facility] [id number] Social History Type Description Quantity Date Captured [...]
== END 2023-08-15 08:30 | disposition home or self-care (01) ==
LOC: NFLDREF 09-03 12:36
PROVIDERS: PCP Internal Medicine; Referring Provider Internal Medicine; Visit Provider Internal Medicine
DX: E53.8 Deficiency of other specified B group vitamins (principal); E78.5 Hyperlipidemia, unspecified
CPT/HCPCS: 80061; 82607

== ENCOUNTER 2023-08-18 15:28 | Emergency (ER) | payer MEDICARE, SELFPAY ==
[2023-08-18 15:38] VITALS: BP 180/79; PULSE 75; RESP 16; TEMP 36.4; O2SAT 98; BMI 26.5
--- NOTE | 2023-08-18 16:11 | ED.GENADULT ---
HPI - General Adult General Chief complaint: Skin/Abscess/Foreign Body Stated complaint: Fall; hurt right arm Time Seen by Provider: 08/18/23 16:00 Source: patient Mode of arrival: ambulatory Limitations: no limitations History of Present Illness HPI narrative: 82-year-old female coming in today complaining of skin lacerations after she fell from her chair at home. Patient was sitting at her desk working her computer when she stood up her foot got caught on a chair and she fell sideways onto her right arm. She denies pain in the arm aside from where she has her lacerations. She has full range of motion. She states that she hit her head it on the side of the chair. She states that she did not lose consciousness. She denies headache. She denies being on blood thinner side from aspirin. She states that he had struck the chair very softly and she is not concerned about it. She denies any vomiting, confusion, changes in her speech. She denies any focal neurologic deficits. She denies any neck pain. Tetanus shot is up-to-date. Related Data Home Medications ?Medication ?Instructions ?Recorded ?Confirmed aspirin 81 mg chewable tablet 81 mg PO QDAY 10/12/21 07/18/23 cetirizine 10 mg tablet 10 mg PO DAILY 10/12/21 07/18/23 omega 8-zxy-kvy-fish oil 300 1 cap PO QDAY 10/12/21 07/18/23 mg-1,000 mg capsule (Fish Oil) propafenone 150 mg tablet 150 mg PO TID 10/12/21 07/18/23 tacrolimus 0.03 % topical ointment 1 topical PRN 10/12/21 07/18/23 triamcinolone acetonide 0.1 % 1 applic topical .Daily as needed 10/12/21 07/18/23 topical ointment PRN amlodipine 5 mg tablet 5 mg PO BID 12/04/21 07/18/23 estradiol 0.01% (0.1 mg/gram) 1 g vaginal QWEEK 12/21/21 07/18/23 vaginal cream clobetasol 0.05 % topical ointment g topical 05/28/22 07/18/23 desonide 0.05 % topical ointment 1 applic topical BID PRN 05/28/22 07/18/23 Previous Rx's ?Medication ?Instructions ?Recorded betamethasone dipropionate 0.05 % 1 applic topical .2x/week #45 grams 12/21/21 topical ointment losartan 100 mg tablet 100 mg PO DAILY #90 tabs 04/24/22 cyanocobalamin (vitamin B-12) 1,000 mcg PO DAILY #90 tabs 10/09/22 1,000 mcg tablet ciclopirox 1 % shampoo 5 ml topical .2X Weekly #120 mL 10/25/22 rosuvastatin 10 mg tablet 10 mg PO .Bedtime #90 tabs 08/09/23 Allergies Allergy/AdvReac Type Severity Reaction Status Date / Time hydrochlorothiazide Allergy Intermediate Unknown Verified 07/18/23 14:52 lanolin Allergy Intermediate Unknown Verified 07/18/23 14:52 trifluridine Allergy Intermediate Verified 07/18/23 14:52 atorvastatin Allergy Mild Unknown Verified 07/18/23 14:52 iodine Allergy Mild Unknown Verified 07/18/23 14:52 lisinopril Allergy Mild Unknown Verified 07/18/23 14:52 rofecoxib Allergy Mild Unknown Verified 07/18/23 14:52 simvastatin Allergy Mild Unknown Verified 07/18/23 14:52 formaldehyde Allergy Unknown Verified 07/18/23 14:52 methylisothiazolinone Allergy Unknown Verified 07/18/23 14:52 neomycin Allergy Unknown Unknown Verified 07/18/23 14:52 propylene glycol Allergy Unknown Unknown Verified 07/18/23 14:52 sodium benzoate Allergy Unknown Verified 07/18/23 14:52 diazepam Allergy Intermediate Unknown Uncoded 07/18/23 14:52 trifluridine Allergy Intermediate Unknown Uncoded 07/18/23 14:52 Review of Systems Status of ROS: Reports: 10 or more systems reviewed and unremarkable except as noted in History and below [facility] Medical History History of keratitis ?Z86.69 - Personal history of other diseases of the nervous system and sense organs (ICD-10) Surgical History History of hand surgery ?Z98.890 - Other specified postprocedural states (ICD-10) History of tonsillectomy (~1940) ?Z90.89 - Acquired absence of other organs (ICD-10) History of incisional hernia repair (1971) ?Z98.890 - Other specified postprocedural states (ICD-10) ?Z87.19 - Personal history of other diseases of the digestive system (ICD-10) History of bilateral tubal ligation (1970) ?Z98.51 - Tubal ligation status (ICD-10) History of phacoemulsification of cataract of both eyes with intraocular lens implantation (2016) ?Z98.41 - Cataract extraction status, right eye (ICD-10) ?Z98.42 - Cataract extraction status, left eye (ICD-10) ?Z96.1 - Presence of intraocular lens (ICD-10) History of total bilateral knee replacement (TKR) (2010) ?Z96.653 - Presence of artificial knee joint, bilateral (ICD-10) Family History Mother Stroke Coronary artery disease Diabetes Maternal Grandmother Stroke Maternal Grandfather Coronary artery disease Social History Smoking Status: Never smoker Do you use any of these nicotine containing products: None Second hand tobacco smoke exposure: No How often do you have a drink containing alcohol: monthly or less How often do you have six or more drinks on one occasion: Never AUDIT-C Alcohol total score: 1 Non-prescribed substance use: denies use Little interest or pleasure in doing things: not at all Feeling down, depressed, or hopeless: not at all service: No Exam Narrative: Exam Narrative: Well-nourished well-developed patient in no acute distress. Alert and oriented x3. Answers questions appropriately. Mood and affect are appropriate. Thoughts are goal oriented and rational. No tangential or magical thinking noted. Patient speaks in full sentences without needing to catch their breath. Speech is not slurred or pressured. GCS is 15. HEENT: Normocephalic atraumatic. Pupils are equally round reactive to light. Extraocular muscles are intact. Conjunctivae are moist without any icterus noted. Moist mucous membranes. Posterior pharynx is normal. Neck is soft without any lymphadenopathy or thyromegaly. No masses are appreciated. Scalp is without any lesions. There is no evidence of facial hematoma, ecchymosis or erythema. Cardiovascular: Heart is regular rate and rhythm. Lungs: Clear to auscultation bilaterally. Patient takes deep breaths without any discomfort. Abdomen: Soft and nontender nondistended with normal bowel sounds. Extremities: Bilateral lower extremities are without edema. Normal DP and PT pulses. In significant bruising noted. Left upper extremity appears normal. Right upper extremity has a skin avulsion of the forearm and a smaller 1 at the elbow. She has full range of motion at the shoulder, elbow, wrist. Hand regulatory affairs assistant is normal and symmetric. She has no tenderness across the clavicle. Back: Normal appearance. She has no tenderness to palpation of the cervical, thoracic or lumbar spine. She is able to get up and down from the bed out difficulty. Skin: Well perfused, Const: Vital Signs, click to edit/add: Vital Signs - 24 hr 08/18/23 15:38 Temperature 97.6 F Pulse Rate [Pulse Oximeter] 75 Respiratory Rate 16 Blood Pressure [Le ft Upper Arm] 180/79 H Pulse Oximetry 98 Oxygen Delivery Me thod Room Air Course Course ED Course: 82-year-old female with skin avulsions of the right upper extremity. Her wounds were cleaned and dressed today. Because of the nature of the avulsions there is nothing significant for us to suture. We discussed suturing the flap of skin down the forearm patient is not interested in doing that. She would rather just do a dressing. I think that it will be fine and it will heal appropriately. Vital Signs Vital signs: Initial Vital Signs Temperature 97.6 F 08/18/23 15:38 Temperature Source Temporal Artery Scan 08/18/23 15:38 Pulse Rate 75 08/18/23 15:38 Respiratory Rate 16 08/18/23 15:38 Blood Pressure 180/79 H 08/18/23 15:38 Blood Pressure Mean 112 H 08/18/23 15:38 Blood Pressure Position Sitting 08/18/23 15:38 Pulse Oximetry 98 08/18/23 15:38 Oxygen Delivery Method Room Air 08/18/23 15:38 Vital Signs Temperature 97.6 F 08/18/23 15:38 Pulse Rate 75 08/18/23 15:38 Respiratory Rate 16 08/18/23 15:38 Blood Pressure 180/79 H 08/18/23 15:38 Pulse Oximetry 98 08/18/23 15:38 Oxygen Delivery Method Room Air 08/18/23 15:38 Temperature 97.6 F 08/18/23 15:38 Pulse Rate 75 08/18/23 15:38 Respiratory Rate 16 08/18/23 15:38 Blood Pressure 180/79 H 08/18/23 15:38 Pulse Oximetry 98 08/18/23 15:38 Oxygen Delivery Method Room Air 08/18/23 15:38 Medical Decision Making MDM Narrative Medical decision making narrative: Fall, skin avulsions. Treated per above. Given that the patient is not having any neurologic symptoms nor a headache and there is no evidence of trauma to the head, we did not do any imaging at this time. Patient does prefer it this way. Discussed reasons to follow up including neurologic deficits, ultimate status, confusion, headache. Patient was in agreement and had no other questions. Discharge Plan Discharge Clinical Impression: Fall, Avulsion of skin Patient Disposition: Home, Self-Care Condition: Stable Additional Instructions: Change dressing on your arm once daily. Watch for signs of infection which include redness of the arm that spreads up and down the arm. If this occurs follow-up in the ER right away. Avoid soaking the arm until it is healed. Return to the ER if you develop vomiting, confusion, a significant headache or changes in your speech. Prescriptions: No Action cetirizine 10 mg tablet 10 mg PO DAILY omega 7-mto-awr-fish oil [Fish Oil] 300-1,000 mg capsule 1 cap PO QDAY propafenone 150 mg tablet 150 mg PO TID Rx Instructions: space evenly during waking hours aspirin 81 mg tablet,chewable 81 mg PO QDAY triamcinolone acetonide 0.1 % ointment 1 applic topical .Daily as needed PRN Rx Instructions: APPLY TO AFFECTED AREA tacrolimus 0.03 % ointment 1 topical PRN desonide 0.05 % ointment 1 applic topical BID PRN estradiol 0.01 % (0.1 mg/gram) cream 1 g vaginal QWEEK Rx Instructions: Medication to be put into individually filled applicators. betamethasone dipropionate 0.05 % ointment 1 applic topical .2x/week Qty: 45 5RF amlodipine 5 mg tablet 5 mg PO BID clobetasol 0.05 % ointment topical losartan 100 mg tablet 100 mg PO DAILY Qty: 90 1RF cyanocobalamin (vitamin B-12) 1,000 mcg tablet 1,000 mcg PO DAILY Qty: 90 3RF ciclopirox 1 % shampoo 5 ml topical .2X Weekly Qty: 120 0RF Rx Instructions: 5 ml equal to one appliaction rosuvastatin 10 mg tablet 10 mg PO .Bedtime Qty: 90 0RF Follow Up/Referrals: Marley Abrams MD [Primary Care Provider] - Stand Alone Forms: [facility] [employer] Info Instructions
[2023-08-18 16:30] VITALS: BP 180/79; PULSE 75; RESP 16; TEMP 36.4
--- OUTSIDE RECORDS SUMMARY | 2023-08-18 16:32 | XMS_ITS | Encounter Summary ---
Author Organization [facility] Address [address] [place] [id number] Care Team Providers Care Civil Celebrant Name Role Phone Elsewhere, Pcp Primary Care Provider Unavailabl e Reason for Visit * Appointment Request (Routine) - Closed Specialty Diagnoses / Procedures Referred By Jesse morales Referred To Contact Urology Diagnoses Incontinence Urinary Bladder Disorder Referral ID Status Reason Start Date Expiration Date Visits Re quested Visits Authorized [id number] Closed 05/27/2023 05/26/2024 1 1 Encounter Details Date Type Department Care Team (Latest Contact Info) Description 06/25/2023 2:00 PM CDT Comprehensive Visit Department of Urology in [place], [place] [address] [place] [id number] Bjorn Mittal M.D. [address] [place] [phone] Urgency Urinary (Primary Dx) Social History Tobacco Use Types Packs/Day Years Used Date Smoking Tobacco: Never Passive Smoke Exposure: Past Smokeless Tobacco: Never Comments:Childhood exposure Alcohol Use Standard Drinks/Week Comments Yes 11 (1 standard drink = 0.6 oz pu re alcohol) gin/tonic Social Connection and Isolation Panel [NHANES] A nswer Date Recorded In a typical week, how many times do you talk on the phone with family, friends, or neighbors? Three times a week 10/21/2019 How often do you get togethe r with friends or relatives? Twice a week 10/21/2019 Attends Judaism Services Not on file 10/20 Active Member of Clubs or Organizations Not on f ile 10/21/2019 Attends Club or Organization Meetings Not on lowell e 10/21/2019 Marital Status Not on file 10/21/2019 AUDIT-C Answer Date Recorded Q1: How often do you have a drink containing alcohol? 4 or more times a week 10/21/2019 Average Number of Drinks Not on file 020 Frequency of Binge Drinking Not on file 09/23 Overall Financial Resource Strain (CARDIA) Answe r Date Recorded How hard is it for you to pa y for the very basics like food, housing, medical care, and heating? Not hard at all 02/06/2023 [facility] - Occupational Stress Questionnaire Answer Date Recorded Feeling of Stress Only a little 12/19/2018 Exercise Vital Sign Answer Date Recorde d On average, how many days pe r week do you engage in moderate to strenuous exercise (like a brisk walk)? 5 days Minutes of Exercise per Session Not on file 02/06/2023 Hunger Vital Sign Answer Date Recorded Within the past 12 months, y ou worried that your food would run out before you got the money to buy more. Never true 02/07/20 Within the past 12 months, t he food you bought just didn't last and you didn't have money to get more. Never true 02/06/2023 PRAPARE - Transportation Answer Date Re corded In the past 12 months, has l ack of transportation kept you from medical appointments or from getting medications? No 01/23 In the past 12 months, has l ack of transportation kept you from meetings, work, or from getting things needed for daily living? No 02/06/2023 Nutrition Answer Date Recorded Nutrition: EVOO Fat Source Unknown 02/06 On average, how many serving s of fruits and vegetables do you eat per day (serving size is equal to 1 cup or approximately the size of a tennis ball)? 0-2 02/06/2023 Dental Answer Date Recorded Dental: Regular Dentist Yes 02/07/20 Employment Answer Date Recorded Employment status Retired 02/06/2023 Housing Stability Answer Date Recorded What is your living situation today? I have a [facility] place to live 02/06/2023 Education Answer Date Recorded What is the highest level of school you have completed or the highest degree you have received? 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 - 06/25/2023 2:00 PM CDT REFERRAL SOURCE The patient is being seen in consultation at the request of No referring provider defined for this encounter. CHIEF COMPLAINT Urinary incontinence HISTORY OF PRESENT ILLNESS Ms. Atwood is a 82 y.o. female who presents today for evaluation and management of urinary incontinence. Patient reports long history of urgency and urge incontinence. Patient reports urinary frequency every 1-2 hours. This is associated with urge leakage and she wears 1-2 pads per day. Patient denies noted stress incontinence. No hematuria. No history of recurrent UTI. Patient reports 1-3 cups of coffee per day she also drinks wine at night in addition to beers occasionally. Uroflow 06/04/2023: Peak flow 17 ml/sec Average flow 9 ml/sec Total voided volume 234 mls Residual urine 120 ml by ultrasound Detrusor flow pattern LUTS: Frequency, urgency, and urge incontinence. No hematuria. Anticoagulation/Antiplatelets: baby Aspirin once daily Abdominal surgical history: inguinal hernial repair, tubal ligation Pertinent medical history: HTN, HLD, Ventricular tachycardia Family history of malignancy: none PAST MEDICAL/SURGICAL HISTORY MEDICAL Patient Active Problem List Diagnosis Date Noted Hypertensive Heart Disease Without Heart Failure 10/10/2012 Tachycardia Ventricular Paroxysmal (HCC) 10/10/2012 Past Medical History: Diagnosis Date Cataract Conjunctivitis NOS Dermatitis Atopic Dermatitis Eczema Defective skin barrier Glaucoma Suspect Ocular Hypertension Bilateral Hyperlipidemia Hypertension NOS Inflammation Eyelid Osteopenia Last bone density test improved Other Injury Of Unspecified Body Region 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 April 2016 Other Specified Health Status Ventricular Tachycardia Psoriasis 1987 - no longer have psoriasis SURGICAL Past Surgical History: Procedure Laterality Date HERNIA REPAIR 1939' IRIDOTOMY / IRIDECTOMY JOINT REPLACEMENT 2010, 2011 TONSILLECTOMY 1939' TUBAL LIGATION 1971 MEDICATIONS Current Outpatient Medications: amLODIPine (for_NORVASC) 5 mg tablet, Take 1 tablet by mouth daily., Disp: , Rfl: amoxicillin (AMOXIL) 500 mg capsule, PRN before dental work, Disp: , Rfl: aspirin [address] tablet, once a day, Disp: , Rfl: Ca carb-Ca gluc-Mg ox-Mg gluco 500 mg calcium -250 mg tablet, Take by mouth., Disp: , Rfl: cephalexin (KEFLEX) 500 mg capsule, , Disp: , Rfl: cetirizine (ZyrTEC) 10 mg tablet, Take 1 tablet by mouth 2 (two) times a day as needed., Disp: , Rfl: cholecalciferol (VITAMIN D3) 125 mcg (5,000 Unit) tablet, Take 5,000 Units by mouth daily., Disp: ,Rfl: ciclopirox 1 % shampoo, , Disp: , Rfl: clobetasoL (TEMOVATE) 0.05 % external solution, Apply topically 2 (two) times a day as needed (psoriasis). (Patient not taking: Reported on 02/05/2023), Disp: 50 mL, Rfl: 3 clobetasoL (TEMOVATE) 0.05 % ointment, Apply 1 Application topically 2 (two) times a day. Apply to worst/itchiest areas of body twice a day x2 weeks in a row for itching., Disp: 60 g, Rfl: 3 cyanocobalamin (VITAMIN B12) 1,000 mcg tablet, Take 1,000 mcg by mouth., Disp: , Rfl: desonide (DESOWEN) 0.05 % ointment, APPLY TO AFFECTED AREA(S) TOPICALLY TWICE DAILY NEEDED (Patient not taking: Reported on 02/05/2023), Disp: 90 g, Rfl: 3 estradioL (ESTRACE) 0.1 mg/g (0.01%) vaginal cream, once a week., Disp: , Rfl: FISH,SAF,FLX,BRG OILS/O3,6,9N2 (LPKF-IBCM-GYWIZO OIL ORAL), Take by mouth., Disp: , Rfl: losartan (COZAAR) 100 mg tablet, Take 100 mg by mouth., Disp: , Rfl: LOTEMAX 0.5 % ophthalmic ointment, Apply to both eyes as needed., Disp: , Rfl: mometasone (ELOCON) 0.1 % cream, Apply 1 application topically daily as needed (Rash)., Disp: 45 g,Rfl: 3 omega 5-dtw-rri-fish oil 1,000 mg (120 mg-180 mg) capsule, Take by mouth., Disp: , Rfl: pimecrolimus (ELIDEL) 1 % cream, Apply 1 application topically 2 (two) times a day., Disp: , Rfl: propafenone (for_RHTHYMOL) 150 mg tablet, Take 1 tablet by mouth 3 (three) times a day., Disp: , Rfl: rosuvastatin (CRESTOR) 10 mg tablet, Take 10 mg by mouth., Disp: , Rfl: tacrolimus (Protopic) 0.1 % ointment, Apply 1 Application topically 2 (two) times a day., Disp: 100g, Rfl: 3 triamcinolone (KENALOG) 0.1 % ointment, Apply to affected areas on trunk and extremities two times a day as needed., Disp: 80 g, Rfl: 11 triamcinolone (KENALOG) 0.1 % ointment, Apply 1 Application topically 2 (two) times a day as neededfor rash. Apply to affected areas. Use for 2 weeks in a row. Repeat as needed for flares., Disp: 454 g, Rfl: 3 gsrculgorapfi-ybqrht-patphoto 0.1-2 % kit, Apply 1 application topically 3 (three) times a day., Disp: , Rfl: triamcinolone-dimethicone 0.1-5 % kit,ointment and cream, Apply topically., Disp: , Rfl: turmeric 400 mg capsule, Take 400 mg by mouth., Disp: , Rfl: valACYclovir (VALTREX) 500 mg tablet, Take 500 mg by mouth as needed., Disp: , Rfl: ALLERGIES Allergies Allergen Reactions Lanolin Other (see comments) Atorvastatin Myalgia and Rash Intolerance Benzophenone Rash [place] Chloride Rash [place] chloride hexahydrate Coconut Diethanolamide (Bulk) Rash Diazepam Other (see comments) Makes her more restless, anxious. Dibutyl Phthalate Rash Diphenhydramine Other (see comments) internal heat Paradoxical rx per patient. Possible that benadryl actually keeps pt awake Diphenhydramine Hcl Other (see comments) Dmdm Hydantoin Rash Ethyl Ryqqlrqe-Ls-Jslfeh Methacrylate Rash Formaldehyde Rash Hydrochlorothiazide Other (see comments), Itching and Rash Possibly severe eczematous like rash - not certain extreme internal heat verified lac Iodine Other (see comments) woozy Unknown reaction - patient thought it was from an allergy pill that iodine Lisinopril Cough Mercaptopurine Rash Methylisothiazolinone Rash Neomycin Sulfate Rash Nickel Sulfate Rash Peppermint Oil Rash Propylene Glycol Rash Rofecoxib Other (see comments) felt awful on 2 doses Vioxx,Not sure of the reaction, but she knows that after 3 days it made her feel like she should not have this drug in her body. 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, [employer]) Occupational History Employer: RETIRED Tobacco Use Smoking status: Never Passive exposure: Past Smokeless tobacco: Never Tobacco comments: Childhood exposure Vaping Use Vaping Use: never used Substance and Sexual Activity Alcohol use: Yes Alcohol/week: 11.0 standard drinks of alcohol Types: 4 Glasses of wine, 3 Shots of liquor, 4 Standard drinks or equivalent per week Comment: gin/tonic Drug use: Never Sexual activity: Yes Partners: Male control/protection: Tubal ligation (tubes tied), None Other Topics Concern Not on file Social History Narrative Not on file Social Determinants of Health Food Insecurity: No Food Insecurity (02/06/2023) Hunger Vital Sign Worried About Running Out of Food in the Last Year: Never true Ran Out of Food in the Last Year: Never true Transportation Needs: No Transportation Needs (02/06/2023) PRAPARE - Transportation Lack of Transportation (Medical): No Lack of Transportation (Non-Medical): No Physical Activity: Unknown (02/06/2023) Exercise Vital Sign Days of Exercise per Week: 5 days Minutes of Exercise per Session: Not on file Intimate Partner Violence: Not on file Housing Stability: Low Risk (02/06/2023) Housing Stability Housing: Living Situation: I have a steady place to live FAMILY HISTORY Family History Problem Relation Age of Onset Diabetes Mother Hypertension Mother Stroke Mother Coronary artery disease Mother Diabetes Maternal Grandfather Stroke Maternal Grandfather Coronary artery disease Maternal Grandfather Dementia Maternal Grandmother Stroke Paternal Grandfather Coronary artery disease Paternal Grandfather Cataracts Neg Hx Glaucoma Neg Hx Macular degeneration Neg Hx Retinal detachment Neg Hx Strabismus Neg Hx Amblyopia Neg Hx SYSTEMS REVIEW Additionally, a complete 10 point review of systems was conducted and was negative except for what was mentioned above in the HPI and/or endorsed on the patient survey. PHYSICAL EXAMINATION There were no vitals taken for this visit. General: NAD Mental status: AAOx3 Psychiatric: appropriate disposition HEENT: NCAT, conjugate gaze LABS Lab Results Component Value Date NA 141 06/05/2021 CL 105 06/05/2021 BUN 15 06/05/2021 CO2 25 06/05/2021 HGB 14.3 11/14/2020 HCT 42.7 11/14/2020 WBC 6.3 11/14/2020 Lab Results Component Value Date/Time CREATININE 0.91 06/05/2021 02:46 PM CREATININE 0.84 11/14/2020 02:00 PM CREATININE 0.87 05/09/2020 05:56 PM CREATININE 0.94 04/24/2019 11:36 AM CREATININE 0.95 08/13/2018 02:51 PM CREATININE 0.87 04/15/2018 11:17 AM MICROBIOLOGY/CULTURE DATA Microbiology Results (last 30 days) No results found for the last 720 hours. PATHOLOGY No results found for this or any previous visit (from the past 720 hour(s)). IMAGING AND TESTS No results found. IMPRESSION/REPORT/PLAN #1 Urgency and Urge incontinence I met with the patient and discussed the various types of urinary incontinence (stress, urge, mixed). The patient has urgency urinary incontinence For management of her urgency urinary incontinence we reviewed options including observation, pelvic floor physical therapy/biofeedback, E-stim therapy, oral medications, vaginal estrogen, and third line options (PTNS, Bladder Botox, Sacral Neuromodulation). We reviewed medication for overactive bladder including anticholinergics and beta three agonist. Side effects and benefits of these medications were carefully reviewed with the patient. We specifically reviewed what PTNS entails, with 12 weekly office procedures followed by maintenance therapy. We discussed the risks, including but not limited to: bleeding, localized discomfort, infection, lack of efficacy. She understands there are other options available if her symptoms persist. We also discussed bladder Botox and that it can be performed in the office or operating room. We discussed risks, including but not limited to: bleeding, urinary tract infection, urinary retention requiring self catheterization, need for retreatment over time as the response to Botox is transient. Finally, we reviewed what sacral neuromodulation entails, with 2 outpatient procedures. She understands following initial lead placement, she would have a roughly 1-2 week trial period to assess for improvement. The goal would be greater than 50% improvement in her urinary symptoms, as assessed by bladder diary. Following results of that, we would either return to the OR to place the IPG versus proceeding with lead removal. We discussed the risks, benefits of the procedure with risks including,but not limited to: infection (necessitating device removal), bleeding, injury to adjacent organ, lack of efficacy, need for device reprogramming, need for device removal or revision over time (for changes in position, painful stimulation, decreased success), need for battery exchange over time, and the risks of anesthesia. She understands the postoperative activity restrictions as well as the difference in batteries (rechargeable versus non-rechargeable). Ultimately, the patient decided to proceed with lifestyle modification was limiting caffeine intakeas well as alcohol. All questions answered to the patient's satisfaction. Electronically signed by: Devin Keenan, B.Ch. 06/25/23 2:24 PM CDT * Bjorn Mittal M.D. - 06/25/2023 2:00 PM CDT I have personally reviewed the past medical history, pertinent review of systems, family history, surgical history and physical exam. I have discussed the case with my clinical team and I agree with the plan and action as outlined by my team. documented in this encounter Plan of Treatment Not on file documented as of this encounter Visit Diagnoses Diagnosis Urgency Urinary- Primary documented in this encounter Care Teams Civil Celebrant Relationship Specialty Start Date End Date Elsewhere, Pcp PCP - General Internal Medicine 11/14/20 documented as of this encounter
--- OUTSIDE RECORDS SUMMARY | 2023-08-18 16:32 | XMS_ITS | Clinical Summary ---
Author Organization [facility] Address [address] [place] [address] Care Team Providers Care Review Engineer Name Role Phone Elsewhere, Pcp Primary Care Provider Unavailabl e Source Comments Patient records contain information from all sites at [facility]. For routine questions regarding patient records, call [phone] during business hours, M-F 8:00 AM - 5:00 PM Central Time. Record requests for emergency care only can be directed to [phone] at any time.[facility] Allergies Active Allergy Reactions Criticality Noted Date Comments Atorvastatin Myalgia,Rash 10/01/2013 Intolerance Benzophenone Rash 04/23/2018 [place] Chloride Rash 04/23/2018 [place] chloride hexahydrate Coconut Diethanolamide (Bulk) Rash 04/23/2018 Diazepam Other (see comments) 04/22/2010 Makes her more restless, anxious. Dibutyl Phthalate Rash 04/23/2018 Diphenhydramine Other (see comments) 04/06/2010 internal heat Paradoxical rx per patient. Possible that benadryl actually keeps pt awake Diphenhydramine Hcl Other (see comments) 08/27/2013 Dmdm Hydantoin Rash 04/23/2018 Ethyl Lqqogusf-Xb-Bhodby Methacrylate Rash 04/23/2018 Formaldehyde Rash 12/10/2017 Hydrochlorothiazide Other (see comments),Itchin g,Rash 05/11/2015 Possibly severe eczematous like rash - not certain extreme internal heat verified lac Iodine Other (see comments) 11/06/2016 woozy Unknown reaction - patient thought it was from an allergy pill that iodine Lanolin Other (see comments) High 07/05/2022 Lisinopril Cough 10/10/2012 Mercaptopurine Rash 04/23/2018 Methylisothiazolinone Rash 04/23/2018 Neomycin Sulfate Rash 04/23/2018 Nickel Sulfate Rash 04/23/2018 Peppermint Oil Rash 04/23/2018 Propylene Glycol Rash 12/10/2017 Rofecoxib Other (see comments) 11/06/2016 felt awful on 2 doses Vioxx,Not sure of the reaction, but she knows that after 3 days it made her feel like she should not have this drug in her body. Shellac Rash 04/23/2018 Simvastatin Myalgia 10/01/2013 Sodium Benzoate Rash 04/23/2018 Tert-Butylhydroquinone Rash 04/23/2018 Thiuram Analogues Rash 04/23/2018 Tixocortol Rash 04/23/2018 tixocortol - 21 Trifluridine Edema (Reselect Reaction),Hives (Reselect Reaction) 10/23/2016 Medications Medication Sig Dispensed Refills Start Date End Date Status propafenone (for_RHTHYMOL) 150 mg tablet Take 1 tablet by mouth 3 (three) times a day. 08/29/2012 Active amLODIPine (for_NORVASC) 5 mg tablet Take 1 tablet by mouth daily. 09/29/2015 Active pimecrolimus (ELIDEL) 1 % cream Apply 1 application topically 2 (two) times a day. 09/29/2015 Active FISH,SAF,FLX,BRG OILS/O3,6,9N2 (TBKO-PPYT-NHBMMG OIL ORAL) Take by mouth. 02/22/2014 Active triamcinolone-dimeth -silicone 0.1-2 % kit Apply 1 application topically 3 (three) times a day. 09/29/2015 Active Ca carb-Ca gluc-Mg ox-Mg gluco 500 mg calcium -250 mg tablet Take by mouth. 07/03/2016 Active cholecalciferol (VITAMIN D3) 125 mcg (5,000 Unit) tablet Take 5,000 Units by mouth daily. 05/15/2016 Active ciclopirox 1 % shampoo 04/29/2017 Active LOTEMAX 0.5 % ophthalmic ointment Apply to both eyes as needed. 06/26/2017 Active omega 9-cli-kop-fish oil 1,000 mg (120 mg-180 mg) capsule Take by mouth. 07/03/2016 Ac tive triamcinolone-dimeth icone 0.1-5 % kit,ointment and cream Apply topically. 06/14/2017 Active cetirizine (ZyrTEC) 10 mg tablet Take 1 tablet by mouth 2 (two) times a day as needed. 04/26/[address] tablet once a day 06/26/2001 Active losartan (COZAAR) 100 mg tablet Take 100 mg by mouth. 07/04/2017 Active rosuvastatin (CRESTOR) 10 mg tablet Take 10 mg by mouth. 05/16/2017 Acti ve mometasone (ELOCON) 0.1 % cream Apply 1 application topically daily as needed (Rash). 45 g 3 11/05/2019 Active amoxicillin (AMOXIL) 500 mg capsule PRN before dental work 07/13/2019 Active cephalexin (KEFLEX) 500 mg capsule 02/15/2019 Active cyanocobalamin (VITAMIN B12) 1,000 mcg tablet Take 1,000 mcg by mouth. 03/01/2021 Active estradioL (ESTRACE) 0.1 mg/g (0.01%) vaginal cream once a week. 10/03/2020 Active turmeric 400 mg capsule Take 400 mg by mouth. 07/21/2020 Active valACYclovir (VALTREX) 500 mg tablet Take 500 mg by mouth as needed. Active desonide (DESOWEN) 0.05 % ointment APPLY TO AFFECTED AREA(S) TOPICALLY TWICE DAILY NEEDED 90 g 3 11/30/2021 Active Additional Information Patient not taking.Reported on 02/05/2023 clobetasoL (TEMOVATE) 0.05 % external solution Apply topically 2 (two) times a day as needed (psoriasis). 50 mL 3 11/29/2021 Active Additional Information Patient not taking.Reported on 02/05/2023 triamcinolone (KENALOG) 0.1 % ointment Apply to affected areas on trunk and extremities two times a day as needed. 80 g 11 04/11/2022 Active triamcinolone (KENALOG) 0.1 % ointmentIndications: Dermatitis Allergic Contact Apply 1 Application topically 2 (two) times a day as needed for rash. Apply to affected areas. Use for 2 weeks in a row. Repeat as needed for flares. 454 g 3 02/06/2023 Active clobetasoL (TEMOVATE) 0.05 % ointmentIndications: Other Psoriasis Apply 1 Application topically 2 (two) times a day. Apply to worst/itchiest areas of body twice a day x2 weeks in a row for itching. 60 g 3 06/07/2023 Active tacrolimus (Protopic) 0.1 % ointmentIndications: Other Atopic Dermatitis Apply 1 Application topically 2 (two) times a day. 100 g 3 06/07/2023 Active Active Problems Problem Noted Date Diagnosed Date Hypertensive Heart Disease Without Heart Failure 10/10/2012 Overview: Hypertension Tachycardia Ventricular Paroxysmal 10/10/2012 Overview: Paroxysmal Ventricular Tachycardia Followed by [facility] outside of [facility] Encounters Date Type Department Care Team Description 06/25/2023 2:00 PM CDT Comprehensive Visit Department of Urology in [place], [place] [address] [place] [phone] Bjorn Mittal M.D. Urgency Urinary (Primary Dx) 06/25/2023 12:00 PM CDT - 06/25/2023 11:59 PM CDT Hospital Encounter Department of Laboratory Medicine and Pathology, [facility], in [place], [place] [address] [place] [phone] Bjorn Mittal M.D. Incontinence Urinary Discharge Disposition: Home or Self Care 06/24/2023 3:15 PM CDT Clinical Communication Virtual Review in [place], [place] [address] [place] [address] Pre-visit Intake 06/07/2023 11:20 AM CDT Office Visit Department of Dermatology in [place], [place] [address] [place] [phone] Cassidy Mak M.D. Other Atopic Dermatitis (Primary Dx); Dermatitis Allergic Contact; Other Psoriasis 06/06/2023 Clinical Communication Department of Urology in [place], [place] [address] [place] [phone] Bjorn Mittal M.D. 06/04/2023 2:15 PM CDT Procedure visit Department of Urology in [place], [place] [address] [place] [address] Bjorn Mittal M.D. Mary Coy Urinary Urge Incontinence [N39.41] (Primary Dx); Incontinence Urinary 05/27/2023 Orders Only Department of Urology in [place], [place] [address] [place] [address] [facility], Provider Incontinence Urinary from Last 3 Months Immunizations Name Administration Dates Next Due Influenza, Unspecified 12/30/2012 Family History Medical History Relation Name Comments Coronary artery disease Maternal Grandfather Wilmar Alexis mpson Diabetes Maternal Grandfather Wilmar Mcdonald decea sed Stroke Maternal Grandfather Wilmar Mcdonald Dementia Maternal Grandmother Annia Grey Arabella Dorsey homcody Coronary artery disease Mother Domonique Alanis wn Diabetes Mother Domonique Gomez Hypertension Mother Domonique Gomez Stroke Mother Domonique Gomez Coronary artery disease Paternal Grandfather Bert Mercer n Stroke Paternal Grandfather Bert Gomez Amblyopia Neg Hx Cataracts Neg Hx Glaucoma Neg Hx Macular degeneration Neg Hx Retinal detachment Neg Hx Strabismus Neg Hx Relation Name Status Comments Maternal Grandfather Wilmar Mcdonald Maternal Grandmother Annia Fryr Harry Mother Domonique Gomez Paternal Grandfather Bert Gomez Social History Tobacco Use Types Packs/Day Years [...] or relatives? Twice a week 10/21/2019 Attends [employer] Not on file 10/20 Active Member [...] and heating? Not hard at all 02/06/2023 [facility] - Occupational Stress [...] your living situation today? [place] [facility] a [facility] to live 02/06/2023 Education Answer Date Recorded What is the highest level of school you have completed or the highest degree you have received? 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, [employer]) 12/19/2018 Sex and Gender Information Value Date Recorded Sex Assigned at Female Gender Identity Female Sexual Orientation Straight Last Filed Vital Signs Vital Sign Reading Time Taken Comments Blood Pressure 171/76 08/31/2022 1:15 PM CDT Pulse 67 08/31/2022 1:15 PM CDT Temperature 36.2 ??C (97.2 ??F) 08/31/2022 1:15 PM CD T Respiratory Rate 20 08/31/2022 1:15 PM CDT Oxygen Saturation 97% 08/31/2022 11: 20 AM CDT Inhaled Oxygen Concentration - - Weight 62.5 kg (137 lb 12.6 oz) 023 11:21 AM CDT Height 154.9 cm (5' 1) 08/31/2022 11:2 1 AM CDT Body Mass Index 26.03 08/31/2022 11:21 AM CDT Plan of Treatment Health Maintenance Due Date Last Done Comments Office Visit for Blood Press ure Check / Re-check 1940 Creatinine Level (Kidney Fun ction Test) 06/05/2022 06/05/2021, 11/14/2020, 05/09/2020, Additional history exists Potassium Level 06/05/2022 06/05/2021, 10/24, 05/09/2020, Additional history exists Sodium Level 06/05/2022 06/05/2021, 10/24, 05/09/2020, Additional history exists Depression Screening (Annual PHQ-2) 03/25/2023 Fall Risk Screen (Annual) 03/25/2023 COVID-19 Vaccine (2022-04 4 season) 2023 01/08/2023, 08/09/2022, 12/29/2021, Additional history exists DTaP,Tdap,and Td Vaccines (3 - Td or Tdap) 06/06/2031 06/05/2021, 08/08/2010, 03/03/2004 Pneumococcal vaccine (65+ years) Completed 05/28/19 15, 02/13/2008 Zoster Vaccines Completed 07/17/2018, 04/26, 02/18/2007 Influenza Vaccine Completed 01/08/2023, , 12/21/2020, Additional history exists Procedures Procedure Name Priority Date/Time Associated Diagnosis Comments DIPSTICK, U Routine 06/25/2023 3:54 PM CDT PH, U Routine 06/25/2023 3:54 PM CDT OSMOLALITY, U Routine 06/25/2023 3:54 PM CDT MICROSCOPIC AUTOMATED Routine 06/25/2023 3:54 PM CDT URINALYSIS WITH MICROSCOPIC Routine 06/25/2023 3:54 PM CDT Incontinence Urinary URO UROFLOW Routine 06/04/2023 2:15 PM CDT Incontinence Urinary EXTI BASIC METABOLIC PANEL, S/P Routine 06/05/2021 2:46 PM CDT from Last 3 Months or Most Recently Relevant to Health Maintenance Results * (ABNORMAL) Dipstick, Urine (06/25/2023 3:54 PM CDT) Hemoglobin, QL, U Negative Negative 06/25/2023 4:13 PM CDT DTL Leukocyte Esterase, U Small(A) Negative 06/25/2023 4:13 PM CDT DTL Nitrite, U Negative Negative 06/25/2023 4:13 PM CDT DTL Ketone, U Negative Negative mg/dL 06/25/2023 4:13 PM CDT DTL Glucose, U Negative Negative mg/dL 06/25/2023 4:13 PM CDT DTL Urine 06/25/2023 3:54 PM CDT 06/25/2023 3:54 PM CDT Soft Results Interface LAB URINE ORDERAB LES [facility] [address] [place] [address], [facility] DTL [facility] [address] [place] [address] * Microscopic Automated (06/25/2023 3:54 PM CDT) Microscopy Normal 06/25/2023 4:13 PM CDT DTL RBC None Seen <3 /hpf 06/25/2023 4:13 PM CDT DTL WBC 1-3 /hpf 06/25/2023 4:13 PM CDT DTL Comment: ----REFERENCE VALUE---- <4 ??(Males) <11 (Females) Squamous Epithelial Cells, U 1-3 /hpf 06/25/2023 4:13 PM CDT DTL Urine 06/25/2023 3:54 PM CDT 06/25/2023 3:54 PM CDT Soft Results Interface LAB URINE ORDERAB LES [facility] [address] [place], [place] [address] [address] [place] [address] * pH, Urine (06/25/2023 3:54 PM CDT) pH, U 6.7 4.5 - 8.0 06/25/2023 4:3 9 PM CDT DTL Urine 06/25/2023 3:54 PM CDT 06/25/2023 3:54 PM CDT Soft Results Interface LAB URINE ORDERAB LES Performing Organization Address City/[facility]/ZIP Co de Phone Number [facility] [address] [place] [address], [facility] [address] [place] [address] * Osmolality, Urine (06/25/2023 3:54 PM CDT) Osmolality, U 458 150 - 1150 mOsm/kg 06/25/2023 4:39 PM CDT DT Urine 06/25/2023 3:54 PM CDT 06/25/2023 3:54 PM CDT Soft Results Interface LAB URINE ORDERAB LES Performing Organization Address City/[facility]/ZIP Co de Phone Number [facility] [address] [place] [address], [facility] [address] [place] [address] * Urinalysis, with Microscopic: Urine, Midstream (06/25/2023 3:54 PM CDT) Source Urine, Urine, Midstream 06/25/2023 3:54 PM CDT DTL Color, U Yellow 06/25/2023 3:54 PM CDT DTL Clarity, U Clear 06/25/2023 3:54 PM CDT DTL Protein, U 10 <26 mg/dL 06/25/2023 6:02 PM CDT DTL Protein/Osmol ality 0.22 <0.42 ratio 06/25/2023 6:02 PM CDT DTL Predicted 24 HR Protein, U 168 <229 mg/24 h 06/25/2023 6:02 PM CDT DTL Predicted Range 41-680 mg/24 h 06/25/2023 6:02 PM CDT DTL Urine (Urine, Midstream) 06/25/2023 3:54 PM CDT 06/25/2023 3:54 PM CDT Bjorn Mittal M.D. LAB URINE ORDERABL ES [facility] [address] [place] [address], [facility] [address] [place] [address] * URO Uroflow (06/04/2023 2:15 PM CDT) Narrative Bjorn Mittal M.D. - 06/04/2023 2:15 PM CDT Bjorn Mittal M.D. ? 06/05/2023 ??8:18 AM REASON FOR VISIT: Uroflow: The patient here for a complex uroflow via calibrated electronic equipment and a residual urine check by ultrasound. FINDINGS: Peak flow 17 ml/sec Average flow 9 ml/sec Total voided volume 234 mls Residual urine 120 ml by ultrasound Detrusor flow pattern IMPRESSION: Moderate Q max with normal bladder capacity and elevated postvoid residual. Bjorn Mittal M.D. UROLOGY ORDERABLES from Last 3 Months or Most Recently Relevant to Health Maintenance Care Teams Review Engineer Relationship Specialty Start Date End Date Elsewhere, Pcp PCP - General Internal Medicine 11/14/20
--- OUTSIDE RECORDS SUMMARY | 2023-08-18 16:32 | XMS_ITS | Clinical Summary ---
Author Organization [employer] Address [place], [place] [address] Care Team Providers Care Project Coach Name Role Phone Zuly Huber MD Unavailable Vani Mohan MD Unavailable [phone] Marley Abrams MD Primary Care Provider [phone] Allergies Active Allergy Reactions Criticality Noted Date Comments Atorvastatin Myalgia 10/01/2013 Intolerance Benzophenone Rash 04/23/2018 [place] Chloride Rash 04/23/2018 [place] chloride hexahydrate Coconut Diethanolamide (Bulk) Rash 04/23/2018 Diazepam *Unknown 04/22/2010 Makes her more restless, anxious. Dibutyl Phthalate Rash 04/23/2018 Diphenhydramine Other - Describe In Comment Field 04/06/2010 Paradoxical rx per patient. Possible that benadryl actually keeps pt awake Dmdm Hydantoin Rash 04/23/2018 Ethyl Dyzvljmv-Vf-Khottv Methacrylate Rash 04/23/2018 Formaldehyde Atopic Dermatitis 12/10/2017 Hydrochlorothiazide Rash 05/11/2015 Possibly severe eczematous like rash Iodine Unknown reaction - patient thought it was from an allergy pill that iodine Lisinopril Cough 10/20/2012 Mercaptopurine Rash 04/23/2018 Methylisothiazolinone Rash 04/23/2018 Neomycin Sulfate Rash 04/23/2018 Nickel Sulfate Rash 04/23/2018 Unlisted Allergen (Include Detail In Comments) Rash 04/23/2018 Black rubber mix, Disperse [place] 3, Dodecyl gallate, Ethylenediamine dihydrochloride, glyceryl thioglycolate, hydroperoxide of limonene, hydroperoxide of linalool, lodopropynyl butyl carbamate, lauryl polyglucose, MCI/CO, P-Phenylenediamine Peppermint Oil Rash 04/23/2018 Propylene Glycol Atopic Dermatitis 12/10/2017 Rofecoxib Intolerance-Can' t Take Vioxx,Not sure of the reaction, but she knows that after 3 days it made her feel like she should not have this drug in her body. Shellac Rash 04/23/2018 Simvastatin Myalgia 10/01/2013 Sodium Benzoate Rash 04/23/2018 Tert-Butylhydroquinone Rash 04/23/2018 Thiuram Analogues Rash 04/23/2018 Tixocortol Rash 04/23/2018 tixocortol - 21 Trifluridine Hives,Edema 10/23/2016 Medications Medication Sig Dispensed Refills Start Date End Date Status ADULT LOW DOSE ASPIRIN 81 MG ORAL TBEC once a day ? 0 06/27/19 02 Active Rlfmi-3-TVE-EPA-Fi sh Oil (FISH OIL) 1,000 mg (120 mg-180 mg) cap Take by mouth. 0 07/04/19 17 Active tacrolimus 0.03% (PROTOPIC) 0.03 % ointment Apply topically to affected area(s) 2 times daily. 0 05/08/19 18 Active triamcinolone-dime thicone 0.1-5 % ktoc Apply topically to affected area(s). 0 06/15/19 18 Active LOTEMAX 0.5 % ophthalmic ointment 06/19/19 19 Active mometasone 0.1% (ELOCON 0.1% CREAM) 0.1 % cream Apply topically to affected area(s). 11/05/19 20 Active cetirizine (ZyrTEC) 10 mg tablet Take 1 Tablet (10 mg) by mouth. Twice daily 0 07/22/19 21 Active desonide 0.05% (TRIDESILON 0.05% OINTMENT) 0.05 % ointment Apply topically to affected area(s) 2 times daily. 0 07/22/19 21 Active estradioL (ESTRACE) 0.01% (0.1 mg/g) vaginal creamIndications:A trophic vaginitis 1g intravaginally 1-2 times weekly for control of vaginal dryness 42.5 g 07/14/19 22 Active Ciclopirox 1 % shamIndications:Se borrheic dermatitis of scalp USE TWO TIMES WEEKLY DIRECTED 120 mL 1 09/12/19 22 Active triamcinolone (ARISTOCORT) 0.1 % ointmentIndication s:Psoriasis Apply topically to affected area(s) once daily. 80 g 04/11/19 23 Active rosuvastatin (CRESTOR) 10 mg tabletIndications: Hyperlipidemia, unspecified hyperlipidemia type TAKE 1 TABLET BY MOUTH AT BEDTIME 90 Tablet 05/15/19 23 Active amLODIPine (NORVASC) 5 mg tabletIndications: Hypertension Take 1 Tablet (5 mg) by mouth once daily. 90 Tablet 3 07/07/19 23 Active Vitamin B-12 1,000 mcg tabletIndications: Memory problem,Low vitamin B12 level TAKE ONE TABLET BY MOUTH EVERY DAY 90 Tablet 07/10/19 23 Active losartan (COZAAR) 100 mg tabletIndications: Hypertension Take 1 Tablet (100 mg) by mouth once daily. Additional refills to be received at upcoming appt with Dr. Huber in August Tablet 08/12/19 24 Active propafenone (RYTHMOL) 150 mg tabletIndications: Paroxysmal ventricular tachycardia (HC) Take 1 Tablet (150 mg) by mouth every 8 hours. More refills provided at completion of appointment scheduled 09/03/[address] Huber. 270 Tablet 08/16/19 24 Active propafenone (RYTHMOL) 150 mg tabletIndications: Paroxysmal ventricular tachycardia (HC) Take 1 Tablet (150 mg) by mouth every 8 hours. 270 Tablet 3 07/07/19 23 024 Discontinued losartan (COZAAR) 100 mg tabletIndications: Hypertension Take 1 Tablet (100 mg) by mouth once daily. 90 Tablet 1 01/21/20 23 024 Discontinued(Re order (E-cancel not sent)) Active Problems Patient Care Coordination No te Formatting of this note migh t be different from the original. HF/Structural Research Eligibility Review Date: 03/09/19 The patient did not qualify for any currently enrolling studies at the time of this review. 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 Atopic dermatitis 05/15/2020 Osteopenia 04/15/2018 Overview: DEXA 2016 Lichen sclerosus of female genitalia 04/15/2018 Overview: Biopsy 2010 Psoriasis 04/11/2015 Vitamin D deficiency 10/05/2013 Genital herpes, unspecified 07/17/2012 Osteoarthritis 01/23/2011 Overview: S/p R TKA 03/2010 S/p L TKA on 01/22/2011 Rheumatology consult 2011 due to concerns she might have psoriatic arthritis - they felt arthritis was OA Hypertension 01/23/2011 Overview: Stopped lisinopril 08/2012 due to cough Hyperlipidemia 01/23/2011 Overview: On crestor In the past has been on lipitor and simvastatin which caused myalgia ACP (advance care planning) 04/22/2010 Overview: Patient has identified Health Care Agent(s): Yes Add Health Care Agents: Yes Health Care Agent(s): Primary Health Care Agent: Elli Arteaga Relationship: dtr Secondary Health Care Agent: Relationship: Phone: Conservator: Relationship: Phone: Guardian: Relationship: Phone: Patient has Advanced Care Plan Documents (Health Care Directive, POLST): Yes Advance Care Plan Documents: Health Care Directive Patient has identified Specific Treatment Preferences: No Specific limits to treatment preferences NOT identified: ASSUME FULL TREATMENT. Thyroid nodule 12/23/2009 Overview: Biopsy 2009 benign colloid nodule Coronary Artery Calcification on Chest CT 2008 Overview: moderate LAD disease on CT-CA 07/03 VENTRICULAR TACHYCARDIA - NON-SUSTAINED Overview: rhytmol Holter normal 07/03 Follows with Cristian [facility] , RECURRENT Resolved Problems Problem Noted Date Diagnosed Date Resolved Date Nonobstructive CAD (coronary artery disease) per cCTA 06/201004/05/2011 10/20/2012 S/P TKR (total knee replacem ent) - left in 12/2010, right in 03/201004/05/2011 05/29/2018 Hyponatremia 01/23/2011 10/20/2012 S/P Right TKR (total knee replacement) 03/201007/04/19 11 01/23/2011 Episode of Hyponatremia 04/23/2010 03/0 09/2018 Overview: 04/04 related to free water intake and hypotonic fluids with surgery Unspecified essential hypertension 02/18/2007 01/23/2011 PRESYNCOPE 01/11/2011 PERIPHERAL VASCULAR DISEASE WITH CLAUDICATION 01/11/2011 Pure hypercholesterolemia PSORIASIS WITH PSORIATIC ARTHRITIS 01/11/2011 Encounters Date Type Department Care Team Description 08/16/2023 Refill [facility] [address] [place] [address] Zuly Huber MD Refill Request (Propafenone) 08/13/2023 10:45 AM CDT Office Visit [facility] [address] [place] [address] Linda Sotelo MD Consult (white drainage in ear// Dr. Matthew- ENT OK prior to AUDIO) 08/13/2023 Travel 08/12/2023 Telephone [facility] [address] [place] [address] Zuly Huber MD Refill Request (Losartan) 07/09/2023 Telephone [facility] [address] [place] [address] Andres Murillo, AuD Hearing Aid from Last 3 Months Immunizations Name Administration Dates Next Due Amb Influenza, Inact (High-d ose) (Flu Clinic Only) 12/23/2015,01/12/2014 COVID-19 vaccine (VanDyne SuperTurbo NTLabArchives 30mcg/0.3mL) LEIDY PEÑALOZA 12/21/2020,06/09/2020,05/19/2020 Influenza Virus, Unspecified 12/30/2012 Influenza, High-dose Inactivated 019,12/23/2015,02/15/2015,2013 Influenza, IIV3 (Age 6-35 mos) 12/21/2010 Influenza, IIV3 (Age >=3 years) 01/05/20 13,01/22/2012,12/21/2010,2010 Influenza, IIV4 12/29/2018 Influenza, Inactivated AIIV4 (Age 65+ Years) Preserv Free 12/21/2020,12/03/2019 Influenza, Inactivated IIV3 (Age 65+ Years) Preserv Free 12/02/2017,12/18/2016 Pneumococcal Poly,23-Valent (Pneumovax) 02/13/2008 Pneumococcal conj 13-Valent (Prevnar 13) 05/27/2014 Td (Age >=7 Years) 03/03/2004 Tdap 08/08/2010 Zoster (Shingrix-RZV, recombinant) 07/17/2018, Zoster (Zostavax-ZVL, live) 02/18/2007 Family History Medical History Relation Name Comments Heart Disease Maternal Grandfather Diabetes Mother Heart Disease Mother Stroke Mother Genetic Other Mother had aneu rysm, stroke, bypass surgery and at age 61. Maternal grandfather had an CO and at age 63. Maternal grandmother had a stroke and at age 76. Cancer-breast No Family History Relation Name Status Comments Maternal Grandfather Mother Other Social History Tobacco Use Types Packs/Day Years Used Date Smoking Tobacco: Never Smokeless Tobacco: Never Tobacco Cessation:Counseling Given: Yes Alcohol Use Standard Drinks/Week Comments Yes 0 (1 standard drink = 0.6 oz pur e alcohol) 3 drinks/week PHQ-2 Answer Date Recorded PHQ-2 TOTAL SCORE 0 06/05/2021 Social Connections Answer Date Recorded Frequency of Communication with Friends and Fami ly Not on file 03/25/2021 Financial Resource Strain Answer Date R ecorded Difficulty of Paying Living Expenses Not on file 03/25/2021 Difficulty of Paying Living Expenses Not on file 03/25/2021 Sex and Gender Information Value Date Recorded Sex Assigned at Female 07/06/2020 4:09 PM CDT Gender Identity Female 05/06/2020 10:11 PM MASCARA MOLDER Sexual Orientation Straight 07/06/2020 4: 09 PM CDT Obstetrics History Para Term AB IAB SAB Ectopic Multiple Livin g Live Births 3 3 3 0 0 0 0 0 0 3 3 Date Outcome GA Total Labor Labor/2nd/3rd Weight Sex Delivery Anes PTL Meron A1 A5 Name Cl in Term Monica ng Term Monica ng Term Monica ng Last Filed Vital Signs Vital Sign Reading Time Taken Comments Blood Pressure 126/68 02/08/2022 10:20 AM MASCARA MOLDER Pulse 73 02/08/2022 10:20 AM MASCARA MOLDER Temperature 36.8 ??C (98.2 ??F) 03/10/2020 2:13 PM CS T Respiratory Rate 18 03/10/2019 11:0 7 AM MASCARA MOLDER Oxygen Saturation 99% 02/08/2022 10: 20 AM MASCARA MOLDER Inhaled Oxygen Concentration - - Weight 63.9 kg (140 lb 14.4 oz) 022 10:20 AM MASCARA MOLDER Height 154.9 cm (5' 1) 02/08/2022 10:2 0 AM MASCARA MOLDER Body Mass Index 26.62 02/08/2022 10:20 AM MASCARA MOLDER Plan of Treatment Upcoming Encounters Date Type Department Care Team (Late st Contact Info) Description 09/03/2023 2:30 PM CDT Office [facility] [address] [place] [phone] Zuly Huber MD [address] [place] [address] Health Maintenance Due Date Last Done Comments Tetanus booster 08/08/2020 08/08/2010, 03/03/2004 Depression screening for age 12+ 06/06/2022 06/06/2021, 06/05/2021, 02/27/2021, Additional history exists Medicare Wellness for age 65+ 06/06/2022, 05/09/2020, 04/24/2019, Additional history exists COVID-19 vaccine series ( season) 2022 06/27/2021, 12/21/2020, 06/09/2020, Additional history exists BMI (ht and wt on same day) for age 18+ 02/08/2023 02/08/2022, 06/05/2021, 03/09/2021, Additional history exists Influenza for age 65+ 11/24/2023 12/21/2020 , 12/03/2019, 12/29/2018, Additional history exists Tdap Completed 08/08/2010 Pneumococcal series for age 65+ Completed 5, 02/13/2008 Zoster (shingles) series for age 50+ Completed 07/17/2018, 05/16/2018, 02/18/2007 DEXA/DXA scan for age 65+ Completed 2019, 01/30/2016, 07/09/2013, Additional history exists Medical Devices Implanted Type Area Layout Mechanic Device Identifier Shelf Expiration Date Model / Serial / Lot Cmnt Bone [place] - [id number] Implanted:Qty: 2 on 04/21/2010 at [facility] Right: Knee BIOMET [id number]# / / [id number] Plate Tib Cruciate Fixed - [id number] Implanted:Qty: 1 on 04/21/2010 at [facility] Right: Knee BIOMET [id number]# / / [id number] Patella Series A Thin 31 3peg - [id number] Implanted:Qty: 1 on 04/21/2010 at [facility] Right: Knee BIOMET [id number]# / / [id number] Compnt Fem Cr Intlk 560220 Vanguard - [id number] Implanted:Qty: 1 on 04/21/2010 at [facility] Right: Knee BIOMET [id number]# / / [id number] Vanguard Tibial Bearing Implanted:Qty: 1 on 04/21/2010 at [facility] Right: Knee [id number] / / [id number] Description:VANGUARD TIBIAL BEARING Cmnt Bone [place] - [id number] Implanted:Qty: 2 on 01/22/2011 at [facility] Left: Knee BIOMET [id number]# / / [id number] Bearing Epoly Tib As 12x67 - [id number] Implanted:Qty: 1 on 01/22/2011 at [facility] Left: Knee BIOMET [id number]# / / [id number] Compnt Fem Cr Intlk Lt 60 Vanguard - [id number] Implanted:Qty: 1 on 01/22/2011 at [facility] Left: Knee BIOMET [id number]# / / [id number] Plate Tib Cruciate Fixed - [id number] Implanted:Qty: 1 on 01/22/2011 at [facility] Left: Knee BIOMET [id number]# / / [id number] Peg Series A Pat Std 31 3 - [id number] Implanted:Qty: 1 on 01/22/2011 at [facility] Left: Knee BIOMET [id number]# / / [id number] Procedures Procedure Name Priority Date/Time Associated Diagnosis Comments XR DXA BONE DENSITY 2 SITES AXIAL Routine 04/27/2019 10:50 AM MASCARA MOLDER Other specified disorders of bone density and structure, multiple sites Osteopenia, unspecified location from Last 3 Months or Most Recently Relevant to Health Maintenance Results * (ABNORMAL) XR DXA BONE DENSITY 2 SITES AXIAL (04/27/2019 10:50 AM MASCARA MOLDER) Anatomical Region Laterality Modality Spine, HIPS, HIPL, HIPR Other Narrative 05/05/2019 12:47 PM MASCARA MOLDER Please see scanned document for results of this study. Erica Ramey MD DEXA from Last 3 Months or Most Recently Relevant to Health Maintenance Advance Directives Documents on File Type Date Recorded Patient Patient Registration Manager Expl anation Healthcare Directive 01/21/2009 [facility] ARE DIRECTIVE Healthcare Directive 04/21/2010 * Full Code (Latest Code Status on File) Date Activated Date Inactivated Comments 01/22/2011 2:19 PM 01/25/2011 7:21 PM * Full Code Date Activated Date Inactivated Comments 01/22/2011 6:37 AM 01/22/2011 2:19 PM * Full Code Date Activated Date Inactivated Comments 04/21/2010 3:12 PM 04/24/2010 5:21 PM * Full Code Date Activated Date Inactivated Comments 04/21/2010 6:57 AM 04/21/2010 3:12 PM Care Teams Project Coach Relationship Specialty Start Date End Date Marley Abrams MD [address] [place] [address] PCP - General Internal Medicine 02/08/22 Zuly Huber MD [address] [place] [address] Cardiology - Interventional 11/02/19 Vani Mohan MD [address] [place] [address] Dermatology 11/02/19
--- OUTSIDE RECORDS SUMMARY | 2023-08-18 16:32 | XMS_ITS | Referral Summary ---
Author Organization [facility] Address [address] [place] [address] Care Team Providers Care Plater Supervisor Name Role Phone Elsewhere, Pcp Primary Care Provider Unavailabl e Source Comments Patient records contain information from all sites at [facility]. For routine questions regarding patient records, call [phone] during business hours, M-F 8:00 AM - 5:00 PM Central Time. Record requests for emergency care only can be directed to [phone] at any time.[facility] Encounters Date Type Department Care Team Description 06/25/2023 12:00 PM CDT - 06/25/2023 11:59 PM CDT Hospital Encounter Department of Laboratory Medicine and Pathology, [facility] in [address] [address] Bjorn Mittal M.D. Incontinence Urinary Discharge Disposition: Home or Self Care 06/25/2023 2:00 PM CDT Comprehensive Visit Department of Urology in [address] [phone] Bjorn Mittal M.D. Urgency Urinary (Primary Dx) 06/24/2023 3:15 PM CDT Clinical Communication Virtual Review in [address] [address] Pre-visit Intake 06/07/2023 11:20 AM CDT Office Visit Department of Dermatology in [address] [phone] Cassidy Mak M.D. Other Atopic Dermatitis (Primary Dx); Dermatitis Allergic Contact; Other Psoriasis 06/06/2023 Clinical Communication Department of Urology in [place], [place] [address] [place] [address] Bjorn Mittal M.D. 06/04/2023 2:15 PM CDT Procedure visit Department of Urology in [place], [place] [address] [place] [address] Bjorn Mittal M.D. Mary Coy Urinary Urge Incontinence [N39.41] (Primary Dx); Incontinence Urinary 05/27/2023 Orders Only Department of Urology in [place], [place] [address] [place] [address] [facility], Provider Incontinence Urinary from Last 3 Months Allergies Active Allergy Reactions Criticality Noted Date Comments Atorvastatin Myalgia,Rash 10/01/2013 Intolerance Benzophenone Rash 04/23/2018 [place] Chloride Rash 04/23/2018 [place] chloride hexahydrate Coconut Diethanolamide (Bulk) Rash 04/23/2018 Diazepam Other (see comments) 04/22/2010 Makes her more restless, anxious. Dibutyl Phthalate Rash 04/23/2018 Diphenhydramine Other (see comments) 04/06/2010 internal heat Paradoxical rx per patient. Possible that benadryl actually keeps pt awake Diphenhydramine Hcl Other (see comments) 08/27/2013 Dmdm Hydantoin Rash 04/23/2018 Ethyl Weqkzlck-Xe-Fiasec Methacrylate Rash 04/23/2018 Formaldehyde Rash 12/10/2017 Hydrochlorothiazide [...] times a day. 09/29/2015 Active FISH,SAF,FLX,BRG OILS/O3,6,9N2 (AZGN-UPFF-KEBITY OIL ORAL) Take by mouth. 02/22/2014 Active [...] both eyes as needed. 06/26/2017 Active omega 7-yso-mcw-fish oil 1,000 mg (120 mg-180 mg) capsule [...] Overview: Paroxysmal Ventricular Tachycardia Followed by [facility] Immunizations Name Administration Dates Next Due Influenza, Unspecified 12/30/2012 Social History Tobacco Use Types Packs/Day Years [...] or relatives? Twice a week 10/21/2019 Attends [employer] Not on file 10/20 Active Member [...] and heating? Not hard at all 02/06/2023 [facility] [place] [facility] - Occupational Stress [...] your living situation today? I have a [facility] place to live 02/06/2023 Education Answer Date Recorded What is the highest level of school you have completed or the highest degree you have received? 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) 12/19/2018 Sex and Gender Information [...] 08/31/2022 11:21 AM CDT Plan of Treatment Not on file Procedures Procedure Name Priority Date/Time Associated Diagnosis [...] (ABNORMAL) Dipstick, Urine (06/25/2023 3:54 PM CDT) Pathologist [facility] Hemoglobin, QL, U Negative Negative 06/25/2023 4:13 [...] Soft Results Interface LAB URINE ORDERAB LES [facility] [address] [place] [address], [place] DTL [facility] [address] [place] [address] * Microscopic Automated (06/25/2023 3:54 PM CDT) Pathologist [facility] Microscopy Normal 06/25/2023 4:13 PM CDT DTL RBC None Seen <3 /hpf 06/25/2023 4:13 PM CDT DTL WBC 1-3 /hpf 06/25/2023 4:13 PM CDT DTL Comment: ----REFERENCE VALUE---- <4 ??(Males) <11 (Females) Squamous Epithelial Cells, U 1-3 /hpf 06/25/2023 4:13 PM CDT DTL Urine 06/25/2023 3:54 PM CDT 06/25/2023 3:54 PM CDT Soft Results Interface LAB URINE ORDERAB LES Performing Organization Address [facility] Co de Phone Number [facility] [address] [place], [place] [phone] [place] [address] [address] [place] [address] * pH, Urine (06/25/2023 3:54 PM CDT) pH, U 6.7 4.5 - 8.0 06/25/2023 4:3 9 PM CDT DT Urine 06/25/2023 3:54 PM CDT 06/25/2023 3:54 PM CDT Soft Results Interface LAB URINE ORDERAB LES Performing Organization Address [facility] Co de Phone Number [facility] [address] [place] [address], [facility] [address] [place] [address] * Osmolality, Urine (06/25/2023 3:54 PM CDT) Osmolality, U 458 150 - 1150 mOsm/kg 06/25/2023 4:39 PM CDT DT Urine 06/25/2023 3:54 PM CDT 06/25/2023 3:54 PM CDT Soft Results Interface LAB URINE ORDERAB LES Performing Organization Address [facility] Co de Phone Number [facility] [address] [place] [address], [facility] DTL [facility] [address] [place] [address] * Urinalysis, with Microscopic: Urine, Midstream (06/25/2023 [...] Bjorn Mittal M.D. LAB URINE ORDERABL ES [facility] [address] [place] [address], [facility] [address] [place] [address] * URO Uroflow (06/04/2023 2:15 PM CDT) Narrative Bjorn Mittal M.D. - 06/04/2023 2:15 PM CDT Bjron Mittal M.D. ? 06/05/2023 ??8:18 AM REASON [...] Recently Relevant to Health Maintenance Care Teams Plater Supervisor Relationship Specialty Start Date End Date Elsewhere, Pcp PCP - General Internal Medicine 11/14/20
--- OUTSIDE RECORDS SUMMARY | 2023-08-18 16:32 | XMS_ITS | Encounter Summary ---
Author Organization [facility] Address [address] [place] [address] Care Team Providers Care Client Renewal Specialist Name Role Phone Elsewhere, Pcp Primary Care Provider Unavailabl e Reason for Visit * Reason Onset Date Comments Pre-visit Intake 06/24/2023 Encounter Details Date Type Department Care Team (Latest Contact Info) Description 06/24/2023 3:15 PM CDT Clinical Communication Virtual Review in [place], [place] [address] [place] [address] Pre-visit Intake Social History Tobacco Use Types Packs/Day Years [...] or relatives? Twice a week 10/21/2019 Attends [employer] Not on file 10/20 Active Member [...] and heating? Not hard at all 02/06/2023 [facility] [place] [facility] Occup[facility] ional Health - Occupational Stress [...] your living situation today? I have a [facility] place to live 02/06/2023 Education Answer Date Recorded What is the highest level of school you have completed or the highest degree you have received? 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
--- OUTSIDE RECORDS SUMMARY | 2023-08-18 16:32 | XMS_ITS ---
Author Organization [facility] Address [address] [place] [address] Care Team Providers Care Juvenile Probation Officer Name Role Phone Unavailable Unavailable Unavailable Surgery Details Not on file Complications Check Surgery Details section. Procedure Estimated Blood Loss Check Surgery Details section. Procedure Findings Check Surgery Details section. Procedure Specimens Taken Check Surgery Details section.
--- OUTSIDE RECORDS SUMMARY | 2023-08-18 16:32 | XMS_ITS | Encounter Summary ---
Author Organization [facility] Address [address] [place] [address] Care Team Providers Care Freelance Copywriter Name Role Phone Elsewhere, Pcp Primary Care Provider Unavailabl e Encounter Details Date Type Department Care Team (Latest Contact Info) Description 06/25/2023 12:00 PM CDT - 06/25/2023 11:59 PM CDT Hospital Encounter Department of Laboratory Medicine and Pathology, [facility] in [place], [place] [address] [place] [address] Bjorn Mittal M.D. [address] [place] [phone] Incontinence Urinary Discharge Disposition: Home or Self Care Social History Tobacco Use Types Packs/Day Years [...] or relatives? Twice a week 10/21/2019 Attends [employer] Services Not on file 10/20 Active Member [...] and heating? Not hard at all 02/06/2023 [facility] - Occupational Stress Questionnaire Answer Date [...] your living situation today? I have a [employer] place to live 02/06/2023 Education Answer Date Recorded What is the highest level of school you have completed or the highest degree you have received? 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, POWER SUPERINTENDENT, ISSAC) 12/19/2018 Sex and Gender Information Value Date Recorded Sex Assigned at Female Gender Identity Female Sexual Orientation Straight documented as of this encounter Medications at Time of Discharge Medication Sig Dispensed Refills Start Date End Date amLODIPine (for_NORVASC) 5 mg tablet Take 1 tablet by mouth daily. 09/29/2015 amoxicillin (AMOXIL) 500 mg capsule PRN before dental work 07/13/[address] tablet once a day 06/26/2001 Ca carb-Ca gluc-Mg ox-Mg gluco 500 mg calcium -250 mg tablet Take by mouth. 07/03/2016 cephalexin (KEFLEX) 500 mg capsule 02/15/2019 cetirizine (ZyrTEC) 10 mg tablet Take 1 tablet by mouth 2 (two) times a day as needed. 04/26/2017 cholecalciferol (VITAMIN D3) 125 mcg (5,000 Unit) tablet Take 5,000 Units by mouth daily. 05/15/2016 ciclopirox 1 % shampoo 04/29/2017 clobetasoL (TEMOVATE) 0.05 % external solution Apply topically 2 (two) times a day as needed (psoriasis). 50 mL 3 11/29/2021 clobetasoL (TEMOVATE) 0.05 % ointmentIndications:Oth er Psoriasis Apply 1 Application topically 2 (two) times a day. Apply to worst/itchiest areas of body twice a day x2 weeks in a row for itching. 60 g 3 06/07/2023 cyanocobalamin (VITAMIN B12) 1,000 mcg tablet Take 1,000 mcg by mouth. 021 desonide (DESOWEN) 0.05 % ointment APPLY TO AFFECTED AREA(S) TOPICALLY TWICE DAILY NEEDED 90 g 3 11/30/2021 estradioL (ESTRACE) 0.1 mg/g (0.01%) vaginal cream once a week. 10/03/2020 FISH,SAF,FLX,BRG OILS/O3,6,9N2 (KMFJ-FUWQ-IMTGQB OIL ORAL) Take by mouth. 02/22/2014 losartan (COZAAR) 100 mg tablet Take 100 mg by mouth. 07/04/2017 LOTEMAX 0.5 % ophthalmic ointment Apply to both eyes as needed. 06/26/2017 mometasone (ELOCON) 0.1 % cream Apply 1 application topically daily as needed (Rash). 45 g 3 11/05/2019 omega 7-djb-ozg-fish oil 1,000 mg (120 mg-180 mg) capsule Take by mouth. 07/03/2016 pimecrolimus (ELIDEL) 1 % cream Apply 1 application topically 2 (two) times a day. 09/29/2015 propafenone (for_RHTHYMOL) 150 mg tablet Take 1 tablet by mouth 3 (three) times a day. 08/29/2012 rosuvastatin (CRESTOR) 10 mg tablet Take 10 mg by mouth. 05/16/2017 tacrolimus (Protopic) 0.1 % ointmentIndications:Oth er Atopic Dermatitis Apply 1 Application topically 2 (two) times a day. 100 g 3 06/07/2023 triamcinolone (KENALOG) 0.1 % ointment Apply to affected areas on trunk and extremities two times a day as needed. 80 g 11 04/11/2022 triamcinolone (KENALOG) 0.1 % ointmentIndications:Fam matitis Allergic Contact Apply 1 Application topically 2 (two) times a day as needed for rash. Apply to affected areas. Use for 2 weeks in a row. Repeat as needed for flares. 454 g 3 02/06/2023 isntvjunawtys-evelkp-gq licone 0.1-2 % kit Apply 1 application topically 3 (three) times a day. 09/29/2015 triamcinolone-dimethico ne 0.1-5 % kit,ointment and cream Apply topically. 06/14/2017 turmeric 400 mg capsule Take 400 mg by mouth. 07/22/19 21 valACYclovir (VALTREX) 500 mg tablet Take 500 mg by mouth as needed. documented as of this encounter Plan of Treatment Not on file documented as of this encounter Procedures Procedure Name Priority Date/Time Associated Diagnosis Comments DIPSTICK, U Routine 06/25/2023 3:54 PM CDT MICROSCOPIC AUTOMATED Routine 06/25/2023 3:54 PM CDT PH, U Routine 06/25/2023 3:54 PM CDT OSMOLALITY, U Routine 06/25/2023 3:54 PM CDT URINALYSIS WITH MICROSCOPIC Routine 06/25/2023 3:54 PM CDT Incontinence Urinary documented in this encounter Results * (ABNORMAL) Dipstick, Urine (06/25/2023 3:54 [...] Performing Organization Address City/[facility]/ZIP Co de Phone Number [facility] [address] 200 [place] [address] * pH, Urine (06/25/2023 3:54 PM CDT) [facility] pH, U 6.7 4.5 - 8.0 06/25/2023 4:3 9 PM CDT DTL Urine 06/25/2023 3:54 PM CDT 06/25/2023 3:54 PM CDT Soft Results Interface LAB URINE ORDERAB LES [facility] 200 [place] [address], [facility] 200 [place] [address] * Osmolality, Urine (06/25/2023 3:54 PM CDT) Pathologist [facility] Osmolality, U 458 150 - 1150 mOsm/kg 06/25/2023 4:39 PM CDT DTL Urine 06/25/2023 3:54 PM CDT 06/25/2023 3:54 PM CDT Soft Results Interface LAB URINE ORDERAB LES Performing Organization Address [facility] Co de Phone Number [facility] 200 [place] [address], [facility] DTL [facility] 200 [place] [address] * Microscopic Automated (06/25/2023 3:54 PM CDT) [...] Performing Organization Address City/[facility] Co de Phone Number [facility] 200 [place] [address], [facility] DTL [facility] 200 [place] [address] * Urinalysis, with Microscopic: Urine, Midstream (06/25/2023 [...] Bjorn Mittal M.D. LAB URINE ORDERABL ES [facility] [address] [place] [address], [facility] [address] [place] [address] documented in this encounter Visit Diagnoses Diagnosis Incontinence Urinary documented in this encounter Care Teams Freelance Copywriter Relationship Specialty Start Date End Date Elsewhere, Pcp PCP - General Internal Medicine 11/14/20 documented as of this encounter
--- OUTSIDE RECORDS SUMMARY | 2023-08-18 16:33 | XMS_ITS | Encounter Summary ---
Author Organization [facility] Address [address] [place] [address] Care Team Providers Care Crucible Furnace Tender Name Role Phone Elsewhere, Pcp Primary Care Provider Unavailabl e Reason for Visit * Outpatient (Routine) - Closed Specialty Diagnoses / Procedures Referred By Jesse morales Referred To Contact Diagnoses Incontinence Urinary Procedures URO Uroflow Bjorn Mittal M.D. [address] [place] [address] [phone] [facility] Referral ID Status Reason Start Date Expiration Date Visits Re quested Visits Authorized [id number] Closed 05/27/2023 05/26/2024 1 1 Encounter Details Date Type Department Care Team (Latest Contact Info) Description 06/04/2023 2:15 PM CDT Procedure visit Department of Urology in [place], [place] [address] [place] [phone] Bjorn Mittal M.D. [address] [place] [phone] Mary Coy [address] [place] [phone] Urinary Urge Incontinence [N39.41] (Primary Dx); Incontinence Urinary Social History Tobacco Use Types Packs/Day Years Used Date Smoking Tobacco: Never Smokeless Tobacco: Never Alcohol Use Standard Drinks/Week Comments Yes 5 (1 standard drink = 0.6 oz pur e alcohol) gin/tonic Social Connection and Isolation Panel [NHANES] A nswer Date Recorded In a typical week, how many times do you talk on the phone with family, friends, or neighbors? Three times a week 10/21/2019 How often do you get togethe r with friends or relatives? Twice a week 10/21/2019 Attends [employer] Not on file 10/20 Active Member [...] and heating? Not hard at all 02/06/2023 [facility] - Occupational Stress Questionnaire Answer Date [...] money to buy more. Never true 02/07/20 23 Within the past 12 months, t he [...] 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, FIRER BOILER, ISSAC) 12/19/2018 Sex and Gender Information Value Date Recorded Sex Assigned at Female Gender Identity Female Sexual Orientation Straight documented as of this encounter Progress Notes * Mary Coy - 06/04/2023 2:15 PM CDT CHIEF COMPLAINT Patient here for a complex uroflow via calibrated electronic equipment and a residual urine check by ultrasound. IMPRESSION/REPORT/PLAN Bjorn Mittal M.D. ordered the patient to have a complex uroflow with residual urine check via ultrasound. Patient hada strong urge to void. Uroflow was completed at this time. Patient voided 234 mL's and had a ultrasound residual of 120 mL's. Patient rates pain at 0 on the 0 to 10 pain scale post procedure. documented in this encounter Procedure Notes * Bjorn Mittal M.D. - 06/04/2023 2:15 PM CDTAssociated Order(s): URO UROFLOW REASON FOR VISIT: Uroflow: The patient here for a complex uroflow via calibrated electronic equipment and a residual urine check by ultrasound. FINDINGS: Peak flow 17 ml/sec Average flow 9 ml/sec Total voided volume 234 mls Residual urine 120 ml by ultrasound Detrusor flow pattern IMPRESSION: Moderate Q max with normal bladder capacity and elevated postvoid residual. documented in this encounter Plan of Treatment Not on file documented as of this encounter Procedures Procedure Name Priority Date/Time Associated Diagnosis Comments URO UROFLOW Routine 06/04/2023 2:15 PM CDT Incontinence Urinary documented in this encounter Results * URO Uroflow (06/04/2023 2:15 PM CDT) [...] postvoid residual. Bjorn Mittal M.D. UROLOGY ORDERABLES documented in this encounter Visit Diagnoses Diagnosis Urinary Urge Incontinence [N39.41]- Primary Incontinence Urinary documented in this encounter Care Teams Crucible Furnace Tender Relationship Specialty Start Date End Date Elsewhere, Pcp PCP - General Internal Medicine 11/14/20 documented as of this encounter
--- OUTSIDE RECORDS SUMMARY | 2023-08-18 16:33 | XMS_ITS | Continuity of Care Document ---
Author Organization [facility] Address [address] [place] [address] Phone Care Team Providers Care Director Broadcast Name Role Phone Lukas Noguera MD Unavailable [...] route every day 5 MG - Active Fanny 180 mg Tab take 1 tablet (180MG) by oral route every day - Active Vitamin D3 1,000 unit Cap take one capsule daily - Active aspirin 81 mg Tab, Delayed Release take 1 tablet (81MG) by oral route every day 81 MG - Active Fish Oil 1,000 mg Cap take one capsule daily - Active Ultimate [place] CALCIO JUAN (unknown strength) take one daily Not Available - Active with magnesium, phosphorus zinc 50 mg Tab take one tablet 3 times weekly - Active Co Q-10 100 mg Cap take one daily - Active Aleve 220 mg Tab take 1 tablet (220MG) by oral route as needed - Active TYLENOL (unknown strength) take as needed Not Available - Active Procedures Procedure Date Office/Outpatient Visit, New Advance Directives Directive Yes / No Effective [...] New [facility], [address], [place], [address], [place] tel:[phone] [facility] , No Information 2 Chuckie Serrano [facility] [address], [place], [address], [place]. tel:[phone] Referring Provider: Lukas Pacheco, [facility] [address], [place], [address]. tel:[phone] [facility], [address], [place], [address], [place] tel:[phone] [facility] , No Information 2 Chuckie Gaytan. [facility] [address], [place], [address], [place]. tel:[phone] Family History Family Member Type Diagnosis Age At Onset No Information Payers Payer name Insurance type Covered alliance party ID Nisreena carolyn(s) [facility] [id number] Social History Type Description Quantity Date Captured [...]
--- OUTSIDE RECORDS SUMMARY | 2023-08-18 16:33 | XMS_ITS | Encounter Summary ---
Author Organization [facility] Address [address] [place] [address] Care Team Providers Care Slide Forming Machine Tender Name Role Phone Elsewhere, Pcp Primary Care Provider Unavailabl e Reason for Visit * Outpatient (Routine) - Closed Specialty Diagnoses / Procedures Referred By Jesse morales Referred To Contact Dermatology Diagnoses Dermatitis Allergic Contact Cassidy Mak M.D. [address] [place] [phone] [facility] Referral ID Status Reason Start Date Expiration Date Visits Re quested Visits Authorized [id number] Closed 02/06/2023 02/05/2026 1 1 Encounter Details Date Type Department Care Team ([facility] st Contact Info) Description 06/07/2023 11:20 AM CDT Office Visit Department of Dermatology in [place], [place] [address] [place] [phone] Cassidy Mak M.D. [address] [place] [phone] Other Atopic Dermatitis (Primary Dx); Dermatitis Allergic Contact; Other Psoriasis Social History Tobacco Use Types Packs/Day Years [...] or relatives? Twice a week 10/21/2019 Attends [employer] Not on file 10/20 Active Member [...] and heating? Not hard at all 02/06/2023 [facility] [employer] [place] [facility] Occupat ional Health - Occupational Stress [...] degree you have received? Master's degree (e.g., BELKYS, MS, Frida, MEd, HIGHWAY MAINTAINER, ISSAC) 12/19/2018 Sex and Gender Information Value Date Recorded Sex Assigned at Female Gender Identity Female Sexual Orientation Straight documented as of this encounter Consult Notes * Cassidy Mak M.D. - 06/07/2023 11:20 AM CDT REFERRED BY Cassidy Mak M.D. CHIEF COMPLAINT/REASON FOR VISIT Allergic contact dermatitis History of psoriasis History of lichen sclerosus HISTORY OF PRESENT ILLNESS Ms. Krupa Atwood is a pleasant 82 y.o. female who presents today, accompanied by her partner, Warren, for followup of psoriasis, allergic contact dermatitis, and lichen sclerosus. The patient has been followed for several years for these concerns. She had previously been on triamcinolone, Protopic, and desonide, as well as narrowband UVB phototherapy. She felt these treatmentshelped temporarily, but was frustrated that she continued to feel itchy and the lesions did not completely go away. She preferred to use topical therapies, and she was hesitant to consider systemic treatments. For her history of allergic contact dermatitis, she had undergone patch testing in 2016, which revealed numerous allergies/contraindications to 28 different medications. She utilizes the SkinSAFE appto ensure the ingredients she uses are free of allergic irritants, and she moisturizes multiple times daily with a gentle emollient. She reports bathing daily but cut out baths. At last visit in Jan 2023 she was flaring and we recommended she resume light therapy. We discussedbiopsy and systemic therapies but she politely declined. Today, she reports her skin has flared and been really itchy the last few days. Worst areas are herarms and back currently. She uses the light lamp on occasion and takes a shower every morning. The patient reports growing up with eczema, and the psoriasis started a number or years ago, while shewas living in [place]. She reports using triamcinolone cream that she uses with the help of her partner, Warren, on her back. She also has Protopic that she uses. Allergies Allergen Reactions Atorvastatin Myalgia and Rash Intolerance Benzophenone Rash [place] Chloride Rash [place] chloride hexahydrate Coconut Diethanolamide (Bulk) Rash Diazepam Other (see comments) Makes her more restless, anxious. Dibutyl Phthalate Rash Diphenhydramine Other (see comments) internal heat Paradoxical rx per patient. Possible that benadryl actually keeps pt awake Diphenhydramine Hcl Other (see comments) Dmdm Hydantoin Rash Ethyl Dmthuvyo-Be-Geemrb Methacrylate Rash Formaldehyde Rash Hydrochlorothiazide Other (see [...] Edema (Reselect Reaction) and Hives (Reselect Reaction) PAST DERMATOLOGIC HISTORY Negative for skin cancer FAMILY DERMATOLOGIC HISTORY Negative for skin cancer PHYSICAL EXAM Skin: I have examined the chest, abdomen, back, buttocks, bilateral upper extremities, and bilateral lower extremities. Cyr skin type II. She has scattered eczematous patches on the arms, legs, back, and forehead. On the elbows are erythematous plaques with silvery scale more typical of psoriasis. IMPRESSION/REPORT/PLAN #1 Atopic dermatitis and allergic contact dermatitis, flaring - discussed options. Discussed that given large amount of body surface area involved (I would estimate at least 30%) that I thought a systemic treatment was reasonable. However, she does not want to do any systemic treatments at this time. I did provide the name of Irma and we did talk about the risks and benefits of this and she is going to think about it. - since she does not wish to move forward with a systemic agent at this time, I have instead recommended more diligent use of light therapy. She is currently doing it sporadically and we discussed itwould not be effective when utilized in this way. Instead, I have recommended that she do light therapy 3 times weekly and increase as directed by her manual. She met with our phototherapy nurses for further instructions regarding proper increasing exposure. - for topicals, I have refilled clobetasol ointment for her to use twice a day for 2 weeks in a rowto spot treat the itchiest areas. For more liberal use/more mild areas, recommended triamcinolone ointment twice a day for up to 2 weeks in a row. - for maintenance, recommended Protopic twice daily. Discussed this is not a steroid and can be used safely on a daily basis. Discussed it was also safe to use on the face. - advised to moisturize with a gentle cream that is on her skin safe list. She has been using Vaseline which she thinks has helped. Discussed this was totally fine to continue as petroleum jelly is typically not allergenic. - she is going to try this over the next couple of months. If she is not improving, she is going toreach out and at that point we may consider Dupixent. She also wonders if we do move forward with Dupixent if we can make sure it does not contain any of her allergens. Discussed if we do move forward, I can run it by the pharmacy team to see if they are aware of any of her allergens that the medication might contain. #2 Psoriasis - little bit of a complicated picture given much of what I see on exam does appear more consistent with eczema. She does have more psoriatic appearing plaques on her elbows, and perhaps a few plaquesscattered on the back and legs that could potentially be psoriatic. We have discussed a biopsy in the past but have held off as it currently would not jacket changer. - ultimately, we discussed that topicals and light therapy as above will also likely help the psoriasis, so she is going to give that a try - if we do start a medication such as Dupixent, we will just have to keep a close eye to make sure no psoriasiform lesions develop or worsen PATIENT EDUCATION Ready to learn. No apparent learning barriers were identified. Learning preferences include listening. Explained diagnosis and treatment plan; patient/guardian of patient expressed understanding of the content. This document serves as a record of services personally performed by Dr. Mak. It was created on their behalf by Salena Riley, a trained medical services assistant. The creation of this record is based on the scribe remotely listening to the visit and the provider's statements to them. This document has been checked and approved by the attending provider. Scribed for Cassidy Mak M.D. by Salena Riley, on 06/07/2023, 6:23 AM CDT. documented in this encounter Plan of Treatment Not on file documented as of this encounter Visit Diagnoses Diagnosis Other Atopic Dermatitis- Primary Dermatitis Allergic Contact Other Psoriasis documented in this encounter Care Teams Slide Forming Machine Tender Relationship Specialty Start Date End Date Elsewhere, Pcp PCP - General Internal Medicine 11/14/20 documented as of this encounter
--- OUTSIDE RECORDS SUMMARY | 2023-08-18 16:33 | XMS_ITS | Encounter Summary ---
Author Organization [facility] Address [address] [place] [address] Care Team Providers Care Ethnology Teacher Name Role Phone Elsewhere, Pcp Primary Care Provider Unavailabl e Encounter Details Date Type Department Care Team (Late st Contact Info) Description 06/06/2023 Clinical Communication Department of Urology in [place], [place] [address] [place] [phone] Bjorn Mittal M.D. [address] [place] [phone] Social History Tobacco Use Types Packs/Day Years [...] or relatives? Twice a week 10/21/2019 Attends Worship Services Not on file 10/20 Active Member [...] and heating? Not hard at all 02/06/2023 [facility] Standard of Occupat ional Health - Occupational Stress [...] your living situation today? I have a [facility] place to live 02/06/2023 Education Answer Date Recorded What is the highest level of school you have completed or the highest degree you have received? 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, POWER CLEANER OPERATOR, ISSAC) 12/19/2018 Sex and Gender Information Value Date Recorded Sex Assigned at Female Gender Identity Female Sexual Orientation Straight documented as of this encounter Plan of Treatment Not on file documented as of this encounter Visit Diagnoses Not on filedocumented in this encounter Care Teams Ethnology Teacher Relationship Specialty Start Date End Date Elsewhere, Pcp PCP - General Internal Medicine 11/14/20 documented as of this encounter
--- OUTSIDE RECORDS SUMMARY | 2023-08-18 16:33 | XMS_ITS | Encounter Summary ---
Author Organization [facility] Address [address] [place] [address] Care Team Providers Care Hot Mix Operator Name Role Phone Elsewhere, Pcp Primary Care Provider Unavailabl e Reason for Referral * Outpatient (Routine) - Closed Specialty Diagnoses / Procedures Referred By Jesse morales Referred To Contact Diagnoses Incontinence Urinary Procedures URO Uroflow Bjorn Mittal M.D. [address] [place] [phone] [facility] Referral ID Status Reason Start Date Expiration Date Visits Re quested Visits Authorized [id number] Closed 05/27/2023 05/26/2024 1 1 RVISOR VENEER Encounter Details Date Type Department Care Team (Late st Contact Info) Description 05/27/2023 Orders Only Department of Urology in [place], [place] [address] [place] [phone] [facility], Provider Incontinence Urinary Social History Tobacco Use Types [...] or relatives? Twice a week 10/21/2019 Attends Alevism Services Not on file 10/20 Active Member [...] and heating? Not hard at all 02/06/2023 [facility] [place] of Occupat ional Health - Occupational Stress [...] your living situation today? I have a [facility] place to live 02/06/2023 Education Answer Date Recorded What is the highest level of school you have completed or the highest degree you have received? 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, COMMODITIES MANAGER, ISSAC) 12/19/2018 Sex and Gender Information Value Date Recorded Sex Assigned at Female Gender Identity Female Sexual Orientation Straight documented as of this encounter Plan of Treatment Not on file documented as of this encounter Results * Urinalysis, with Microscopic: Urine, Midstream (06/25/2023 [...] CDT Bjorn Mittal M.D. LAB URINE ORDERABL [facility] [address] [place] [address], [facility] [address] [place] [address] * URO Uroflow (06/04/2023 2:15 PM CDT) [...] this encounter Visit Diagnoses Diagnosis Incontinence Urinary Urinary Urge Incontinence [N39.41]- Primary Incontinence Urinary documented in this encounter Care Teams Hot Mix Operator Relationship Specialty Start Date End Date Elsewhere, Pcp PCP - General Internal Medicine 11/14/20 documented as of this encounter
== END 2023-08-18 16:30 | disposition home or self-care (01) ==
LOC: ED 16:30
PROVIDERS: Emergency Provider Family Medicine; PCP Internal Medicine
DX: S51.801A Unspecified open wound of right forearm, initial encounter (principal); W19.XXXA Unspecified fall, initial encounter
CPT/HCPCS: 99282; 99283; 99284

== ENCOUNTER 2023-11-30 09:30 | Emergency (ER) | payer MEDICARE, SELFPAY ==
[2023-11-30 09:34] VITALS: BP 132/85; PULSE 81; RESP 18; O2SAT 98; BMI 26.5
--- NOTE | 2023-11-30 09:48 | ED.SKABFB ---
HPI - Skin/Abscess/Foreign Bdy General Chief complaint: Skin/Abscess/Foreign Body Stated complaint: Possible lower L leg infection Time Seen by Provider: 11/30/23 09:42 History of Present Illness HPI narrative: Patient is 83-year-old woman who has what appears to be minor 0.5 cm open area in the medial aspect of her left calf. This was nose yesterday surrounding erythema. She has had no signs of systemic infection no fevers chills night sweats. The erythema is approximately 3-4 cm in diameter and seems to be spreading. Patient has minimal discomfort. She has no thigh pain or calf pain no tenderness. No drainage or discharge. She is not certain whether she is up-to-date on her tetanus shot. Related Data Home Medications ?Medication ?Instructions ?Recorded ?Confirmed aspirin 81 mg chewable tablet 81 mg PO QDAY 10/12/21 09/17/23 cetirizine 10 mg tablet 10 mg PO DAILY 10/12/21 09/17/23 omega 5-ddj-ohy-fish oil 300 1 cap PO QDAY 10/12/21 09/17/23 mg-1,000 mg capsule (Fish Oil) propafenone 150 mg tablet 150 mg PO TID 10/12/21 09/17/23 triamcinolone acetonide 0.1 % 1 applic topical .Daily as needed 10/12/21 09/17/23 topical ointment PRN amlodipine 5 mg tablet 5 mg PO BID 12/04/21 09/17/23 estradiol 0.01% (0.1 mg/gram) 1 g vaginal QWEEK 12/21/21 09/17/23 vaginal cream desonide 0.05 % topical ointment 1 applic topical BID PRN 05/28/22 09/17/23 clobetasol 0.05 % scalp solution topical PRN 08/20/23 09/17/23 tacrolimus 0.1 % topical ointment topical PRN 08/20/23 09/17/23 betamethasone dipropionate 0.05 % 1 applic topical .2x/week PRN 09/17/23 topical ointment loteprednol etabonate 0.5 % eye drp ophthalmic (eye) 09/17/23 09/17/23 drops,suspension polymyxin B sulfate 10,000 ophthalmic (eye) 09/17/23 09/17/23 unit-trimethoprim 1 mg/mL eye drops valacyclovir 500 mg tablet 500 mg PO DAILY 09/17/23 09/17/23 Previous Rx's ?Medication ?Instructions ?Recorded losartan 100 mg tablet 100 mg PO DAILY #90 tabs 04/24/22 cyanocobalamin (vitamin B-12) 1,000 mcg PO DAILY #90 tabs 10/09/22 1,000 mcg tablet rosuvastatin 10 mg tablet 10 mg PO .Bedtime #90 tabs 08/20/23 ciclopirox 1 % shampoo 5 ml topical .2X Weekly PRN 10/16/23 Seborrheic dermatitis #120 mL Allergies Allergy/AdvReac Type Severity Reaction Status Date / Time hydrochlorothiazide Allergy Intermediate Unknown Verified 09/17/23 15:57 lanolin Allergy Intermediate Unknown Verified 09/17/23 15:57 trifluridine Allergy Intermediate Verified 09/17/23 15:57 atorvastatin Allergy Mild Unknown Verified 09/17/23 15:57 iodine Allergy Mild Unknown Verified 09/17/23 15:57 lisinopril Allergy Mild Unknown Verified 09/17/23 15:57 rofecoxib Allergy Mild Unknown Verified 09/17/23 15:57 simvastatin Allergy Mild Unknown Verified 09/17/23 15:57 cobalt Allergy Unknown Verified 11/30/23 09:38 formaldehyde Allergy Unknown Verified 09/17/23 15:57 methylisothiazolinone Allergy Unknown Verified 09/17/23 15:57 neomycin Allergy Unknown Unknown Verified 09/17/23 15:57 propylene glycol Allergy Unknown Unknown Verified 09/17/23 15:57 sodium benzoate Allergy Unknown Verified 09/17/23 15:57 diazepam Allergy Intermediate Unknown Uncoded 09/17/23 15:57 trifluridine Allergy Intermediate Unknown Uncoded 09/17/23 15:57 [facility] Medical History History of keratitis ?Z86.69 - Personal history of other diseases of the nervous system and sense organs (ICD-10) Surgical History History of hand surgery ?Z98.890 - Other specified postprocedural states (ICD-10) History of tonsillectomy (~1940) ?Z90.89 - Acquired absence of other organs (ICD-10) History of incisional hernia repair (1971) ?Z98.890 - Other specified postprocedural states (ICD-10) ?Z87.19 - Personal history of other diseases of the digestive system (ICD-10) History of bilateral tubal ligation (1970) ?Z98.51 - Tubal ligation status (ICD-10) History of phacoemulsification of cataract of both eyes with intraocular lens implantation (2016) ?Z98.41 - Cataract extraction status, right eye (ICD-10) ?Z98.42 - Cataract extraction status, left eye (ICD-10) ?Z96.1 - Presence of intraocular lens (ICD-10) History of total bilateral knee replacement (TKR) (2010) ?Z96.653 - Presence of artificial knee joint, bilateral (ICD-10) Family History Mother Stroke Coronary artery disease Diabetes Maternal Grandmother Stroke Maternal Grandfather Coronary artery disease Social History (Updated 08/20/23 @ 13:42 by Marley Segura ~ [facility]) What is your current living situation?: I presently have a place to live Problems where you live: no known problems In the past 12 months, utilities in danger of being shut off: no In past 12 months, lack of transportation kept you from medical appts, meetings, work, or getting things needed for daily living: no In the past 12 mos, have been you worried that your food would run out before you had money to buy more?: never true In the past 12 mos, the food you bought just didn't last and you didn't have money to buy more?: never true Smoking Status: Never smoker Do you use any of these nicotine containing products: None Second hand tobacco smoke exposure: No How often do you have a drink containing alcohol: monthly or less How often do you have six or more drinks on one occasion: Never AUDIT-C Alcohol total score: 1 Non-prescribed substance use: denies use How often does anyone, including family, friends and others, physically hurt you: never How often does anyone, including family, friends and others, insult or talk down to you: never How often does anyone, including family, friends and others, threaten you with harm: never How often does anyone, including family, friends and others, scream or curse at you: never Little interest or pleasure in doing things: not at all Feeling down, depressed, or hopeless: not at all service: No Exam Narrative: Exam Narrative: EXAM GENERAL: Patient appears comfortable and well. EYES: No scleral icterus. ENT: Tympanic membranes and oropharynx normal. THYROID: no thyroid nodules or thyromegaly. LYMPH: No supraclavicular or cervical lymphadenopathy. SKIN: Visible skin seen during exam normal or with benign process only. EXT: Small open area in the medial aspect of the left calf with surrounding erythema as described above. HEART: Regular rate and rhythm with no murmurs, rubs, or gallops. LUNGS: Clear to auscultation bilaterally with no crackles or wheezes. ABD: Soft, non tender, non distended. PSYCH: Good eye contact, speech is not pressured. Const: Vital Signs, click to edit/add: Vital Signs - 24 hr 11/30/23 09:34 Pulse Rate [Right Pulse Oximeter] 81 Respiratory Rate 18 Blood Pressure [Le ft Upper Arm] 132/85 Pulse Oximetry 98 Oxygen Delivery Me thod Room Air Course Course ED Course: Patient seen and examined. Vital Signs Vital signs: Initial Vital Signs Pulse Rate 81 11/30/23 09:34 Pulse Rhythm Regular 11/30/23 09:34 Pulse Strength 3+ Normal 11/30/23 09:34 Respiratory Rate 18 11/30/23 09:34 Blood Pressure 132/85 11/30/23 09:34 Blood Pressure Mean 100 11/30/23 09:34 Blood Pressure Position Sitting 11/30/23 09:34 Pulse Oximetry 98 11/30/23 09:34 Oxygen Delivery Method Room Air 11/30/23 09:34 Vital Signs Pulse Rate 81 11/30/23 09:34 Respiratory Rate 18 11/30/23 09:34 Blood Pressure 132/85 11/30/23 09:34 Pulse Oximetry 98 11/30/23 09:34 Oxygen Delivery Method Room Air 11/30/23 09:34 Pulse Rate 81 11/30/23 09:34 Respiratory Rate 18 11/30/23 09:34 Blood Pressure 132/85 11/30/23 09:34 Pulse Oximetry 98 11/30/23 09:34 Oxygen Delivery Method Room Air 11/30/23 09:34 MDM - Skin/Abscess/Foreign Bdy MDM Narrative Medical decision making narrative: Patient is a thin 83-year-old woman who presents with mild cellulitis of left lower extremity. Did circled area and instructed her on wound care she does have a small open area. I did review her allergies and place her on Keflex. She may is certainly just be having a local reaction to the scab has formed. Asked her not to pick at the scab. Will treat her with Tylenol Motrin Keflex and follow-up. Differential diagnosis includes but not limited to cellulitis abscess local inflammatory response. Discharge Plan Discharge Clinical Impression: Cellulitis Patient Disposition: Home, Self-Care Condition: Stable Instructions: Cellulitis (ED) Additional Instructions: Keflex as directed Keep wound moist with triple antibiotic Follow-up with your doctor as needed Continue current medication. Activity Level: No Restrictions Discharge Diet: Regular Prescriptions: No Action cetirizine 10 mg tablet 10 mg PO DAILY omega 0-dyv-jxf-fish oil [Fish Oil] 300-1,000 mg capsule 1 cap PO QDAY propafenone 150 mg tablet 150 mg PO TID Rx Instructions: space evenly during waking hours aspirin 81 mg tablet,chewable 81 mg PO QDAY triamcinolone acetonide 0.1 % ointment 1 applic topical .Daily as needed PRN Rx Instructions: APPLY TO AFFECTED AREA desonide 0.05 % ointment 1 applic topical BID PRN estradiol 0.01 % (0.1 mg/gram) cream 1 g vaginal QWEEK Rx Instructions: Medication to be put into individually filled applicators. valacyclovir 500 mg tablet 500 mg PO DAILY polymyxin B sulf-trimethoprim 10,000 unit- 1 mg/mL drops ophthalmic (eye) loteprednol etabonate 0.5 % drops,suspension ophthalmic (eye) betamethasone dipropionate 0.05 % ointment 1 applic topical .2x/week PRN amlodipine 5 mg tablet 5 mg PO BID tacrolimus 0.1 % ointment topical PRN clobetasol 0.05 % solution topical PRN rosuvastatin 10 mg tablet 10 mg PO .Bedtime Qty: 90 3RF losartan 100 mg tablet 100 mg PO DAILY Qty: 90 1RF cyanocobalamin (vitamin B-12) 1,000 mcg tablet 1,000 mcg PO DAILY Qty: 90 3RF ciclopirox 1 % shampoo 5 ml topical .2X Weekly PRN (Reason: Seborrheic dermatitis) Qty: 120 0RF Rx Instructions: 5 ml equal to one appliaction Follow Up/Referrals: Marley Abrams MD [Primary Care Provider] - Stand Alone Forms: Bulu Box Info Instructions
--- OUTSIDE RECORDS SUMMARY | 2023-11-30 09:57 | XMS_ITS | Clinical Summary ---
Author Organization [facility] Address [address] [place] [address] Care Team Providers Care Emergency Service Restorer Name Role Phone Elsewhere, Pcp Primary Care Provider Unavailabl e Source Comments Patient records contain information from all sites at [facility]. For routine questions regarding patient records, call [phone] during business hours, M-F 8:00 AM - 5:00 PM Central Time. Record requests for emergency care only can be directed to [phone] at any time.[facility] Allergies Active Allergy Reactions Criticality Noted Date Comments Atorvastatin Myalgia,Rash 10/01/2013 Intolerance Benzophenone Rash 04/23/2018 [place] Chloride Rash 04/23/2018 [place] chloride hexahydrate Coconut Diethanolamide (Bulk) Rash 04/23/2018 Diazepam Other (see comments) 04/22/2010 Makes her more restless, anxious. Dibutyl Phthalate Rash 04/23/2018 Diphenhydramine Other (see comments) 04/06/2010 internal heat Paradoxical rx per patient. Possible that benadryl actually keeps pt awake Diphenhydramine Hcl Other (see comments) 08/27/2013 Dmdm Hydantoin Rash 04/23/2018 Ethyl Xvltkiyb-Aw-Raywza Methacrylate Rash 04/23/2018 Formaldehyde Rash 12/10/2017 Hydrochlorothiazide [...] times a day. 09/29/2015 Active FISH,SAF,FLX,BRG OILS/O3,6,9N2 (REOX-ZTPW-XWRIKI OIL ORAL) Take by mouth. 02/22/2014 Active [...] both eyes as needed. 06/26/2017 Active omega 6-dpa-reo-fish oil 1,000 mg (120 mg-180 mg) capsule [...] Hypertensive Heart Disease Without Heart Failure 10/10/2012 Overview (08/14/2016): Hypertension Tachycardia Ventricular Paroxysmal 10/10/2012 Overview (08/14/2016): Paroxysmal Ventricular Tachycardia Followed by [facility] outside of [facility] Immunizations Name Administration Dates Next Due Influenza, Unspecified 12/30/2012 Family History Medical History Relation Name Comments Coronary artery disease Maternal Grandfather Wilmar Alexis mpson Diabetes Maternal Grandfather Wilmar Mcdonald decea sed Stroke Maternal Grandfather Wilmar Mcdonald Dementia Maternal Grandmother Annia Matilda Dorsey hompson Coronary artery disease Mother Domonique Mcdonald Zeke wn Diabetes Mother Domonique Gomez Hypertension Mother Domonique Gomez Stroke Mother Domonique Gomez Coronary artery disease Paternal Grandfather Bert Mercer n Stroke Paternal Grandfather Bert Gomez Amblyopia Neg Hx Cataracts Neg Hx Glaucoma Neg Hx Macular degeneration Neg Hx Retinal detachment Neg Hx Strabismus Neg Hx Relation Name Status Comments Maternal Grandfather Wilmar Mcdonald Maternal Grandmother Anina Matilda Mcdonald Mother Domonique Gomez Paternal Grandfather Bert [...] or relatives? Twice a week 10/21/2019 Attends Yazidism Services Not on file 10/20 Active Member [...] and heating? Not hard at all 02/06/2023 [facility]ms Health - Occupational Stress Questionnaire Answer Date [...] 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, AGENCY DIRECTOR, [employer]) 12/19/2018 Sex and Gender Information Value [...] 2023 01/08/2023, 08/09/2022, 12/29/2021, Additional history exists Influenza Vaccine (#1) 2023 , 02/13/2022, 12/21/2020, Additional history exists DTaP,Tdap,and Td Vaccines (3 - Td or Tdap) 06/06/2031 06/05/2021, 08/08/2010, 03/03/2004 Pneumococcal vaccine (65+ years) Completed 05/28/19 15, 02/13/2008 Zoster Vaccines Completed 07/17/2018, 04/26, 02/18/2007 Procedures Procedure Name Priority Date/Time Associated Diagnosis Comments COMPREHENSIVE METABOLIC PANEL, S/P STAT 11/14/2020 2:00 PM CDT from Last 3 Months or Most Recently Relevant to Health Maintenance Results * (ABNORMAL) Comprehensive Metabolic Panel (11/14/2020 2:00 PM CDT) Potassium, P 3.8 3.6 - 5.2 mmol/L 11/14/2020 2:25 PM CDT [facility] Sodium, P 139 135 - 145 mmol/L 11/14/2020 2:25 PM CDT [facility] Chloride, P 103 98 - 107 mmol/L 11/14/2020 2:25 PM CDT [facility] Bicarbonate, P 26 22 - 29 mmol/L 11/14/2020 2:25 PM CDT [facility] Anion Gap, P 10 7 - 15 11/14/2020 2:25 PM CDT [facility] BUN (Blood Urea Nitrogen), P 16 6 - 21 mg/dL 11/14/2020 2:25 PM CDT [facility] Creatinine 0.84 0.59 - 1.04 mg/dL 11/14/2020 2:25 PM CDT [facility] eGFR-Black/ 75 >=60 mL/min/BS A 11/14/2020 2:25 PM CDT [facility] Comment: ----ADDITIONAL INFORMATION---- Estimated GFR calculated using the 2009 CKD_EPI creatinine equation. eGFR Non-Black/ 65 >=60 mL/min/BS A 11/14/2020 2:25 PM CDT [facility] Comment: ----ADDITIONAL INFORMATION---- Estimated GFR calculated using the 2009 CKD_EPI creatinine equation. Calcium, Total, P 10.3(H) 8.8 - 10.2 mg/dL 11/14/2020 2:25 PM CDT [facility] Glucose, P 139 70 - 140 mg/dL 11/14/2020 2:25 PM CDT [facility] Protein, Total, P 7.3 6.3 - 7.9 g/dL 11/14/2020 2:25 PM CDT [facility] Albumin, P 4.4 3.5 - 5.0 g/dL 11/14/2020 2:25 PM CDT [facility] Aspartate Aminotransferase (AST), P 25 8 - 43 U/L 11/14/2020 2:25 PM CDT [facility] Alkaline Phosphatase, P 59 35 - 104 U/L 11/14/2020 2:25 PM CDT [facility] Alanine Aminotransferase (ALT), P 26 7 - 45 U/L 11/14/2020 2:25 PM CDT [facility] Bilirubin, Total, P 0.4 <=1.2 mg/dL 11/14/2020 2:25 PM CDT [facility] Blood (Blood, Venous) 11/14/2020 2:00 PM CDT 11/14/2020 2:01 PM CDT Melanie Flores M.D. LAB BLOOD ADD-ON [facility] [address] [place] [address], [facility]ISH [facility] in [place] [address] [place] [id number] from Last 3 Months or Most Recently Relevant to Health Maintenance Care Teams Emergency Service Restorer Relationship Specialty Start Date End Date Elsewhere, Pcp PCP - General Internal Medicine 11/14/20
--- OUTSIDE RECORDS SUMMARY | 2023-11-30 09:57 | XMS_ITS | Continuity of Care Document ---
Author Organization [facility] Address [address] [place] [address] Phone Care Team Providers Care Extrusion Die Repair Manager Name Role Phone Lukas Noguera MD Unavailable [...] take one capsule daily - Active Ultimate Burden CALCIO JUAN (unknown strength) take one daily [...] [facility], [address], [place], [address], [place] tel:[phone] [facility] , No Information 2 Chuckie Serrano [facility] [address], [place], [address], [place]. tel:[phone] Referring Provider: Lukas Pacheco, [facility] [address], [place], [address]. tel:[phone] [facility], [address], [place], [address], [place] tel:[phone] [facility] , No Information 2 Chuckie Gaytan. [facility] [address], [place], [address], [place]. tel:[phone] Family History Family Member Type Diagnosis Age At Onset No Information Payers Payer name Insurance type Covered alliance party ID Nisreena caroyln(s) [facility] [id number] Social History Type Description Quantity Date Captured [...]
--- OUTSIDE RECORDS SUMMARY | 2023-11-30 09:57 | XMS_ITS ---
Author Organization [facility] Address [address] [place] [address] Care Team Providers Care Environmental Field Team Member Name Role Phone Unavailable Unavailable Unavailable Surgery Details Not on file Complications Check Surgery Details section. Procedure Estimated Blood Loss Check Surgery Details section. Procedure Findings Check Surgery Details section. Procedure Specimens Taken Check Surgery Details section.
--- OUTSIDE RECORDS SUMMARY | 2023-11-30 09:57 | XMS_ITS | Referral Summary ---
Author Organization [facility] Address [address] [place] [address] Care Team Providers Care Boiler Mechanic Name Role Phone Elsewhere, Pcp Primary Care Provider Unavailabl e Source Comments Patient records contain information from all sites at [facility]. For routine questions regarding patient records, call [phone] during business hours, M-F 8:00 AM - 5:00 PM Central Time. Record requests for emergency care only can be directed to [phone] at any time.[facility] Allergies Active Allergy Reactions Criticality Noted Date Comments Atorvastatin Myalgia,Rash 10/01/2013 Intolerance Benzophenone Rash 04/23/2018 [place] Chloride Rash 04/23/2018 [place] chloride hexahydrate Coconut Diethanolamide (Bulk) Rash 04/23/2018 Diazepam Other (see comments) 04/22/2010 Makes her more restless, anxious. Dibutyl Phthalate Rash 04/23/2018 Diphenhydramine Other (see comments) 04/06/2010 internal heat Paradoxical rx per patient. Possible that benadryl actually keeps pt awake Diphenhydramine Hcl Other (see comments) 08/27/2013 Dmdm Hydantoin Rash 04/23/2018 Ethyl Xnjfabck-Rn-Paxpiw Methacrylate Rash 04/23/2018 Formaldehyde Rash 12/10/2017 Hydrochlorothiazide [...] times a day. 09/29/2015 Active FISH,SAF,FLX,BRG OILS/O3,6,9N2 (EOIP-CDXU-NGQBEX OIL ORAL) Take by mouth. 02/22/2014 Active [...] both eyes as needed. 06/26/2017 Active omega 6-bqv-arf-fish oil 1,000 mg (120 mg-180 mg) capsule [...] (08/14/2016): Paroxysmal Ventricular Tachycardia Followed by [facility] Immunizations Name Administration Dates Next Due Influenza, [...] or relatives? Twice a week 10/21/2019 Attends Islam Services Not on file 10/20 Active Member [...] and heating? Not hard at all 02/06/2023 [facility] [place] of Occupat ional Health - Occupational Stress [...] your living situation today? [facility] 02/06/2023 Education Answer Date Recorded What is the highest level of school you have completed or the highest degree you have received? 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, EXPLORATION ENGINEER, [employer]) 12/19/2018 Sex and Gender Information Value [...] CDT Melanie Flores M.D. LAB BLOOD ADD-ON [facility] [address] [place] [address], [facility]ISH [facility] [place] [address] [place] [address] from Last 3 Months or Most Recently Relevant to Health Maintenance Care Teams Boiler Mechanic Relationship Specialty Start Date End Date Elsewhere, Pcp PCP - General Internal Medicine 11/14/20
--- OUTSIDE RECORDS SUMMARY | 2023-11-30 09:57 | XMS_ITS | Encounter Summary ---
Author Organization [facility] Address [address] [place] [address] Care Team Providers Care Medical Office Secretary Name Role Phone Elsewhere, Pcp Primary Care Provider Unavailabl e Reason for Referral * Outpatient (Routine) - Closed Specialty Diagnoses / Procedures Referred By Jesse morales Referred To Contact Diagnoses Incontinence Urinary Procedures URO Uroflow Bjorn Mittal M.D. [address] [place] [address] [facility] Referral ID Status Reason Start Date Expiration Date Visits Re quested Visits Authorized [id number] Closed 05/27/2023 05/26/2024 1 1 CRIPTION CLERK Encounter Details Date Type Department Care Team (Late st Contact Info) Description 05/27/2023 Orders Only Department of Urology in [place], [place] [address] [place] [id number] Montgomery Mckenzie, Provider, Devin, Ph.D. Incontinence Urinary Social History Tobacco Use Types [...] and heating? Not hard at all 02/06/2023 [facility] [place] of Occupat ional Health - Occupational Stress [...] your living situation today? I have a [facility] place to live 02/06/2023 Education Answer Date Recorded What is the highest level of school you have completed or the highest degree you have received? 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, ENVIRONMENTAL HEALTH AND SAFETY MANAGER, [employer]) 12/19/2018 Sex and Gender Information [...] PM CDT Bjorn [facility]ittal [facility]. [facility] Organization Address City/State/ZIP Co de Phone Number [facility] [address] [place] [address], [facility] [address] [place] [address] * URO Uroflow (06/04/2023 2:15 PM CDT) [...] Urinary documented in this encounter Care Teams Medical Office Secretary Relationship Specialty Start Date End Date Elsewhere, Pcp PCP - General Internal Medicine 11/14/20 documented as of this encounter
--- OUTSIDE RECORDS SUMMARY | 2023-11-30 09:57 | XMS_ITS | Clinical Summary ---
Author Organization [facility] Address [place], [place] [address] Care Team Providers Care Hob Grinder Name Role Phone Zuly Huber MD Unavailable [phone] Vani Mohan MD Unavailable [phone] Marley Abrams MD Primary Care Provider [phone] Allergies Active Allergy Reactions Criticality Noted Date Comments Atorvastatin Myalgia 10/01/2013 Intolerance Benzophenone Rash 04/23/2018 [place] Chloride Rash 04/23/2018 [place] chloride hexahydrate Coconut Diethanolamide (Bulk) Rash 04/23/2018 Diazepam *Unknown 04/22/2010 Makes her more restless, anxious. Dibutyl Phthalate Rash 04/23/2018 Diphenhydramine Other - Describe In Comment Field 04/06/2010 Paradoxical rx per patient. Possible that benadryl actually keeps pt awake Dmdm Hydantoin Rash 04/23/2018 Ethyl Lgcfxfxy-Eo-Umcrjx Methacrylate Rash 04/23/2018 Formaldehyde Atopic Dermatitis 12/10/2017 Hydrochlorothiazide Rash 05/11/2015 Possibly severe eczematous like rash Iodine Unknown reaction - patient thought it was from an allergy pill that iodine Lisinopril Cough 10/20/2012 Mercaptopurine Rash 04/23/2018 Methylisothiazolinone Rash 04/23/2018 Neomycin Sulfate Rash 04/23/2018 Nickel Sulfate Rash 04/23/2018 Unlisted Allergen (Include Detail In Comments) Rash 04/23/2018 Black rubber mix, Disperse [place] 3, Dodecyl gallate, Ethylenediamine dihydrochloride, glyceryl thioglycolate, hydroperoxide of limonene, hydroperoxide of linalool, lodopropynyl butyl carbamate, lauryl polyglucose, MCI/OK, P-Phenylenediamine Peppermint Oil Rash 04/23/2018 Propylene Glycol [...] ORAL TBEC once a day ? 0 2 Active Wvcwx-3-ILH-EPA-Fis h Oil (FISH OIL) 1,000 mg (120 mg-180 mg) cap Take by mouth. 0 7 Active tacrolimus 0.03% (PROTOPIC) 0.03 % ointment Apply topically to affected area(s) 2 times daily. 0 8 Active triamcinolone-dimet hicone 0.1-5 % ktoc Apply topically to affected area(s). 0 8 Active LOTEMAX 0.5 % ophthalmic ointment 9 Active mometasone 0.1% (ELOCON 0.1% CREAM) 0.1 % cream Apply topically to affected area(s). 0 Active cetirizine (ZyrTEC) 10 mg tablet Take 1 Tablet (10 mg) by mouth. Twice daily 0 1 Active desonide 0.05% (TRIDESILON 0.05% OINTMENT) 0.05 % ointment Apply topically to affected area(s) 2 times daily. 0 1 Active estradioL (ESTRACE) 0.01% (0.1 mg/g) vaginal creamIndications:At rophic vaginitis 1g intravaginally 1-2 times weekly for control of vaginal dryness 42.5 g 2 Active Ciclopirox 1 % shamIndications:Devon orrheic dermatitis of scalp USE TWO TIMES WEEKLY DIRECTED 120 mL 1 2 Active triamcinolone (ARISTOCORT) 0.1 % ointmentIndications :Psoriasis Apply topically to affected area(s) once daily. 80 g 3 Active rosuvastatin (CRESTOR) 10 mg tabletIndications:H yperlipidemia, unspecified hyperlipidemia type TAKE 1 TABLET BY MOUTH AT BEDTIME 90 Tablet 3 Active Vitamin B-12 1,000 mcg tabletIndications:M fidel problem,Low vitamin B12 level TAKE ONE TABLET BY MOUTH EVERY DAY 90 Tablet 3 Active propafenone (RYTHMOL) 150 mg tabletIndications:P aroxysmal ventricular tachycardia (HC) Take 1 Tablet (150 mg) by mouth every 8 hours. More refills provided at completion of appointment scheduled 09/03/[address] Huber. 270 Tablet 3 4 Active amLODIPine (NORVASC) 5 mg tabletIndications:H ypertension Take 1 Tablet (5 mg) by mouth once daily. Please call [phone] 2 months in advance to schedule an office visit due in August 2024 90 Tablet 3 4 Active losartan (COZAAR) 100 mg tabletIndications:H ypertension Take 1 Tablet (100 mg) by mouth once daily. Additional refills to be received at upcoming appt with Dr. Huber in August Tablet 2 4 Active losartan (COZAAR) 100 mg tabletIndications:H ypertension Take 1 Tablet (100 mg) by mouth once daily. Additional refills to be received at upcoming appt with Dr. Huber in August Tablet 3 4 11/09/19 24 Discontinu ed(*Availa bility/For mulary change/Cos t of medication ) Active Problems Patient Care Coordination No te Formatting of this note migh t be different from the original. HF/Structural Research Eligibility Review Date: 03/09/19 The patient did not qualify for any currently enrolling studies at the time of this review. 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 Atopic dermatitis 05/15/2020 Osteopenia 04/15/2018 Overview (05/29/2018): DEXA 2016 Lichen sclerosus of female genitalia 04/15/2018 Overview (05/29/2018): Biopsy 2010 Psoriasis 04/11/2015 Vitamin D deficiency 10/05/2013 Genital herpes, unspecified 07/17/2012 Osteoarthritis 01/23/2011 Overview (05/29/2014): S/p R TKA 03/2010 S/p L TKA on 01/22/2011 Rheumatology consult 2011 due to concerns she might have psoriatic arthritis - they felt arthritis was OA Hypertension 01/23/2011 Overview (04/30/2013): Stopped lisinopril 08/2012 due to cough Hyperlipidemia 01/23/2011 Overview (04/28/2013): On crestor In the past has been on lipitor and simvastatin which caused myalgia ACP (advance care planning) 04/22/2010 Overview (04/22/2010): Patient has identified Health Care Agent(s): Yes [...] identified: ASSUME FULL TREATMENT. Thyroid nodule 12/23/2009 Overview (01/21/2012): Biopsy 2009 benign colloid nodule Coronary Artery Calcification on Chest CT 2008 Overview (01/11/2011): moderate LAD disease on CT-CA 07/03 VENTRICULAR TACHYCARDIA - NON-SUSTAINED Overview (01/11/2011): rhytmol Holter normal 07/03 Follows with [place] PLANTAR FASCIITIS , RECURRENT Resolved Problems Problem Noted Date Diagnosed Date Resolved Date Nonobstructive CAD (coronary artery disease) per cCTA 06/201004/05/2011 10/20/2012 S/P TKR (total knee replacem ent) - left in 12/2010, right in 03/201004/05/2011 05/29/2018 Hyponatremia 01/23/2011 10/20/2012 S/P Right TKR (total knee replacement) 03/201007/04/19 11 01/23/2011 Episode of Hyponatremia 04/23/201009/2018 Overview (01/11/2011): 04/04 related to free water intake and hypotonic fluids with surgery Unspecified essential hypertension 02/18/2007 01/23/2011 PRESYNCOPE 01/11/2011 PERIPHERAL VASCULAR DISEASE WITH CLAUDICATION 01/11/2011 Pure hypercholesterolemia PSORIASIS WITH PSORIATIC ARTHRITIS 01/11/2011 Encounters Date Type Department Care Team Description 11/12/2023 10:00 AM CDT Office Visit [facility] [address] [place] [phone] Masha García, MIGUELINA Foot Problem (Right 3rd toe blister) 11/12/2023 Travel 11/06/2023 Refill [facility] [address] [place] [phone] Zuly Huber MD Refill Request (Losartan potassium 100 mg) 10/16/2023 Telephone [facility] [address] [place] [phone] Zuly Huber MD Cardiovascular Diagnostic Testing 10/10/2023 Telephone [facility] [address] [place] [phone] Zuly Huber MD Concerns 09/27/2023 Transcribe Orders [facility] [address] [place] [phone] Marley Abrams MD 09/05/[address] [facility] [address] [phone] Zuly Huber MD Refill Request (Amlodipine) 09/05/2023 Orders Only [facility] [address] [place] [phone] Zuly Huber MD 1 scan: (1-Ord) NFLD-EKG-09/03/23 09/03/2023 2:30 PM CDT Office Visit [facility] [address] [place] [phone] Zuly Huber MD Follow Up (Dizziness and Ventricular Tachycardia ) 09/03/2023 Travel from Last 3 Months Immunizations Name Administration Dates Next Due Amb Influenza, Inact (High-d ose) (Flu Clinic Only) 12/23/2015,01/12/2014 COVID-19 vaccine ([employer] 30mcg/0.3mL) LEIDY PEÑALOZA 12/21/2020,06/09/2020,05/19/2020 Influenza Virus, Unspecified [...] an [place] and at age 62. Maternal grandmother had [...] CDT Gender Identity Female 05/06/2020 10:11 PM CARD ROOM MANAGER Sexual Orientation Straight 07/06/2020 4: 09 PM [...] Sign Reading Time Taken Comments Blood Pressure 132/70 09/03/2023 2:33 PM CDT Pulse 72 09/03/2023 2:33 PM CDT Temperature 36.8 ??C (98.2 ??F) 03/10/2020 2:13 PM CS T Respiratory Rate 18 03/10/2019 11:07 AM CARD ROOM MANAGER Oxygen Saturation 98% 09/03/2023 2:33 PM CDT Inhaled Oxygen Concentration - - Weight 61.2 kg (135 lb) 09/03/2023 2:33 PM CDT Height 154.9 cm (5' 1) 02/08/2022 10:20 AM CARD ROOM MANAGER Body Mass Index 25.51 02/08/2022 10:20 AM CARD ROOM MANAGER Plan of Treatment Upcoming Encounters Date Type Department Care Team (Late st Contact Info) Description 12/06/2023 9:00 AM CDT Office Visit [facility] [address] [place] [address] Marley Mixon MD [address] [place] [address] 12/12/2023 9:00 AM CDT Nurse/Clinic Staff Only [facility] [address] [place] [address] 04/21/2024 12:00 PM CARD ROOM MANAGER Office Visit [facility] [address] [place] [phone] Petey Gaxiola, PhD, [facility] [place] [address] Health Maintenance Due Date Last Done Comments RSV vaccine for adults or (1 - 1-dose 60+ series) 1999 Tetanus booster 08/08/2020 08/08/2010, 03/03/2004 Depression screening for age 12+ 06/06/2022 06/06/2021, 06/05/2021, 02/27/2021, Additional history exists Medicare Wellness for age 65+ 06/06/2022, 05/09/2020, 04/24/2019, Additional history exists BMI (ht and wt on same day) for age 18+ 02/08/2023 02/08/2022, 06/05/2021, 03/09/2021, Additional history exists Influenza for age 65+ 11/24/2023 12/21/2020 , 12/03/2019, 12/29/2018, Additional history exists COVID-19 vaccine series ( season) 2023 08/20/2023, 06/27/2021, 12/21/2020, Additional history exists Tdap Completed 08/08/2010 Pneumococcal series for age 65+ Completed 5, 02/13/2008 Zoster (shingles) series for age 50+ Completed 07/17/2018, 05/16/2018, 02/18/2007 DEXA/DXA scan for age 65+ Completed 2019, 01/30/2016, 07/09/2013, Additional history exists Medical Devices Implanted Type Area Electric Furnace Operator Device Identifier Shelf Expiration Date Model / Serial / Lot Cmnt Bone [place] - [id number] Implanted:Qty: 2 on 04/21/2010 at [facility] Right: Knee BIOMET [id number]# / / [id number] Plate Tib Cruciate Fixed - [id number] Implanted:Qty: 1 on 04/21/2010 at [facility] Right: Knee BIOMET [id number]# / / [id number] Patella Series A Thin 31 3peg - [id number] Implanted:Qty: 1 on 04/21/2010 at [facility] Right: Knee BIOMET [id number]# / / [id number] Compnt Fem Cr Intlk [id number] Vanguard - [id number] Implanted:Qty: 1 on 04/21/2010 at [facility] Right: Knee BIOMET [id number]# / / [id number] Vanguard Tibial Bearing Implanted:Qty: 1 on 04/21/2010 at [facility] Right: Knee [id number] / / [id number] Description:VANGUARD TIBIAL BEARING Cmnt Bone [place] - [id number] Implanted:Qty: 2 on 01/22/2011 at [facility] Left: Knee BIOMET [id number]# / / [id number] Bearing Epoly Tib As 12x67 - [id number] Implanted:Qty: 1 on 01/22/2011 at [facility] Left: Knee BIOMET [id number]# / / [id number] Compnt Fem Cr Intlk Lt 60 Vanguard - [id number] Implanted:Qty: 1 on 01/22/2011 at [facility] Left: Knee BIOMET [id number]# / / [id number] Plate Tib Cruciate Fixed - [id number] Implanted:Qty: 1 on 01/22/2011 at [facility] Left: Knee BIOMET [id number]# / / [id number] Peg Series A Pat Std 31 3 - [id number] Implanted:Qty: 1 on 01/22/2011 at [facility] Left: Knee BIOMET [id number]# / / [id number] Procedures Procedure Name Priority Date/Time Associated Diagnosis Comments EKG 12 LEAD Routine 09/05/2023 11:51 AM CDT VENTRICULAR TACHYCARDIA - NON-SUSTAINED XR DXA BONE DENSITY 2 SITES AXIAL Routine 04/27/2019 10:50 AM CARD ROOM MANAGER Other specified disorders of bone density and structure, multiple sites Osteopenia, unspecified location from Last 3 Months or Most Recently Relevant to Health Maintenance Results * EKG 12 LEAD (09/05/2023 11:51 AM CDT) Zuly Huber MD EKG ORD * (ABNORMAL) XR DXA BONE DENSITY 2 SITES AXIAL (04/27/2019 10:50 AM CARD ROOM MANAGER) Anatomical Region Laterality Modality Spine, HIPS, HIPL, HIPR Other Narrative 05/05/2019 12:47 PM CARD ROOM MANAGER Please see scanned document for results of this study. Erica Ramey MD DEXA from Last 3 Months or Most Recently Relevant to Health Maintenance Advance Directives Documents on File Type Date Recorded Patient Manager Of Health Expl anation Healthcare Directive 01/21/2009 [facility] ARE DIRECTIVE Healthcare Directive 04/21/2010 * [...] 6:57 AM 04/21/2010 3:12 PM Care Teams Hob Grinder Relationship Specialty Start Date End Date Marley Abrams MD [address] [place] [address] PCP - General Internal Medicine 02/08/22 Zuly Huber MD [address] [place] [address] Cardiology - Interventional 11/02/19 Vani Mohan MD [address] [place] [address] Dermatology 11/02/19
== END 2023-11-30 10:15 | disposition home or self-care (01) ==
LOC: ED 09:55
PROVIDERS: Emergency Provider Internal Medicine
DX: L03.116 Cellulitis of left lower limb (principal)
CPT/HCPCS: 99283

== ENCOUNTER 2023-12-19 23:44 | Emergency (ER) | payer MEDICARE, SELFPAY ==
[2023-12-19 23:55] VITALS: BP 143/65; PULSE 95; RESP 16; O2SAT 98; BMI 25.5
--- NOTE | 2023-12-20 00:08 | ED_ITS ---
HPI - Eye Problem General Chief complaint: Eye Problems Stated complaint: R eye irritation Time Seen by Provider: 12/19/23 23:59 History of Present Illness HPI Narrative: patient is 83-year-old woman who was scratching her eye tonight and now has a foreign body sensation in her right eye. She has no change in visual acuity. She has no drainage or discharge. She has no significant swelling or redness surrounding the right eye. She was not doing any high risk activities where she may have a foreign body in her eye but simply feels like she scratched her eye with her right hand. No other problems noted. Related Data Home Medications ?Medication ?Instructions ?Recorded ?Confirmed aspirin 81 mg chewable tablet 81 mg PO QDAY 10/12/21 09/17/23 cetirizine 10 mg tablet 10 mg PO DAILY 10/12/21 09/17/23 omega 4-bma-kve-fish oil 300 1 cap PO QDAY 10/12/21 09/17/23 mg-1,000 mg capsule (Fish Oil) propafenone 150 mg tablet 150 mg PO TID 10/12/21 09/17/23 triamcinolone acetonide 0.1 % 1 applic topical .Daily as needed 10/12/21 09/17/23 topical ointment PRN amlodipine 5 mg tablet 5 mg PO BID 12/04/21 09/17/23 estradiol 0.01% (0.1 mg/gram) 1 g vaginal QWEEK 12/21/21 09/17/23 vaginal cream desonide 0.05 % topical ointment 1 applic topical BID PRN 05/28/22 09/17/23 clobetasol 0.05 % scalp solution topical PRN 08/20/23 09/17/23 tacrolimus 0.1 % topical ointment topical PRN 08/20/23 09/17/23 betamethasone dipropionate 0.05 % 1 applic topical .2x/week PRN 09/17/23 topical ointment loteprednol etabonate 0.5 % eye drp ophthalmic (eye) 09/17/23 09/17/23 drops,suspension polymyxin B sulfate 10,000 ophthalmic (eye) 09/17/23 09/17/23 unit-trimethoprim 1 mg/mL eye drops valacyclovir 500 mg tablet 500 mg PO DAILY 09/17/23 09/17/23 Previous Rx's ?Medication ?Instructions ?Recorded losartan 100 mg tablet 100 mg PO DAILY #90 tabs 04/24/22 cyanocobalamin (vitamin B-12) 1,000 mcg PO DAILY #90 tabs 10/09/22 1,000 mcg tablet rosuvastatin 10 mg tablet 10 mg PO .Bedtime #90 tabs 08/20/23 ciclopirox 1 % shampoo 5 ml topical .2X Weekly PRN 10/16/23 Seborrheic dermatitis #120 mL Allergies Allergy/AdvReac Type Severity Reaction Status Date / Time hydrochlorothiazide Allergy Intermediate Unknown Verified 09/17/23 15:57 lanolin Allergy Intermediate Unknown Verified 09/17/23 15:57 trifluridine Allergy Intermediate Verified 09/17/23 15:57 atorvastatin Allergy Mild Unknown Verified 09/17/23 15:57 iodine Allergy Mild Unknown Verified 09/17/23 15:57 lisinopril Allergy Mild Unknown Verified 09/17/23 15:57 rofecoxib Allergy Mild Unknown Verified 09/17/23 15:57 simvastatin Allergy Mild Unknown Verified 09/17/23 15:57 cobalt Allergy Unknown Verified 11/30/23 09:38 formaldehyde Allergy Unknown Verified 09/17/23 15:57 methylisothiazolinone Allergy Unknown Verified 09/17/23 15:57 neomycin Allergy Unknown Unknown Verified 09/17/23 15:57 propylene glycol Allergy Unknown Unknown Verified 09/17/23 15:57 sodium benzoate Allergy Unknown Verified 09/17/23 15:57 diazepam Allergy Intermediate Unknown Uncoded 09/17/23 15:57 trifluridine Allergy Intermediate Unknown Uncoded 09/17/23 15:57 Review of Systems Status of ROS: Reports: 10 or more systems reviewed and unremarkable except as noted in History and below [facility] Medical History History of keratitis ?Z86.69 - Personal history of other diseases of the nervous system and sense organs (ICD-10) Surgical History History of hand surgery ?Z98.890 - Other specified postprocedural states (ICD-10) History of tonsillectomy (~1940) ?Z90.89 - Acquired absence of other organs (ICD-10) History of incisional hernia repair (1971) ?Z98.890 - Other specified postprocedural states (ICD-10) ?Z87.19 - Personal history of other diseases of the digestive system (ICD-10) History of bilateral tubal ligation (1970) ?Z98.51 - Tubal ligation status (ICD-10) History of phacoemulsification of cataract of both eyes with intraocular lens implantation (2016) ?Z98.41 - Cataract extraction status, right eye (ICD-10) ?Z98.42 - Cataract extraction status, left eye (ICD-10) ?Z96.1 - Presence of intraocular lens (ICD-10) History of total bilateral knee replacement (TKR) (2010) ?Z96.653 - Presence of artificial knee joint, bilateral (ICD-10) Family History Mother Stroke Coronary artery disease Diabetes Maternal Grandmother Stroke Maternal Grandfather Coronary artery disease Social History What is your current living situation?: I presently have a place to live Problems where you live: no known problems In the past 12 months, utilities in danger of being shut off: no In past 12 months, lack of transportation kept you from medical appts, meetings, work, or getting things needed for daily living: no In the past 12 mos, have been you worried that your food would run out before you had money to buy more?: never true In the past 12 mos, the food you bought just didn't last and you didn't have money to buy more?: never true Smoking Status: Never smoker Do you use any of these nicotine containing products: None Second hand tobacco smoke exposure: No How often do you have a drink containing alcohol: monthly or less How often do you have six or more drinks on one occasion: Never AUDIT-C Alcohol total score: 1 Non-prescribed substance use: denies use How often does anyone, including family, friends and others, physically hurt you : never How often does anyone, including family, friends and others, insult or talk down to you: never How often does anyone, including family, friends and others, threaten you with harm: never How often does anyone, including family, friends and others, scream or curse at you: never Little interest or pleasure in doing things: not at all Feeling down, depressed, or hopeless: not at all service: No Exam Narrative: Exam Narrative: EXAM GENERAL: Patient appears comfortable and well. EYES: Redness and injection right eye normal pupillary response extraocular movement. No drainage or discharge. LYMPH: No supraclavicular or cervical lymphadenopathy. SKIN: Visible skin seen during exam normal or with benign process only. EXT: No dependent lower extremity pedal edema. HEART: Regular rate and rhythm with no murmurs, rubs, or gallops. LUNGS: Clear to auscultation bilaterally with no crackles or wheezes. ABD: Soft, non tender, non distended. PSYCH: Good eye contact, speech is not pressured. Const: Vital Signs, click to edit/add: Vital Signs - 24 hr 12/19/23 23:55 Pulse Rate [Pulse Oximeter] 95 Respiratory Rate 16 Blood Pressure [Le ft Upper Arm] 143/65 H Pulse Oximetry 98 Oxygen Delivery Me thod Room Air Course Course ED Course: Patient seen and examined. I anesthetized with tetracaine and carefully examined and irrigated. Vital Signs Vital signs: Initial Vital Signs Pulse Rate 95 12/19/23 23:55 Respiratory Rate 16 12/19/23 23:55 Blood Pressure 143/65 H 12/19/23 23:55 Blood Pressure Mean 91 12/19/23 23:55 Blood Pressure Position Sitting 12/19/23 23:55 Pulse Oximetry 98 12/19/23 23:55 Oxygen Delivery Method Room Air 12/19/23 23:55 Vital Signs Pulse Rate 95 12/19/23 23:55 Respiratory Rate 16 12/19/23 23:55 Blood Pressure 143/65 H 12/19/23 23:55 Pulse Oximetry 98 12/19/23 23:55 Oxygen Delivery Method Room Air 12/19/23 23:55 Pulse Rate 95 12/19/23 23:55 Respiratory Rate 16 12/19/23 23:55 Blood Pressure 143/65 H 12/19/23 23:55 Pulse Oximetry 98 12/19/23 23:55 Oxygen Delivery Method Room Air 12/19/23 23:55 MDM - Eye Problem MDM Narrative Medical decision making narrative: Patient is a 83-year-old woman who presents after scratching her right eye. I did provide topical tetracaine and she had complete resolution of her symptoms. I do not see a foreign body. I did instruct her on eye care and recommended follow-up with [facility] in the morning if symptoms are not improved. She is cautioned not to scratch her eye while it is anesthetized. She will follow-up on a p.r.n. basis. Differential diagnosis includes but not limited to corneal foreign body corneal abrasion conjunctivitis be scleritis Discharge Plan Discharge Clinical Impression: Corneal abrasion Patient Disposition: Home, Self-Care Condition: Stable Instructions: Corneal Abrasion (ED) Additional Instructions: saline eye drops as needed follow-up with [facility] clinic on a p.r.n. basis. Activity Level: No Restrictions Discharge Diet: Regular Prescriptions: No Action cetirizine 10 mg tablet 10 mg PO DAILY omega 7-pha-dag-fish oil [Fish Oil] 300-1,000 mg capsule 1 cap PO QDAY propafenone 150 mg tablet 150 mg PO TID Rx Instructions: space evenly during waking hours aspirin 81 mg tablet,chewable 81 mg PO QDAY triamcinolone acetonide 0.1 % ointment 1 applic topical .Daily as needed PRN Rx Instructions: APPLY TO AFFECTED AREA desonide 0.05 % ointment 1 applic topical BID PRN estradiol 0.01 % (0.1 mg/gram) cream 1 g vaginal QWEEK Rx Instructions: Medication to be put into individually filled applicators. valacyclovir 500 mg tablet 500 mg PO DAILY polymyxin B sulf-trimethoprim 10,000 unit- 1 mg/mL drops ophthalmic (eye) loteprednol etabonate 0.5 % drops,suspension ophthalmic (eye) betamethasone dipropionate 0.05 % ointment 1 applic topical .2x/week PRN amlodipine 5 mg tablet 5 mg PO BID tacrolimus 0.1 % ointment topical PRN clobetasol 0.05 % solution topical PRN rosuvastatin 10 mg tablet 10 mg PO .Bedtime Qty: 90 3RF losartan 100 mg tablet 100 mg PO DAILY Qty: 90 1RF cyanocobalamin (vitamin B-12) 1,000 mcg tablet 1,000 mcg PO DAILY Qty: 90 3RF ciclopirox 1 % shampoo 5 ml topical .2X Weekly PRN (Reason: Seborrheic dermatitis) Qty: 120 0RF Rx Instructions: 5 ml equal to one appliaction Follow Up/Referrals: Provider,Not a Local [Primary Care Provider] - Stand Alone Forms: Comic Reply Info Instructions
--- OUTSIDE RECORDS SUMMARY | 2023-12-20 00:15 | XMS_ITS | Clinical Summary ---
Author Organization [employer] [facility] Address [place], [place] [address] Care Team Providers Care Enrollment Management Manager Name Role Phone Zuly Huber MD Unavailable [phone] Vani Mohan MD Unavailable [phone] Marley Abrams MD Primary Care Provider [phone] Allergies Active Allergy Reactions Criticality Noted Date Comments Atorvastatin Myalgia 10/01/2013 Intolerance Benzophenone Rash 04/23/2018 [place] Chloride Rash 04/23/2018 [place] chloride hexahydrate Coconut Diethanolamide (Bulk) Rash 04/23/2018 Diazepam *Unknown 04/22/2010 Makes her more restless, anxious. Dibutyl Phthalate Rash 04/23/2018 Diphenhydramine Other - Describe In Comment Field 04/06/2010 Paradoxical rx per patient. Possible that benadryl actually keeps pt awake Dmdm Hydantoin Rash 04/23/2018 Ethyl Rzwerhtm-Pq-Bihyyu Methacrylate Rash 04/23/2018 Formaldehyde Atopic Dermatitis 12/10/2017 Hydrochlorothiazide Rash 05/11/2015 Possibly severe eczematous like rash Iodine Unknown reaction - patient thought it was from an allergy pill that iodine Lisinopril Cough 10/20/2012 Mercaptopurine Rash 04/23/2018 Methylisothiazolinone Rash 04/23/2018 Neomycin Sulfate Rash 04/23/2018 Nickel Sulfate Rash 04/23/2018 Unlisted Allergen (Include Detail In Comments) Rash 04/23/2018 Black rubber mix, Disperse Daggett 3, Dodecyl gallate, Ethylenediamine dihydrochloride, glyceryl thioglycolate, hydroperoxide of limonene, hydroperoxide of linalool, lodopropynyl butyl carbamate, lauryl polyglucose, MCI/TX, P-Phenylenediamine Peppermint Oil Rash 04/23/2018 Propylene Glycol [...] once a day ? 0 2 Active Hmfyz-0-AWA-EPA-Fis h Oil (FISH OIL) 1,000 mg (120 [...] of vaginal dryness 42.5 g 2 Active triamcinolone (ARISTOCORT) 0.1 % ointmentIndications :Psoriasis Apply topically to affected area(s) once daily. 80 g 3 Active Vitamin B-12 1,000 mcg tabletIndications:M [...] mg) by mouth once daily. Please call [phone] 2 months in advance to schedule an office visit due in August 2024 90 Tablet 3 4 Active losartan (COZAAR) 100 mg tabletIndications:H ypertension Take 1 Tablet (100 mg) by mouth once daily. Additional refills to be received at upcoming appt with Dr. Huber in August Tablet 2 4 Active Ciclopirox 1 % shamIndications:Devon orrheic dermatitis of scalp USE TWO TIMES WEEKLY DIRECTED 120 mL 1 4 Active rosuvastatin (CRESTOR) 10 mg tabletIndications:H yperlipidemia, unspecified hyperlipidemia type Take 1 Tablet (10 mg) by mouth at bedtime. 90 Tablet 3 4 Active Ciclopirox 1 % shamIndications:Devon orrheic dermatitis of scalp USE TWO TIMES WEEKLY DIRECTED 120 mL 1 2 12/06/19 24 Discontinu ed(Reorder (E-cancel not sent)) rosuvastatin (CRESTOR) 10 mg tabletIndications:H yperlipidemia, unspecified hyperlipidemia type TAKE 1 TABLET BY MOUTH AT BEDTIME 90 Tablet 3 12/06/19 24 Discontinu ed(Reorder (E-cancel not sent)) Active Problems Patient Care Coordination No te Formatting of this note migh t be different from the original. HF/Structural Research Eligibility Review Date: 03/09/19 The patient did not qualify for any currently enrolling studies at the time of this review. 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 Thyroid nodule 12/23/2009 Overview (01/21/2012): Biopsy 2010 benign colloid nodule Coronary Artery Calcification on Chest CT 2008 Overview (01/11/2011): moderate LAD disease on CT-CA 07/03 VENTRICULAR TACHYCARDIA - NON-SUSTAINED Overview (01/11/2011): rhytmol Holter normal 07/03 Follows with [facility] PLANTAR FASCIITIS , RECURRENT Resolved Problems Problem Noted Date Diagnosed Date Resolved Date Nonobstructive CAD (coronary artery disease) per cCTA 06/201004/05/2011 10/20/2012 S/P TKR (total knee replacem ent) - left in 12/2010, right in 03/201004/05/2011 05/29/2018 Hyponatremia 01/23/2011 10/20/2012 S/P Right TKR (total knee replacement) 03/201007/04/19 11 01/23/2011 Episode of Hyponatremia 04/23/2010 03/0 09/2018 Overview (01/11/2011): 04/04 related to free water intake and hypotonic fluids with surgery Unspecified essential hypertension 02/18/2007 01/23/2011 PRESYNCOPE 01/11/2011 PERIPHERAL VASCULAR DISEASE WITH CLAUDICATION 01/11/2011 Pure hypercholesterolemia PSORIASIS WITH PSORIATIC ARTHRITIS 01/11/2011 Encounters Date Type Department Care Team Description 12/06/2023 9:00 AM CDT Office Visit [facility] [address] [place] [address] Marley Mixon MD Establish Care; Medication Management 12/06/2023 Travel 11/12/2023 10:00 AM CDT Office Visit [facility] [address] [place] [address] Masha García, MIGUELINA Foot Problem (Right 3rd toe blister) 11/12/2023 Travel 11/06/[address] [facility] [address] [place] [address] Zuly Huber MD Refill Request (Losartan potassium 100 mg) 10/16/2023 Telephone [facility] [address] [place] [address] Zuly Huber MD Cardiovascular Diagnostic Testing 10/10/2023 Telephone [facility] [address] [place] [phone] Zuly Huber MD Concerns 09/27/[address] [facility] [address] [place] [address] Marley Abrams MD from Last 3 Months Immunizations Name Administration Dates Next Due Amb Influenza, Inact (High-d ose) (Flu Clinic Only) 12/23/2015,01/12/2014 COVID-19 vaccine (Hubs1 NTPunch! 30mcg/0.3mL) LEIDY PEÑALOZA 12/21/2020,06/09/2020,05/19/2020 Influenza Virus, Unspecified [...] at age 60. Maternal grandfather had an [place] and at age 63. Maternal grandmother had [...] of Communication with Friends and Fami ly 0 12/06/2023 Financial Resource Strain Answer Date R ecorded Difficulty of Paying Living Expenses 3 12/06/2023 Difficulty of Paying Living Expenses Not on file 12/06/2023 Food Insecurity Answer Date Recorded Worried About Running Out of Food in the Last Ye ar 1 12/06/2023 Transportation Needs Answer Date Record ed Lack of Transportation (Medical) 1 12/06/2023 Housing Stability Answer Date Recorded Unable to Pay for Housing in the Last Year 1 12/06/2023 Sex and Gender Information Value Date Recorded Sex Assigned at Female 07/06/2020 4:09 PM CDT Gender Identity Female 05/06/2020 10:11 PM LUMBER KILN OPERATOR Sexual Orientation Straight 07/06/2020 4: 09 PM [...] Sign Reading Time Taken Comments Blood Pressure 147/69 12/06/2023 9:00 AM CDT Pulse 75 12/06/2023 9:00 AM CDT Temperature 36.8 ??C (98.2 ??F) 03/10/2020 2:13 PM CS T Respiratory Rate 18 03/10/2019 11:07 AM LUMBER KILN OPERATOR Oxygen Saturation 98% 12/06/2023 9:00 AM CDT Inhaled Oxygen Concentration - - Weight 58.5 kg (129 lb) 12/06/2023 9:00 AM CDT Height 154 cm (5' 0.63) 12/06/2023 9:00 AM CDT Body Mass Index 24.67 12/06/2023 9:00 AM CDT Plan of Treatment Upcoming Encounters Date Type Department Care Team (Late st Contact Info) Description 01/13/2024 10:30 AM CDT Nurse/Clinic Staff Only [facility] [address] [place] [address] 04/21/2024 12:00 PM LUMBER KILN OPERATOR Office Visit [facility] [address] [place] [address] Petey Gaxiola, PhD, [address] [place] [address] Health Maintenance Due Date Last Done Comments RSV vaccine for adults or (1 - 1-dose 75+ series) 08/24/2014 Tetanus booster 08/08/2020 08/08/2010, 03/03/2004 Depression screening for age 12+ 06/06/2022 06/06/2021, 06/05/2021, 02/27/2021, Additional history exists Medicare Wellness for age 65+ 06/06/2022, 05/09/2020, 04/24/2019, Additional history exists COVID-19 vaccine series ( season) 2023 08/20/2023, 06/27/2021, 12/21/2020, Additional history exists Influenza for age 65+ 11/24/2023 12/21/2020 , 12/03/2019, 12/29/2018, Additional history exists BMI (ht and wt on same day) for age 18+ 12/05/2024 12/06/2023, 02/08/2022, 06/05/2021, Additional history exists Tdap Completed 08/08/2010 Pneumococcal series for age 65+ Completed 5, 02/13/2008 Zoster (shingles) series for age 50+ Completed 07/17/2018, 05/16/2018, 02/18/2007 DEXA/DXA scan for age 65+ Completed 2019, 01/30/2016, 07/09/2013, Additional history exists Medical Devices Implanted Type Area Processing Mgr Device Identifier Shelf Expiration Date Model / Serial / Lot Cmnt Bone [place] - [id number] Implanted:Qty: 2 on 04/21/2010 at [facility] Right: Knee BIOMET [id number]# / / [id number] Plate Tib Cruciate Fixed - [id number] Implanted:Qty: 1 on 04/21/2010 at [facility] Right: Knee BIOMET [id number]# / / [id number] Patella Series A Thin 31 3peg - [id number] Implanted:Qty: 1 on 04/21/2010 at [facility] Right: Knee BIOMET [id number]# / / [id number] Compnt Fem Cr Intlk 428290 Vanguard - [id number] Implanted:Qty: 1 on 04/21/2010 at [facility] Right: Knee BIOMET [id number]# / / [id number] Vanguard Tibial Bearing Implanted:Qty: 1 on 04/21/2010 at [facility] Right: Knee [id number] / / [id number] Description:VANGUARD TIBIAL BEARING Cmnt Bone [place] - [id number] Implanted:Qty: 2 on 01/22/2011 at [facility] Left: Knee BIOMET [id number]# / / [id number] Bearing Epoly Tib As 12x67 - [id number] Implanted:Qty: 1 on 01/22/2011 at [facility] Left: Knee BIOMET [id number]# / / [id number] Compnt Fem Cr Intlk Lt 60 Vanguard - [id number] Implanted:Qty: 1 on 01/22/2011 at [facility] Left: Knee BIOMET [id number]# / / [id number] Plate Tib Cruciate Fixed - [id number] Implanted:Qty: 1 on 01/22/2011 at [facility] Left: Knee BIOMET [id number]# / / [id number] Peg Series A Pat Std 31 3 - [id number] Implanted:Qty: 1 on 01/22/2011 at [facility] Left: Knee BIOMET [id number]# / / [id number] Procedures Procedure Name Priority Date/Time Associated Diagnosis Comments XR DXA BONE DENSITY 2 SITES AXIAL Routine 04/27/2019 10:50 AM LUMBER KILN OPERATOR Other specified disorders of bone density and structure, multiple sites Osteopenia, unspecified location from Last 3 Months or Most Recently Relevant to Health Maintenance Results * (ABNORMAL) XR DXA BONE DENSITY 2 SITES AXIAL (04/27/2019 10:50 AM LUMBER KILN OPERATOR) Anatomical Region Laterality Modality Spine, HIPS, HIPL, HIPR Other Narrative 05/05/2019 12:47 PM LUMBER KILN OPERATOR Please see scanned document for results of this study. Erica Ramey MD DEXA from Last 3 Months or Most Recently Relevant to Health Maintenance Advance Directives Documents on File Type Date Recorded Patient Ratings Analyst Expl anation Healthcare Directive 01/21/2009 [facility] ARE DIRECTIVE Healthcare Directive 04/21/2010 * [...] 6:57 AM 04/21/2010 3:12 PM Care Teams Enrollment Management Manager Relationship Specialty Start Date End Date Marley Abrams MD [address] [place] [address] PCP - General Internal Medicine 02/08/22 Zuly Huber MD [address] [place] [id number] Cardiology - Interventional 11/02/19 Vani Mohan MD [address] [place] [address] Dermatology 11/02/19
--- OUTSIDE RECORDS SUMMARY | 2023-12-20 00:15 | XMS_ITS | Clinical Summary ---
Author Organization [facility] Address [address] [place] [address] Care Team Providers Care Litigation Claim Representative Name Role Phone Elsewhere, Pcp Primary Care Provider Unavailabl e Source Comments Patient records contain information from all sites at [facility]. For routine questions regarding patient records, call [phone] during business hours, M-F 8:00 AM - 5:00 PM Central Time. Record requests for emergency care only can be directed to [phone] at any time.[facility] Allergies Active Allergy Reactions Criticality Noted Date Comments Atorvastatin Myalgia,Rash 10/01/2013 Intolerance Benzophenone Rash 04/23/2018 [place] Chloride Rash 04/23/2018 [place] chloride hexahydrate Coconut Diethanolamide (Bulk) Rash 04/23/2018 Diazepam Other (see comments) 04/22/2010 Makes her more restless, anxious. Dibutyl Phthalate Rash 04/23/2018 Diphenhydramine Other (see comments) 04/06/2010 internal heat Paradoxical rx per patient. Possible that benadryl actually keeps pt awake Diphenhydramine Hcl Other (see comments) 08/27/2013 Dmdm Hydantoin Rash 04/23/2018 Ethyl Ueohqqkj-Wl-Qpvlni Methacrylate Rash 04/23/2018 Formaldehyde Rash 12/10/2017 Hydrochlorothiazide [...] times a day. 09/29/2015 Active FISH,SAF,FLX,BRG OILS/O3,6,9N2 (OJLR-MDHG-XDSCSI OIL ORAL) Take by mouth. 02/22/2014 Active [...] both eyes as needed. 06/26/2017 Active omega 2-ukt-hag-fish oil 1,000 mg (120 mg-180 mg) capsule [...] (08/14/2016): Paroxysmal Ventricular Tachycardia Followed by [facility] Immunizations Name Administration Dates Next [...] Maternal Grandfather Wilmar Mcdonald Maternal Grandmother Annia Matilda Mcdonald Mother Domonique Gomez Paternal Grandfather eBrt Gomez Social History Tobacco Use Types Packs/Day [...] or relatives? Twice a week 10/21/2019 Attends Muslim Services Not on file 10/20 Active Member [...] heating? Not hard at all 02/06/2023 [facility] - Occupational Stress Questionnaire Answer Date [...] 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, MUSIC AGENT, ISSAC) 12/19/2018 Sex and Gender Information Value [...] Blood Press ure Check / Re-check 1940 RSV vaccine - (32-3 6 weeks) or 60+ years (1 - 1-dose 75+ series) 08/24/2014 Creatinine Level (Kidney Fun ction Test) 06/05/2022 06/05/2021, 11/14/2020, 05/09/2020, Additional history exists Potassium Level 06/05/2022 06/05/2021, 10/24, 05/09/2020, Additional history exists Sodium Level 06/05/2022 06/05/2021, 10/24, 05/09/2020, Additional history exists Depression Screening (Annual PHQ-2) 03/25/2023 Fall Risk Screen (Annual) 03/25/2023 COVID-19 Vaccine (2023- 5 season) 2023 01/08/2023, 08/09/2022, 12/29/2021, Additional history [...] CDT Melanie Flores M.D. LAB BLOOD ADD-ON [facility] [address] [place] [address], [facility] NITISH [facility] [place] [address] [place] [address] from Last 3 Months or Most Recently Relevant to Health Maintenance Care Teams Litigation Claim Representative Relationship Specialty Start Date End Date Elsewhere, Pcp PCP - General Internal Medicine 11/14/20
--- OUTSIDE RECORDS SUMMARY | 2023-12-20 00:15 | XMS_ITS | Encounter Summary ---
Author Organization [facility] Address [address] [place] [address] Care Team Providers Care Human Service Coordinator Name Role Phone Elsewhere, Pcp Primary Care Provider Unavailabl e Reason for Referral * Outpatient (Routine) - Closed Specialty Diagnoses / Procedures Referred By Jesse morales Referred To Contact Diagnoses Incontinence Urinary Procedures URO Uroflow Bjorn Mittal M.D. [address] [place] [address] [facility] Referral ID Status Reason Start Date Expiration Date Visits Re quested Visits Authorized [id number] Closed 05/27/2023 05/26/[address] Encounter Details Date Type Department Care Team (Late st Contact Info) Description 05/27/2023 Orders Only Department of Urology in [place], [place] [address] [place] [phone] Montgomery Mckenzie, Provider, Devin, Ph.D. Incontinence Urinary [...] or relatives? Twice a week 10/21/2019 Attends Taoist Services Not on file 10/20 Active Member [...] and heating? Not hard at all 02/06/2023 [facility] Occupat ional Health - Occupational Stress [...] living situation today? I have a [facility] place to live 02/06/2023 Education Answer Date Recorded What is the highest level of school you have completed or the highest degree you have received? 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, BOOK PACKER, ISSAC) 12/19/2018 Sex and Gender Information Value [...] PM CDT Bjorn Mittal M.D. [facility] Organization Address City/State/ZIP Co de Phone Number [facility] [address] [place] [address], [facility] [address] [place] [address] * URO Uroflow (06/04/2023 2:15 PM CDT) [...] Urinary documented in this encounter Care Teams Human Service Coordinator Relationship Specialty Start Date End Date Elsewhere, Pcp PCP - General Internal Medicine 11/14/20 documented as of this encounter
--- OUTSIDE RECORDS SUMMARY | 2023-12-20 00:15 | XMS_ITS | Referral Summary ---
Author Organization [facility] Address [address] [place] [address] Care Team Providers Care Hot Air Furnace Installer Repairer Name Role Phone Elsewhere, Pcp Primary Care Provider Unavailabl e Source Comments Patient records contain information from all sites at [facility]. For routine questions regarding patient records, call [phone] during business hours, M-F 8:00 AM - 5:00 PM Central Time. Record requests for emergency care only can be directed to [phone] at any time.[facility] Allergies Active Allergy Reactions Criticality Noted Date Comments Atorvastatin Myalgia,Rash 10/01/2013 Intolerance Benzophenone Rash 04/23/2018 [place] Chloride Rash 04/23/2018 [place] chloride hexahydrate Coconut Diethanolamide (Bulk) Rash 04/23/2018 Diazepam Other (see comments) 04/22/2010 Makes her more restless, anxious. Dibutyl Phthalate Rash 04/23/2018 Diphenhydramine Other (see comments) 04/06/2010 internal heat Paradoxical rx per patient. Possible that benadryl actually keeps pt awake Diphenhydramine Hcl Other (see comments) 08/27/2013 Dmdm Hydantoin Rash 04/23/2018 Ethyl Uccdyexf-Lr-[place] Methacrylate Rash 04/23/2018 Formaldehyde Rash 12/10/2017 Hydrochlorothiazide [...] times a day. 09/29/2015 Active FISH,SAF,FLX,BRG OILS/O3,6,9N2 (ITIG-TYAQ-KZWAOM OIL ORAL) Take by mouth. 02/22/2014 Active [...] both eyes as needed. 06/26/2017 Active omega 1-tqr-yvd-fish oil 1,000 mg (120 mg-180 mg) capsule [...] (08/14/2016): Paroxysmal Ventricular Tachycardia Followed by [facility] [place] [facility] Immunizations Name Administration Dates Next [...] or relatives? Twice a week 10/21/2019 Attends Gnosticism Services Not on file 10/20 Active Member [...] and heating? Not hard at all 02/06/2023 [facility] [place] of Occupat ional Health - Occupational Stress [...] your living situation today? I have a [facility] place to live 02/06/2023 Education Answer Date Recorded What is the highest level of school you have completed or the highest degree you have received? 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, APPRAISER PERSONAL PROPERTY, ISSAC) 12/19/2018 Sex and Gender Information Value [...] CDT Melanie Flores M.D. LAB BLOOD ADD-ON [facility] [address] [place] [address], [facility] NITISH [facility] [place] [address] [place] [address] from Last 3 Months or Most Recently Relevant to Health Maintenance Care Teams Hot Air Furnace Installer Repairer Relationship Specialty Start Date End Date Elsewhere, Pcp PCP - General Internal Medicine 11/14/20
--- OUTSIDE RECORDS SUMMARY | 2023-12-20 00:15 | XMS_ITS ---
Author Organization [facility] Address [address] [place] [address] Care Team Providers Care Meat Wrapper Name Role Phone Unavailable Unavailable Unavailable Surgery Details Not on file Complications Check Surgery Details section. Procedure Estimated Blood Loss Check Surgery Details section. Procedure Findings Check Surgery Details section. Procedure Specimens Taken Check Surgery Details section.
--- OUTSIDE RECORDS SUMMARY | 2023-12-20 00:16 | XMS_ITS | Continuity of Care Document ---
Author Organization [facility] Address [address] [place] [address] Phone Care Team Providers Care Ecd Name Role Phone Lukas Noguera MD Unavailable [...] tablet (5MG) by oral route every day - Active Fanny 180 mg Tab take 1 tablet (180MG) by oral route every day - Active Vitamin D3 1,000 unit Cap take one capsule daily - Active aspirin 81 mg Tab, Delayed Release take 1 tablet (81MG) by oral route every day 81 MG - Active Fish Oil 1,000 mg Cap take one capsule daily - Active Ultimate [place] CALCIO JUAN (unknown strength) take one daily [...] [facility], [address], [place], [address], tel:[phone] [facility] , No Information Chuckie Gaytan. [facility] [address], [place], [address], [place]. tel:[phone] Referring Provider: Lukas Pacheco, [facility] [address], [place], [address]. tel:[phone] [facility], [address], [place], [address], [place] tel:[phone] [facility] , No Information Chuckie Gaytan. [facility] [address], [place], [address], [place]. tel:[phone] Family History Family Member Type Diagnosis Age At Onset No Information Payers Payer name Insurance type Covered constitution party ID Nisreena carolyn(s) [facility] [id number] Social History Type Description Quantity Date Captured [...]
== END 2023-12-20 00:23 | disposition home or self-care (01) ==
PROVIDERS: Emergency Provider Internal Medicine; PCP Student in an Organized Health Care Education/Training Program
DX: T15.01XA Foreign body in cornea, right eye, initial encounter (principal)
CPT/HCPCS: 99283

== ENCOUNTER 2023-12-21 19:59 | Outpatient (CLI) | payer MEDICARE, SELFPAY ==
--- OUTSIDE RECORDS SUMMARY | 2024-01-07 13:06 | XMS_ITS | Clinical Summary ---
Author Organization [facility] Address [address] [place] [address] Care Team Providers Care Continuous Conveyor Screen Drier Name Role Phone Elsewhere, Pcp Primary Care Provider Unavailabl e Source Comments Patient records contain information from all sites at [facility]. For routine questions regarding patient records, call [phone] during business hours, M-F 8:00 AM - 5:00 PM Central Time. Record requests for emergency care only can be directed to [phone] at any time.[facility] Allergies Active Allergy Reactions Criticality Noted Date Comments Atorvastatin Myalgia,Rash 10/01/2013 Intolerance Benzophenone Rash 04/23/2018 [place] Chloride Rash 04/23/2018 [place] chloride hexahydrate Coconut Diethanolamide (Bulk) Rash 04/23/2018 Diazepam Other (see comments) 04/22/2010 Makes her more restless, anxious. Dibutyl Phthalate Rash 04/23/2018 Diphenhydramine Other (see comments) 04/06/2010 internal heat Paradoxical rx per patient. Possible that benadryl actually keeps pt awake Diphenhydramine Hcl Other (see comments) 08/27/2013 Dmdm Hydantoin Rash 04/23/2018 Ethyl Guodyvep-Pg-Vonxpg Methacrylate Rash 04/23/2018 Formaldehyde Rash 12/10/2017 Hydrochlorothiazide [...] Edema (Reselect Reaction),Hives (Reselect Reaction) 10/23/2016 Medications * This document contains information received from the source organization and may not represent a complete record from that organization. propafenone (for_RHTHYMOL) 150 mg tablet Take 1 tablet by mouth 3 (three) times a day. 3 Active amLODIPine (for_NORVASC) 5 mg tablet Take 1 tablet by mouth daily. 6 Active pimecrolimus (ELIDEL) 1 % cream Apply 1 application topically 2 (two) times a day. 6 Active FISH,SAF,FLX,BR G OILS/O3,6,9N2 (OKOA-AAMN-FHRF GE OIL ORAL) Take by mouth. 4 Active triamcinolone-d imeth-silicone 0.1-2 % kit Apply 1 application topically 3 (three) times a day. 6 Active Ca carb-Ca gluc-Mg ox-Mg gluco 500 mg calcium -250 mg tablet Take by mouth. 7 Active cholecalciferol (VITAMIN D3) 125 mcg (5,000 Unit) tablet Take 5,000 Units by mouth daily. 7 Active ciclopirox 1 % shampoo 8 Active LOTEMAX 0.5 % ophthalmic ointment Apply to both eyes as needed. 8 Active omega 4-mkm-qfg-fish oil 1,000 mg (120 mg-180 mg) capsule Take by mouth. 7 Active triamcinolone-d imethicone 0.1-5 % kit,ointment and cream Apply topically. 8 Active cetirizine (ZyrTEC) 10 mg tablet Take 1 tablet by mouth 2 (two) times a day as needed. 8 Active aspirin [address] tablet once a day 2 Active losartan (COZAAR) 100 mg tablet Take 100 mg by mouth. 8 Active rosuvastatin (CRESTOR) 10 mg tablet Take 10 mg by mouth. 8 Active mometasone (ELOCON) 0.1 % cream Apply 1 application topically daily as needed (Rash). 45 g 3 0 Active amoxicillin (AMOXIL) 500 mg capsule PRN before dental work 0 Active cephalexin (KEFLEX) 500 mg capsule 9 Active cyanocobalamin (VITAMIN B12) 1,000 mcg tablet Take 1,000 mcg by mouth. 1 Active estradioL (ESTRACE) 0.1 mg/g (0.01%) vaginal cream once a week. 1 Active turmeric 400 mg capsule Take 400 mg by mouth. 1 Active valACYclovir (VALTREX) 500 mg tablet Take 500 mg by mouth as needed. Active desonide (DESOWEN) 0.05 % ointment APPLY TO AFFECTED AREA(S) TOPICALLY TWICE DAILY NEEDED 90 g 3 2 Active Additional Information Patient not taking.Reported on 02/05/2023 clobetasoL (TEMOVATE) 0.05 % external solution Apply topically 2 (two) times a day as needed (psoriasis). 50 mL 3 2 Active Additional Information Patient not taking.Reported on 02/05/2023 triamcinolone (KENALOG) 0.1 % ointment Apply to affected areas on trunk and extremities two times a day as needed. 80 g 11 3 Active triamcinolone (KENALOG) 0.1 % ointmentIndicat ions:Dermatitis Allergic Contact Apply 1 Application topically 2 (two) times a day as needed for rash. Apply to affected areas. Use for 2 weeks in a row. Repeat as needed for flares. 454 g 3 3 Active clobetasoL (TEMOVATE) 0.05 % ointmentIndicat ions:Other Psoriasis Apply 1 Application topically 2 (two) times a day. Apply to worst/itchiest areas of body twice a day x2 weeks in a row for itching. 60 g 3 4 Active tacrolimus (Protopic) 0.1 % ointmentIndicat ions:Other Atopic Dermatitis Apply 1 Application topically 2 (two) times a day. 100 g 3 4 Active Active Problems Problem Noted Date Diagnosed Date Hypertensive Heart Disease Without Heart Failure 10/10/2012 Overview (08/14/2016): Hypertension Tachycardia Ventricular Paroxysmal 10/10/2012 Overview (08/14/2016): Paroxysmal Ventricular Tachycardia Followed by [facility] of [facility] Immunizations Name Administration Dates Next Due Influenza, Unspecified 12/30/2012 Family History Medical History Relation Name Comments Coronary artery disease Maternal Grandfather Wilmar Alexis mpson Diabetes Maternal Grandfather Wilmar Mcdonald decea sed Stroke Maternal Grandfather Wilmar Mcdonald Dementia Maternal Grandmother Annia Grey Arabella Dorsey hompson Coronary artery disease Mother Domonique [...] or relatives? Twice a week 10/21/2019 Attends [employer] Services Not on file 10/20 Active Member [...] and heating? Not hard at all 02/06/2023 [facility] of Occupat ional Health - Occupational Stress [...] living situation today? I have a [facility] place to live 02/06/2023 Education Answer Date Recorded What is the highest level of school you have completed or the highest degree you have received? 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 LAB BLOOD ADD-ON Final Res ult [facility] [address] [place] [address], [facility] NITISH [facility] [place] [address] [place] [address] from Last 3 Months or Most Recently Relevant to Health Maintenance Insurance [facility] Care Teams Continuous Conveyor Screen Drier Relationship Specialty Start Date End Date Elsewhere, Pcp PCP - General Internal Medicine 11/14/20
--- OUTSIDE RECORDS SUMMARY | 2024-01-07 13:06 | XMS_ITS ---
Author Organization [facility] Address [address] [place] [address] Care Team Providers Care Body Former Name Role Phone Unavailable Unavailable Unavailable Surgery Details Not on file Complications Check Surgery Details section. Procedure Estimated Blood Loss Check Surgery Details section. Procedure Findings Check Surgery Details section. Procedure Specimens Taken Check Surgery Details section.
--- OUTSIDE RECORDS SUMMARY | 2024-01-07 13:06 | XMS_ITS | Encounter Summary ---
Author Organization [facility] Address [address] [place] [address] Care Team Providers Care Edge Burnisher Name Role Phone Elsewhere, Pcp Primary Care Provider Unavailabl e Reason for Referral * Outpatient (Routine) - Closed Specialty Diagnoses / Procedures Referred By Jesse morales Referred To Contact Diagnoses Incontinence Urinary Procedures URO Uroflow Bjorn Mittal M.D. [address] [place] [phone] Phone: tel: fax: [facility] Referral ID Status Reason Start Date Expiration Date Visits Re quested Visits Authorized [id number] Closed 05/27/2023 05/26/2024 1 1 CASTING MACHINE OPERATOR Encounter Details Date Type Department Care Team (Late st Contact Info) Description 05/27/2023 Orders Only Department of Urology in [place], [place] [address] [place] [phone] [facility], MD Yon Incontinence Urinary Social History Tobacco Use Types [...] or relatives? Twice a week 10/21/2019 Attends Congregation Services Not on file 10/20 Active Member [...] and heating? Not hard at all 02/06/2023 [facility] - Occupational Stress Questionnaire Answer Date [...] degree (e.g., MA, MS, Frida, MEd, ENVIRONMENTAL STUDIES FACULTY MEMBER, ISSAC) 12/19/2018 Comments No Sex and Gender Information Value Date Recorded Sex Assigned at Female Legal Sex Female 5:42 PM PIG CASTING MACHINE OPERATOR Gender Identity Female Sexual Orientation Straight Occupation Industry Job Start Date Job End Date Not on file Not on file Not on file Not on file documented as of this encounter Plan of [...] PM CDT Bjorn Mittal M.D. LAB URINE ORDERABLES Final Result [facility] [address] [place] [address], [facility] [place] [address] [place] [address] * URO Uroflow (06/04/2023 2:15 PM CDT) [...] normal bladder capacity and elevated postvoid residual. us Bjorn Mittal M.D. UROLOGY ORDERABLES Final R esult documented in this encounter Visit Diagnoses Diagnosis Incontinence Urinary Urinary Urge Incontinence [N39.41]- Primary Incontinence Urinary documented in this encounter Care Teams Edge Burnisher Relationship Specialty Start Date End Date Elsewhere, Pcp PCP - General Internal Medicine 11/14/20 documented as of this encounter
--- OUTSIDE RECORDS SUMMARY | 2024-01-07 13:06 | XMS_ITS | Referral Summary ---
Author Organization [facility] Address [address] [place] [address] Care Team Providers Care Payment Specialist Name Role Phone Elsewhere, Pcp Primary Care Provider Unavailabl e Source Comments Patient records contain information from all sites at [facility]. For routine questions regarding patient records, call [phone] during business hours, M-F 8:00 AM - 5:00 PM Central Time. Record requests for emergency care only can be directed to [phone] at any time.[facility] Allergies Active Allergy Reactions Criticality Noted Date Comments Atorvastatin Myalgia,Rash 10/01/2013 Intolerance Benzophenone Rash 04/23/2018 [place] Chloride Rash 04/23/2018 [place] chloride hexahydrate Coconut Diethanolamide (Bulk) Rash 04/23/2018 Diazepam Other (see comments) 04/22/2010 Makes her more restless, anxious. Dibutyl Phthalate Rash 04/23/2018 Diphenhydramine Other (see comments) 04/06/2010 internal heat Paradoxical rx per patient. Possible that benadryl actually keeps pt awake Diphenhydramine Hcl Other (see comments) 08/27/2013 Dmdm Hydantoin Rash 04/23/2018 Ethyl Pweogjab-Lb-Akynmx Methacrylate Rash 04/23/2018 Formaldehyde Rash 12/10/2017 Hydrochlorothiazide [...] a day. 6 Active FISH,SAF,FLX,BR G OILS/O3,6,9N2 (KBWF-KQYM-EZWV GE OIL ORAL) Take by mouth. 4 [...] both eyes as needed. 8 Active omega 5-gbm-voq-fish oil 1,000 mg (120 mg-180 mg) capsule [...] (08/14/2016): Paroxysmal Ventricular Tachycardia Followed by [facility] outside of [facility] Immunizations Name Administration Dates Next Due Influenza, [...] or relatives? Twice a week 10/21/2019 Attends [employer]ze Services Not on file 10/20 Active Member [...] at all 02/06/2023 [facility] of Occupat ional Health - Occupational Stress [...] your living situation today? I [facility] [employer] [facility] live 02/06/2023 Education Answer Date Recorded What is the highest level of school you have completed or the highest degree you have received? 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 LAB BLOOD ADD-ON Final Res ult [facility] [address] [place] [address], [facility] NITISH [facility] [employer] [employer] [address] [place] [address] from Last 3 Months or Most Recently Relevant to Health Maintenance Insurance [facility] Care Teams Payment Specialist Relationship Specialty Start Date End Date Elsewhere, Pcp PCP - General Internal Medicine 11/14/20
--- OUTSIDE RECORDS SUMMARY | 2024-01-07 13:06 | XMS_ITS | Clinical Summary ---
Author Organization [facility] Address [place], [place] [address] Care Team Providers Care Photoflash Powder Mixer Name Role Phone Zuly Huber MD Unavailable [phone] Vani Mohan MD Unavailable [phone] Marley Abrams MD Primary Care Provider [phone] Allergies Active Allergy Reactions Criticality Noted Date Comments Atorvastatin Myalgia 10/01/2013 Intolerance Benzophenone Rash 04/23/2018 [place] Chloride Rash 04/23/2018 [place] chloride hexahydrate Coconut Diethanolamide (Bulk) Rash 04/23/2018 Diazepam *Unknown 04/22/2010 Makes her more restless, anxious. Dibutyl Phthalate Rash 04/23/2018 Diphenhydramine Other - Describe In Comment Field 04/06/2010 Paradoxical rx per patient. Possible that benadryl actually keeps pt awake Dmdm Hydantoin Rash 04/23/2018 Ethyl Mgpeyhjb-Ir-Yyejqc Methacrylate Rash 04/23/2018 Formaldehyde Atopic Dermatitis 12/10/2017 Hydrochlorothiazide Rash 05/11/2015 Possibly severe eczematous like rash Iodine Unknown reaction - patient thought it was from an allergy pill that iodine Lisinopril Cough 10/20/2012 Mercaptopurine Rash 04/23/2018 Methylisothiazolinone Rash 04/23/2018 Neomycin Sulfate Rash 04/23/2018 Nickel Sulfate Rash 04/23/2018 Unlisted Allergen (Include Detail In Comments) Rash 04/23/2018 Black rubber mix, Disperse Steele 3, Dodecyl gallate, Ethylenediamine dihydrochloride, glyceryl thioglycolate, hydroperoxide of limonene, hydroperoxide of linalool, lodopropynyl butyl carbamate, lauryl polyglucose, MCI/NC, P-Phenylenediamine Peppermint Oil Rash 04/23/2018 Propylene Glycol [...] ORAL TBEC once a day ? 0 06/26/2001 Active Lrzmh-8-BXL-EPA-Fis h Oil (FISH OIL) 1,000 mg (120 mg-180 mg) cap Take by mouth. 0 07/03/2016 Active tacrolimus 0.03% (PROTOPIC) 0.03 % ointment Apply topically to affected area(s) 2 times daily. 0 05/08/2017 Active triamcinolone-dimet hicone 0.1-5 % ktoc Apply topically to affected area(s). 0 06/14/2017 Active LOTEMAX 0.5 % ophthalmic ointment 06/18/2018 Activ e mometasone 0.1% (ELOCON 0.1% CREAM) 0.1 % cream Apply topically to affected area(s). 11/05/2019 Active cetirizine (ZyrTEC) 10 mg tablet Take 1 Tablet (10 mg) by mouth. Twice daily 0 07/21/2020 Active desonide 0.05% (TRIDESILON 0.05% OINTMENT) 0.05 % ointment Apply topically to affected area(s) 2 times daily. 0 07/21/2020 Active estradioL (ESTRACE) 0.01% (0.1 mg/g) vaginal creamIndications:At rophic vaginitis 1g intravaginally 1-2 times weekly for control of vaginal dryness 42.5 g 07/13/2021 Active triamcinolone (ARISTOCORT) 0.1 % ointmentIndications :Psoriasis Apply topically to affected area(s) once daily. 80 g 04/11/2022 Active Vitamin B-12 1,000 mcg tabletIndications:M fidel problem,Low vitamin B12 level TAKE ONE TABLET BY MOUTH EVERY DAY 90 Tablet 07/09/2022 Active propafenone (RYTHMOL) 150 mg tabletIndications:P aroxysmal ventricular tachycardia (HC) Take 1 Tablet (150 mg) by mouth every 8 hours. More refills provided at completion of appointment scheduled 09/03/[address] Huber. 270 Tablet 3 09/03/2023 Active amLODIPine (NORVASC) 5 mg tabletIndications:H ypertension Take 1 Tablet (5 mg) by mouth once daily. Please call [phone] 2 months in advance to schedule an office visit due in August 2024 90 Tablet 3 09/05/2023 Active losartan (COZAAR) 100 mg tabletIndications:H ypertension Take 1 Tablet (100 mg) by mouth once daily. Additional refills to be received at upcoming appt with Dr. Huber in August Tablet 2 11/09/2023 Active Ciclopirox 1 % shamIndications:Devon orrheic dermatitis of scalp USE TWO TIMES WEEKLY DIRECTED 120 mL 1 12/06/2023 Active rosuvastatin (CRESTOR) 10 mg tabletIndications:H yperlipidemia, unspecified hyperlipidemia type Take 1 Tablet (10 mg) by mouth at bedtime. 90 Tablet 3 12/06/2023 Active Active Problems Patient Care Coordination No te [...] (01/11/2011): rhytmol Holter normal 07/03 Follows with Cristian PLANTAR FASCIITIS , RECURRENT Resolved Problems Problem Noted Date Diagnosed Date Resolved Date Nonobstructive CAD (coronary artery disease) per cCTA 06/201004/05/2011 10/20/2012 S/P TKR (total knee replacem ent) - left in 12/2010, right in 03/201004/05/2011 05/29/2018 Hyponatremia 01/23/2011 10/20/2012 S/P Right TKR (total knee replacement) 03/201007/04/19 11 01/23/2011 Episode of Hyponatremia 04/23/2010 0309/2018 Overview (01/11/2011): 04/04 related to free water intake and hypotonic fluids with surgery Unspecified essential hypertension 02/18/2007 01/23/2011 PRESYNCOPE 01/11/2011 PERIPHERAL VASCULAR DISEASE WITH CLAUDICATION 01/11/2011 Pure hypercholesterolemia PSORIASIS WITH PSORIATIC ARTHRITIS 01/11/2011 Encounters Date Type Department Care Team Description 12/06/2023 9:00 AM CDT Office Visit [facility] [address] [place] [address] Marley Mixon MD Establish Care; Medication Management 12/06/2023 Travel 11/12/2023 10:00 AM CDT Office Visit [facility] [id number] [place] [phone] Masha García, MIGUELINA Foot Problem (Right 3rd toe blister) 11/12/2023 Travel 11/06/2023 Refill [facility] [address] [place] [phone] Zuly Huber MD Refill Request (Losartan potassium 100 mg) 10/16/2023 Telephone [facility] [address] [place] [phone] Zuly Huber MD Cardiovascular Diagnostic Testing 10/10/2023 Telephone [facility] [address] [place] [phone] Zuly Huber MD Concerns from Last 3 Months Immunizations Name Administration Dates Next Due Amb Influenza, Inact (High-d ose) (Flu Clinic Only) 12/23/2015,01/12/2014 COVID-19 vaccine ([employer] NTGushcloud 30mcg/0.3mL) PF, MDV 12/21/2020,06/09/2020,05/19/2020 Influenza Virus, Unspecified 12/30/2012 Influenza, High-dose [...] at age 60. Maternal grandfather had an NC and at age 63. Maternal grandmother had [...] CDT Gender Identity Female 05/06/2020 10:11 PM RESOURCE CONSERVATION SPECIALIST Sexual Orientation Straight 07/06/2020 4: 09 PM [...] T Respiratory Rate 18 03/10/2019 11:07 AM RESOURCE CONSERVATION SPECIALIST Oxygen Saturation 98% 12/06/2023 9:00 AM CDT Inhaled Oxygen Concentration - - Weight 58.5 kg (129 lb) 12/06/2023 9:00 AM CDT Height 154 cm (5' 0.63) 12/06/2023 9:00 AM CDT Body Mass Index 24.67 12/06/2023 9:00 AM CDT Plan of Treatment Upcoming Encounters Date Type Department Care Team (Late st Contact Info) Description 01/13/2024 10:30 AM CDT Nurse/Clinic Staff Only [facility] [address] [place] [address] 01/15/2024 8:00 AM CDT Office Visit [facility] [id number] [place] [phone] Petey Gaxiola, PhD, [address] [place] [address] Health Maintenance Due Date Last Done Comments [...] history exists Medical Devices Implanted Type Area Composition Teacher Device Identifier Shelf Expiration Date Model / Serial / Lot Cmnt Bone [place] - [id number] Implanted:Qty: 2 on 04/21/2010 at [facility] Right: Knee BIOMET [id number]# / / [id number] Plate Tib Cruciate Fixed - [id number] Implanted:Qty: 1 on 04/21/2010 at [facility] Right: Knee BIOMET [id number]# / / [id number] Patella Series A Thin 31 3peg - [id number] Implanted:Qty: 1 on 04/21/2010 at [facility] Right: Knee BIOMET [id number]# / / [id number] Compnt Fem Cr Intlk 202534 Vanguard - [id number] Implanted:Qty: 1 on 04/21/2010 at [facility] Right: Knee BIOMET [id number]# / / [id number] Vanguard Tibial Bearing Implanted:Qty: 1 on 04/21/2010 at [facility] Right: Knee [id number] / / [id number] Description:VANGUARD TIBIAL BEARING Cmnt Bone [place]onia - [id number] Implanted:Qty: 2 on 01/22/2011 at [facility] Left: Knee BIOMET [id number]# / / [id number] Bearing Epoly Tib As 12x67 - [id number] Implanted:Qty: 1 on 01/22/2011 at [facility] Left: Knee BIOMET [id number]# / / [id number] Compnt Fem Cr Intlk Lt 60 Vanguard - [id number] Implanted:Qty: 1 on 01/22/2011 at [facility] Left: Knee BIOMET [id number]# / / [id number] Plate Tib Cruciate Fixed - [id number] Implanted:Qty: 1 on 01/22/2011 at [facility] Left: Knee BIOMET [id number]# / / [id number] Peg Series A Pat Std 31 3 - [id number] Implanted:Qty: 1 on 01/22/2011 at [facility] Left: Knee BIOMET [id number]# / / [id number] Procedures Procedure Name Priority Date/Time Associated Diagnosis Comments XR DXA BONE DENSITY 2 SITES AXIAL Routine 04/27/2019 10:50 AM RESOURCE CONSERVATION SPECIALIST Other specified disorders of bone density and structure, multiple sites Osteopenia, unspecified location from Last 3 Months or Most Recently Relevant to Health Maintenance Results * (ABNORMAL) XR DXA BONE DENSITY 2 SITES AXIAL (04/27/2019 10:50 AM RESOURCE CONSERVATION SPECIALIST) Anatomical Region Laterality Modality Spine, HIPS, HIPL, HIPR Other Narrative 05/05/2019 12:47 PM RESOURCE CONSERVATION SPECIALIST Please see scanned document for results of this study. Erica Ramey MD DEXA from Last 3 Months or Most Recently Relevant to Health Maintenance Advance Directives Documents on File Type Date Recorded Patient Model Maker Expl anation Healthcare Directive 01/21/2009 [facility]ALTH[facility] ARE DIRECTIVE Healthcare Directive 04/21/2010 * Full [...] 6:57 AM 04/21/2010 3:12 PM Care Teams Photoflash Powder Mixer Relationship Specialty Start Date End Date Marley Abrams MD [address] [place] [address] PCP - General Internal Medicine 02/08/22 Zuly Huber MD [address] [place] [address] Cardiology - Interventional 11/02/19 Vani Mohan MD [address] [place] [address] Dermatology 11/02/19
--- OUTSIDE RECORDS SUMMARY | 2024-01-07 13:07 | XMS_ITS | Continuity of Care Document ---
Author Organization [facility] Address [address] [place] [address] Phone Care Team Providers Care Wholesale Manager Name Role Phone Lukas Noguera MD [...] take one capsule daily - Active Ultimate [place] CALCIO JUAN (unknown strength) take one daily [...] [facility], [address], [place], [address], tel:[phone] [facility] , No Information Chuckie Gaytan. [facility] [address], [place], [address], [place]. tel:[phone] Referring Provider: Lukas Pacheco, [facility] [address], [place], [address]. tel:[phone] [facility], [address], [place], [address], [place] tel:[phone] [facility] , No Information Chuckie Gaytan. [facility] [address], [place], [address], [place]. tel:[phone] Family History Family Member Type Diagnosis Age At Onset No Information Payers Payer name Insurance type Covered libertarian ID Nisreena carolyn(s) [facility] [id number] Social History Type Description Quantity Date Captured [...]
== END 2023-12-21 20:00 | disposition home or self-care (01) ==
LOC: AMB 01-07 13:02
PROVIDERS: PCP Student in an Organized Health Care Education/Training Program; Visit Provider Family Medicine
DX: S09.93XA Unspecified injury of face, initial encounter (principal); W07.XXXA Fall from chair, initial encounter; Y92.511 Restaurant or cafe as the place of occurrence of the external cause
CPT/HCPCS: A0998

== ENCOUNTER 2024-02-19 12:34 | Emergency (ER) | payer MEDICARE, SELFPAY ==
[2024-02-19 12:40] VITALS: BP 176/80; PULSE 74; RESP 16; TEMP 36.1; O2SAT 95; BMI 27.0
--- NOTE | 2024-02-19 12:47 | ED.GENADULT ---
HPI - General Adult General Time Seen by Provider: 12:50 Date Seen: 02/19/24 Chief complaint: Hypertension Stated complaint: High BP Time Seen by Provider: 02/19/24 12:36 Source: patient, RN notes reviewed and old records reviewed Mode of arrival: ambulatory Limitations: no limitations History of Present Illness HPI narrative: Keep this 83-year-old female is coming into the ER with elevated blood pressure today. She just decided to take her blood pressure this morning, normally does not take it at home. She is followed by [facility], has a history of ventricular tachycardia and is on propafenone for this. They also manage her hypertension. She states she has been taking her medications. She really had no reason why she was checking it this morning, just notes that she does not check it that frequently and thought she should. She is having no headaches, no visual changes. She does note that her memory is worsening. She was seen in clinic in August by Dr. Abrams for this. Her blood pressure was in the 190s on arrival there, did come down into the 160s by discharge. She has had no chest pain, has not felt any rhythm disturbance. She has had no neurologic changes. She takes amlodipine and losartan. The losartan is listed at 100 mg daily and the amlodipine is 5 mg twice a day. I did ask her about hydrochlorothiazide, did review with her that I had looked back at prior blood pressures, many which have been significantly elevated since 2022. She states she cannot remember what happened with hydrochlorothiazide but she remembers it was ?bad?. Discussed that we could try different diuretic but she is hesitant, reviewed with her that is the difficulty of adding in medicine for stable but uncontrolled hypertension. She is best served being treated by a [facility] whom she states she has been going to for years. She states she cannot remember the physicians name but has been seen him for years and loves him. Related Data Home Medications ?Medication ?Instructions ?Recorded ?Confirmed aspirin 81 mg chewable tablet 81 mg PO QDAY 10/12/21 02/03/24 cetirizine 10 mg tablet 10 mg PO DAILY 10/12/21 02/03/24 omega 6-xof-acz-fish oil 300 1 cap PO QDAY 10/12/21 02/03/24 mg-1,000 mg capsule (Fish Oil) propafenone 150 mg tablet 150 mg PO TID 10/12/21 02/03/24 triamcinolone acetonide 0.1 % 1 applic topical .Daily as needed 10/12/21 02/03/24 topical ointment PRN amlodipine 5 mg tablet 5 mg PO BID 12/04/21 02/03/24 estradiol 0.01% (0.1 mg/gram) 1 g vaginal QWEEK 12/21/21 02/03/24 vaginal cream desonide 0.05 % topical ointment 1 applic topical BID PRN 05/28/22 02/03/24 clobetasol 0.05 % scalp solution topical PRN 08/20/23 02/03/24 tacrolimus 0.1 % topical ointment topical PRN 08/20/23 02/03/24 betamethasone dipropionate 0.05 % 1 applic topical .2x/week PRN 09/17/23 02/03/24 topical ointment loteprednol etabonate 0.5 % eye drp ophthalmic (eye) 09/17/23 02/03/24 drops,suspension polymyxin B sulfate 10,000 ophthalmic (eye) 09/17/23 02/03/24 unit-trimethoprim 1 mg/mL eye drops valacyclovir 500 mg tablet 500 mg PO DAILY 09/17/23 02/03/24 Previous Rx's ?Medication ?Instructions ?Recorded losartan 100 mg tablet 100 mg PO DAILY #90 tabs 04/24/22 cyanocobalamin (vitamin B-12) 1,000 mcg PO DAILY #90 tabs 10/09/22 1,000 mcg tablet rosuvastatin 10 mg tablet 10 mg PO .Bedtime #90 tabs 08/20/23 ciclopirox 1 % shampoo 5 ml topical .2X Weekly PRN 10/16/23 Seborrheic dermatitis #120 mL Allergies Allergy/AdvReac Type Severity Reaction Status Date / Time hydrochlorothiazide Allergy Intermediate Unknown Verified 02/03/24 14:57 lanolin Allergy Intermediate Unknown Verified 02/03/24 14:57 trifluridine Allergy Intermediate Verified 02/03/24 14:57 atorvastatin Allergy Mild Unknown Verified 02/03/24 14:57 iodine Allergy Mild Unknown Verified 02/03/24 14:57 lisinopril Allergy Mild Unknown Verified 02/03/24 14:57 rofecoxib Allergy Mild Unknown Verified 02/03/24 14:57 simvastatin Allergy Mild Unknown Verified 02/03/24 14:57 cobalt Allergy Unknown Verified 02/03/24 14:57 formaldehyde Allergy Unknown Verified 02/03/24 14:57 methylisothiazolinone Allergy Unknown Verified 02/03/24 14:57 neomycin Allergy Unknown Unknown Verified 02/03/24 14:57 propylene glycol Allergy Unknown Unknown Verified 02/03/24 14:57 sodium benzoate Allergy Unknown Verified 02/03/24 14:57 diazepam Allergy Intermediate Unknown Uncoded 02/03/24 14:57 trifluridine Allergy Intermediate Unknown Uncoded 02/03/24 14:57 Review of Systems Status of ROS: Reports: 6 or more systems reviewed and unremarkable except as noted in History and below [facility] Medical History History of keratitis ?Z86.69 - Personal history of other diseases of the nervous system and sense organs (ICD-10) Surgical History History of hand surgery (10/19/21) ?Z98.890 - Other specified postprocedural states (ICD-10) History of tonsillectomy (~1940) ?Z90.89 - Acquired absence of other organs (ICD-10) History of incisional hernia repair (1970) ?Z98.890 - Other specified postprocedural states (ICD-10) ?Z87.19 - Personal history of other diseases of the digestive system (ICD-10) History of bilateral tubal ligation (1970) ?Z98.51 - Tubal ligation status (ICD-10) History of phacoemulsification of cataract of both eyes with intraocular lens implantation (2016) ?Z98.41 - Cataract extraction status, right eye (ICD-10) ?Z98.42 - Cataract extraction status, left eye (ICD-10) ?Z96.1 - Presence of intraocular lens (ICD-10) History of total bilateral knee replacement (TKR) (2010) ?Z96.653 - Presence of artificial knee joint, bilateral (ICD-10) Family History Mother Stroke Coronary artery disease Diabetes Maternal Grandmother Stroke Maternal Grandfather Coronary artery disease Social History What is your current living situation?: I presently have a place to live Problems where you live: no known problems In the past 12 months, utilities in danger of being shut off: no In the past 12 mos, have been you worried that your food would run out before you had money to buy more?: never true In the past 12 mos, the food you bought just didn't last and you didn't have money to buy more?: never true Smoking Status: Never smoker Do you use any of these nicotine containing products: None Second hand tobacco smoke exposure: No How often do you have a drink containing alcohol: monthly or less How often do you have six or more drinks on one occasion: Never AUDIT-C Alcohol total score: 1 Non-prescribed substance use: denies use How often does anyone, including family, friends and others, physically hurt you: never How often does anyone, including family, friends and others, insult or talk down to you: never How often does anyone, including family, friends and others, threaten you with harm: never How often does anyone, including family, friends and others, scream or curse at you: never service: No Exam Const: Vital Signs, click to edit/add: Vital Signs - 24 hr 02/19/24 12:40 Temperature 96.9 F L Pulse Rate [Pulse Oximeter] 74 Respiratory Rate 16 Blood Pressure [Ri ght Upper Arm] 176/80 H Pulse Oximetry 95 Oxygen Delivery Me thod Room Air This 83-year-old female is alert, interactive, no apparent distress. She is ambulatory into the ED of her own accord. Pupils equal and round, extraocular muscles intact, symmetrical facial function, speech is normal. Neck is supple, no jugular venous distension, no masses noted. Lungs clear, good air entry, no wheezing crackles. CV regular rate and rhythm, no significant murmur heard, normal S1-S2, no S3-S4. Strength is 5 5 and symmetric throughout upper extremities and lower extremities. No lower extremity edema noted. Gait is stable. No focal neurologic deficit noted. Documenting provider has reviewed patient's vital signs: yes Course Course ED Course: This patient is asymptomatic as far as her blood pressure and does have many recent values of elevated blood pressures. She has hypertension and warrants better control which can be done through her [employer] plans intelligence officer chief whom follows her blood pressure. As noted above, we did discuss some of my initial thoughts about meds that could be added like another diuretic but she is hesitant. Thus, we will have her follow up with her [employer] intelligence officer chief whom she has followed with for years who will hopefully nor her history better and can make better decision making on next steps for therapy for her. We did discuss lifestyle management, she is not heavy and probably best area would be working on sodium content in diet. Will give her handout on this. She is stable for discharge to follow-up outpatient. Vital Signs Vital signs: Initial Vital Signs Temperature 96.9 F L 02/19/24 12:40 Temperature Source Temporal Artery Scan 02/19/24 12:40 Pulse Rate 74 02/19/24 12:40 Respiratory Rate 16 02/19/24 12:40 Blood Pressure 176/80 H 02/19/24 12:40 Blood Pressure Mean 112 H 02/19/24 12:40 Blood Pressure Position Sitting 02/19/24 12:40 Pulse Oximetry 95 02/19/24 12:40 Oxygen Delivery Method Room Air 02/19/24 12:40 Vital Signs Temperature 96.9 F L 02/19/24 12:40 Pulse Rate 74 02/19/24 12:40 Respiratory Rate 16 02/19/24 12:40 Blood Pressure 176/80 H 02/19/24 12:40 Pulse Oximetry 95 02/19/24 12:40 Oxygen Delivery Method Room Air 02/19/24 12:40 Temperature 96.9 F L 02/19/24 12:40 Pulse Rate 74 02/19/24 12:40 Respiratory Rate 16 02/19/24 12:40 Blood Pressure 176/80 H 02/19/24 12:40 Pulse Oximetry 95 02/19/24 12:40 Oxygen Delivery Method Room Air 02/19/24 12:40 Discharge Plan Discharge Clinical Impression: Elevated systolic blood pressure reading with diagnosis of hypertension Instructions: DASH Eating Plan (ED) Additional Instructions: Need to contact [facility] and get scheduled for a follow-up regarding your blood pressure. Review handouts, do recommend trying to minimize sodium in your diet, that can be 1 way you can contribute in minimizing your blood pressure. There is no emergency in lowering your blood pressure today but do recommend that you have follow-up soon to work on better control of your blood pressure. Activity Level: Activity as Tolerated Discharge Diet: Heart Healthy (2 gm sodium, low fat) Prescriptions: No Action cetirizine 10 mg tablet 10 mg PO DAILY omega 4-pcq-hvi-fish oil [Fish Oil] 300-1,000 mg capsule 1 cap PO QDAY propafenone 150 mg tablet 150 mg PO TID Rx Instructions: space evenly during waking hours aspirin 81 mg tablet,chewable 81 mg PO QDAY triamcinolone acetonide 0.1 % ointment 1 applic topical .Daily as needed PRN Rx Instructions: APPLY TO AFFECTED AREA desonide 0.05 % ointment 1 applic topical BID PRN estradiol 0.01 % (0.1 mg/gram) cream 1 g vaginal QWEEK Rx Instructions: Medication to be put into individually filled applicators. valacyclovir 500 mg tablet 500 mg PO DAILY polymyxin B sulf-trimethoprim 10,000 unit- 1 mg/mL drops ophthalmic (eye) loteprednol etabonate 0.5 % drops,suspension ophthalmic (eye) betamethasone dipropionate 0.05 % ointment 1 applic topical .2x/week PRN amlodipine 5 mg tablet 5 mg PO BID tacrolimus 0.1 % ointment topical PRN clobetasol 0.05 % solution topical PRN rosuvastatin 10 mg tablet 10 mg PO .Bedtime Qty: 90 3RF losartan 100 mg tablet 100 mg PO DAILY Qty: 90 1RF cyanocobalamin (vitamin B-12) 1,000 mcg tablet 1,000 mcg PO DAILY Qty: 90 3RF ciclopirox 1 % shampoo 5 ml topical .2X Weekly PRN (Reason: Seborrheic dermatitis) Qty: 120 0RF Rx Instructions: 5 ml equal to one appliaction Follow Up/Referrals: Marley Mixon MD [Primary Care Provider] - Stand Alone Forms: [facility] Info Instructions
--- OUTSIDE RECORDS SUMMARY | 2024-02-19 13:19 | XMS_ITS ---
Author Organization [facility] Address [address] [place] [address] Care Team Providers Care Reinforcing Bar Setter Name Role Phone Unavailable Unavailable Unavailable Surgery Details Not on file Complications Check Surgery Details section. Procedure Estimated Blood Loss Check Surgery Details section. Procedure Findings Check Surgery Details section. Procedure Specimens Taken Check Surgery Details section.
--- OUTSIDE RECORDS SUMMARY | 2024-02-19 13:19 | XMS_ITS | Clinical Summary ---
Author Organization [facility] Address [place], [place] [address] Care Team Providers Care German Instructor Name Role Phone Zuly Mauricio MD Unavailable [phone] Vani Mohan MD Unavailable [phone] Marley Abrams MD Primary Care Provider [phone] Allergies Active Allergy Reactions Criticality Noted Date Comments Atorvastatin Myalgia 10/01/2013 Intolerance Benzophenone Rash 04/23/2018 Lipan Chloride Rash 04/23/2018 Lipan chloride hexahydrate Coconut Diethanolamide (Bulk) Rash 04/23/2018 Diazepam *Unknown 04/22/2010 Makes her more restless, anxious. Dibutyl Phthalate Rash 04/23/2018 Diphenhydramine Other - Describe In Comment Field 04/06/2010 Paradoxical rx per patient. Possible that benadryl actually keeps pt awake Dmdm Hydantoin Rash 04/23/2018 Ethyl Eordinms-Rt-Nhewqn Methacrylate Rash 04/23/2018 Formaldehyde Atopic Dermatitis 12/10/2017 Hydrochlorothiazide Rash 05/11/2015 Possibly severe eczematous like rash Iodine Unknown reaction - patient thought it was from an allergy pill that iodine Lisinopril Cough 10/20/2012 Mercaptopurine Rash 04/23/2018 Methylisothiazolinone Rash 04/23/2018 Neomycin Sulfate Rash 04/23/2018 Nickel Sulfate Rash 04/23/2018 Unlisted Allergen (Include Detail In Comments) Rash 04/23/2018 Black rubber mix, Disperse Chicot 3, Dodecyl gallate, Ethylenediamine dihydrochloride, glyceryl thioglycolate, hydroperoxide of limonene, hydroperoxide of linalool, lodopropynyl butyl carbamate, lauryl polyglucose, MCI/NE, P-Phenylenediamine Peppermint Oil Rash 04/23/2018 Propylene Glycol [...] once a day ? 0 06/26/2001 Active Jcotn-6-ONT-EPA-Fis h Oil (FISH OIL) 1,000 mg (120 [...] completion of appointment scheduled 09/03/[address] Mauricio. 270 Tablet 3 09/03/2023 Active amLODIPine (NORVASC) 5 mg tabletIndications:H ypertension Take 1 Tablet (5 mg) by mouth once daily. Please call [phone] 2 months in advance to schedule an office visit due in August 2024 90 Tablet 3 09/05/2023 Active losartan (COZAAR) 100 mg tabletIndications:H ypertension Take 1 Tablet (100 mg) by mouth once daily. Additional refills to be received at upcoming appt with Dr. Mauricio in August Tablet 2 11/09/2023 Active Ciclopirox [...] Encounters Date Type Department Care Team Description 01/28/2024 Nurse Triage [facility] Centralized Nurse Triage Marley Abrasm MD Skin Problem 01/15/2024 Travel 01/13/2024 10:30 AM CDT Nurse/Clinic Staff Only [facility] [address] [place] [address] Cardiovascular Diagnostic Testing (ECG PER DR. MAURICIO ) 01/13/2024 Travel 12/06/2023 9:00 AM CDT Office Visit [facility] [address] [place] [address] Marley Mixon MD Establish Care; Medication Management 12/06/2023 Travel from Last 3 Months Immunizations Name Administration Dates Next Due Amb Influenza, Inact (High-d ose) (Flu Clinic Only) 12/23/2015,01/12/2014 COVID-19 vaccine ([employer] NTInside 30mcg/0.3mL) LEIDY PEÑALOZA 12/21/2020,06/09/2020,05/19/2020 Influenza Virus, Unspecified [...] at age 61. Maternal grandfather had an NE and at age 63. Maternal grandmother had [...] 0 06/05/2021 Social Connections Answer Date Recorded Do you often feel lonely or isolated from those around you? 0 12/06/2023 Financial Resource Strain Answer Date R ecorded Difficulty of Paying Living Expenses 3 12/06/2023 Difficulty of Paying Living Expenses Not on file 12/06/2023 Food Insecurity Answer Date Recorded Do you worry your food will run out before you are able to buy more? 1 12/06/2023 Transportation Needs Answer Date Record ed Does lack of transportation keep you from medica l appointments? 1 12/06/2023 Does lack of transportation keep you from work, meetings or getting things that you need? 1 12/06/2023 Housing Stability Answer Date Recorded What is your housing situation today? 1 12/06/2023 Sex and Gender Information Value Date Recorded Sex Assigned at Female 07/06/2020 4:09 PM CDT Gender Identity Female 05/06/2020 10:11 PM HEALTH TEACHER Sexual Orientation Straight 07/06/2020 4: 09 PM [...] 75 12/06/2023 9:00 AM CDT Temperature 36.8 C (98.2 F) 03/10/2020 2:13 PM HEALTH TEACHER Respiratory Rate 18 03/10/2019 11:07 AM HEALTH TEACHER Oxygen Saturation 98% 12/06/2023 9:00 AM CDT Inhaled Oxygen Concentration - - Weight 58.5 kg (129 lb) 12/06/2023 9:00 AM CDT Height 154 cm (5' 0.63) 12/06/2023 9:00 AM CDT Body Mass Index 24.67 12/06/2023 9:00 AM CDT Plan of Treatment Upcoming Encounters Date Type Department Care Team (Late st Contact Info) Description 03/03/2024 4:15 PM HEALTH TEACHER Office Visit [facility] [address] [place] [address] Garrett Roy, DPParrish [address] [place] [address] 04/21/2024 12:00 PM HEALTH TEACHER Office Visit [facility] [address] [place] [phone] Petey Gaxiola, PhD, [address] [place] [address] Health Maintenance Due Date Last Done Comments RSV vaccine for adults or (1 - 1-dose 75+ series) 08/24/2014 Tetanus booster 08/08/2020 08/08/2010, 03/03/2004 Depression screening for age 12+ 06/06/2022 06/06/2021, 06/05/2021, 02/27/2021, Additional history exists Medicare Wellness for age 65+ 06/06/2022, 05/09/2020, 04/24/2019, Additional history exists Influenza for age 65+ [...] Completed 2019, 01/30/2016, 07/09/2013, Additional history exists COVID-19 vaccine series Completed 12/06/19 24, 08/20/2023, 06/27/2021, Additional history exists Medical Devices Implanted Type Area Router Machine Operator Device Identifier Shelf Expiration Date Model / Serial / Lot Cmnt Bone Lipan - [id number] Implanted:Qty: 2 on 04/21/2010 at [facility] Right: Knee BIOMET [id number]# / / [id number] Plate Tib Cruciate Fixed - [id number] Implanted:Qty: 1 on 04/21/2010 at [facility] Right: Knee BIOMET [id number]# / / [id number] Patella Series A Thin 31 3peg - [id number] Implanted:Qty: 1 on 04/21/2010 at [facility] Right: Knee BIOMET [id number]# / / [id number] Compnt Fem Cr Intlk [id number] Vanguard - [id number] Implanted:Qty: 1 on 04/21/2010 at [facility] Right: Knee BIOMET [id number]# / / [id number] Vanguard Tibial Bearing Implanted:Qty: 1 on 04/21/2010 at [facility] Right: Knee [id number] / / [id number] Description:VANGUARD TIBIAL BEARING Cmnt Bone Lipan - [id number] Implanted:Qty: 2 on 01/22/2011 at [facility] Left: Knee BIOMET [id number]# / / [id number] Bearing Epoly Tib As 12x67 - [id number] Implanted:Qty: 1 on 01/22/2011 at [facility] Left: Knee BIOMET [id number]# / / [id number] Compnt Fem Cr Intlk Lt 60 Vanguard - [id number] Implanted:Qty: 1 on 01/22/2011 at [facility] Left: Knee BIOMET [id number]# / / [id number] Plate Tib Cruciate Fixed - [id number] Implanted:Qty: 1 on 01/22/2011 at [facility] Left: Knee BIOMET [id number]# / / [id number] Peg Series A Pat Std 31 3 - [id number] Implanted:Qty: 1 on 01/22/2011 at [facility] Left: Knee BIOMET [id number]# / / [id number] Procedures Procedure Name Priority Date/Time Associated Diagnosis Comments EKG 12 LEAD Routine 01/13/2024 3:39 PM CDT VENTRICULAR TACHYCARDIA - NON-SUSTAINED XR DXA BONE DENSITY 2 SITES AXIAL Routine 04/27/2019 10:50 AM HEALTH TEACHER Other specified disorders of bone density and structure, multiple sites Osteopenia, unspecified location from Last 3 Months or Most Recently Relevant to Health Maintenance Results * EKG 12 LEAD (01/13/2024 3:39 PM CDT) Zuly Mauricio MD EKG ORD * (ABNORMAL) XR DXA BONE DENSITY 2 SITES AXIAL (04/27/2019 10:50 AM HEALTH TEACHER) Anatomical Region Laterality Modality Spine, HIPS, HIPL, HIPR Other Narrative 05/05/2019 12:47 PM HEALTH TEACHER Please see scanned document for results of this study. Erica Ramey MD DEXA from Last 3 Months or Most Recently Relevant to Health Maintenance Advance Directives Documents on File Type Date Recorded Patient Regulation Supervisor Expl anation Healthcare Directive 01/21/2009 HEALTH ARE [...] 6:57 AM 04/21/2010 3:12 PM Care Teams German Instructor Relationship Specialty Start Date End Date Marley Abrams MD [address] [place] [address] PCP - General Internal Medicine 02/08/22 uZly Mauricio MD [address] [place] [address] Cardiology - Interventional 11/02/19 Vani Mohan MD [address] [place] [address] Dermatology 11/02/19
--- OUTSIDE RECORDS SUMMARY | 2024-02-19 13:19 | XMS_ITS | Clinical Summary ---
Author Organization [facility] Address [address] [place] [address] Care Team Providers Care Coil Rewind Machine Operator Name Role Phone Elsewhere, Pcp Primary Care Provider Unavailabl e Source Comments Patient records contain information from all sites at [facility]. For routine questions regarding patient records, call [phone] during business hours, M-F 8:00 AM - 5:00 PM Central Time. Record requests for emergency care only can be directed to [phone] at any time.[facility] Allergies Active Allergy Reactions Criticality Noted Date Comments Atorvastatin Myalgia,Rash 10/01/2013 Intolerance Benzophenone Rash 04/23/2018 [place] Chloride Rash 04/23/2018 [place] chloride hexahydrate Coconut Diethanolamide (Bulk) Rash 04/23/2018 Diazepam Other (see comments) 04/22/2010 Makes her more restless, anxious. Dibutyl Phthalate Rash 04/23/2018 Diphenhydramine Other (see comments) 04/06/2010 internal heat Paradoxical rx per patient. Possible that benadryl actually keeps pt awake Diphenhydramine Hcl Other (see comments) 08/27/2013 Dmdm Hydantoin Rash 04/23/2018 Ethyl Hqbheoka-Zz-Ggfbqs Methacrylate Rash 04/23/2018 Formaldehyde Rash 12/10/2017 Hydrochlorothiazide [...] a day. 6 Active FISH,SAF,FLX,BR G OILS/O3,6,9N2 (ODKG-UOAV-KPZF GE OIL ORAL) Take by mouth. 4 [...] both eyes as needed. 8 Active omega 3-zxf-vfc-fish oil 1,000 mg (120 mg-180 mg) capsule [...] (08/14/2016): Paroxysmal Ventricular Tachycardia Followed by [facility] [place] outside of [facility] Immunizations Name Administration Dates [...] Bert Mercer n Stroke Paternal Grandfather Bert oGmez Amblyopia Neg Hx Cataracts Neg Hx Glaucoma [...] and heating? Not hard at all 02/06/2023 [facility] [place] of Occupat ional Health - Occupational Stress [...] living situation today? I have a [facility] place to live 02/06/2023 Education Answer Date Recorded What is the highest level of school you have completed or the highest degree you have received? 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, AUDIENCE COORDINATOR, ISSAC) 12/19/2018 Comments No Sex and Gender Information Value Date Recorded Sex Assigned at Female Legal Sex Female 5:42 PM RADIOLOGY THERAPIST Gender Identity Female Sexual Orientation Straight Occupation Industry Job Start Date Job End Date Not on file Not on file Not on file Not on file Last Filed Vital Signs Vital Sign Reading Time Taken Comments Blood Pressure 171/76 08/31/2022 1:15 PM CDT Pulse 67 08/31/2022 1:15 PM CDT Temperature 36.2 C (97.2 F) 08/31/2022 1:15 PM CDT Respiratory Rate 20 08/31/2022 1:15 PM CDT [...] Done Comments Office Visit for Blood Pressure Check / Re-check 1940 RSV vaccine - (32-36 weeks) or 60+ years (1 - 1-dose 75+ series) 08/24/2014 Creatinine Level (Kidney Function Test) 06/05/2022 06/05/2021, 11/14/2020, 05/09/2020, Additional history exists Potassium Level 06/05/2022 06/05/2021, 10/24, 05/09/2020, Additional history exists Sodium Level 06/05/2022 06/05/2021, 10/24, 05/09/2020, Additional history exists Depression Screening (Annual PHQ-2) 03/25/2023 Fall Risk Screen (Annual) 03/25/2023 COVID-19 Vaccine ( season) 2023 01/08/2023, 08/09/2022, 12/29/2021, Additional history exists Influenza Vaccine (#1) 2023 , 02/13/2022, 12/21/2020, Additional history exists DTaP,Tdap,and Td Vaccines (3 - Td or Tdap) 06/06/2031 06/05/2021, 08/08/2010, 03/03/2004 Pneumococcal vaccine (65+ years) Completed 05/27/2014, 02/13/2008 Zoster Vaccines Completed 07/17/2018, 04/26, 02/18/2007 IPV Vaccines Aged Out No longer eligi ble based on patient's age to complete this topic Procedures Procedure Name Priority Date/Time Associated Diagnosis [...] - 107 mmol/L 11/14/2020 2:25 PM CDT NTIISH Bicarbonate, P 26 22 - 29 mmol/L [...] M.D. LAB BLOOD ADD-ON Final Res ult [facility] [address] [place] [address], [facility] NITISH [facility] [place] [address] [place] [address] from Last 3 Months or Most Recently Relevant to Health Maintenance Insurance [facility] Care Teams Coil Rewind Machine Operator Relationship Specialty Start Date End Date Elsewhere, Pcp PCP - General Internal Medicine 11/14/20
--- OUTSIDE RECORDS SUMMARY | 2024-02-19 13:19 | XMS_ITS | Referral Summary ---
Author Organization [facility] Address [address] [place] [address] Care Team Providers Care Buckle Sorter Name Role Phone Elsewhere, Pcp Primary Care Provider Unavailabl e Source Comments Patient records contain information from all sites at [facility]. For routine questions regarding patient records, call [phone] during business hours, M-F 8:00 AM - 5:00 PM Central Time. Record requests for emergency care only can be directed to [phone] at any time.[facility] Allergies Active Allergy Reactions Criticality Noted Date Comments Atorvastatin Myalgia,Rash 10/01/2013 Intolerance Benzophenone Rash 04/23/2018 [place] Chloride Rash 04/23/2018 [place] chloride hexahydrate Coconut Diethanolamide (Bulk) Rash 04/23/2018 Diazepam Other (see comments) 04/22/2010 Makes her more restless, anxious. Dibutyl Phthalate Rash 04/23/2018 Diphenhydramine Other (see comments) 04/06/2010 internal heat Paradoxical rx per patient. Possible that benadryl actually keeps pt awake Diphenhydramine Hcl Other (see comments) 08/27/2013 Dmdm Hydantoin Rash 04/23/2018 Ethyl Itpeafnt-La-Vlvyob Methacrylate Rash 04/23/2018 Formaldehyde Rash 12/10/2017 Hydrochlorothiazide [...] a day. 6 Active FISH,SAF,FLX,BR G OILS/O3,6,9N2 (QWYB-VBUL-PSFP GE OIL ORAL) Take by mouth. 4 [...] both eyes as needed. 8 Active omega 7-ggj-bcl-fish oil 1,000 mg (120 mg-180 mg) capsule [...] (08/14/2016): Paroxysmal Ventricular Tachycardia Followed by [facility] [place] [facility] Immunizations Name Administration Dates Next Due [...] or relatives? Twice a week 10/21/2019 Attends [employer] Services Not on file 10/20 Active Member [...] and heating? Not hard at all 02/06/2023 [facility] [place] of Occupat ional Health - Occupational Stress [...] your living situation today? I have a [facility] place to live 02/06/2023 Education Answer Date Recorded What is the highest level of school you have completed or the highest degree you have received? 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, APPLICATION SECURITY CONSULTANT, ISSAC) 12/19/2018 Comments No Sex and Gender Information Value Date Recorded Sex Assigned at Female Legal Sex Female 5:42 PM RECOVERY OPERATOR Gender Identity Female Sexual Orientation Straight [...] 2:00 PM CDT 11/14/2020 2:01 PM CDT us Melanie Flores M.D. LAB BLOOD ADD-ON Final Res ult [facility] [address] [place] [address], [facility] NITISH [facility] [place] [address] [place] [address] from Last 3 Months or Most Recently Relevant to Health Maintenance Insurance [facility] Care Teams Buckle Sorter Relationship Specialty Start Date End Date Elsewhere, Pcp PCP - General Internal Medicine 11/14/20
--- OUTSIDE RECORDS SUMMARY | 2024-02-19 13:20 | XMS_ITS | Continuity of Care Document ---
Author Organization [facility] Address [address] [place] [address] Phone Care Team Providers Care Fish Grader Name Role Phone Lukas Noguera MD Unavailable [...] take one capsule daily - Active Ultimate [place] CALCIO JUAN (unknown strength) take one daily [...] accurate. Please verify the information with the nnio of the legal document before using it for clinical purposes. Encounters Encounter Description Practice Location Reason(s) For Visit Diagnoses Date Provider Providers Copied on Encounter Office/Outpa tient Visit, [facility], [address], [place], [address], [place] tel:[phone] [facility] , No Information 2 Chuckie Serrano [facility] [address], [place], [address], [place]. tel:[phone] Referring Provider: Lukas Pacheco, [facility] [address], [place], [address]. tel:[phone] [facility], [address], [place], [address], [place] tel:[phone] [facility] , No Information 2 Chuckie Gaytan. [facility] [address], [place], [address], [place]. tel:[phone] Family History Family Member Type Diagnosis Age At Onset No Information Payers Payer name Insurance type Covered alliance party ID Nisreena carolyn(s) [facility] [id number] Social History Type Description Quantity Date Captured [...]
--- OUTSIDE RECORDS SUMMARY | 2024-02-19 13:20 | XMS_ITS | Encounter Summary ---
Author Organization [facility] Address [address] [place] [address] Care Team Providers Care General Contractor Name Role Phone Elsewhere, Pcp Primary Care Provider Unavailabl e Reason for Referral * Outpatient (Routine) - Closed Specialty Diagnoses / Procedures Referred By Jesse morales Referred To Contact Diagnoses Incontinence Urinary Procedures URO Uroflow Bjorn Mittal M.D. [address] [place] [phone] Phone: tel: fax: [facility] Referral ID Status Reason Start Date Expiration Date Visits Re quested Visits Authorized [id number] Closed 05/27/2023 05/26/2024 1 1 FACTURING MECHANIC Encounter Details Date Type Department Care Team (Late st Contact Info) Description 05/27/2023 Orders Only Department of Urology in [place], [place] [address] [place] [phone] [facility], [place] Yon Incontinence Urinary Social History [...] or relatives? Twice a week 10/21/2019 Attends [employer] Services Not on file 10/20 Active Member [...] and heating? Not hard at all 02/06/2023 [facility] Health - Occupational Stress Questionnaire Answer [...] 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, AUTO COLLISION REPAIR INSTRUCTOR, ISSAC) 12/19/2018 Comments No Sex and Gender Information Value Date Recorded Sex Assigned at Female Legal Sex Female 5:42 PM MANUFACTURING MECHANIC Gender Identity Female Sexual Orientation Straight Occupation [...] Mittal M.D. LAB URINE ORDERABLES Final Result [facility] [address] [place] [address], [facility] [address] [place] [address] * URO Uroflow (06/04/2023 2:15 PM CDT) Narrative Bjorn Mittal M.D. - 06/04/2023 2:15 PM CDT Bjorn Mittal M.D. 06/05/2023 8:18 AM REASON FOR VISIT: Uroflow: The patient [...] Urinary documented in this encounter Care Teams General Contractor Relationship Specialty Start Date End Date Elsewhere, Pcp PCP - General Internal Medicine 11/14/20 documented as of this encounter
== END 2024-02-19 13:29 | disposition home or self-care (01) ==
LOC: ED 13:17
PROVIDERS: Emergency Provider Family Medicine; PCP Student in an Organized Health Care Education/Training Program
DX: R03.0 Elevated blood-pressure reading, without diagnosis of hypertension (principal)
CPT/HCPCS: 99282; 99283

== ENCOUNTER 2024-04-23 05:18 | Emergency (ER) | payer MEDICARE, SELFPAY ==
--- OUTSIDE RECORDS SUMMARY | 2024-04-23 05:21 | XMS_ITS | Encounter Summary ---
Author Organization [facility] Address [address] [place] [address] Care Team Providers Care Incident Engineer Name Role Phone Elsewhere, Pcp Primary Care Provider Unavailabl e Reason for Referral * Outpatient (Routine) - Closed Specialty Diagnoses / Procedures Referred By Jesse morales Referred To Contact Diagnoses Incontinence Urinary Procedures URO Uroflow Bjorn Mittal M.D. [address] [place] [phone] Phone: tel: fax: [facility] Referral ID Status Reason Start Date Expiration Date Visits Re quested Visits Authorized [id number] Closed 05/27/2023 05/26/2024 1 1 C ARTIST Encounter Details Date Type Department Care Team (Late st Contact Info) Description 05/27/2023 Orders Only Department of Urology in [place], [place] [address] [place] [phone] [facility], [place] Yon Incontinence Urinary Social History [...] and heating? Not hard at all 02/06/2023 [facility] Health - Occupational Stress Questionnaire Answer [...] 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, HEALTHCARE MARKET CONSULTANT, ISSAC) 12/19/2018 Comments No Sex and Gender Information Value Date Recorded Sex Assigned at Female Legal Sex Female 5:42 PM COMIC ARTIST Gender Identity Female Sexual Orientation Straight Occupation [...] Mittal M.D. LAB URINE ORDERABLES Final Result [facility] [address] [place] [address], [facility] [address] [place] [address] * URO Uroflow (06/04/2023 2:15 PM CDT) [...] Urinary documented in this encounter Care Teams Incident Engineer Relationship Specialty Start Date End Date Elsewhere, Pcp PCP - General Internal Medicine 11/14/20 documented as of this encounter
--- OUTSIDE RECORDS SUMMARY | 2024-04-23 05:21 | XMS_ITS | Clinical Summary ---
Author Organization [facility] Address [place], [place] [address] Care Team Providers Care Oil Field Pumper Name Role Phone Zuly Huber MD Unavailable [phone] Vani Mohan MD Unavailable [phone] Marley Abrams MD Primary Care Provider [phone] Allergies Active Allergy Reactions Criticality Noted Date Comments Atorvastatin Myalgia 10/01/2013 Intolerance Benzophenone Rash 04/23/2018 [place] Chloride Rash 04/23/2018 [place] chloride hexahydrate Coconut Diethanolamide (Bulk) Rash 04/23/2018 Diazepam *Unknown 04/22/2010 Makes her more restless, anxious. Dibutyl Phthalate Rash 04/23/2018 Diphenhydramine Other - Describe In Comment Field 04/06/2010 Paradoxical rx per patient. Possible that benadryl actually keeps pt awake Dmdm Hydantoin Rash 04/23/2018 Ethyl Jmzvizsx-Da-Yidzkj Methacrylate Rash 04/23/2018 Formaldehyde Atopic Dermatitis 12/10/2017 Hydrochlorothiazide Rash 05/11/2015 Possibly severe eczematous like rash Iodine Unknown reaction - patient thought it was from an allergy pill that iodine Lisinopril Cough 10/20/2012 Mercaptopurine Rash 04/23/2018 Methylisothiazolinone Rash 04/23/2018 Neomycin Sulfate Rash 04/23/2018 Nickel Sulfate Rash 04/23/2018 Unlisted Allergen (Include Detail In Comments) Rash 04/23/2018 Black rubber mix, Disperse [place] 3, Dodecyl gallate, Ethylenediamine dihydrochloride, glyceryl thioglycolate, hydroperoxide of limonene, hydroperoxide of linalool, lodopropynyl butyl carbamate, lauryl polyglucose, MCI/DE, P-Phenylenediamine Peppermint Oil Rash 04/23/2018 Propylene Glycol [...] tixocortol - 21 Trifluridine Hives,Edema 10/23/2016 Medications ADULT LOW DOSE ASPIRIN 81 MG ORAL TBEC once a day ? 0 06/27/19 02 Active Xjfnl-2-VBM-EPA-F amber Oil (FISH OIL) 1,000 mg (120 mg-180 mg) cap Take by mouth. 0 07/04/19 17 Active tacrolimus 0.03% (PROTOPIC) 0.03 % ointment Apply topically to affected area(s) 2 times daily. 0 05/08/19 18 Active triamcinolone-dim ethicone 0.1-5 % ktoc Apply topically to affected [...] Active estradioL (ESTRACE) 0.01% (0.1 mg/g) vaginal creamIndications: Atrophic vaginitis 1g intravaginally 1-2 times weekly for control of vaginal dryness 42.5 g 07/14/19 22 Active triamcinolone (ARISTOCORT) 0.1 % ointmentIndicatio ns:Psoriasis Apply topically to affected area(s) once daily. 80 g 04/11/19 23 Active Vitamin B-12 1,000 mcg tabletIndications :Memory problem,Low vitamin B12 level TAKE ONE TABLET BY MOUTH EVERY DAY 90 Tablet 07/10/19 23 Active propafenone (RYTHMOL) 150 mg tabletIndications :Paroxysmal ventricular tachycardia (HC) Take 1 Tablet (150 mg) by mouth every 8 hours. More refills provided at completion of appointment scheduled 09/03/[address] Huber. 270 Tablet 3 09/03/19 24 Active amLODIPine (NORVASC) 5 mg tabletIndications :Hypertension Take 1 Tablet (5 mg) by mouth once daily. Please call [phone] 2 months in advance to schedule an office visit due in August 2024 90 Tablet 3 09/05/19 24 Active losartan (COZAAR) 100 mg tabletIndications :Hypertension Take 1 Tablet (100 mg) by mouth once daily. Additional refills to be received at upcoming appt with Dr. Huber in August Tablet 2 11/09/19 24 Active Ciclopirox 1 % shamIndications:S eborrheic dermatitis of scalp USE TWO TIMES WEEKLY DIRECTED 120 mL 1 12/06/19 24 Active rosuvastatin (CRESTOR) 10 mg tabletIndications :Hyperlipidemia, unspecified hyperlipidemia type Take 1 Tablet (10 mg) by mouth at bedtime. 90 Tablet 3 12/06/19 24 Active chlorthalidone (HYGROTON) 25 mg tabletIndications :Hypertension Take 1 Tablet (25 mg) by mouth once daily. 90 Tablet 3 03/02/20 24 025 Disconti nued(*Me d complete /Regimen complete /Level of care change) Active Problems Patient Care Coordination No te [...] (01/11/2011): rhytmol Holter normal 07/03 Follows with [place] PLANTAR FASCIITIS , RECURRENT Resolved Problems Problem [...] Encounters Date Type Department Care Team Description 04/21/2024 12:00 PM JOURNALISTS AND OTHER WRITERS Office Visit [facility] [address] [place] [phone] Petey Gaxiola, PhD, LP Neuropsychological Assessment 04/21/2024 Travel 04/16/2024 Travel 04/15/2024 9:30 AM JOURNALISTS AND OTHER WRITERS Office [facility] [address] [place] [address] Garrett Roy, DPM Consult (Right 2nd toe pain) 04/15/2024 Travel 04/14/2024 Telephone [facility] [address] [place] [phone] Bishop Woodruff MD, PhD Concerns 04/10/2024 Travel 04/10/[address] [facility] [address] [place] [phone] Petey Gaxiola, PhD, LP Appointment Reminder 03/26/2024 Nurse Triage [facility] Centralized Nurse Triage Pcp, No 03/03/2024 Telephone [facility] [address] [phone] Bishop Woodruff MD, PhD Allergic Reaction ( Disp Refills Start End CONNIE/chlorthalidone (HYGROTON) //) 03/02/2024 1:30 PM JOURNALISTS AND OTHER WRITERS Office Visit [facility] [address] [facility] [address] [place] [phone] Bishop Woodruff MD, PhD CV General Cardiology Est (GEN CARD F/U PER PCP--pt of Dr Huber /primary would like pt to be seen due to her high BP 126/80 /DX:I47.29 (ICD-10-CM) - Paroxysmal ventricular tachycardia (HC //PCP: Marley Abrams MD/) 03/01/2024 Travel 01/28/2024 Nurse Triage [facility] Centralized Nurse Triage Marley Abrams MD Skin Problem from Last 3 Months Immunizations Name Administration Dates Next Due Amb Influenza, Inact (High-d ose) (Flu Clinic Only) 12/23/2015,01/12/2014 COVID-19 vaccine (FreshT 30mcg/0.3mL) JH MDGiovanni 12/21/2020,06/09/2020,05/19/2020 Influenza Virus, Unspecified 12/30/2012 Influenza, High-dose [...] at age 60. Maternal grandfather had an DE and at age 63. Maternal grandmother had a stroke and at age 76. Cancer-breast No Family History Relation Name Status Comments Maternal Grandfather Mother Other Social History Tobacco Use Types Packs/Day Years Used Date Smoking Tobacco: Never Smokeless Tobacco: Never Tobacco Cessation:Counseling Given: Yes Alcohol Use Standard Drinks/Week Comments Yes 0 (1 standard drink = 0.6 oz pur e alcohol) couple drinks a week 03/02/24 PHQ-2 Answer Date Recorded PHQ-2 TOTAL SCORE [...] is your housing situation today? 1 12/06/2023 Utilities Answer Date Recorded Do you have trouble paying f or utilities (for example, heat, electricity, water, phone)? 1 12/06/2023 Comments No Sex and Gender Information Value Date Recorded Sex Assigned at Female 07/06/2020 4:09 PM CDT Legal Sex Female 5:45 AM JOURNALISTS AND OTHER WRITERS Gender Identity Female 05/06/2020 10:11 PM JOURNALISTS AND OTHER WRITERS Sexual Orientation Straight 07/06/2020 4: 09 PM [...] Sign Reading Time Taken Comments Blood Pressure 157/68 03/02/2024 1:55 PM JOURNALISTS AND OTHER WRITERS Pulse 76 04/15/2024 9:42 AM JOURNALISTS AND OTHER WRITERS Temperature 36.8 C (98.2 F) 03/10/2020 2:13 PM JOURNALISTS AND OTHER WRITERS Respiratory Rate 18 03/10/2019 11:07 AM JOURNALISTS AND OTHER WRITERS Oxygen Saturation 97% 04/15/2024 9:42 AM JOURNALISTS AND OTHER WRITERS Inhaled Oxygen Concentration - - Weight 58.5 kg (129 lb) 04/15/2024 9:42 AM JOURNALISTS AND OTHER WRITERS Height 154 cm (5' 0.63) 03/02/2024 1:55 PM JOURNALISTS AND OTHER WRITERS Body Mass Index 24.67 03/02/2024 1:55 PM JOURNALISTS AND OTHER WRITERS Plan of Treatment Upcoming Encounters Date Type Department Care Team (Late st Contact Info) Description 04/27/2024 10:00 AM JOURNALISTS AND OTHER WRITERS Office Visit [facility] [address] [place] [phone] Petey Gaxiola, PhD, [address] [place] [address] Health Maintenance Due Date Last Done Comments [...] wt on same day) for age 18+ 03/02/2025 03/02/2024, 12/06/2023, 02/08/2022, Additional history exists Tdap Completed 08/08/2010 Pneumococcal series for age 50+ Completed 5, 02/13/2008 Zoster (shingles) series for age 50+ Completed 07/17/2018, 05/16/2018, 02/18/2007 DEXA/DXA scan for age 65+ Completed 2019, 01/30/2016, 07/09/2013, Additional history exists COVID-19 vaccine series Completed 12/06/19 24, 08/20/2023, 06/27/2021, Additional history exists Medical Devices Implanted Type Area Sawdust Machine Operator Device Identifier Shelf Expiration Date Model / Serial / Lot Cmnt Bone [place] - [id number] Implanted:Qty: 2 on 04/21/2010 at [facility] Right: Knee BIOMET [id number]# / / [id number] Plate Tib Cruciate Fixed - [id number] Implanted:Qty: 1 on 04/21/2010 at [facility] Right: Knee BIOMET [id number]# / / [id number] Patella Series A Thin 31 3peg - [id number] Implanted:Qty: 1 on 04/21/2010 at [facility] Right: Knee BIOMET [id number]# / / [id number] Compnt Fem Cr Intlk [id number] Vanguard - [id number] Implanted:Qty: 1 on 04/21/2010 at [facility] Right: Knee BIOMET [id number]# / / [id number] Vanguard Tibial Bearing Implanted:Qty: 1 on 04/21/2010 at [facility] Right: Knee [id number] / / [id number] Description:VANGUARD TIBIAL BEARING Cmnt Bone [place] - [id number] Implanted:Qty: 2 on 01/22/2011 at [facility] Left: Knee BIOMET [id number]# / / [id number] Bearing Epoly Tib As 12x67 - [id number] Implanted:Qty: 1 on 01/22/2011 at [facility] Left: Knee BIOMET [id number]# / / [id number] Compnt Fem Cr Intlk Lt 60 Vanguard - [id number] Implanted:Qty: 1 on 01/22/2011 at [facility] Left: Knee BIOMET [id number]# / / [id number] Plate Tib Cruciate Fixed - [id number] Implanted:Qty: 1 on 01/22/2011 at [facility] Left: Knee BIOMET [id number]# / / [id number] Peg Series A Pat [facility] 31 3 - [id number] Implanted:Qty: 1 on 01/22/2011 at [facility] Left: Knee BIOMET [id number]# / / [id number] Procedures Procedure Name Priority Date/Time Associated Diagnosis Comments EXTENDED HOLTER Routine 03/02/2024 VENTRICULAR TACHYCARDIA - NON-SUSTAINED Paroxysmal SVT (supraventricular tachycardia) (HC) XR DXA BONE DENSITY 2 SITES AXIAL Routine 04/27/2019 10:50 AM JOURNALISTS AND OTHER WRITERS Other specified disorders of bone density and structure, multiple sites Osteopenia, unspecified location from Last 3 Months or Most Recently Relevant to Health Maintenance Results * ZIO PATCH XT - weekly to monthly symptoms. (03/02/2024) 03/02/2024 Narrative Petey Munguia MD - 03/19/2024 12:00 AM JOURNALISTS AND OTHER WRITERS Agree with Findings. Please see scan document for full report. Signed By PETEY MUNGUIA MD Procedure Note Petey Munguia MD - 03/19/2024 Agree with Findings. Please see scan document for full report. Signed By PETEY MUNGUIA MD Bishop Woodruff MD, PhD CARDIAC SERVICES OR D Edited Result - Final * (ABNORMAL) XR DXA BONE DENSITY 2 SITES AXIAL (04/27/2019 10:50 AM JOURNALISTS AND OTHER WRITERS) Anatomical Region Laterality Modality Spine, HIPS, HIPL, HIPR Other Narrative 05/05/2019 12:47 PM JOURNALISTS AND OTHER WRITERS Please see scanned document for results of this study. us Erica Ramey MD DEXA Final Result from Last 3 Months or Most Recently Relevant to Health Maintenance Insurance MEDICARE PART A HB ONLY [facility] MR/MSHO Advance Directives Documents on File Type Date Recorded Patient Marketing Copywriter Expl anation Healthcare Directive 01/21/2009 [facility] ARE DIRECTIVE Healthcare Directive 04/21/2010 * Full [...] 6:57 AM 04/21/2010 3:12 PM Care Teams Oil Field Pumper Relationship Specialty Start Date End Date Marley Abrams MD [address] [place] [address] PCP - General Internal Medicine 02/08/22 Zuly Huber MD [address] [place] [id number] Cardiology - Interventional 11/02/19 Vani Mohan MD [address] [place] [address] Dermatology 11/02/19"
--- OUTSIDE RECORDS SUMMARY | 2024-04-23 05:21 | XMS_ITS | Clinical Summary ---
Author Organization [facility] Address [address] [place] [address] Care Team Providers Care Resident Assistant Cna Name Role Phone Elsewhere, Pcp Primary Care Provider Unavailabl e Source Comments Patient records contain information from all sites at [facility]. For routine questions regarding patient records, call [phone] during business hours, M-F 8:00 AM - 5:00 PM Central Time. Record requests for emergency care only can be directed to [phone] at any time.[facility] Allergies Active Allergy Reactions Criticality Noted Date Comments Atorvastatin Myalgia,Rash 10/01/2013 Intolerance Benzophenone Rash 04/23/2018 [place] Chloride Rash 04/23/2018 [place] chloride hexahydrate Coconut Diethanolamide (Bulk) Rash 04/23/2018 Diazepam Other (see comments) 04/22/2010 Makes her more restless, anxious. Dibutyl Phthalate Rash 04/23/2018 Diphenhydramine Other (see comments) 04/06/2010 internal heat Paradoxical rx per patient. Possible that benadryl actually keeps pt awake Diphenhydramine Hcl Other (see comments) 08/27/2013 Dmdm Hydantoin Rash 04/23/2018 Ethyl Fdthlobq-Cz-Oyafqr Methacrylate Rash 04/23/2018 Formaldehyde Rash 12/10/2017 Hydrochlorothiazide [...] a day. 6 Active FISH,SAF,FLX,BR G OILS/O3,6,9N2 (JRNW-RKOR-VWIY GE OIL ORAL) Take by mouth. 4 [...] both eyes as needed. 8 Active omega 6-gzd-stq-fish oil 1,000 mg (120 mg-180 mg) capsule [...] (08/14/2016): Paroxysmal Ventricular Tachycardia Followed by [facility] Encounters Date Type Department Care Team Description 04/22/2024 9:00 AM PROCESS STRIPPER Office Visit Department of Dermatology in [place] [address] [place] [phone] Mike Moran M.D. Rash (Primary Dx) Discharge Disposition: Home or Self Care from Last 3 Months Immunizations Immunization Administration Dates Next Due Influenza, Unspecified 12/30/2012 Family History Medical History Relation Name Comments Coronary artery disease Maternal Grandfather Wilmar Alexis mpson Diabetes Maternal Grandfather Wilmar Mcdonald decea sed Stroke Maternal Grandfather Wilmar Mcdonald Dementia Maternal Grandmother Annia Grey Arabella Dorsey hompson Coronary artery disease Mother Domonique Mcdonald Zeke wn Diabetes Mother Domonique Harry Gomez Hypertension Mother Domonique Mcdonald Jason Stroke Mother Domonique Mcdonald Jason Coronary artery disease Paternal Grandfather Bert Mercer n Stroke Paternal Grandfather Bert Gomez Amblyopia Neg Hx Cataracts Neg Hx Glaucoma Neg Hx Macular degeneration Neg Hx Retinal detachment Neg Hx Strabismus Neg Hx Relation Name Status Comments Maternal Grandfather Wilmar Mcdonald Maternal Grandmother Annia Mcdonald Mother Domonique Mcdonald Jason Paternal Grandfather Bert Gomez Social History Tobacco Use Types Packs/Day Years Used Date Smoking Tobacco: Never Passive Smoke Exposure: Past Smokeless Tobacco: Never Comments:Childhood exposure Alcohol Use Standard Drinks/Week Comments Yes 11 (1 standard drink = 0.6 oz pu re alcohol) gin/tonic [facility] Utilities Answer Date Recorded In the past 12 months has th e electric, gas, oil, or water company threatened to shut off services in your home? No 04/21/2024 Social Connection and Isolation Panel [NHANES] A nswer Date Recorded In a typical week, how many times do you talk on the phone with family, friends, or neighbors? Three times a week 10/21/2019 How often do you get togethe r with friends or relatives? Twice a week 10/21/2019 Attends [employer] Not on file 10/20 Active Member [...] and heating? Not hard at all 02/06/2023 [facility] Occupat ional Health - Occupational Stress Questionnaire Answer Date Recorded Feeling of Stress Only a little 12/19/2018 Exercise Vital Sign Answer Date Recorde d On average, how many days pe r week do you engage in moderate to strenuous exercise (like a brisk walk)? 3 days 04/21/2024 On average, how many minutes do you engage in exercise at this level? 30 min 04/21/2024 Hunger Vital Sign Answer Date Recorded Within the past 12 months, y ou worried that your food would run out before you got the money to buy more. Never true 04/21/19 25 Within the past 12 months, t he food you bought just didn't last and you didn't have money to get more. Never true 04/21/2024 PRAPARE - Transportation Answer Date Re corded In the past 12 months, has l ack of transportation kept you from medical appointments or from getting medications? No 03/26 In the past 12 months, has l ack of transportation kept you from meetings, work, or from getting things needed for daily living? No 04/21/2024 Nutrition Answer Date Recorded On average, how many serving s of fruits and vegetables do you eat per day (serving size is equal to 1 cup or approximately the size of a tennis ball)? 3-5 04/21/2024 Dental Answer Date Recorded Dental: Regular Dentist Yes 02/07/20 Employment Answer Date Recorded Employment status Retired 04/21/2024 Housing Stability Answer Date Recorded What is your living situation today? I have a [facility] place to live 04/21/2024 Education Answer Date Recorded What is the highest level of school you have completed or the highest degree you have received? 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, ISSAC) 12/19/2018 Comments No Sex and Gender Information Value Date Recorded Sex Assigned at Female Legal Sex Female 5:42 PM PROCESS STRIPPER Gender Identity Female Sexual Orientation Straight Occupation [...] 06/05/2022 06/05/2021, 10/24, 05/09/2020, Additional history exists COVID-19 Vaccine ( season) 2023 01/08/2023, 08/09/2022, 12/29/2021, Additional history exists Influenza Vaccine (#1) 2023 , 02/13/2022, 12/21/2020, Additional history exists Depression Screening (Annual PHQ-2) 03/25/2024 Fall Risk Screen (Annual) 03/25/2024 DTaP,Tdap,and Td Vaccines (3 - Td or Tdap) 06/06/2031 06/05/2021, 08/08/2010, 03/03/2004 Pneumococcal vaccine (50+ years) Completed 05/27/2014, 02/13/2008 Zoster Vaccines Completed [...] - 10.2 mg/dL 11/14/2020 2:25 PM CDT INTISH Glucose, P 139 70 - 140 mg/dL [...] M.D. LAB BLOOD ADD-ON Final Res ult [facility] [address] [place] [address], [facility] [place] [address] [place] [phone] from Last 3 Months or Most Recently Relevant to Health Maintenance Insurance [facility] Care Teams Resident Assistant Cna Relationship Specialty Start Date End Date Elsewhere, Pcp PCP - General Internal Medicine 11/14/20
--- OUTSIDE RECORDS SUMMARY | 2024-04-23 05:21 | XMS_ITS | Encounter Summary ---
Author Organization [facility] Address [address] [place] [address] Care Team Providers Care Peel Oven Tender Name Role Phone Elsewhere, Pcp Primary Care Provider Unavailabl e Reason for Referral * Outpatient (Routine) - Authorized Specialty Diagnoses / Procedures Referred By Contac t Referred To Contact Dermatology Diagnoses Rash Procedures [facility] [employer] [facility] Sabrina Ball M.D. [address] [place] [address] Phone: tel: fax: [facility] Referral ID Status Reason Start Date Expiration Date V isits Requested Visits Authorized [id number] Authorized 04/22/2024 07/23/2025 1 1 MACY STUDENT * Outpatient (Routine) - Authorized Specialty Diagnoses / Procedures Referred By Contac t Referred To Contact Dermatology Diagnoses Rash Procedures [facility] [employer] [facility] Sabrina Ball M.D. [address] [place] [address] Phone: tel: fax: [facility] Referral ID Status Reason Start Date Expiration Date V isits Requested Visits Authorized [id number] Authorized 04/22/2024 07/23/2025 1 1 MACY STUDENT Reason for Visit * Appointment Request (Routine) - Closed Specialty Diagnoses / Procedures Referred By Contac t Referred To Contact Dermatology Diagnoses Psoriasis Referral ID Status Reason Start Date Expiration Date Visits Re quested Visits Authorized [id number] Closed 01/03/2024 01/02/2025 1 1 Encounter Details Date Type Department Care Team (Late st Contact Info) Description 04/22/2024 9:00 AM PHARMACY STUDENT Office Visit Department of Dermatology in [place], [place] [address] [place] [address] Mike Moran M.D. [address] [place] [phone] Rash (Primary Dx) Discharge Disposition: Home or Self Care Social History Tobacco Use Types Packs/Day Years Used Date Smoking Tobacco: Never Passive Smoke Exposure: Past Smokeless Tobacco: Never Comments:Childhood exposure Alcohol Use Standard Drinks/Week Comments Yes 11 (1 standard drink = 0.6 oz pu re alcohol) gin/tonic [facility] Utilities Answer Date Recorded In the past [...] or relatives? Twice a week 10/21/2019 Attends [employer] Services Not on file 10/20 Active Member [...] and heating? Not hard at all 02/06/2023 [facility] [place] of Occupat ional Health - Occupational Stress [...] your living situation today? [facility] 04/21/2024 Education Answer Date Recorded What is the highest level of school you have completed or the highest degree you have received? 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, DESIGN AGENT, ISSAC) 12/19/2018 Comments No Sex and Gender Information Value Date Recorded Sex Assigned at Female Legal Sex Female 5:42 PM PHARMACY STUDENT Gender Identity Female Sexual Orientation Straight Occupation Industry Job Start Date Job End Date Not on file Not on file Not on file Not on file documented as of this encounter Progress Notes * Kim Fuentes, R.N. - 04/22/2024 9:00 AM CST Talked with patient about her home light unit. She states she has a [employer] unit without wings so information was given about this unit per the National Biological Home light unit manual. MACY STUDENT * Brenda Luis R.N. - 04/22/2024 9:00 AM CST Punch biopsies on the Left lower back and right buttock were performed as ordered and outlined by Mike Moran M.D. in the clinical note dated with today's date. Fire Risk Assessment: NA. MACY STUDENT * Mike Moran M.D. - 04/22/2024 9:00 AM CST Correspondence To: Mike Moran M.D. Referring provider: No ref. provider found Supervising software sales consultant, Dr. Sabrina Ocampo, supervised the visit. SUBJECTIVE CHIEF COMPLAINT/REASON FOR VISIT Rash follow up HISTORY OF PRESENT ILLNESS Krupa Atwood is a 83 y.o. female who has been referred by No ref. provider found on 04/22/24 for the above chief complaint. Patient is an 83-year-old woman with a history of allergic contact dermatitis, psoriasis here for follow up of her conditions, and was last seen on 06/07/2023. Currently, she does not use the phototherapy on a regular basis, but she will try to. Sge also usestriamcinolone about once a day. She still experiences quite a bit of itch on her back and her trunk and extremities. REVIEW OF SYSTEMS Denies history of any other rash or lesion MEDICAL/SURGICAL HISTORY Reviewed OBJECTIVE PHYSICAL EXAMINATION General: Well appearing female in no acute distress. Alert and Oriented. Skin: I examined the arms, legs and trunk. On the back, there are multiple dermatitic appearing patches and plaques. There is minimal scale onexamination today. Approximately 30-40% body surface area ASSESSMENT / PLAN PUNCH BIOPSY, right buttock, split for H&E and DIF Differential dx: Psoriasis versus dermatitis versus tinea versus BP versus CTCL Photographs obtained. Punch biopsy performed. PUNCH BIOPSY, left lower back Differential dx: Psoriasis versus dermatitis versus tinea versus BP versus CTCL Photographs obtained. Punch biopsy performed. CONSENT Discussed the risks, benefits, alternatives, and the necessity of other members of the healthcare team participating in the procedure. All questions answered and consent given. UNIVERSAL PROTOCOL Procedural pause conducted to verify: correct patient identity, procedure to be performed, and as applicable, correct side and site, correct patient position, and availability of implants, special equipment, or special requirements. PROCEDURE INFORMATION Punch biopsy. We explained the potential diagnosis and recommended that we obtain a biopsy. The risks and benefits of the procedure were discussed, and the patient consented to these procedures. Using 1% lidocainewith epinephrine for local anesthesia, a 6-mm punch biopsy was obtained from the aforementioned location. Biopsy submitted to Dermatopathology. Biopsy site closed with a layer of nylon. The skin sutures need to be removed in 7-14 days. Dressing was applied, and wound care instructions were explained. Biopsy results and any further recommendations will be communicated to the patient by letter. # Dermatitic/urticarial appearing patches and plaques, scattered across the trunk and extremities, 30-40% BSA # Prior history of psoriasis # Prior history of allergic contact dermatitis with positive patch test results in 2018 (28 different medications) The patient's rash today has features of both dermatitis and urticaria, with minimal scale. Given that it has been so long and refractory to topical agents, we will go ahead and repeat biopsies to rule out other autoimmune blistering conditions such as bullous pemphigoid or dermatitis herpetiformis. We discussed the utility of repeating patch testing, which can determine if there is an allergen contributing to the symptoms. The patches get placed on a Saturday and are read on a subsequent Saturday and Saturday. You are not allowed to shower while the patches are on. In the future, depending on the biopsy results, she may benefit from a systemic agent such as Dupixent if the rash is more dermatitic or an IL 17 or 23 biologic Plan Today I encouraged recommended that she become more consistent with the using the phototherapy, as this is 1 of the safest treatment options for her. I recommended that she also speak with the phototherapy nurses after her visit today to get more details about her machine and how to use it. As maintenance: Triamcinolone 0.1% cream applied once daily to trunk and extremities, until the rash resolves. Onceresolved, do not continue using on normal appearing skin. Follow-up: 3 months Orders Placed This Encounter [facility] [place] Contact Numbers: [facility] page [[phone]] [facility] page [[phone]] [facility] page [[phone]] Clinic call [] [place] Contact Numbers: [facility] page [[phone]] [facility] page [[phone] or [phone]] [facility] [place] Clinical page [[phone]] [facility] page [[phone]] [facility] page [[phone]] [facility] page [[phone]] Has patient consent ([id number]) been obtained/recorded?: Yes Areas/Protocols to be Photographed: back Region: [place] Region [[id number]] Image Type: Still Images Ordering Provider Name: MIKE MORAN [[id number]] Ordering Provider Specialty: Dermatology [facility] [place] Contact Numbers: [facility] page [[phone]] [facility] page [[phone]] [facility] page [[phone]] Clinic call [] [place] Contact Numbers: [facility] page [[phone]] [facility] page [[phone] or [phone]] [facility] Clinical page [[phone]] [facility] page [[phone]] [facility] page [[phone]] [facility] page [[phone]] Has patient consent ([id number]) been obtained/recorded?: Yes Areas/Protocols to be Photographed: full body Region: [facility] [[id number]] Image Type: Still Images Ordering Provider Name: MIKE MORAN [[id number]] Ordering Provider Specialty: Dermatology All questions answered. Mike Moran PGY-4 Dermatology Resident Cosigned by Sabrina Ball M.D. at 04/22/2024 7:32 PM PHARMACY STUDENT MACY STUDENT MACY STUDENT MACY STUDENT MACY STUDENT Associated attestation - Sabrina Ball M.D. - 04/22/2024 7:32 PM PHARMACY STUDENT I saw and evaluated the patient, participating in the cadet elements of the service. I discussed the findings, assessment and plan with the resident/fellow and agree with resident/fellow???s findings and plan as documented in the resident/fellow's note. I was immediately available for the entirety ofthe procedure(s) and present for the cadet and critical portions. documented in this encounter Plan of Treatment Pending Results Name Type Priority Associated Diagnoses Date/Time Dermatopathology Pathology and Cytology Routine Rash 04/22/2024 9:40 AM PHARMACY STUDENT Cutaneous Direct IFA, Biopsy Pathology and Cytology Routine Rash 04/22/2024 9:41 AM PHARMACY STUDENT Scheduled Orders Name Type Priority Associated Diagnoses Order Schedule [facility] Procedures Routine Rash Ordered: 04/22/2024 [facility] Procedures Routine Rash Ordered: 04/22/2024 Dermatopathology Pathology and Cytology Routine Rash Release Upon Ordering for 1 Occurrences starting 04/22/2024 until 05/01/2024 Cutaneous Direct IFA, Biopsy Pathology and Cytology Routine Rash Release Upon Ordering for 1 Occurrences starting 04/22/2024 until 05/01/2024 documented as of this encounter Visit Diagnoses Diagnosis Rash- Primary documented in this encounter Care Teams Peel Oven Tender Relationship Specialty Start Date End Date Elsewhere, Pcp PCP - General Internal Medicine 11/14/20 documented as of this encounter
--- OUTSIDE RECORDS SUMMARY | 2024-04-23 05:21 | XMS_ITS | Patient Health Record ---
Author Organization [facility] Address [address] [place] [address] Care Team Providers Care Otologist Name Role Phone Yosef Sinclair Primary Care Provider Allergies Allergen (clinical drug ingredient) Drug/Non Drug Allergy documented on EMR Reaction Allergy Type Onset Date Status Benzophenone-4 (uncoded) Unknown Allergy Active Black rubber mix (uncoded) Unknown Allergy Active Newport (II) chloride hexahydrate (uncoded) Unknown Allergy Active Coconut diethanolami de (cocamide GEORGETTE) does not exclude all coconut derivatives (uncoded) Unknown Allergy Active Dibutyl Phthalate Dibutyl Phthalate (uncoded) Unknown Allergy Active Disperse orange 3 Disperse Mayes 3 (uncoded) Unknown Allergy Active DMDM hydantoin [...] Lodo propynyl Butylcarbamate (uncoded) Unknown Allergy Active MCI/CO (uncoded) Unknown Allergy Act amita Mentha Piperita [...] Active trifluridine Trifluridine Unknown Drug Allergy Active Reason For Referral No Information Medications Medication SIG (Take, Route, Frequency, Duration) Notes [...] 10mg twice daily Act amita OMEGA COMPLETE [place] Memory-Curcumin daily Active Desonide applies to face as needed Active Portland 3 Ultimate Portland 3 1280mg once daily with breakfast Active [...] 1% cream to face as needed Active Social History Tobacco Use: Social History Observation Description Date Details (start date - stop date) Never Smoker NA - NA Tobacco Use/Smoking Question Answer Notes Are you a nonsmoker Section Notes: Alcohol: 1 drink per day Alcohol: 1 drink per day Problems Problem Type SNOMED Code ICD Code Onset Dates Problem Status W/U Status Risk Notes Problem 644491616 Overactive bladder (N32.81) Active confirmed Problem 92165605 Urge incontinence (N39.41) Active confirmed Problem 414927156 Cystocele, 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 confirmed Problem 70975218 Stress incontinence (N39.3) Active confirmed Problem SI - Stress incontinence (56005797) Stress incontinence of urine (N39.3) Active confirmed Problem 035309105 Lichen sclerosus (L90.0) Active confirmed Problem 744291233 Uterovaginal prolapse, incomplete (N81.2) Active confirmed Plan Of Treatment No Information Insurance Providers Payer Name Payer Address Payer Phone Subscriber Number Group Number Insured Name Patient Relationship to Insured Coverage Start Date Coverage End Date [facility] Commercial ([employer]) [address] [address] [place], [place] [phone] [id number] Krupa Atwood Self - patient is the insured Medical (General) History Medical History History ICD Code Ventricular tachycardia Allergies Severe Atopic Dermatitis Defective skin barrier High Blood Pressure Psoriasis High Cholesterol Chicken Pox Herpes in 2013 very bad outbreak Surgical History Surgery Date(Month/Year) Tonsillectomy 1945 Hernia surgery 1940s Tubal ligation 1971 Fatty Tumor removed from back 1971 Electrophysiological study 1987 Right knee replaced 2010 Left knee replaced 2010 Hospitalization History Reason Date(Month/Year) Vaginal delivery x3
[2024-04-23 05:31] VITALS: BP 163/75; PULSE 87; RESP 20; TEMP 36.8; O2SAT 98; BMI 24.6
--- OUTSIDE RECORDS SUMMARY | 2024-04-23 06:29 | XMS_ITS | Encounter Summary ---
Author Organization [facility] Address [address] [place] [address] Care Team Providers Care Collet Driller Name Role Phone Elsewhere, Pcp Primary Care Provider Unavailabl e Reason for Referral * Outpatient (Routine) - Closed Specialty Diagnoses / Procedures Referred By Jesse morales Referred To Contact Diagnoses Incontinence Urinary Procedures URO Uroflow Bjorn Mittal M.D. [address] [place] [address] Phone: tel: fax: [facility] Referral ID Status Reason Start Date Expiration Date Visits Re quested Visits Authorized [id number] Closed 05/27/2023 05/26/2024 1 1 [place] ASSOCIATE Encounter Details Date Type Department Care Team (Late st Contact Info) Description 05/27/2023 Orders Only Department of Urology in [place], [place] [address] [place] [phone] [facility], [place] Yon Incontinence Urinary Social History Tobacco [...] or relatives? Twice a week 10/21/2019 Attends [employer] Not on file 10/20 Active Member [...] and heating? Not hard at all 02/06/2023 [facility] - Occupational Stress Questionnaire Answer Date [...] 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, CUSTOMER CARE PROFESSIONAL, ISSAC) 12/19/2018 Comments No Sex and Gender Information Value Date Recorded Sex Assigned at Female Legal Sex Female 5:42 PM RETAIL ASSOCIATE Gender Identity Female Sexual Orientation Straight Occupation [...] Mittal M.D. LAB URINE ORDERABLES Final Result [facility] [address] [place] [address], [facility] [address] [place] [address] * URO Uroflow (06/04/2023 2:15 PM CDT) [...] Urinary documented in this encounter Care Teams Collet Driller Relationship Specialty Start Date End Date Elsewhere, Pcp PCP - General Internal Medicine 11/14/20 documented as of this encounter
--- OUTSIDE RECORDS SUMMARY | 2024-04-23 06:29 | XMS_ITS | Encounter Summary ---
Author Organization [facility] Address [address] [place] [address] Care Team Providers Care Tab Builder Name Role Phone Elsewhere, Pcp Primary Care Provider Unavailabl e Reason for Referral * Outpatient (Routine) - Authorized Specialty Diagnoses / Procedures Referred By Contac t Referred To Contact Dermatology Diagnoses Rash Procedures [facility] Sabrina Ball M.D. [address] [place] [address] Phone: tel: fax: [facility] Referral ID Status Reason Start Date Expiration Date V isits Requested Visits Authorized [id number] Authorized 04/22/2024 07/23/2025 1 1 LABORATORY ANALYST * Outpatient (Routine) - Authorized Specialty Diagnoses / Procedures Referred By Contac t Referred To Contact Dermatology Diagnoses Rash Procedures [facility] Sabrina Ball M.D. [address] [place] [address] Phone: tel: fax: [facility] Referral ID Status Reason Start Date Expiration Date V isits Requested Visits Authorized [id number] Authorized 04/22/2024 07/23/2025 1 1 LABORATORY ANALYST Reason for Visit * Appointment Request (Routine) - Closed Specialty Diagnoses / Procedures Referred By Contac t Referred To Contact Dermatology Diagnoses Psoriasis Referral ID Status Reason Start Date Expiration Date Visits Re quested Visits Authorized [id number] Closed 01/03/2024 01/02/2025 1 1 Encounter Details Date Type Department Care Team (Late st Contact Info) Description 04/22/2024 9:00 AM OIL LABORATORY ANALYST Office Visit Department of Dermatology in [place], [place] [address] [place] [address] Mike Moran M.D. [address] [place] [phone] Rash (Primary Dx) Discharge Disposition: Home or [...] or relatives? Twice a week 10/21/2019 Attends [employer] Services Not on file 10/20 Active Member [...] and heating? Not hard at all 02/06/2023 [facility] [place] of Occupat ional Health - Occupational Stress [...] your living situation today? I have a [facility] place to live 04/21/2024 Education Answer Date Recorded What is the highest level of school you have completed or the highest degree you have received? 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, RN DELIVERY, ISSAC) 12/19/2018 Comments No Sex and Gender Information Value Date Recorded Sex Assigned at Female Legal Sex Female 5:42 PM OIL LABORATORY ANALYST Gender Identity Female Sexual Orientation Straight Occupation [...] the National Biological Home light unit manual. LABORATORY ANALYST * Brenda Luis R.N. - 04/22/2024 9:00 AM CST Punch biopsies on the Left lower back and right buttock were performed as ordered and outlined by Mike Moran M.D. in the clinical note dated with today's date. Fire Risk Assessment: NA. LABORATORY ANALYST * Mike Moran M.D. - 04/22/2024 9:00 AM CST Correspondence To: Mike Moran M.D. Referring provider: No ref. provider found Supervising reporting consultant, Dr. Sabrina Ocampo, supervised the visit. [...] Orders Placed This Encounter [facility] [place] Contact Numbers: [facility] page [[phone]] [facility] page [[phone]] [facility] page [[phone]] Clinic call [] [place] Contact Numbers: [facility] page [[phone]] [facility] page [[phone] or [phone]] [facility] Clinical page [[phone]] [facility] S[facility] page [[phone]] [facility] page [[phone]] [facility] page [[phone]] Has patient consent ([id number]) been obtained/recorded?: Yes Areas/Protocols to be Photographed: back Region: [place] Region [[id number]] Image Type: Still Images Ordering Provider Name: MIKE MORAN [[id number]] Ordering Provider Specialty: Dermatology [facility] [place] Contact Numbers: [facility] page [[phone]] [facility] page [7-1623] [facility] page [[phone]] Clinic call [] [place] Contact Numbers: [facility] page [[phone]] [facility] page [[phone] or [phone]] [facility] Clinical page [9-0064] [facility] page [[phone]] [facility] page [[phone]] [facility] page [[phone]] Has patient consent ([id number]) been obtained/recorded?: Yes Areas/Protocols to be Photographed: full body Region: [facility] [[id number]] Image Type: Still Images Ordering Provider Name: MIKE MORAN [[id number]] Ordering Provider Specialty: Dermatology All questions answered. Mike Moran PGY-4 Dermatology Resident Cosigned by Sabrina Ball M.D. at 04/22/2024 7:32 PM OIL LABORATORY ANALYST LABORATORY ANALYST LABORATORY ANALYST LABORATORY ANALYST LABORATORY ANALYST Associated attestation - Sabrina Ball M.D. - 04/22/2024 7:32 PM OIL LABORATORY ANALYST I saw and evaluated the patient, participating [...] and Cytology Routine Rash 04/22/2024 9:40 AM OIL LABORATORY ANALYST Cutaneous Direct IFA, Biopsy Pathology and Cytology Routine Rash 04/22/2024 9:41 AM OIL LABORATORY ANALYST Scheduled Orders Name Type Priority Associated Diagnoses [...] Primary documented in this encounter Care Teams Tab Builder Relationship Specialty Start Date End Date Elsewhere, Pcp PCP - General Internal Medicine 11/14/20 documented as of this encounter
--- OUTSIDE RECORDS SUMMARY | 2024-04-23 06:29 | XMS_ITS | Clinical Summary ---
Author Organization [facility] Address [address] [place] [address] Care Team Providers Care Helper Shear Operator Name Role Phone Elsewhere, Pcp Primary Care Provider Unavailabl e Source Comments Patient records contain information from all sites at [facility]. For routine questions regarding patient records, call [phone] during business hours, M-F 8:00 AM - 5:00 PM Central Time. Record requests for emergency care only can be directed to [phone] at any time.[facility] Allergies Active Allergy Reactions Criticality Noted Date Comments Atorvastatin Myalgia,Rash 10/01/2013 Intolerance Benzophenone Rash 04/23/2018 [place] Chloride Rash 04/23/2018 [place] chloride hexahydrate Coconut Diethanolamide (Bulk) Rash 04/23/2018 Diazepam Other (see comments) 04/22/2010 Makes her more restless, anxious. Dibutyl Phthalate Rash 04/23/2018 Diphenhydramine Other (see comments) 04/06/2010 internal heat Paradoxical rx per patient. Possible that benadryl actually keeps pt awake Diphenhydramine Hcl Other (see comments) 08/27/2013 Dmdm Hydantoin Rash 04/23/2018 Ethyl Heajuvpa-Cy-Crnaze Methacrylate Rash 04/23/2018 Formaldehyde Rash 12/10/2017 Hydrochlorothiazide [...] a day. 6 Active FISH,SAF,FLX,BR G OILS/O3,6,9N2 (PJQF-CELV-XLTP GE OIL ORAL) Take by mouth. 4 [...] both eyes as needed. 8 Active omega 4-wfy-oey-fish oil 1,000 mg (120 mg-180 mg) capsule [...] (08/14/2016): Paroxysmal Ventricular Tachycardia Followed by [facility] of [facility] Encounters Date Type Department Care Team Description 04/22/2024 9:00 AM PATIENT RELATIONS LIAISON Office Visit Department of Dermatology in [place] [address] [place] [address] Mike Moran M.D. Rash (Primary Dx) Discharge [...] = 0.6 oz pu re alcohol) gin/tonic [facility] Utilities Answer Date Recorded In the [...] or relatives? Twice a week 10/21/2019 Attends [employer] Services Not on file 10/20 Active Member [...] hard at all 02/06/2023 [facility] of Occupat ional Health - Occupational Stress [...] your living situation today? I have a [facility] place to live 04/21/2024 Education Answer Date Recorded What is the highest level of school you have completed or the highest degree you have received? 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, ROUGH AND TRUEING MACHINE OPERATOR, ISSAC) 12/19/2018 Comments No Sex and Gender Information Value Date Recorded Sex Assigned at Female Legal Sex Female 5:42 PM PATIENT RELATIONS LIAISON Gender Identity Female Sexual Orientation Straight Occupation [...] Res ult [facility] [address] [place] [address], [facility] [address] [place] [address] from Last 3 Months or Most Recently Relevant to Health Maintenance Insurance [facility] Care Teams Helper Shear Operator Relationship Specialty Start Date End Date Elsewhere, Pcp PCP - General Internal Medicine 11/14/20
--- OUTSIDE RECORDS SUMMARY | 2024-04-23 06:29 | XMS_ITS | Continuity of Care Document ---
Author Organization [facility] Address [address] [place] [address] Phone Care Team Providers Care Weapons Officer Name Role Phone Lukas Noguera MD Unavailable [...] take one capsule daily - Active Ultimate Medina CALCIO JUAN (unknown strength) take one daily [...] [facility], [address], [place], [address], [place] tel:[phone] [facility] , No Information 2 Chuckie Serrano [facility] [address], [place], [address], [place]. tel:[phone] Referring Provider: Lukas Pacheco, [facility] [address], [place], [address]. tel:[phone] [facility], [address], [place], [address], [place] tel:[phone] [facility] , No Information 2 Chuckie Gaytan. [facility] [address], [place], [address], [place]. tel:[phone] Family History Family Member Type Diagnosis Age At Onset No Information Payers Payer name Insurance type Covered alliance party ID Nisreena carolyn(s) [facility] [id number] Social History Type Description Quantity Date Captured [...]
--- OUTSIDE RECORDS SUMMARY | 2024-04-23 06:29 | XMS_ITS | Clinical Summary ---
Author Organization [facility] Address [place], [place] [address] Care Team Providers Care Magnet Maker Name Role Phone Zuly Huber MD Unavailable [phone] Vani Mohan MD Unavailable Marley Abrams MD Primary Care Provider [phone] Allergies Active Allergy Reactions Criticality Noted Date Comments Atorvastatin Myalgia 10/01/2013 Intolerance Benzophenone Rash 04/23/2018 [place] Chloride Rash 04/23/2018 [place] chloride hexahydrate Coconut Diethanolamide (Bulk) Rash 04/23/2018 Diazepam *Unknown 04/22/2010 Makes her more restless, anxious. Dibutyl Phthalate Rash 04/23/2018 Diphenhydramine Other - Describe In Comment Field 04/06/2010 Paradoxical rx per patient. Possible that benadryl actually keeps pt awake Dmdm Hydantoin Rash 04/23/2018 Ethyl Putffudv-Fw-Xvfixe Methacrylate Rash 04/23/2018 Formaldehyde Atopic Dermatitis 12/10/2017 Hydrochlorothiazide Rash 05/11/2015 Possibly severe eczematous like rash Iodine Unknown reaction - patient thought it was from an allergy pill that iodine Lisinopril Cough 10/20/2012 Mercaptopurine Rash 04/23/2018 Methylisothiazolinone Rash 04/23/2018 Neomycin Sulfate Rash 04/23/2018 Nickel Sulfate Rash 04/23/2018 Unlisted Allergen (Include Detail In Comments) Rash 04/23/2018 Black rubber mix, Disperse [place] 3, Dodecyl gallate, Ethylenediamine dihydrochloride, glyceryl thioglycolate, hydroperoxide of limonene, hydroperoxide of linalool, lodopropynyl butyl carbamate, lauryl polyglucose, MCI/IL, P-Phenylenediamine Peppermint Oil Rash 04/23/2018 Propylene Glycol [...] a day ? 0 06/27/19 02 Active Nbwhf-6-JAQ-EPA-F amber Oil (FISH OIL) 1,000 mg (120 [...] mg) by mouth once daily. Please call [phone] 2 months in advance to schedule an [...] (01/11/2011): rhytmol Holter normal 07/03 Follows with Drain PLANTAR FASCIITIS , RECURRENT Resolved Problems Problem [...] Department Care Team Description 04/21/2024 12:00 PM INTERNATIONAL MANAGER Office Visit [facility] [address] [place] [phone] Petey Gaxiola, PhD, LP Neuropsychological Assessment 04/21/2024 Travel 04/16/2024 Travel 04/15/2024 9:30 AM INTERNATIONAL MANAGER Office Visit [facility] [address] [place] [address] Garrett Roy, DPM Consult (Right 2nd toe pain) 04/15/2024 Travel 04/14/2024 Telephone [facility] [address] [place] [phone] Bishop Woodruff MD, PhD Concerns 04/10/2024 Travel 04/10/2024 Telephone [facility] [address] [place] [phone] Petey Gaxiola, PhD, LP Appointment Reminder 03/26/2024 Nurse Triage [facility] Centralized Nurse Triage Pcp, No 03/03/2024 Telephone [facility] [address] [phone] Bishop Woodruff MD, PhD Allergic Reaction ( Disp Refills Start End CONNIE/chlorthalidone (HYGROTON) //) 03/02/2024 1:30 PM INTERNATIONAL MANAGER Office Visit [facility] [address] [facility] [address] [place] [phone] Bishop Woodruff MD, PhD CV General Cardiology Est (GEN CARD F/U PER PCP--pt of Dr Huber /primary would like pt to be seen due to her high BP 126/80 /DX:I47.29 (ICD-10-CM) - Paroxysmal ventricular tachycardia (HC //PCP: Marley Abrams MD/) 03/01/2024 Travel 01/28/2024 Nurse Triage [facility] Centralized Nurse Triage Marley Abrams MD Skin Problem from Last 3 Months Immunizations Name Administration Dates Next Due Amb Influenza, Inact (High-d ose) (Flu Clinic Only) 12/23/2015,01/12/2014 COVID-19 vaccine ([employer] 30mcg/0.3mL) JH MDGiovanni 12/21/2020,06/09/2020,05/19/2020 Influenza Virus, Unspecified [...] at age 60. Maternal grandfather had an IL and at age 63. Maternal grandmother had [...] PM CDT Legal Sex Female 5:45 AM INTERNATIONAL MANAGER Gender Identity Female 05/06/2020 10:11 PM INTERNATIONAL MANAGER Sexual Orientation Straight 07/06/2020 4: 09 [...] Comments Blood Pressure 157/68 03/02/2024 1:55 PM INTERNATIONAL MANAGER Pulse 76 04/15/2024 9:42 AM INTERNATIONAL MANAGER Temperature 36.8 C (98.2 F) 03/10/2020 2:13 PM INTERNATIONAL MANAGER Respiratory Rate 18 03/10/2019 11:07 AM INTERNATIONAL MANAGER Oxygen Saturation 97% 04/15/2024 9:42 AM INTERNATIONAL MANAGER Inhaled Oxygen Concentration - - Weight 58.5 kg (129 lb) 04/15/2024 9:42 AM INTERNATIONAL MANAGER Height 154 cm (5' 0.63) 03/02/2024 1:55 PM INTERNATIONAL MANAGER Body Mass Index 24.67 03/02/2024 1:55 PM INTERNATIONAL MANAGER Plan of Treatment Upcoming Encounters Date Type Department Care Team (Late st Contact Info) Description 04/27/2024 10:00 AM INTERNATIONAL MANAGER Office Visit [facility] [address] [place] [phone] Petey Gaxiola, PhD, [address] [place] [address] Health Maintenance Due Date Last Done Comments [...] history exists Medical Devices Implanted Type Area Artist'S Representative Device Identifier Shelf Expiration Date Model / Serial / Lot Cmnt Bone [place] - [id number] Implanted:Qty: 2 on 04/21/[address] [facility] Right: Knee BIOMET [id number]# / / [id number] Plate Tib Cruciate Fixed - [id number] Implanted:Qty: 1 on 04/21/[address] [facility] Right: Knee BIOMET [id number]# / / [id number] Patella Series A Thin 31 3peg - [id number] Implanted:Qty: 1 on 04/21/[address] [facility] Right: Knee BIOMET [id number]# / / [id number] Compnt Fem Cr Intlk 377458 [employer]anguard - [id number] Implanted:Qty: 1 on 04/21/[address] [facility] Right: Knee BIOMET [id number]# / / [id number] Vanguard Tibial Bearing Implanted:Qty: 1 on 04/21/[address] [facility] Right: Knee [id number] / / [id number] Description:VANGUARD TIBIAL BEARING Cmnt Bone [place] - [id number] Implanted:Qty: 2 on 01/22/[address] [facility] Left: Knee BIOMET [id number]# / / [id number] Bearing Epoly Tib As 12x67 - [id number] Implanted:Qty: 1 on 01/22/[address] [facility] Left: Knee BIOMET [id number]# / / [id number] Compnt Fem Cr Intlk Lt 60 [employer]anguard - [id number] Implanted:Qty: 1 on 01/22/[address] [facility] Left: Knee BIOMET [id number]# / / [id number] Plate Tib Cruciate Fixed - [id number] Implanted:Qty: 1 on 01/22/[address] [facility] Left: Knee BIOMET [id number]# / / [id number] Peg Series A Pat [facility] 31 3 - [id number] Implanted:Qty: 1 on 01/22/[address] [facility] Left: Knee BIOMET [id number]# / / [id number] Procedures Procedure Name Priority Date/Time Associated Diagnosis Comments EXTENDED HOLTER Routine 03/02/2024 VENTRICULAR TACHYCARDIA - NON-SUSTAINED Paroxysmal SVT (supraventricular tachycardia) (HC) XR DXA BONE DENSITY 2 SITES AXIAL Routine 04/27/2019 10:50 AM INTERNATIONAL MANAGER Other specified disorders of bone density and structure, multiple sites Osteopenia, unspecified location from Last 3 Months or Most Recently Relevant to Health Maintenance Results * ZIO PATCH XT - weekly to monthly symptoms. (03/02/2024) 03/02/2024 Narrative Petey Munguia MD - 03/19/2024 12:00 AM INTERNATIONAL MANAGER Agree with Findings. Please see scan document for full report. Signed By PETEY MUNGUIA MD Procedure Note Petey Munguia MD - 03/19/2024 Agree with Findings. Please see scan document for full report. Signed By PETEY MUNGUIA MD Bishop Woodruff MD, PhD [facility] OR D Edited Result - Final * (ABNORMAL) XR DXA BONE DENSITY 2 SITES AXIAL (04/27/2019 10:50 AM INTERNATIONAL MANAGER) Anatomical Region Laterality Modality Spine, HIPS, HIPL, HIPR Other Narrative 05/05/2019 12:47 PM INTERNATIONAL MANAGER Please see scanned document for results of this study. 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
[2024-04-23 07:15] VITALS: BP 145/74; PULSE 85; RESP 20; TEMP 36.8; O2SAT 98
[2024-04-23 07:16] VITALS: BP 145/74; PULSE 85; RESP 20; TEMP 36.8
--- NOTE | 2024-04-23 08:05 | ED.GENADULT ---
HPI - General Adult General Chief complaint: Laceration/Wound Stated complaint: suture opened up base of spine Time Seen by Provider: 04/23/24 05:44 Source: patient Mode of arrival: ambulatory Limitations: no limitations History of Present Illness HPI narrative: 83-year-old female presents the emergency department with bleeding from a lower back incision. Reports that she had her annual checkup with her plastic parts designer yesterday and they elected to biopsy a couple of suspicious spots. She had of to go to the bathroom and noticed that there was a wet spot and the looked more closely and realized it was blood. Her attempted to read bandage but she still has some light seepage of bleeding. No dizziness, no lightheadedness, no new trauma or injury. Takes aspirin as an anticoagulant. Past medical history notable for psoriasis, SVT, prior history of V-tach as listed in her chart. Multiple drug allergies. ROS is negative for other generalized, skin, musculoskeletal or hematological changes today. Related Data Home Medications ?Medication ?Instructions ?Recorded ?Confirmed aspirin 81 mg chewable tablet 81 mg PO QDAY 10/12/21 04/23/24 cetirizine 10 mg tablet 10 mg PO DAILY 10/12/21 04/23/24 omega 4-ncn-kyg-fish oil 300 1 cap PO QDAY 10/12/21 04/23/24 mg-1,000 mg capsule (Fish Oil) propafenone 150 mg tablet 150 mg PO TID 10/12/21 04/23/24 triamcinolone acetonide 0.1 % 1 applic topical .Daily as needed 10/12/21 04/23/24 topical ointment PRN amlodipine 5 mg tablet 5 mg PO BID 12/04/21 04/23/24 estradiol 0.01% (0.1 mg/gram) 1 g vaginal QWEEK 12/21/21 04/23/24 vaginal cream desonide 0.05 % topical ointment 1 applic topical BID PRN 05/28/22 04/23/24 clobetasol 0.05 % scalp solution 1 applic topical DIRECTED PRN 08/20/23 04/23/24 tacrolimus 0.1 % topical ointment 1 applic topical DIRECTED PRN 08/20/23 04/23/24 betamethasone dipropionate 0.05 % 1 applic topical DIRECTED PRN 09/17/23 04/23/24 topical ointment loteprednol etabonate 0.5 % eye 2 drp ophthalmic (eye) DIRECTED 09/17/23 04/23/24 drops,suspension polymyxin B sulfate 10,000 2 drp ophthalmic (eye) DIRECTED 09/17/23 04/23/24 unit-trimethoprim 1 mg/mL eye drops valacyclovir 500 mg tablet 500 mg PO DAILY 09/17/23 04/23/24 Previous Rx's ?Medication ?Instructions ?Recorded losartan 100 mg tablet 100 mg PO DAILY #90 tabs 04/24/22 cyanocobalamin (vitamin B-12) 1,000 mcg PO DAILY #90 tabs 10/09/22 1,000 mcg tablet rosuvastatin 10 mg tablet 10 mg PO .Bedtime #90 tabs 08/20/23 ciclopirox 1 % shampoo 5 ml topical .2X Weekly PRN 10/16/23 Seborrheic dermatitis #120 mL Allergies Allergy/AdvReac Type Severity Reaction Status Date / Time hydrochlorothiazide Allergy Intermediate Unknown Verified 04/23/24 05:34 lanolin Allergy Intermediate Unknown Verified 04/23/24 05:34 trifluridine Allergy Intermediate Verified 04/23/24 05:34 atorvastatin Allergy Mild Unknown Verified 04/23/24 05:34 iodine Allergy Mild Unknown Verified 04/23/24 05:34 lisinopril Allergy Mild Unknown Verified 04/23/24 05:34 rofecoxib Allergy Mild Unknown Verified 04/23/24 05:34 simvastatin Allergy Mild Unknown Verified 04/23/24 05:34 cobalt Allergy Unknown Verified 04/23/24 05:34 diazepam (From Valium) Allergy Unknown Verified 04/23/24 05:34 formaldehyde Allergy Unknown Verified 04/23/24 05:34 methylisothiazolinone Allergy Unknown Verified 04/23/24 05:34 neomycin Allergy Unknown Unknown Verified 04/23/24 05:34 propylene glycol Allergy Unknown Unknown Verified 04/23/24 05:34 sodium benzoate Allergy Unknown Verified 04/23/24 05:34 [facility] Medical History History of keratitis ?Z86.69 - Personal history of other diseases of the nervous system and sense organs (ICD-10) Surgical History History of hand surgery (10/19/21) ?Z98.890 - Other specified postprocedural states (ICD-10) History of tonsillectomy (~1940) ?Z90.89 - Acquired absence of other organs (ICD-10) History of incisional hernia repair (1970) ?Z98.890 - Other specified postprocedural states (ICD-10) ?Z87.19 - Personal history of other diseases of the digestive system (ICD-10) History of bilateral tubal ligation (1970) ?Z98.51 - Tubal ligation status (ICD-10) History of phacoemulsification of cataract of both eyes with intraocular lens implantation (2016) ?Z98.41 - Cataract extraction status, right eye (ICD-10) ?Z98.42 - Cataract extraction status, left eye (ICD-10) ?Z96.1 - Presence of intraocular lens (ICD-10) History of total bilateral knee replacement (TKR) (2010) ?Z96.653 - Presence of artificial knee joint, bilateral (ICD-10) Family History Mother Stroke Coronary artery disease Diabetes Maternal Grandmother Stroke Maternal Grandfather Coronary artery disease Social History What is your current living situation?: I presently have a place to live Problems where you live: no known problems In the past 12 months, utilities in danger of being shut off: no In past 12 months, lack of transportation kept you from medical appts, meetings, work, or getting things needed for daily living: no In the past 12 mos, have been you worried that your food would run out before you had money to buy more?: never true In the past 12 mos, the food you bought just didn't last and you didn't have money to buy more?: never true Smoking Status: Never smoker Do you use any of these nicotine containing products: None Second hand tobacco smoke exposure: No How often do you have a drink containing alcohol: monthly or less How often do you have six or more drinks on one occasion: Never AUDIT-C Alcohol total score: 1 Non-prescribed substance use: denies use How often does anyone, including family, friends and others, physically hurt you: never How often does anyone, including family, friends and others, insult or talk down to you: never How often does anyone, including family, friends and others, threaten you with harm: never How often does anyone, including family, friends and others, scream or curse at you: never service: No Exam Const: Vital Signs, click to edit/add: Vital Signs - 24 hr 04/23/24 05:31 04/23/24 07:15 04/23/24 07:16 Temperature 98.2 F 98.2 F 98.2 F Pulse Rate [Right Pulse Oximeter] 87 85 85 Respiratory Rate 20 20 20 Blood Pressure [Ri ght Upper Arm] 163/75 H 145/74 H 145/74 H Pulse Oximetry 98 98 Oxygen Delivery Me thod Room Air Room Air Documenting provider has reviewed patient's vital signs: yes Common normals: no apparent distress General appearance: cooperative and well kempt HENMT: Common normals: normocephalic, moist oral mucous membranes and oropharynx normal Head and scalp: normocephalic Resp: Common normals: normal respiratory effort and no use of accessory muscles Effort & inspection: able to speak in complete sentences Back & Pelvis: Other: Punch biopsy looks like it was probably around 8 mm is noted to the right lower mid back area. The couple is stitches and a but they are not actually holding anything together. I suspect 1 of the loops might have accidentally got cut when they were trimming the ends. It is a perfect [place] and it does have a slight oozing. Extremity: Common normals: normal to inspection Psych: Appearance: well kempt Attitude: calm Insight: fair Judgement: fair Skin: Common normals: no rashes or lesions noted General skin exam: no rashes or lesions noted Course Course ED Course: 83-year-old female with bleeding from recent punch biopsy, unfortunately the stitches have come undone. It sounds like this was probably within the last 24 hours that the biopsy was placed but certainly more than 12 hours. I removed those nonfunctioning stitches and have cleanse the area with Hibiclens soap really well. I have dried the area and nose the bleeding has stopped. We discussed treatment options. I do not think that putting new stitches in is necessary and may increase her risk of infection, and have discussed using a combination of Dermabond and Steri-Strips instead and she was agreeable to this. These were applied. I then put a pressure dressing over the top and covered with large Band-Aids. This was very well tolerated and there were no further signs of bleeding. I have asked that she try to keep this dressing on now for the next 24-48 hours and then may remove, shower as usual. The Steri-Strips will gradually fall off. Any severe bleeding, please return to the emergency department. Alarm symptoms reviewed, written instructions also provided. Vital Signs Vital signs: Initial Vital Signs Temperature 98.2 F 04/23/24 05:31 Temperature Source Temporal Artery Scan 04/23/24 05:31 Pulse Rate 87 04/23/24 05:31 Respiratory Rate 20 04/23/24 05:31 Blood Pressure 163/75 H 04/23/24 05:31 Blood Pressure Mean 104 04/23/24 05:31 Blood Pressure Position Sitting 04/23/24 05:31 Pulse Oximetry 98 04/23/24 05:31 Oxygen Delivery Method Room Air 04/23/24 05:31 Vital Signs Temperature 98.2 F 04/23/24 05:31 Pulse Rate 87 04/23/24 05:31 Respiratory Rate 20 04/23/24 05:31 Blood Pressure 163/75 H 04/23/24 05:31 Pulse Oximetry 98 04/23/24 05:31 Oxygen Delivery Method Room Air 04/23/24 05:31 Temperature 98.2 F 04/23/24 07:16 Pulse Rate 85 04/23/24 07:16 Respiratory Rate 20 04/23/24 07:16 Blood Pressure 145/74 H 04/23/24 07:16 Pulse Oximetry 98 04/23/24 07:15 Oxygen Delivery Method Room Air 04/23/24 07:15 Discharge Plan Discharge Clinical Impression: Post-op bleeding Patient Disposition: Home w/ Parent or Adult Condition: Improved Additional Instructions: As we discussed, you had a small area of bleeding from the biopsy site. Unfortunately, the stitches that were in place were not actually holding the tissue together anymore. I suspect that the stitch might have broken or that the loop was accidentally cut when they were placing the sutures, causing this to break open on you. It is really not a big deal. It is not a good idea to stitch this shot once that has been open for this many hours due to infection risk, so I cleaned it with a special antiseptic soap and have covered it with Steri-Strips and a pressure dressing. The bleeding had stopped for me. Try to leave the current dressing in place for the next 48 hours if possible. If you do bleed through it, reapply some gauze and large Band-Aids with pressure and try to lie down on it for about 15 minutes to see if you can get the bleeding to stop with that pressure. It is okay to keep taking your aspirin. You only need to come back if it has significant bleeding again. There are no stitches to remove from that lesion on your lower right back. Activity Level: No Restrictions Discharge Diet: Regular Prescriptions: No Action cetirizine 10 mg tablet 10 mg PO DAILY omega 3-iwa-nnm-fish oil [Fish Oil] 300-1,000 mg capsule 1 cap PO QDAY propafenone 150 mg tablet 150 mg PO TID Rx Instructions: space evenly during waking hours aspirin 81 mg tablet,chewable 81 mg PO QDAY triamcinolone acetonide 0.1 % ointment 1 applic topical .Daily as needed PRN Rx Instructions: APPLY TO AFFECTED AREA desonide 0.05 % ointment 1 applic topical BID PRN estradiol 0.01 % (0.1 mg/gram) cream 1 g vaginal QWEEK Rx Instructions: Medication to be put into individually filled applicators. valacyclovir 500 mg tablet 500 mg PO DAILY polymyxin B sulf-trimethoprim 10,000 unit- 1 mg/mL drops 2 drp ophthalmic (eye) DIRECTED loteprednol etabonate 0.5 % drops,suspension 2 drp ophthalmic (eye) DIRECTED betamethasone dipropionate 0.05 % ointment 1 applic topical DIRECTED PRN Rx Instructions: can you twice a week amlodipine 5 mg tablet 5 mg PO BID tacrolimus 0.1 % ointment 1 applic topical DIRECTED PRN clobetasol 0.05 % solution 1 applic topical DIRECTED PRN rosuvastatin 10 mg tablet 10 mg PO .Bedtime Qty: 90 3RF losartan 100 mg tablet 100 mg PO DAILY Qty: 90 1RF cyanocobalamin (vitamin B-12) 1,000 mcg tablet 1,000 mcg PO DAILY Qty: 90 3RF ciclopirox 1 % shampoo 5 ml topical .2X Weekly PRN (Reason: Seborrheic dermatitis) Qty: 120 0RF Rx Instructions: 5 ml equal to one appliaction Follow Up/Referrals: Marley Mixon MD [Primary Care Provider] - Stand Alone Forms: MyHealth Info Instructions
== END 2024-04-23 07:16 | disposition home or self-care (01) ==
LOC: ED 06:27
PROVIDERS: Emergency Provider Family Medicine; PCP Student in an Organized Health Care Education/Training Program
DX: L76.22 Postprocedural hemorrhage of skin and subcutaneous tissue following other procedure (principal)
CPT/HCPCS: 99283

== ENCOUNTER 2024-04-29 14:59 | Emergency (ER) | payer MEDICARE, SELFPAY ==
--- OUTSIDE RECORDS SUMMARY | 2024-04-29 15:02 | XMS_ITS | Clinical Summary ---
Author Organization [facility] Address [address] [place] [address] Care Team Providers Care Superintendent Menagerie Name Role Phone Elsewhere, Pcp Primary Care Provider Unavailabl e Source Comments Patient records contain information from all sites at [facility]. For routine questions regarding patient records, call [phone] during business hours, M-F 8:00 AM - 5:00 PM Central Time. Record requests for emergency care only can be directed to [phone] at any time.[facility] Allergies Active Allergy Reactions Criticality Noted Date Comments Atorvastatin Myalgia,Rash 10/01/2013 Intolerance Benzophenone Rash 04/23/2018 Geneva Chloride Rash 04/23/2018 [place] chloride hexahydrate Coconut Diethanolamide (Bulk) Rash 04/23/2018 Diazepam Other (see comments) 04/22/2010 Makes her more restless, anxious. Dibutyl Phthalate Rash 04/23/2018 Diphenhydramine Other (see comments) 04/06/2010 internal heat Paradoxical rx per patient. Possible that benadryl actually keeps pt awake Diphenhydramine Hcl Other (see comments) 08/27/2013 Dmdm Hydantoin Rash 04/23/2018 Ethyl Udwnhvzp-Du-Jvcmyp Methacrylate Rash 04/23/2018 Formaldehyde Rash 12/10/2017 Hydrochlorothiazide [...] a day. 6 Active FISH,SAF,FLX,BR G OILS/O3,6,9N2 (RAVE-XADR-FXGW GE OIL ORAL) Take by mouth. 4 [...] both eyes as needed. 8 Active omega 0-kra-hys-fish oil 1,000 mg (120 mg-180 mg) capsule [...] (08/14/2016): Paroxysmal Ventricular Tachycardia Followed by [facility] Encounters Date Type Department Care Team Description 04/22/2024 9:00 AM SHOE SEWING MACHINE OPERATOR AND TENDER Office Visit Department of Dermatology in [place] [address] [place] [address] Mike Moran M.D. Rash (Primary Dx) Discharge Disposition: Home or Self Care 04/22/2024 Ancillary Procedure Department of Dermatology from Last 3 Months Immunizations Immunization Administration [...] Gomez Coronary artery disease Paternal Grandfather Bert Brow n Stroke Paternal Grandfather Bert Gomez Amblyopia [...] = 0.6 oz pu re alcohol) gin/tonic [facility] Utilities Answer Date Recorded In the past [...] or relatives? Twice a week 10/21/2019 Attends [employer]az[employer] Services Not on file 10/20 Active Member [...] and heating? Not hard at all 02/06/2023 [facility] [place] of Occupat ional Health - Occupational Stress [...] your living situation today? I have a [facility] place to live 04/21/2024 Education Answer Date Recorded What is the highest level of school you have completed or the highest degree you have received? 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, SHAREPOINT ENGINEER, ISSAC) 12/19/2018 Comments No Sex and Gender Information Value Date Recorded Sex Assigned at Female Legal Sex Female 5:42 PM SHOE SEWING MACHINE OPERATOR AND TENDER Gender Identity Female Sexual Orientation Straight Occupation [...] Procedure Name Priority Date/Time Associated Diagnosis Comments CUTANEOUS DIRECT IFA, BIOPSY Routine 04/22/2024 9:41 AM SHOE SEWING MACHINE OPERATOR AND TENDER Rash DERMATOLOGY IMAGE EXAM Routine 12:00 AM SHOE SEWING MACHINE OPERATOR AND TENDER COMPREHENSIVE METABOLIC PANEL, S/P STAT 11/14/2020 2:00 PM CDT from Last 3 Months or Most Recently Relevant to Health Maintenance Results * Cutaneous Direct IFA, Biopsy (04/22/2024 9:41 AM SHOE SEWING MACHINE OPERATOR AND TENDER) Report electronically signed by Mike Jacinto M.D. 04/24/2024 9:48 AM SHOE SEWING MACHINE OPERATOR AND TENDER PDRM 04/24/2024 9:48 AM SHOE SEWING MACHINE OPERATOR AND TENDER PDRM Interpretation A. Right buttock, Skin biopsy, Immunofluorescence: IgG: Negative IgG4: Negative IgM: Negative IgA: Negative C3: Discontinuous weak granular deposition along the basement membrane zone Fibrinogen: Non-specific deposition in the connective tissue Impression: Negative study for a specific dermatosis (see comment) Comment: These direct immunofluorescence findings are non-diagnostic and there is no evidence for a specific dermatosis. A finaldefinitive diagnosis should be based on correlation of the direct immunofluorescence findings with the clinical presentation,histopa thological findings on examination of sections from formalin-fixed, paraffin-embedded tissue and other diagnostic tests. B. Left lower back, Skin biopsy, Immunofluorescence: IgG: Negative IgG4: Negative IgM: Negative IgA: Negative C3: Discontinuous weak granular deposition along the basement membrane zone Fibrinogen: Non-specific deposition in the connective tissue Impression: Negative study for a specific dermatosis (see comment) Comment: These direct immunofluorescence findings are non-diagnostic and there is no evidence for a specific dermatosis. A finaldefinitive diagnosis should be based on correlation of the direct immunofluorescence findings with the clinical presentation,histopa thological findings on examination of sections from formalin-fixed, paraffin-embedded tissue and other diagnostic tests. 04/24/2024 9:48 AM SHOE SEWING MACHINE OPERATOR AND TENDER PDRM Comment: ----ADDITIONAL INFORMATION---- This test was developed using an analyte specific reagent. Its performance characteristics were determined by [facility] in a manner consistent with CLIA requirements. This test has not been cleared or approved by the U.S. Food and Drug Administration. Skin (Buttock, Right) 04/22/2024 9:41 AM SHOE SEWING MACHINE OPERATOR AND TENDER Skin (Left Lower Back) 04/22/2024 9:41 AM SHOE SEWING MACHINE OPERATOR AND TENDER Mike Moran M.D. LAB PATH DERM ORDERABLES Fi nal Result [facility] [place] [address] [place] [address], [facility] [address] [place] [address] [place] [address] * Entire Body-Dermatology Image Exam (04/22/2024 12:00 AM SHOE SEWING MACHINE OPERATOR AND TENDER) Narrative [facility] - 04/23/2024 9:12 AM SHOE SEWING MACHINE OPERATOR AND TENDER This order has been created and auto-finalized to support the import of images acquired without order. The clinical documentation to support these images can be found on the encounter that produced images. us Provider Not In System IMG NON RAD IMAGING PROCE PARK Final Result [facility] NA * (ABNORMAL) Comprehensive Metabolic Panel (11/14/2020 2:00 [...] M.D. LAB BLOOD ADD-ON Final Res ult [facility] [address] [place] [address], [place] [facility] [place] [address] [place] [address] from Last 3 Months or Most Recently Relevant to Health Maintenance Insurance [facility] Care Teams Superintendent Menagerie Relationship Specialty Start Date End Date Elsewhere, Pcp PCP - General Internal Medicine 11/14/20
--- OUTSIDE RECORDS SUMMARY | 2024-04-29 15:02 | XMS_ITS | Clinical Summary ---
Author Organization [employer] [facility] Address [place], [place] [address] Care Team Providers Care Machine Shop Worker Name Role Phone Zuly Huber MD Unavailable [phone] Vani Mohan MD Unavailable [phone] Marley Abrams MD Primary Care Provider [phone] Allergies Active Allergy Reactions Criticality Noted Date Comments Atorvastatin Myalgia 10/01/2013 Intolerance Benzophenone Rash 04/23/2018 [place]ia Chloride Rash 04/23/2018 [place] chloride hexahydrate Coconut Diethanolamide (Bulk) Rash 04/23/2018 Diazepam *Unknown 04/22/2010 Makes her more restless, anxious. Dibutyl Phthalate Rash 04/23/2018 Diphenhydramine Other - Describe In Comment Field 04/06/2010 Paradoxical rx per patient. Possible that benadryl actually keeps pt awake Dmdm Hydantoin Rash 04/23/2018 Ethyl Beivrhit-Lr-Gaahzx Methacrylate Rash 04/23/2018 Formaldehyde Atopic Dermatitis 12/10/2017 Hydrochlorothiazide Rash 05/11/2015 Possibly severe eczematous like rash Iodine Unknown reaction - patient thought it was from an allergy pill that iodine Lisinopril Cough 10/20/2012 Mercaptopurine Rash 04/23/2018 Methylisothiazolinone Rash 04/23/2018 Neomycin Sulfate Rash 04/23/2018 Nickel Sulfate Rash 04/23/2018 Unlisted Allergen (Include Detail In Comments) Rash 04/23/2018 Black rubber mix, Disperse [place] 3, Dodecyl gallate, Ethylenediamine dihydrochloride, glyceryl thioglycolate, hydroperoxide of limonene, hydroperoxide of linalool, lodopropynyl butyl carbamate, lauryl polyglucose, MCI/AZ, P-Phenylenediamine Peppermint Oil Rash 04/23/2018 Propylene Glycol [...] a day ? 0 06/27/19 02 Active Yycqj-2-RRO-EPA-F amber Oil (FISH OIL) 1,000 mg (120 [...] mg) by mouth once daily. Please call [phone] 2 months in advance to schedule an [...] (01/11/2011): rhytmol Holter normal 07/03 Follows with [facility] PLANTAR FASCIITIS , RECURRENT Resolved Problems Problem [...] Encounters Date Type Department Care Team Description 04/27/2024 10:00 AM DRYWALL WORKER Office Visit [facility] [address] [place] [address] Petey Gaxiola, PhD, LP Neuropsychological Assessment 04/27/2024 Travel 04/21/2024 12:00 PM DRYWALL WORKER Office Visit [facility] [address] [place] [address] Petey Gaxiola, PhD, LP Neuropsychological Assessment 04/21/2024 Travel 04/16/2024 Travel 04/15/2024 9:30 AM DRYWALL WORKER Office Visit [facility] [address] [place] [address] Garrett Roy DPM Consult (Right 2nd toe pain) 04/15/2024 Travel 04/14/2024 Telephone [facility] [address] [facility] [address] [place] [address] Bishop Woodruff MD, PhD Concerns 04/10/2024 Travel 04/10/2024 Telephone [facility] [address] [place] [address] Petey Gaxiola, PhD, LP Appointment Reminder 03/26/2024 Nurse Triage [facility] Centralized Nurse Triage Pcp, No 03/03/2024 Telephone [facility] [address] [facility] [address] [place] [address] Bishop Woodruff MD, PhD Allergic Reaction ( Disp Refills Start End CONNIE/chlorthalidone (HYGROTON) //) 03/02/2024 1:30 PM DRYWALL WORKER Office Visit [facility] [address] [facility] [address] [place] [address] Bishop Woodruff MD, PhD CV General Cardiology Est (GEN CARD F/U PER PCP--pt of Dr Huber /primary would like pt to be seen due to her high BP 126/80 /DX:I47.29 (ICD-10-CM) - Paroxysmal ventricular tachycardia (HC //PCP: Marley Abrams MD/) 03/01/2024 Travel 01/28/2024 Nurse Triage [facility] Centralized Nurse Triage Marley Abrams MD Skin Problem from Last 3 Months Immunizations Name Administration Dates Next Due Amb Influenza, Inact (High-d ose) (Flu Clinic Only) 12/23/2015,01/12/2014 COVID-19 vaccine (Innovid NTCelluComp 30mcg/0.3mL) LEIDY PEÑALOZA 12/21/2020,06/09/2020,05/19/2020 Influenza Virus, Unspecified [...] at age 61. Maternal grandfather had an [place] and at age 63. Maternal grandmother had [...] PM CDT Legal Sex Female 5:45 AM DRYWALL WORKER Gender Identity Female 05/06/2020 10:11 PM DRYWALL WORKER Sexual Orientation Straight 07/06/2020 4: 09 PM [...] Comments Blood Pressure 157/68 03/02/2024 1:55 PM DRYWALL WORKER Pulse 76 04/15/2024 9:42 AM DRYWALL WORKER Temperature 36.8 C (98.2 F) 03/10/2020 2:13 PM DRYWALL WORKER Respiratory Rate 18 03/10/2019 11:07 AM DRYWALL WORKER Oxygen Saturation 97% 04/15/2024 9:42 AM DRYWALL WORKER Inhaled Oxygen Concentration - - Weight 58.5 kg (129 lb) 04/15/2024 9:42 AM DRYWALL WORKER Height 154 cm (5' 0.63) 03/02/2024 1:55 PM DRYWALL WORKER Body Mass Index 24.67 03/02/2024 1:55 PM DRYWALL WORKER Plan of Treatment Health Maintenance Due Date [...] history exists Medical Devices Implanted Type Area Director Of Assessing Device Identifier Shelf Expiration Date Model / Serial / Lot Cmnt Bone Vidalia - [id number] Implanted:Qty: 2 on 04/21/2010 at [facility] Right: Knee BIOMET [id number]# / / [id number] Plate Tib Cruciate Fixed - [id number] Implanted:Qty: 1 on 04/21/2010 at [facility] Right: Knee BIOMET [id number]# / / [id number] Patella Series A Thin 31 3peg - [id number] Implanted:Qty: 1 on 04/21/2010 at [facility] Right: Knee BIOMET [id number]# / / [id number] Compnt Fem Cr Intlk [id number] Vanguard - [id number] Implanted:Qty: 1 on 04/21/2010 at [facility] Right: Knee BIOMET [id number]# / / [id number] Vanguard Tibial Bearing Implanted:Qty: 1 on 04/21/2010 at [facility] Right: Knee [id number] / / [id number] Description:VANGUARD TIBIAL BEARING Cmnt Bone Vidalia - [id number] Implanted:Qty: 2 on 01/22/2011 at [facility] Left: Knee BIOMET [id number]# / / [id number] Bearing Epoly Tib As 12x67 - [id number] Implanted:Qty: 1 on 01/22/2011 at [facility] Left: Knee BIOMET [id number]# / / [id number] Compnt Fem Cr Intlk Lt 60 Vanguard - [id number] Implanted:Qty: 1 on 01/22/2011 at [facility] Left: Knee BIOMET [id number]# / / [id number] Plate Tib Cruciate Fixed - [id number] Implanted:Qty: 1 on 01/22/2011 at [facility] Left: Knee BIOMET [id number]# / / [id number] Peg Series A Pat Std 31 3 - [id number] Implanted:Qty: 1 on 01/22/2011 at [facility] Left: Knee BIOMET [id number]# / / [id number] Procedures Procedure Name Priority Date/Time Associated Diagnosis Comments EXTENDED HOLTER Routine 03/02/2024 VENTRICULAR TACHYCARDIA - NON-SUSTAINED Paroxysmal SVT (supraventricular tachycardia) (HC) XR DXA BONE DENSITY 2 SITES AXIAL Routine 04/27/2019 10:50 AM DRYWALL WORKER Other specified disorders of bone density and structure, multiple sites Osteopenia, unspecified location from Last 3 Months or Most Recently Relevant to Health Maintenance Results * ZIO PATCH XT - weekly to monthly symptoms. (03/02/2024) 03/02/2024 Narrative Petey Munguia MD - 03/19/2024 12:00 AM DRYWALL WORKER Agree with Findings. Please see scan document for full report. Signed By PETEY MUNGUIA MD Procedure Note Petey Munguia MD - 03/19/2024 Agree with Findings. Please see scan document for full report. Signed By PETEY MUNGUIA MD us Bishop Woodruff MD, PhD CARDIAC SERVICES OR D Edited Result - Final * (ABNORMAL) XR DXA BONE DENSITY 2 SITES AXIAL (04/27/2019 10:50 AM DRYWALL WORKER) Anatomical Region Laterality Modality Spine, HIPS, HIPL, HIPR Other Narrative 05/05/2019 12:47 PM DRYWALL WORKER Please see scanned document for results of this study. us Erica Ramey MD DEXA Final Result from Last 3 Months or Most Recently Relevant to Health Maintenance Insurance MEDICARE PART A HB ONLY [facility] MR/MSHO Advance Directives Documents on File Type Date Recorded Patient Skiver Heel Tap Expl anation Healthcare Directive 01/21/2009 HEALTH ARE [...] 6:57 AM 04/21/2010 3:12 PM Care Teams Machine Shop Worker Relationship Specialty Start Date End Date Marley Abrams MD [address] [place] [address] PCP - General Internal Medicine 02/08/22 Zuly Huber MD [address] [place] [address] Cardiology - Interventional 11/02/19 Vani Mohan MD [address] [place] [address] Dermatology 11/02/19
--- OUTSIDE RECORDS SUMMARY | 2024-04-29 15:02 | XMS_ITS | Encounter Summary ---
Author Organization [facility] Address [address] [place] [address] Care Team Providers Care Payment Rep Name Role Phone Elsewhere, Pcp Primary Care Provider Unavailabl e Reason for Referral * Outpatient (Routine) - Authorized Specialty Diagnoses / Procedures Referred By Contac t Referred To Contact Dermatology Diagnoses Rash Procedures [employer] Sabrina Ball M.D. [address] [place] [address] Phone: tel: fax: [facility] Referral ID Status Reason Start Date Expiration Date V isits Requested Visits Authorized [id number] Authorized 04/22/2024 07/23/2025 1 1 PEDDLER * Outpatient (Routine) - Authorized Specialty Diagnoses / Procedures Referred By Contac t Referred To Contact Dermatology Diagnoses Rash Procedures [employer] Sabrina Ball M.D. [address] [place] [address] Phone: tel: fax: [facility] Referral ID Status Reason Start Date Expiration Date V isits Requested Visits Authorized [id number] Authorized 04/22/2024 07/23/2025 1 1 PEDDLER Reason for Visit * Appointment Request (Routine) - Closed Specialty Diagnoses / Procedures Referred By Contac t Referred To Contact Dermatology Diagnoses Psoriasis Referral ID Status Reason Start Date Expiration Date Visits Re quested Visits Authorized [id number] Closed 01/03/2024 01/02/2025 1 1 Encounter Details Date Type Department Care Team (Late st Contact Info) Description 04/22/2024 9:00 AM BILL PEDDLER Office Visit Department of Dermatology in [place], [place] [address] [place] [address] Mike Moran M.D. [address] [place] [address] Rash (Primary Dx) Discharge Disposition: Home or [...] or relatives? Twice a week 10/21/2019 Attends [employer]ian[employer] Services Not on file 10/20 Active Member [...] hard at all 02/06/2023 [facility] of Occupat ional Health - Occupational Stress [...] your living situation today? [facility] 04/21/2024 Education Answer Date Recorded What is the highest level of school you have completed or the highest degree you have received? 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, SLAB TRIPPER, ISSAC) 12/19/2018 Comments No Sex and Gender Information Value Date Recorded Sex Assigned at Female Legal Sex Female 5:42 PM BILL PEDDLER Gender Identity Female Sexual Orientation Straight Occupation [...] the National Biological Home light unit manual. PEDDLER * Brenda Luis R.N. - 04/22/2024 9:00 AM CST Punch biopsies on the Left lower back and right buttock were performed as ordered and outlined by Mike Moran M.D. in the clinical note dated with today's date. Fire Risk Assessment: NA. PEDDLER * Mike Moran M.D. - 04/22/2024 9:00 AM CST Correspondence To: Mike Moran M.D. Referring provider: No ref. provider found Supervising peoplesoft hcm consultant, Dr. Sabrina Ocampo, supervised the visit. [...] Orders Placed This Encounter [employer] [facility] Contact Numbers: [facility] page [[phone]] [facility] page [[phone]] [facility] page [[phone]] Clinic call [] [place] Contact Numbers: [facility] page [[phone]] [facility] [place] page [[phone] or [phone]] [facility] [place] Clinical page [[phone]] [facility] [place] S[facility] page [[phone]] [facility] page [[phone]] [facility] page [[phone]] Has patient consent ([id number]) been obtained/recorded?: Yes Areas/Protocols to be Photographed: back Region: [facility] Region [[id number]] Image Type: Still Images Ordering Provider Name: MIKE MORAN [[id number]] Ordering Provider Specialty: Dermatology [employer] [facility] Contact Numbers: [facility] page [[phone]] [facility] page [[phone]] [facility] page [[phone]] Clinic call [] [place] Contact Numbers: [facility] page [[phone]] [facility] [place] page [[phone] or [phone]] [facility] [place] Clinical page [[phone]] [facility] [place] SOR page [[phone]] [facility] page [[phone]] [facility] page [[phone]] Has patient consent ([id number]) been obtained/recorded?: Yes Areas/Protocols to be Photographed: full body Region: [facility] [[id number]] Image Type: Still Images Ordering Provider Name: MIKE MORAN [[id number]] Ordering Provider Specialty: Dermatology All questions answered. Mike Moran PGY-4 Dermatology Resident Cosigned by Sabrina Ball M.D. at 04/22/2024 7:32 PM BILL PEDDLER PEDDLER PEDDLER PEDDLER PEDDLER Associated attestation - Sabrina Ball M.D. - 04/22/2024 7:32 PM BILL PEDDLER I saw and evaluated the patient, participating [...] Pending Results Name Type Priority Associated Diagnoses Date /Time Dermatopathology Pathology and Cytology Routine Rash 04/22/2024 9:40 AM BILL PEDDLER Scheduled Orders Name Type Priority Associated Diagnoses Order Schedule [employer] Procedures Routine Rash Ordered: 04/22/2024 [employer] Procedures Routine Rash Ordered: 04/22/2024 Dermatopathology Pathology and Cytology Routine Rash Release Upon Ordering for 1 Occurrences starting 04/22/2024 until 05/01/2024 documented as of this encounter Procedures Procedure Name Priority Date/Time Associated Diagnosis Comments CUTANEOUS DIRECT IFA, BIOPSY Routine 04/22/2024 9:41 AM BILL PEDDLER Rash documented in this encounter Results * Cutaneous Direct IFA, Biopsy (04/22/2024 9:41 AM BILL PEDDLER) Report electronically signed by Mike Jacinto M.D. 04/24/2024 9:48 AM BILL PEDDLER PDR 04/24/2024 9:48 AM BILL PEDDLER PDRM Interpretation A. Right buttock, Skin biopsy, [...] and other diagnostic tests. 04/24/2024 9:48 AM BILL PEDDLER PDRM Comment: ----ADDITIONAL INFORMATION---- This test was developed using an analyte specific reagent. Its performance characteristics were determined by [facility] in a manner consistent with CLIA requirements. This test has not been cleared or approved by the U.S. Food and Drug Administration. Skin (Buttock, Right) 04/22/2024 9:41 AM BILL PEDDLER Skin (Left Lower Back) 04/22/2024 9:41 AM BILL PEDDLER Mike Moran M.D. LAB PATH DERM ORDERABLES Fi nal Result [facility] [address] [place] [address], [facility] [address] [facility] [address] [place] [address] documented in this encounter Visit Diagnoses Diagnosis Rash- Primary documented in this encounter Care Teams Payment Rep Relationship Specialty Start Date End Date Elsewhere, Pcp PCP - General Internal Medicine 11/14/20 documented as of this encounter
--- OUTSIDE RECORDS SUMMARY | 2024-04-29 15:02 | XMS_ITS | Continuity of Care Document ---
Author Organization [facility] Address [address] [place] [address] Phone Care Team Providers Care Dba Developer Name Role Phone Lukas Noguera MD Unavailable [...] take one capsule daily - Active Ultimate [place] CALCIO JUAN (unknown strength) take one daily [...] [facility], [address], [place], [address], [place] tel:[phone] [facility] , No Information 2 Chuckie Serrano [facility] [address], [place], [address], [place]. tel:[phone] Referring Provider: Lukas Pacheco, [facility] [address], [place], [address]. tel:[phone] [facility], [address], [place], [address], [place] tel:[phone] [facility] , No Information 2 Chuckie Gaytan. [facility] [address], [place], [address], [place]. tel:[phone] Family History Family Member Type Diagnosis Age At Onset No Information Payers Payer name Insurance type Covered libertarian ID Nisreena carolyn(s) [facility] [id number] Social History Type Description Quantity Date Captured [...]
--- OUTSIDE RECORDS SUMMARY | 2024-04-29 15:02 | XMS_ITS | Encounter Summary ---
Author Organization [facility] Address [address] [place] [id number] Care Team Providers Care Textile Bag Sewer Name Role Phone Elsewhere, Pcp Primary Care Provider Unavailabl e Reason for Referral * Outpatient (Routine) - Closed Specialty Diagnoses / Procedures Referred By Jesse morales Referred To Contact Diagnoses Incontinence Urinary Procedures URO Uroflow Bjorn Mittal M.D. [address] [place] [phone] Phone: tel: fax: [facility] Referral ID Status Reason Start Date Expiration Date Visits Re quested Visits Authorized [id number] Closed 05/27/2023 05/26/2024 1 1 NOTE DESIGNER Encounter Details Date Type Department Care Team (Late st Contact Info) Description 05/27/2023 Orders Only Department of Urology in [place], [place] [address] [place] [phone] [facility], [place] Yon Incontinence Urinary Social History Tobacco [...] or relatives? Twice a week 10/21/2019 Attends [employer] Not on file 10/20 Active Member [...] and heating? Not hard at all 02/06/2023 [facility] [place] [facility] - Occupational Stress Questionnaire Answer Date [...] 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, BOWLING BALL FINISHER, ISSAC) 12/19/2018 Comments No Sex and Gender Information Value Date Recorded Sex Assigned at Female Legal Sex Female 5:42 PM BANK NOTE DESIGNER Gender Identity Female Sexual Orientation Straight Occupation [...] Mittal M.D. LAB URINE ORDERABLES Final Result [facility] [address] [place] [address], [facility] [address] [place] [address] * URO Uroflow (06/04/2023 2:15 PM CDT) [...] Urinary documented in this encounter Care Teams Textile Bag Sewer Relationship Specialty Start Date End Date Elsewhere, Pcp PCP - General Internal Medicine 11/14/20 documented as of this encounter
--- OUTSIDE RECORDS SUMMARY | 2024-04-29 15:02 | XMS_ITS | Encounter Summary ---
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 Name Role Phone Elsewhere, Pcp Primary Care Provider Unavailabl e Encounter Details Date Type Department Care Team (Late st Contact Info) Description 04/22/2024 Ancillary Procedure Department of Dermatology Social History Tobacco Use Types Packs/Day Years Used Date Smoking Tobacco: Never Passive Smoke Exposure: Past Smokeless Tobacco: Never Comments:Childhood exposure Alcohol Use Standard Drinks/Week Comments Yes 11 (1 standard drink = 0.6 oz pu re alcohol) gin/tonic [facility] Utilities Answer Date Recorded In the past 12 months has th [employer] electric, gas, oil, or water company threatened [...] and heating? Not hard at all 02/06/2023 [facility] [place] [facility] - Occupational Stress [...] your living situation today? I have a [facility] place to live 04/21/2024 Education Answer Date Recorded What is the highest level of school you have completed or the highest degree you have received? 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 Gender Identity Female Sexual Orientation Straight Occupation Industry Job Start Date Job End Date Not on file Not on file Not on file Not on file documented as of this encounter Plan of Treatment Not on file documented as of this encounter Procedures Procedure Name Priority Date/Time Associated Diagnosis Comments DERMATOLOGY IMAGE EXAM Routine 04/22/2024 12:00 AM JIGGER MACHINE OPERATOR documented in this encounter Results * Entire Body-Dermatology Image Exam (04/22/2024 12:00 AM JIGGER MACHINE OPERATOR) Narrative [facility] - 04/23/2024 9:12 AM JIGGER MACHINE OPERATOR This order has been created and auto-finalized to support the import of images acquired without order. The clinical documentation to support these images can be found on the encounter that produced images. us Provider Not In System IMG NON RAD IMAGING PROCE DURES Final Result [facility] NA documented in this encounter Visit Diagnoses Not on filedocumented in this encounter Care Teams Real Estate Office Supervisor Relationship Specialty Start Date End Date Elsewhere, Pcp PCP - General Internal Medicine 11/14/20 documented as of this encounter
[2024-04-29 15:03] VITALS: BP 169/75; PULSE 77; RESP 18; TEMP 36.2; O2SAT 97; BMI 26.5
--- NOTE | 2024-04-29 15:17 | CRLHL7_ITS ---
For Patients: As a result of the Cures Act, medical imaging exams and procedure reports are released immediately into your electronic medical record. You may view this report before your referring provider. If you have questions, please contact your health care provider. INDICATION: Injury and pain. TECHNIQUE: Chest and left ribs 3 views. COMPARISON: None. FINDINGS: Cardiovascular and mediastinum: Heart size and vasculature are normal in caliber and appearance. Calcific atherosclerosis of the aorta. Mediastinum is within normal limits. Lungs and pleural spaces: Lungs are clear. No sign of infiltrate or mass. No sign of pleural effusion. No pneumothorax. Bones and soft tissues: Detailed oblique images of the left ribs demonstrate fractures of the anterolateral 8th and 9th ribs.. IMPRESSION: Fractures of the left anterolateral 8th and 9th ribs. Dictated by Vishal Lee MD @ 04/29/2024 4:07:21 PM (Electronically Signed)
--- NOTE | 2024-04-29 15:18 | CRLHL7_ITS ---
For Patients: As a result of the Century Cures Act, medical imaging exams and procedure reports are released immediately into your electronic medical record. You may view this report before your referring provider. If you have questions, please contact your health care provider. Indication: FALL- FELL INTO SIDE OF BATHTUB ON 04/30/24 Technique: Single view of the pelvis. Comparison: 09/13/2009. Findings: Moderate right and moderate to severe left degenerative changes of the hips. Moderate degenerative changes of the visualized spine. Moderate stool burden. Osteopenia. No acute displaced fracture or malalignment. Impression: Moderate right and moderate to severe left degenerative changes of the hips. No acute displaced fracture or malalignment. Dictated by Abhi Allison MD @ 04/29/2024 4:06:28 PM (Electronically Signed)
--- NOTE | 2024-04-29 15:30 | ED.GENADULT ---
HPI - General Adult General Chief complaint: Fall/Minor Trauma <Oneal Campo MD - Last Filed: 05/02/24 07:53> Stated complaint: Slipped out of tub and fell-hit back, diff walking <Oneal Campo MD - Last Filed: 05/02/24 07:53> Time Seen by Provider: 04/29/24 15:10 <Oneal Campo MD - Last Filed: 05/02/24 07:53> History of Present Illness HPI narrative: Patient is an 83-year-old female lives independently with her she had some skin biopsies done at [facility] recently. She tripped on a rug near the toilet and fell against a marble line area of the bathtub. She complains of pain in her left buttock area and her left posterior ribcage along her mid scapular line posteriorly. The patient denies shortness of breath, has been ambulatory but she has been ?careful? today. Her 's been very attentive to her. She has had psoriatic arthritis, multiple allergies, some mild cognitive impairment listed on her chart. Patient denies any focal neurologic changes denies headache or neck pain or head injury. <Oneal Campo MD - Last Filed: 05/02/24 07:53> Related Data Home medications: Home Medications ?Medication ?Instructions ?Recorded ?Confirmed aspirin 81 mg chewable tablet 81 mg PO QDAY 10/12/21 04/23/24 cetirizine 10 mg tablet 10 mg PO DAILY 10/12/21 04/23/24 omega 7-szp-get-fish oil 300 1 cap PO QDAY 10/12/21 04/23/24 mg-1,000 mg capsule (Fish Oil) propafenone 150 mg tablet 150 mg PO TID 10/12/21 04/23/24 triamcinolone acetonide 0.1 % 1 applic topical .Daily as needed 10/12/21 04/23/24 topical ointment PRN amlodipine 5 mg tablet 5 mg PO BID 12/04/21 04/23/24 estradiol 0.01% (0.1 mg/gram) 1 g vaginal QWEEK 12/21/21 04/23/24 vaginal cream desonide 0.05 % topical ointment 1 applic topical BID PRN 05/28/22 04/23/24 clobetasol 0.05 % scalp solution 1 applic topical DIRECTED PRN 08/20/23 04/23/24 tacrolimus 0.1 % topical ointment 1 applic topical DIRECTED PRN 08/20/23 04/23/24 betamethasone dipropionate 0.05 % 1 applic topical DIRECTED PRN 09/17/23 04/23/24 topical ointment loteprednol etabonate 0.5 % eye 2 drp ophthalmic (eye) DIRECTED 09/17/23 04/23/24 drops,suspension polymyxin B sulfate 10,000 2 drp ophthalmic (eye) DIRECTED 09/17/23 04/23/24 unit-trimethoprim 1 mg/mL eye drops valacyclovir 500 mg tablet 500 mg PO DAILY 09/17/23 04/23/24 Previous Rx's ?Medication ?Instructions ?Recorded losartan 100 mg tablet 100 mg PO DAILY #90 tabs 04/24/22 cyanocobalamin (vitamin B-12) 1,000 mcg PO DAILY #90 tabs 10/09/22 1,000 mcg tablet rosuvastatin 10 mg tablet 10 mg PO .Bedtime #90 tabs 08/20/23 ciclopirox 1 % shampoo 5 ml topical .2X Weekly PRN 10/16/23 Seborrheic dermatitis #120 mL <Oneal Campo MD - Last Filed: 05/02/24 07:53> Allergies/adverse reactions: Allergies Allergy/AdvReac Type Severity Reaction Status Date / Time hydrochlorothiazide Allergy Intermediate Unknown Verified 04/23/24 05:34 lanolin Allergy Intermediate Unknown Verified 04/23/24 05:34 trifluridine Allergy Intermediate Verified 04/23/24 05:34 atorvastatin Allergy Mild Unknown Verified 04/23/24 05:34 iodine Allergy Mild Unknown Verified 04/23/24 05:34 lisinopril Allergy Mild Unknown Verified 04/23/24 05:34 rofecoxib Allergy Mild Unknown Verified 04/23/24 05:34 simvastatin Allergy Mild Unknown Verified 04/23/24 05:34 cobalt Allergy Unknown Verified 04/23/24 05:34 diazepam (From Valium) Allergy Unknown Verified 04/23/24 05:34 formaldehyde Allergy Unknown Verified 04/23/24 05:34 methylisothiazolinone Allergy Unknown Verified 04/23/24 05:34 neomycin Allergy Unknown Unknown Verified 04/23/24 05:34 propylene glycol Allergy Unknown Unknown Verified 04/23/24 05:34 sodium benzoate Allergy Unknown Verified 04/23/24 05:34 <Oneal Campo MD - Last Filed: 05/02/24 07:53> Review of Systems Status of ROS: Reports: 6 or more systems reviewed and unremarkable except as noted in History and below <Oneal Campo MD - Last Filed: 05/02/24 07:53> [facility] Medical History: Medical History History of keratitis ?Z86.69 - Personal history of other diseases of the nervous system and sense organs (ICD-10) <Oneal Campo MD - Last Filed: 05/02/24 07:53> Surgical History: Surgical History History of hand surgery (10/19/21) ?Z98.890 - Other specified postprocedural states (ICD-10) History of tonsillectomy (~1940) ?Z90.89 - Acquired absence of other organs (ICD-10) History of incisional hernia repair (1970) ?Z98.890 - Other specified postprocedural states (ICD-10) ?Z87.19 - Personal history of other diseases of the digestive system (ICD-10) History of bilateral tubal ligation (1970) ?Z98.51 - Tubal ligation status (ICD-10) History of phacoemulsification of cataract of both eyes with intraocular lens implantation (2016) ?Z98.41 - Cataract extraction status, right eye (ICD-10) ?Z98.42 - Cataract extraction status, left eye (ICD-10) ?Z96.1 - Presence of intraocular lens (ICD-10) History of total bilateral knee replacement (TKR) (2010) ?Z96.653 - Presence of artificial knee joint, bilateral (ICD-10) <Oneal Campo MD - Last Filed: 05/02/24 07:53> Family History: Family History Mother Stroke Coronary artery disease Diabetes Maternal Grandmother Stroke Maternal Grandfather Coronary artery disease <Oneal Campo MD - Last Filed: 05/02/24 07:53> Social History: Social History What is your current living situation?: I presently have a place to live Problems where you live: no known problems In the past 12 months, utilities in danger of being shut off: no In past 12 months, lack of transportation kept you from medical appts, meetings, work, or getting things needed for daily living: no In the past 12 mos, have been you worried that your food would run out before you had money to buy more?: never true In the past 12 mos, the food you bought just didn't last and you didn't have money to buy more?: never true Smoking Status: Never smoker Do you use any of these nicotine containing products: None Second hand tobacco smoke exposure: No How often do you have a drink containing alcohol: monthly or less How often do you have six or more drinks on one occasion: Never AUDIT-C Alcohol total score: 1 Non-prescribed substance use: denies use How often does anyone, including family, friends and others, physically hurt you: never How often does anyone, including family, friends and others, insult or talk down to you: never How often does anyone, including family, friends and others, threaten you with harm: never How often does anyone, including family, friends and others, scream or curse at you: never service: No <Oneal Campo MD - Last Filed: 05/02/24 07:53> Exam Narrative: Exam Narrative: Objective: In general patient is no apparent distress, her vital signs look within normal limits other than slightly elevated blood pressure HEENT shows no facial asymmetry neck is supple no scalp tenderness She has some mild tenderness in her posterior thoracic ribs in the midclavicular line posteriorly there is no bruising or ecchymosis no crepitus Spine exam is unremarkable no back both thoracic and lumbar she has no neck pain she complains of some left-sided posterior hip area pain over her buttock area there does not appear to be marked tenderness there she is able to stand, she is able to turn and pivot and walk. Distal CMS in lower extremities is unremarkable <Oneal Campo MD - Last Filed: 05/02/24 07:53> Const: Vital Signs, click to edit/add: Vital Signs - 24 hr 04/29/24 15:03 Temperature 97.2 F L Pulse Rate [Pulse Oximeter] 77 Respiratory Rate 18 Blood Pressure [Ri ght Upper Arm] 169/75 H Pulse Oximetry 97 Oxygen Delivery Me thod Room Air <Oneal Campo MD - Last Filed: 05/02/24 07:53> Vital Signs, click to edit/add: Vital Signs - 24 hr 04/29/24 15:03 Temperature 97.2 F L Pulse Rate [Pulse Oximeter] 77 Respiratory Rate 18 Blood Pressure [Ri ght Upper Arm] 169/75 H Pulse Oximetry 97 Oxygen Delivery Me thod Room Air <Gabi Murray MD - Last Filed: 04/29/24 16:42> Course Reevaluation(s) Time of Reevaluation #1: 16:41 <Gabi Murray MD - Last Filed: 04/29/24 16:42> Reevaluation #1: Nursing staff reports that the road tested patient. She did fine, they feel she is ready to discharge to home. She has contusion of this left hip but no acute fracture. No change to discharge plan. <Gabi Murray MD - Last Filed: 04/29/24 16:42> Vital Signs Vital signs: Initial Vital Signs Temperature 97.2 F L 04/29/24 15:03 Temperature Source Temporal Artery Scan 04/29/24 15:03 Pulse Rate 77 04/29/24 15:03 Respiratory Rate 18 04/29/24 15:03 Blood Pressure 169/75 H 04/29/24 15:03 Blood Pressure Mean 106 H 04/29/24 15:03 Blood Pressure Position Sitting 04/29/24 15:03 Pulse Oximetry 97 04/29/24 15:03 Oxygen Delivery Method Room Air 04/29/24 15:03 Vital Signs Temperature 97.2 F L 04/29/24 15:03 Pulse Rate 77 04/29/24 15:03 Respiratory Rate 18 04/29/24 15:03 Blood Pressure 169/75 H 04/29/24 15:03 Pulse Oximetry 97 04/29/24 15:03 Oxygen Delivery Method Room Air 04/29/24 15:03 Temperature 97.2 F L 04/29/24 15:03 Pulse Rate 77 04/29/24 15:03 Respiratory Rate 18 04/29/24 15:03 Blood Pressure 169/75 H 04/29/24 15:03 Pulse Oximetry 97 04/29/24 15:03 Oxygen Delivery Method Room Air 04/29/24 15:03 <Oneal Campo MD - Last Filed: 05/02/24 07:53> Initial Vital Signs Temperature 97.2 F L 04/29/24 15:03 Temperature Source Temporal Artery Scan 04/29/24 15:03 Pulse Rate 77 04/29/24 15:03 Respiratory Rate 18 04/29/24 15:03 Blood Pressure 169/75 H 04/29/24 15:03 Blood Pressure Mean 106 H 04/29/24 15:03 Blood Pressure Position Sitting 04/29/24 15:03 Pulse Oximetry 97 04/29/24 15:03 Oxygen Delivery Method Room Air 04/29/24 15:03 Vital Signs Temperature 97.2 F L 04/29/24 15:03 Pulse Rate 77 04/29/24 15:03 Respiratory Rate 18 04/29/24 15:03 Blood Pressure 169/75 H 04/29/24 15:03 Pulse Oximetry 97 04/29/24 15:03 Oxygen Delivery Method Room Air 04/29/24 15:03 Temperature 97.2 F L 04/29/24 15:03 Pulse Rate 77 04/29/24 15:03 Respiratory Rate 18 04/29/24 15:03 Blood Pressure 169/75 H 04/29/24 15:03 Pulse Oximetry 97 04/29/24 15:03 Oxygen Delivery Method Room Air 04/29/24 15:03 <Gabi Murray MD - Last Filed: 04/29/24 16:42> Medications Administered Medications: Discontinued Medications Generic Name Dose Route Start Last Admin Trade Name Freq PRN Reason Stop Dose Admin Acetaminophen 1,000 mg 04/29/24 15:18 04/29/24 15:54 Acetaminophen 500 Mg Tablet PO 04/29/24 15:19 1,000 mg ONCE ONE Administration Ibuprofen 600 mg 04/29/24 15:18 04/29/24 15:54 Ibuprofen 200 Mg Tablet PO 04/29/24 15:19 600 mg ONCE ONE Administration <Oneal Campo MD - Last Filed: 05/02/24 07:53> Discontinued Medications Generic Name Dose Route Start Last Admin Trade Name Aditya PRN Reason Stop Dose Admin Acetaminophen 1,000 mg 04/29/24 15:18 04/29/24 15:54 Acetaminophen 500 Mg Tablet PO 04/29/24 15:19 1,000 mg ONCE ONE Administration Ibuprofen 600 mg 04/29/24 15:18 04/29/24 15:54 Ibuprofen 200 Mg Tablet PO 04/29/24 15:19 600 mg ONCE ONE Administration <Gabi Murray MD - Last Filed: 04/29/24 16:42> Medical Decision Making MDM Narrative Medical decision making narrative: [age] white female fell last night after tripping on a rug and fell into a bathtub area she injured her left posterior ribcage area in her posterior buttock area will check a pelvic x-ray as well as her ribs and chest x-ray left rib detail. Will give the patient Advil and Tylenol. Depending on imaging results may decide disposition likely home. At this point it does not appear she has significant injury but will check x-rays as above thanks. Addendum 3:55 p.m.: The patient's chest x-ray by my review looks unremarkable await Radiology overreading. Under pelvic x-ray there is a linear line across her femoral neck that I think warrants a CT scan of her hip to make sure there is no fracture there. If this is negative we can get her up moving around a little bit see if the Tylenol Advil has helped her and then she wishes to go home and I think that is appropriate. Addendum: The patient does have by Radiology read some left rib fractures 8th and 9th anterolateral. They look very distal. She is not having a lot of pain. She has not had any hemodynamic instability. Think looking at her hip would be reasonable and then I simply Tylenol Advil at home. And making she has no hip fracture on the CT scan. <Oneal Campo MD - Last Filed: 05/02/24 07:53> Imaging Data CT- Other: Attestation: I have reviewed the pertinent imaging results. <Gabi Murray MD - Last Filed: 04/29/24 16:42> Radiologist's impression: Patient: CANDACE Flor:?[facility]IS Patient ID:?[id number] Site Patient ID:?[id number]. Site :?[id number] Study:?CT-Hip Left W/O-04/29/2024 4:07:58 PM Ordering Physician:Richy No Final Report: INDICATION: Fall, injury COMPARISON: Same-day pelvic radiograph TECHNIQUE: CT of the left hip without intravenous contrast.. FINDINGS: Diffuse osseous demineralization. No evident acute displaced fracture. Focal fat stranding in the subcutaneous fat lateral to the left iliac crest and left proximal femur compatible with contusion. Severe degenerative change of the left hip. At least moderate degenerative change of the partially imaged right hip. Partially imaged degenerative change of the lumbosacral spine. Mild degenerative change of the sacroiliac joints and pubic symphysis. Chondrocalcinosis of the pubic symphysis. There is colonic diverticulosis. There are atherosclerotic vascular calcifications. Tiny fat containing left inguinal hernia and/or lipomatosis of the round ligament. Incidentally noted relaxation and descent of the pelvic floor. IMPRESSION: 1. No evident acute displaced fracture. 2. Severe degenerative change of the left hip. 3. Focal fat stranding in the subcutaneous fat lateral to the left iliac crest and left proximal femur compatible with contusion. 4. Additional chronic and incidental findings as detailed above. Please note that all CT scans at this facility use dose modulation, iterative reconstruction, and/or weight-based dosing when appropriate to reduce radiation dose to as low as reasonably achievable. Dictated by Jeromy Fuentes MD @ 04/29/2024 4:30:26 PM (Electronic Signature) <Gabi Murray MD - Last Filed: 04/29/24 16:42> Discharge Plan Discharge Clinical Impression: Fall, Rib pain on left side, Acute buttock pain, Fracture, ribs <Oneal Campo MD - Last Filed: 05/02/24 07:53> Patient Disposition: Home w/ Parent or Adult <Oneal Campo MD - Last Filed: 05/02/24 07:53> Condition: Stable <Oneal Campo MD - Last Filed: 05/02/24 07:53> Additional Instructions: Light activity, ice to the back area 5-10 minutes 3 times a day if possible, Advil and Tylenol as needed, return to see primary care if needed over the next several days. Return to ED p.r.n.. <Oneal Campo MD - Last Filed: 05/02/24 07:53> Activity Level: Light activity <Oneal Campo MD - Last Filed: 05/02/24 07:53> Light activity <Gabi Murray MD - Last Filed: 04/29/24 16:42> Discharge Diet: Regular <Oneal Campo MD - Last Filed: 05/02/24 07:53> Regular <Gabi Murray MD - Last Filed: 04/29/24 16:42> Prescriptions: No Action cetirizine 10 mg tablet 10 mg PO DAILY omega 6-kzz-gcr-fish oil [Fish Oil] 300-1,000 mg capsule 1 cap PO QDAY propafenone 150 mg tablet 150 mg PO TID Rx Instructions: space evenly during waking hours aspirin 81 mg tablet,chewable 81 mg PO QDAY triamcinolone acetonide 0.1 % ointment 1 applic topical .Daily as needed PRN Rx Instructions: APPLY TO AFFECTED AREA desonide 0.05 % ointment 1 applic topical BID PRN estradiol 0.01 % (0.1 mg/gram) cream 1 g vaginal QWEEK Rx Instructions: Medication to be put into individually filled applicators. valacyclovir 500 mg tablet 500 mg PO DAILY polymyxin B sulf-trimethoprim 10,000 unit- 1 mg/mL drops 2 drp ophthalmic (eye) DIRECTED loteprednol etabonate 0.5 % drops,suspension 2 drp ophthalmic (eye) DIRECTED betamethasone dipropionate 0.05 % ointment 1 applic topical DIRECTED PRN Rx Instructions: can you twice a week amlodipine 5 mg tablet 5 mg PO BID tacrolimus 0.1 % ointment 1 applic topical DIRECTED PRN clobetasol 0.05 % solution 1 applic topical DIRECTED PRN rosuvastatin 10 mg tablet 10 mg PO .Bedtime Qty: 90 3RF losartan 100 mg tablet 100 mg PO DAILY Qty: 90 1RF cyanocobalamin (vitamin B-12) 1,000 mcg tablet 1,000 mcg PO DAILY Qty: 90 3RF ciclopirox 1 % shampoo 5 ml topical .2X Weekly PRN (Reason: Seborrheic dermatitis) Qty: 120 0RF Rx Instructions: 5 ml equal to one appliaction <Oneal Campo MD - Last Filed: 05/02/24 07:53> Follow Up/Referrals: Marley Mixon MD [Primary Care Provider] - <Oneal Campo MD - Last Filed: 05/02/24 07:53> Stand Alone Forms: [employer] Info Instructions <Oneal Campo MD - Last Filed: 05/02/24 07:53>
--- NOTE | 2024-04-29 15:48 | CRLHL7_ITS ---
For Patients: As a result of the Century Cures Act, medical imaging exams and procedure reports are released immediately into your electronic medical record. You may view this report before your referring provider. If you have questions, please contact your health care provider. INDICATION: Fall, injury COMPARISON: Same-day pelvic radiograph TECHNIQUE: CT of the left hip without intravenous contrast.. FINDINGS: Diffuse osseous demineralization. No evident acute displaced fracture. Focal fat stranding in the subcutaneous fat lateral to the left iliac crest and left proximal femur compatible with contusion. Severe degenerative change of the left hip. At least moderate degenerative change of the partially imaged right hip. Partially imaged degenerative change of the lumbosacral spine. Mild degenerative change of the sacroiliac joints and pubic symphysis. Chondrocalcinosis of the pubic symphysis. There is colonic diverticulosis. There are atherosclerotic vascular calcifications. Tiny fat containing left inguinal hernia and/or lipomatosis of the round ligament. Incidentally noted relaxation and descent of the pelvic floor. IMPRESSION: 1. No evident acute displaced fracture. 2. Severe degenerative change of the left hip. 3. Focal fat stranding in the subcutaneous fat lateral to the left iliac crest and left proximal femur compatible with contusion. 4. Additional chronic and incidental findings as detailed above. Please note that all CT scans at this facility use dose modulation, iterative reconstruction, and/or weight-based dosing when appropriate to reduce radiation dose to as low as reasonably achievable. Dictated by Jeromy Fuentes MD @ 04/29/2024 4:30:26 PM (Electronically Signed)
[2024-04-29] MEDS: ACETAMINOPHEN 500 MG TABLET 1000 MG PO (15:54)
[2024-04-29] MEDS: IBUPROFEN 200 MG TABLET 600 MG PO (15:54)
--- OUTSIDE RECORDS SUMMARY | 2024-04-29 16:02 | XMS_ITS | Clinical Summary ---
Author Organization [facility] Address [place], [place] [address] Care Team Providers Care Family Independence Case Manager Name Role Phone Zuly Huber MD Unavailable [phone] Vani Mohan MD Unavailable [phone] Marley Abrams MD Primary Care Provider [phone] Allergies Active Allergy Reactions Criticality Noted Date Comments Atorvastatin Myalgia 10/01/2013 Intolerance Benzophenone Rash 04/23/2018 Pisek Chloride Rash 04/23/2018 Pisek chloride hexahydrate Coconut Diethanolamide (Bulk) Rash 04/23/2018 Diazepam *Unknown 04/22/2010 Makes her more restless, anxious. Dibutyl Phthalate Rash 04/23/2018 Diphenhydramine Other - Describe In Comment Field 04/06/2010 Paradoxical rx per patient. Possible that benadryl actually keeps pt awake Dmdm Hydantoin Rash 04/23/2018 Ethyl Nizjijvg-Gj-Scpgev Methacrylate Rash 04/23/2018 Formaldehyde Atopic Dermatitis 12/10/2017 Hydrochlorothiazide Rash 05/11/2015 Possibly severe eczematous like rash Iodine Unknown reaction - patient thought it was from an allergy pill that iodine Lisinopril Cough 10/20/2012 Mercaptopurine Rash 04/23/2018 Methylisothiazolinone Rash 04/23/2018 Neomycin Sulfate Rash 04/23/2018 Nickel Sulfate Rash 04/23/2018 Unlisted Allergen (Include Detail In Comments) Rash 04/23/2018 Black rubber mix, Disperse Colbert 3, Dodecyl gallate, Ethylenediamine dihydrochloride, glyceryl thioglycolate, [...] a day ? 0 06/27/19 02 Active Ejhlr-6-CLX-EPA-F amber Oil (FISH OIL) 1,000 mg (120 [...] mg) by mouth once daily. Please call [phone] 2 months in advance to schedule an [...] (01/11/2011): rhytmol Holter normal 07/03 Follows with [place] [facility] , RECURRENT Resolved Problems Problem [...] Department Care Team Description 04/27/2024 10:00 AM TARGET WORKER Office Visit [facility] [address] [place] [address] Petey Gaxiola, PhD, LP Neuropsychological Assessment 04/27/2024 Travel 04/21/2024 12:00 PM TARGET WORKER Office Visit [facility] [address] [place] [address] Petey Gaxiola, PhD, LP Neuropsychological Assessment 04/21/2024 Travel 04/16/2024 Travel 04/15/2024 9:30 AM TARGET WORKER Office Visit [facility] [address] [place] [address] Garrett Roy DPM Consult (Right 2nd toe pain) 04/15/2024 Travel 04/14/2024 Telephone [facility] [address] [facility] [address] [place] [address] Bishop Woodruff MD, PhD Concerns 04/10/2024 Travel 04/10/2024 Telephone [facility] [address] [place] [address] Petey Gaxiola, PhD, LP Appointment Reminder 03/26/2024 Nurse Triage [facility] Centralized Nurse Triage Pcp, No 03/03/2024 Telephone [facility] [address] [facility] [address] [place] [address] Bishop Woodruff MD, PhD Allergic Reaction ( Disp Refills Start End CONNIE/chlorthalidone (HYGROTON) //) 03/02/2024 1:30 PM TARGET WORKER Office Visit [facility] [address] [facility] [address] [place] [address] Bishop Woodruff MD, PhD CV General Cardiology Est (GEN CARD F/U PER PCP--pt of Dr Huber /primary would like pt to be seen due to her high BP 126/80 /DX:I47.29 (ICD-10-CM) - Paroxysmal ventricular tachycardia (HC //PCP: Marley Abrams MD/) 03/01/2024 Travel 01/28/2024 Nurse Triage [facility] Centralized Nurse Triage Marley Abrams MD Skin Problem from Last 3 Months Immunizations Name Administration Dates Next Due Amb Influenza, Inact (High-d ose) (Flu Clinic Only) 12/23/2015,01/12/2014 COVID-19 vaccine (Publicate [employer] 30mcg/0.3mL) LEIDY PEÑALOZA 12/21/2020,06/09/2020,05/19/2020 Influenza Virus, Unspecified [...] PM CDT Legal Sex Female 5:45 AM TARGET WORKER Gender Identity Female 05/06/2020 10:11 PM TARGET WORKER Sexual Orientation Straight 07/06/2020 4: 09 [...] Comments Blood Pressure 157/68 03/02/2024 1:55 PM TARGET WORKER Pulse 76 04/15/2024 9:42 AM TARGET WORKER Temperature 36.8 C (98.2 F) 03/10/2020 2:13 PM TARGET WORKER Respiratory Rate 18 03/10/2019 11:07 AM TARGET WORKER Oxygen Saturation 97% 04/15/2024 9:42 AM TARGET WORKER Inhaled Oxygen Concentration - - Weight 58.5 kg (129 lb) 04/15/2024 9:42 AM TARGET WORKER Height 154 cm (5' 0.63) 03/02/2024 1:55 PM TARGET WORKER Body Mass Index 24.67 03/02/2024 1:55 PM TARGET WORKER Plan of Treatment Health Maintenance Due [...] history exists Medical Devices Implanted Type Area [employer] Member Device Identifier Shelf Expiration Date Model / Serial / Lot Cmnt Bone Pisek - [id number] Implanted:Qty: 2 on 04/21/2010 at [facility] Right: Knee BIOMET [id number]# / / [id number] Plate Tib Cruciate Fixed - [id number] Implanted:Qty: 1 on 04/21/2010 at [facility] Right: Knee BIOMET [id number]# / / [id number] Patella Series A Thin 31 3peg - [id number] Implanted:Qty: 1 on 04/21/2010 at [facility] Right: Knee BIOMET [id number]# / / [id number] Compnt Fem Cr Intlk 955560 Vanguard - [id number] Implanted:Qty: 1 on 04/21/2010 at [facility] Right: Knee BIOMET [id number]# / / [id number] Vanguard Tibial Bearing Implanted:Qty: 1 on 04/21/2010 at [facility] Right: Knee [id number] / / [id number] Description:VANGUARD TIBIAL BEARING Cmnt Bone Pisek - [id number] Implanted:Qty: 2 on 01/22/2011 at [facility] Left: Knee BIOMET [id number]# / / [id number] Bearing Epoly Tib As 12x67 - [id number] Implanted:Qty: 1 on 01/22/2011 at [facility] Left: Knee BIOMET [id number]# / / [id number] Compnt Fem Cr Intlk Lt 60 Vanguard - [id number] Implanted:Qty: 1 on 01/22/2011 at [facility] Left: Knee BIOMET [id number]# / / [id number] Plate Tib Cruciate Fixed - [id number] Implanted:Qty: 1 on 01/22/2011 at [facility] Left: Knee BIOMET [id number]# / / [id number] Peg Series A Pat Std 31 3 - [id number] Implanted:Qty: 1 on 01/22/2011 at [facility] Left: Knee BIOMET [id number]# / / [id number] Procedures Procedure Name Priority Date/Time Associated Diagnosis Comments EXTENDED HOLTER Routine 03/02/2024 VENTRICULAR TACHYCARDIA - NON-SUSTAINED Paroxysmal SVT (supraventricular tachycardia) (HC) XR DXA BONE DENSITY 2 SITES AXIAL Routine 04/27/2019 10:50 AM TARGET WORKER Other specified disorders of bone density and structure, multiple sites Osteopenia, unspecified location from Last 3 Months or Most Recently Relevant to Health Maintenance Results * ZIO PATCH XT - weekly to monthly symptoms. (03/02/2024) 03/02/2024 Narrative Petey Munguia MD - 03/19/2024 12:00 AM TARGET WORKER Agree with Findings. Please see scan document for full report. Signed By PETEY MUNGUIA MD Procedure Note Petey Munguia MD - 03/19/2024 Agree with Findings. Please see scan document for full report. Signed By PETEY MUNGUIA MD us Bishop Woodruff MD, PhD [facility] OR D Edited Result - Final * (ABNORMAL) XR DXA BONE DENSITY 2 SITES AXIAL (04/27/2019 10:50 AM TARGET WORKER) Anatomical Region Laterality Modality Spine, HIPS, HIPL, HIPR Other Narrative 05/05/2019 12:47 PM TARGET WORKER Please see scanned document for results of this study. 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
--- OUTSIDE RECORDS SUMMARY | 2024-04-29 16:02 | XMS_ITS | Continuity of Care Document ---
Author Organization [facility] Address [address] [place] [address] Phone Care Team Providers Care Neckties Painter Name Role Phone Lukas Noguera MD Unavailable [...] take one capsule daily - Active Ultimate [employer] CALCIO JUAN (unknown strength) take one daily [...] [facility], [address], [place], [address], [place] tel:[phone] [facility] , No Information 2 Chuckie Serrano [facility] [address], [place], [address], [place]. tel:[phone] Referring Provider: Lukas Pacheco, [facility] [address], [place], [address]. tel:[phone] [facility], [address], [place], [address], [place] tel:[phone] [facility] , No Information 2 Chuckie Gaytan. [facility] [address], [place], [address], [place]. tel:[phone] Family History Family Member Type Diagnosis Age At Onset No Information Payers Payer name Insurance type Covered green party ID Nisreena carolyn(s) [facility] [id number] Social History Type Description Quantity Date Captured [...]
== END 2024-04-29 16:57 | disposition home or self-care (01) ==
LOC: ED 16:01
PROVIDERS: Emergency Provider Family Medicine; PCP Student in an Organized Health Care Education/Training Program
DX: S22.42XA Multiple fractures of ribs, left side, initial encounter for closed fracture (principal); W01.198A Fall on same level from slipping, tripping and stumbling with subsequent striking against other object, initial encounter; M79.18 Myalgia, other site
CPT/HCPCS: 71101; 72170; 73700; 99284; 99285; A9270

== ENCOUNTER 2024-05-04 00:56 | Outpatient (CLI) | payer MEDICARE, SELFPAY | END 2024-05-04 00:57 | disposition home or self-care (01) | LOC: AMB 05-07 12:03 | PROVIDERS: PCP Student in an Organized Health Care Education/Training Program; Visit Provider Family Medicine | DX: R53.1 Weakness (principal) | CPT/HCPCS: A0998 ==

== ENCOUNTER 2024-08-24 15:17 | Outpatient (CLI) | payer MEDICARE, SELFPAY | END 2024-08-24 15:18 | disposition home or self-care (01) | LOC: NFLDREF 15:27 | PROVIDERS: PCP Internal Medicine; Visit Provider Internal Medicine | DX: E78.5 Hyperlipidemia, unspecified (principal) | CPT/HCPCS: 80061 ==